=== PATIENT | female | born 1940 | race Caucasian/White ===

== ENCOUNTER → 2020-10-21 08:39 | Outpatient (CLI) | payer MEDICARE, OTHER, SELFPAY ==
[2020-10-21] MEDS: COVID-19 VACC #1, MRNA(MOD) 100 MCG/0.5 ML VIAL IM (08:47)
== END ==
PROVIDERS: Visit Provider Internal Medicine
DX: Z23 Encounter for immunization (principal)
CPT/HCPCS: 0011A; 91301

== ENCOUNTER → 2020-11-18 08:37 | Outpatient (CLI) | payer MEDICARE, OTHER, SELFPAY ==
[2020-11-18] MEDS: COVID-19 VACC #2, MRNA(MOD) 100 MCG/0.5 ML VIAL IM (08:43)
== END ==
PROVIDERS: Visit Provider Internal Medicine
DX: Z23 Encounter for immunization (principal)
CPT/HCPCS: 0012A; 91301

== ENCOUNTER 2021-08-12 10:45 | Emergency (ER) | payer MEDICARE, OTHER, SELFPAY ==
[2021-08-12 10:53] VITALS: BP 200/88; PULSE 80; RESP 22; TEMP 36.7; O2SAT 97; BMI 30.9
--- NOTE | 2021-08-12 12:26 | ED.EXTPRO ---
HPI - Extremity Problem General Chief complaint: Extremity Problem,Nontraumatic Stated complaint: Lump/pain on lt leg, worried about blood clot Time Seen by Provider: 08/12/21 11:39 Source: patient Mode of arrival: Ambulatory Limitations: no limitations History of Present Illness HPI Narrative: The patient noticed swelling in her anterior left lower leg this morning when showering. The swelling has since then decreased. There is no erythema or drainage from the site. She denies recent injury. She has left knee osteoarthritis. She is concerned about some relationship to her knee. Her friends convinced her to be seen for concern of DVT. She has no calf pain, or lower extremity edema. She has no right leg swelling. She has no history of DVT or PE. She denies chest pain, dyspnea, or hemoptysis. The site of swelling has never been nose before. She has no rash or obvious lesion at the site. Related Data Allergies Allergy/AdvReac Type Severity Reaction Status Date / Time No Known Drug Allergies Allergy Verified 08/12/21 10:53 Review of Systems Review of Systems ROS Unobtainable: All systems reviewed & are unremarkable except as noted in HPI and below Patient History Social History Smoking Status: Never smoker Smoking Status: Never smoker Substance Use Type: does not use Exam Initial Vital Signs Initial Vital Signs: Vital Signs Temperature 98.0 F 08/12/21 10:53 Pulse Rate 80 08/12/21 10:53 Respiratory Rate 22 08/12/21 10:53 Blood Pressure 200/88 H 08/12/21 10:53 Pulse Oximetry 97 08/12/21 10:53 Const General: cooperative, healthy appearing and comfortable Skin Other: There is a slightly raised area in the left distal anterior medial tibia area. There is no erythema or warmth. The area appears to be thickened 4 x 3 cm area. In the center of this area there appears to be a small duct. There is no calf tenderness, Homans sign is negative. There is no asymmetry edema to the left lower extremity. Left dorsalis pedis pulses normal. Superficial varicose veins are noted. The varicose vein it is do not seem to be an issue. Neuro General: patient alert, patient awake, patient oriented x3 and no focal motor deficits Course Orders Ordered: ED Orders 08/12/21 10:58 US periph venous low extrem lt Stat Vital Signs Vital signs: Vital Signs - 8 hr 08/12/21 10:53 Temperature 98.0 F Pulse Rate 80 Respiratory Rate 22 Blood Pressure 200/88 H Pulse Oximetry 97 Discharge Plan Departure Patient Disposition: Home Clinical Impression: Sebaceous cyst Instructions: Epidermal Cyst Activity Restrictions/Additional Instructions: The structure on your left leg is likely a sebaceous cyst. The finding is in the anterior leg. DVTs create posterior leg pain pain and swelling. The source of swelling seems to be obvious. Your concern for DVT is anatomically inaccurate. Consider talking your doctor about a dermatology consult. If you develop persistent pain swelling or redness and tenderness to the site return here.
--- NOTE | 2021-08-12 12:47 | PC.NURSE ---
Pt appears anxious, states she has a machine and takes her blood pressure at home and they are not elevated, she speaks to her doctor about blood pressures and was instructed to follow up in-person in 6 months concerning them. Agrees to call her doctor again to follow up about ER readings, denies any dizziness or headaches.
[2021-08-12 12:50] VITALS: BP 200/93; PULSE 86; RESP 15; O2SAT 99
== END 2021-08-12 12:50 | disposition home or self-care (01) ==
PROVIDERS: Emergency Provider Emergency Medicine
DX: L72.3 Sebaceous cyst (principal)
CPT/HCPCS: 99281

== ENCOUNTER → 2022-11-07 14:54 | Outpatient (CLI) | payer MEDICARE, OTHER, SELFPAY ==
--- NOTE | 2022-11-07 14:57 | DI.RAD.S_ITS ---
PROCEDURE: XR HAND RT MIN 3V INDICATIONS: Bilateral hand pain and swelling TECHNIQUE: 3 views of the hand acquired. COMPARISON: None. FINDINGS: Bones: No acute fractures or dislocations. Carpal bones are normally aligned. No suspicious bony lesions. Ycrj-hq-[id number] degenerative changes are seen at the 1st carpometacarpal joint as well as the 1st metacarpophalangeal joint and throughout the interphalangeal joints of the fingers and thumb at pattern most compatible with osteoarthrosis. No focal osseous erosion is seen. There is mild generalized osteopenia. Soft tissues: No suspicious soft tissue calcifications. IMPRESSION: Qpuy-cl-vggkvzzj osteoarthrosis. Approved by: Joss Perez M.D. on 11/07/2022 at 16:56
--- NOTE | 2022-11-07 14:57 | DI.RAD.S_ITS ---
PROCEDURE: XR HAND LT MIN 3V INDICATIONS: Bilateral hand pain and swelling TECHNIQUE: Three views of the hand acquired. COMPARISON: None. FINDINGS: Bones: No acute fractures or dislocations. Carpal bones are normally aligned. No suspicious bony lesions. Mild generalized osteopenia. Moderate to severe degenerative changes are seen at the 1st carpometacarpal joint with subchondral sclerosis and marginal osteophyte formation. Mild to moderate scattered degenerative changes are seen at the 1st metacarpophalangeal joint and throughout the interphalangeal joints of the fingers. No definite osseous erosion is seen. Soft tissues: No suspicious soft tissue calcifications. Mild nonspecific soft tissue edema surrounding the wrist. IMPRESSION: Moderate to severe 1st carpometacarpal joint osteoarthrosis. Additional mild scattered degenerative changes throughout the hand. Approved by: Joss Perez M.D. on 11/07/2022 at 16:57
== END ==
PROVIDERS: Referring Provider Nurse Practitioner Family; Visit Provider Nurse Practitioner Family
DX: M18.12 Unilateral primary osteoarthritis of first carpometacarpal joint, left hand (principal); M19.041 Primary osteoarthritis, right hand; M25.441 Effusion, right hand; M25.442 Effusion, left hand
CPT/HCPCS: 73130

== ENCOUNTER → 2023-07-01 10:40 | Outpatient (CLI) | payer MEDICARE, OTHER, SELFPAY ==
[2023-07-01 11:09] LABS: Add Manual Diff / Slide Review NO; Basophils Absolute Auto 100 /uL (0-100); Basophils Percent Auto 1.2 % (0-2); Eosinophils Absolute Auto 600 /uL (0-450); Eosinophils Percent Auto 8.9 % (2-4); Hematocrit 35.4 % (36-46); Lymphocytes Absolute Auto 1400 /uL (1100-4500); Lymphocytes Percent Auto 21.7 % (25-40); Mean Corpuscular HGB Conc 33.9 % (30-36); Mean Corpuscular Hemoglobin 29.3 PG (26-34); Mean Corpuscular Volume 86.2 fL (80-100); Monocytes Absolute Auto 700 /uL (0-900); Monocytes Percent Auto 11.2 % (3-14); Neutrophils Absolute Auto 3700 /uL (1500-7000); Platelet Count 214 X10^3/uL (150-400); Red Blood Cell Count 4.11 X10^6/uL (4.0-5.2); Red Cell Distribution Width 13.5 % (11.6-14.8); White Blood Cell Count 6.4 X10^3/uL (4.5-11.0)
[2023-07-01 11:32] LABS: Alanine Aminotransferase 25 IU/L (<35); Albumin 3.9 g/dL (3.5-5.0); Albumin Globulin Ratio 1.7 (1.0-2.8); Alkaline Phosphatase 73 U/L (38-126); Aspartate Aminotransferase 26 IU/L (14-36); Bilirubin Total 0.5 mg/dL (0.2-1.3); Blood Urea Nitrogen 17 mg/dL (7-17); C-Reactive Protein Quant 0.8 mg/dL (<1.0); Calcium 9.7 mg/dL (8.4-10.2); Carbon Dioxide 26 mmol/L (22-32); Chloride 104 mmol/L (98-107); Estimated Glomerular Filt Rate 52 mL/min (>60); Globulin 2.3 g/dL (1.7-4.1); Glucose 105 mg/dL (80-110); HEMOLYSIS < 15 (0-50); Potassium 4.1 mmol/L (3.4-5.1); Sodium 137 mmol/L (137-145); Total Protein 6.2 g/dL (6.3-8.2)
[2023-07-01 12:10] LABS: Erythrocyte Sedimentation Rate 28 MM/HR (0-20)
== END ==
PROVIDERS: Referring Provider Physician Assistant Medical; Visit Provider Physician Assistant Medical
DX: M06.9 Rheumatoid arthritis, unspecified (principal)
CPT/HCPCS: 36415; 80053; 85025; 85651; 86140

== ENCOUNTER → 2023-08-08 15:22 | Outpatient (CLI) | payer MEDICARE, OTHER, SELFPAY ==
--- NOTE | 2023-08-08 15:24 | DI.RAD.S_ITS ---
PROCEDURE: XR LUMBAR SPINE 2-3V INDICATIONS: Lumbar pain TECHNIQUE: 3 views of the lumbar spine were acquired. COMPARISON: None. FINDINGS: Bones: 5 dvy-vow-wyayshd vertebrae are present. There is normal bony alignment. No vertebral body compression fractures. No suspicious bony lesions. Moderate degenerative disc changes throughout the lumbar spine. Moderate L3-L4, L4-L5 and L5-S1 facet arthropathy. Mild L2-L3 facet arthropathy. Soft tissues: Overlying bowel gas pattern is normal. No suspicious soft tissue calcifications. IMPRESSION: Multilevel degenerative disc disease. Multilevel facet arthropathy. No fracture. No acute osseous lesion. If symptoms and/or clinical suspicion for pathology persists, evaluation with MRI should be considered for further assessment. Dictated by: Miryam Roy MD, PhD on 08/08/2023 at 15:54 Approved by: Miryam Roy MD, PhD on 08/08/2023 at 15:54
== END ==
PROVIDERS: Referring Provider Nurse Practitioner Family; Visit Provider Nurse Practitioner Family
DX: M47.816 Spondylosis without myelopathy or radiculopathy, lumbar region (principal); M47.817 Spondylosis without myelopathy or radiculopathy, lumbosacral region; M51.36 Other intervertebral disc degeneration, lumbar region; M54.50 Low back pain, unspecified
CPT/HCPCS: 72100

== ENCOUNTER → 2023-10-08 12:38 | Outpatient (CLI) | payer MEDICARE, OTHER, SELFPAY ==
[2023-10-08 15:28] LABS: Add Manual Diff / Slide Review NO; Basophils Absolute Auto 100 /uL (0-100); Basophils Percent Auto 1.2 % (0-2); Eosinophils Absolute Auto 400 /uL (0-450); Eosinophils Percent Auto 6.2 % (2-4); Hemoglobin 12.5 g/dL (12.0-16.0); Lymphocytes Absolute Auto 1600 /uL (1100-4500); Lymphocytes Percent Auto 25.1 % (25-40); Mean Corpuscular HGB Conc 33.7 % (30-36); Mean Corpuscular Hemoglobin 29.1 PG (26-34); Mean Corpuscular Volume 86.4 fL (80-100); Monocytes Absolute Auto 800 /uL (0-900); Monocytes Percent Auto 11.9 % (3-14); Neutrophils Absolute Auto 3600 /uL (1500-7000); Neutrophils Percent Auto 55.6 % (50-75); Platelet Count 253 X10^3/uL (150-400); Red Blood Cell Count 4.29 X10^6/uL (4.0-5.2); Red Cell Distribution Width 13.6 % (11.6-14.8); White Blood Cell Count 6.6 X10^3/uL (4.5-11.0)
[2023-10-08 16:09] LABS: Erythrocyte Sedimentation Rate 21 MM/HR (0-20)
[2023-10-08 16:39] LABS: Alanine Aminotransferase 37 IU/L (<35); Albumin 4.3 g/dL (3.5-5.0); Albumin Globulin Ratio 1.7 (1.0-2.8); Alkaline Phosphatase 69 U/L (38-126); Aspartate Aminotransferase 34 IU/L (14-36); BUN Creatinine Ratio 14.4 (6-22); Bilirubin Total 0.6 mg/dL (0.2-1.3); Blood Urea Nitrogen 16 mg/dL (7-17); C-Reactive Protein Quant < 0.5 mg/dL (<1.0); Calcium 10.2 mg/dL (8.4-10.2); Carbon Dioxide 28 mmol/L (22-32); Chloride 100 mmol/L (98-107); Estimated Glomerular Filt Rate 49 mL/min (>60); Globulin 2.5 g/dL (1.7-4.1); Glucose 100 mg/dL (80-110); HEMOLYSIS < 15 (0-50); Sodium 135 mmol/L (137-145); Total Protein 6.8 g/dL (6.3-8.2)
== END ==
LOC: LAB 12:40
PROVIDERS: Referring Provider Physician Assistant Medical; Visit Provider Physician Assistant Medical
DX: M06.09 Rheumatoid arthritis without rheumatoid factor, multiple sites (principal)
CPT/HCPCS: 36415; 80053; 85025; 85651; 86140

== ENCOUNTER → 2023-11-12 09:43 | Outpatient (CLI) | payer MEDICARE, OTHER, SELFPAY ==
[2023-11-12 10:57] LABS: Hemoglobin A1C% w Est Avg Glu 5.3 % (4.0-6.0)
[2023-11-12 11:05] LABS: Alanine Aminotransferase 31 IU/L (<35); Albumin 4.1 g/dL (3.5-5.0); Albumin Globulin Ratio 1.7 (1.0-2.8); Alkaline Phosphatase 67 U/L (38-126); Aspartate Aminotransferase 29 IU/L (14-36); BUN Creatinine Ratio 16.5 (6-22); Bilirubin Total 0.6 mg/dL (0.2-1.3); Blood Urea Nitrogen 18 mg/dL (7-17); Calcium 9.7 mg/dL (8.4-10.2); Carbon Dioxide 27 mmol/L (22-32); Chloride 104 mmol/L (98-107); Estimated Glomerular Filt Rate 50 mL/min (>60); Globulin 2.4 g/dL (1.7-4.1); Glucose 111 mg/dL (80-110); HEMOLYSIS < 15 (0-50); Potassium 4.1 mmol/L (3.4-5.1); Sodium 139 mmol/L (137-145); Total Protein 6.5 g/dL (6.3-8.2)
[2023-11-12 11:15] LABS: Vitamin D 25 Hydroxy (D3) 81.9 ng/mL (30.0-100.0)
[2023-11-12 11:31] LABS: Thyroid Stimulating Hormone 1.16 uIU/mL (0.47-4.68)
[2023-11-12 12:09] LABS: Folate > 20.0 ng/mL (2.76-20.0); Vitamin B12 Reflex MMA if <400 682 pg/mL (239-931)
== END ==
PROVIDERS: PCP Family Medicine; Referring Provider Family Medicine; Visit Provider Family Medicine
DX: E66.9 Obesity, unspecified (principal); R94.4 Abnormal results of kidney function studies; R20.0 Anesthesia of skin; Z78.0 Asymptomatic menopausal state; R20.2 Paresthesia of skin
CPT/HCPCS: 36415; 80053; 82306; 82607; 82746; 83036; 83735; 84443

== ENCOUNTER 2023-11-13 08:15 | Outpatient (RCR) | payer MEDICARE, OTHER, SELFPAY ==
--- NOTE | 2023-09-18 15:57 | PT.OIE ---
Current Diagnoses Low back pain, unspecified (09/18/23) Weakness (09/18/23) Visit Care Team Role Provider Type BLADE Peterson Attending Provider Advanced Product Marketing Executive Primary Care Provider Referring Provider Specialty: Family Practice Address: [facility] [place], [address] Phone: Fax: Email: [email or web address] [facility] Initial Evaluation PT-OP-A Visit Information Start: 09/18/23 10:31 Freq: Status: Active Protocol: Document 09/18/23 10:32 NM (Rec: 09/18/23 11:33 NM [id number]) Out-Patient Physical Therapy Visit Information Visit Information Visit Type Initial Evaluation Visit Note KX modifier after 19th visit/ yr Visit Start Time 10:30 Visit Stop Time 11:15 Total Visit Minutes 45 Visit Number 1 Evaluation Information Evaluation Date 09/18/23 PT-OP-B Current Condition Start: 09/18/23 10:31 Freq: Status: Active Protocol: Document 09/18/23 10:32 NM (Rec: 09/18/23 11:33 NM [id number]) Current Condition History of Current Condition Onset Date Fall 2022 Current Complaints low back pain, R leg pain History of Current Condition Pt presents with low back pain that radiates into her RLE. The pain is along the right- center of her spine and radiates along her posterior and lateral RLE. Pt also reports numbness in her R foot , but no tingling. She reports that the low back pain began during the fall 2022 (unable to report exact month); there is no known mechanism of injury. When she went to the walk-in clinic in July, she was dx with sciatica. Pt has a PMH of OA, RA, polymyalgia rheumatica beginning 1.5 years ago. She also has had several rounds of prednisone injections. She has no previous back injuries. Her last fall was >1 yr ago when she slipped on her outdoor mat. Her primary complaints are limitated ability to perform ADLs, lifting, stooping, standing or sitting for extended periods, and difficulty sleeping due to pain. Prior Treatments and Tests Radiographs: 08/15- multilevel degenerative disc disease and facet arthopathy Treatment Goals Patient/Caregiver Goals To decrease her low back pain Prior Functional Status Baseline Function- ADL's Independent Baseline Function- Mobility Independent Current Functional Impairments (Reported) Functional Limitations- ADL's Difficulty with ADLs, lifting, picking up objects from floor , standing > 10 min, sitting > 30 min Functional Limitations- Mobility/Gait Limited to 1/2 mi ambulation when ambulating with her dog Functional Limitations- Other Unable to sleep > 2 hr PT-OP-C Subjective Start: 09/18/23 10:31 Freq: Status: Active Protocol: Document 09/18/23 10:32 NM (Rec: 09/18/23 11:33 NM [id number]) OP-PT Subjective Patient Comments Patient Comments See hx above for pt report Patient Questionnaires Oswestry Low Back Index Oswestry Score 28/50 OP-PT Pain Assessment Pain Assessment Grid Paper Pain Assessment Grid Completed Yes Location R leg Pain Location Details posterior leg to foot, lateral femur near greater trochanter , lateral glute Intensity 5 Scale Used Numeric (0 - 10) Description Burning Frequency Daily Pain Duration constant Pain Aggravating Factors ADL's,Activity,Exercise, Standing,Sitting,Walking, Lifting Pain Alleviating Factors Cold,Heat,Rest Other Pain Alleviating Factors CBD cream at night before bed Lumbar Spine Pain Location Details Midline in band pattern, R SI joint Intensity 7 Scale Used Numeric (0 - 10) Description Aching,Dull Frequency Constant Radiating Location RLE posteriorly and laterally Pain Aggravating Factors ADL's,Activity,Exercise, Standing,Sitting,Walking, Bending,Lifting Pain Alleviating Factors Cold,Heat,Rest Other Pain Alleviating Factors CBD cream at night before bed Home Pain Medication Use Pain Medications Used Yes: arthritis medication (pt does not know name), CBD cream Home Pain Medication Frequency Daily Pain Behaviors Pain Behaviors Facial Grimacing,Guarding, Holding Area,Wincing PT-OP-D Balance Start: 09/18/23 10:31 Freq: Status: Active Protocol: Document 09/18/23 10:32 NM (Rec: 09/18/23 11:33 NM [id number]) OP-PT Balance Assessment Sitting Balance Static Sitting Balance Ability Normal Dynamic Sitting Balance Ability Normal Tinetti Balance Assessment Sitting Balance Sitting Balance Steady, safe Arising from Chair Ability to Arise Able, w/o using arms Attempts to Arise Arises on 1st attempt Standing Balance Immediate Standing Balance Steady w/o support Standing Balance Narrow stance w/o support Nudged Response Staggers, catches self Standing with Eyes Closed Unsteady Turning Step Pattern Turning 360 Degrees Continuous steps Stability Turning 360 Degrees Steady Sitting Down Sitting Down Uses arms or unsteady Gait and Step Initiation of Gait No hesitancy Right Foot Step Length Does pass stance foot Right Foot Step Height Completely clears floor Left Foot Step Length Does pass stance foot Left Foot Step Height Completely clears floor Step Description Step Symmetry Step length not equal Step Continuity Stopping or discontinuity Gait Description Path Description Straight Trunk Description Marked sway or uses aide Walking Stance Heels apart Scoring and Interpretation Tinetti Composite Score (points) 20 Interpretation of Scores At risk for falls (19-24) Colon Fall Scale Copyright Permission PT-OP-E Functional Tests Start: 09/18/23 10:31 Freq: Status: Active Protocol: Document 09/18/23 10:32 NM (Rec: 09/18/23 11:33 NM [id number]) Functional Tests Five Times Sit to Stand Test Score 9.42 sec Comments reports pain with eccentric lowering Other Standing Trunk Flexion to Floor Name of Test standing with legs ext, reach twd floor, measure from floor to fingers Score 10 from floor Comment reproduces low back pain with trunk flexion PT-OP-F Manual Assessment Start: 09/18/23 10:31 Freq: Status: Active Protocol: Document 09/18/23 10:32 NM (Rec: 09/18/23 11:33 NM [id number]) Manual Assessments Soft Tissue Assessment Soft Tissue Mobility Assessment Minimal soft tissue restriction along lumbar spine paraspinals especially along quadratus lumborum, erector spinae. Tenderness along R piriformis, gluteals and at greater trochanter. No palpable bursa at greater trochanter. Joint Mobility Assessment Joint Mobility Assessment Decreased hip flex, abd ROM with slight observable limitations in IR/ER ROM. Hip flex, ext, abd reproduces pain in lumbar spine and R lateral hip. P/A mobilizations are painful at L5-S2, along R sacral border. PT-OP-G Mobility & Gait Start: 09/18/23 10:31 Freq: Status: Active Protocol: Document 09/18/23 10:32 NM (Rec: 09/18/23 11:33 NM [id number]) OP Gait Assessment Gait Gait Assistance Required: Independent Distance (Feet) 100 Gait Deviations General Gait Pattern Antalgic,Decreased Stride Length,Lateral Trunk Lean Factors Limiting Gait Function Factors Limiting Gait Function Decreased Sensation,Decreased Strength,Limited Range of Motion,Pain,Poor Balance Comments Gait Comments Decreased weight acceptance RLE PT-OP-H Neuro Start: 12/27/23 10:31 Freq: Status: Active Protocol: Document 09/18/23 10:32 NM (Rec: 09/18/23 11:33 NM [id number]) Sensation Evaluation Gross Sensation Gross Sensation Right LE Impaired Comments Summary Comments Pt reports that R foot decreased feeling of light touch sensation along dorsal surface of foot compared to L foot. Deep Tendon Reflex & Clonus Assessment Deep Tendon Reflex Left Patellar Deep Tendon Reflex 2+ Normal Right Patellar Deep Tendon Reflex 2+ Normal PT-OP-J Posture/Palpation/Skin Start: 09/18/23 10:31 Freq: Status: Active Protocol: Document 09/18/23 10:32 NM (Rec: 09/18/23 11:33 NM [id number]) Posture Evaluation Position Standing Evaluation View Lateral Head/C-Spine Posture Forward Head T-Spine Posture Increased Kyphosis L-Spine Posture Increased Lordosis,Shifted Left Pelvis Posture Anteriorly Tilted Weight Distribution Weight Shifted Left,Decreased Wt.Bear on (R) Hip Posture (L) Externally Rotated,(R) Externally Rotated Palpation Assessment Location R hip Palpation Location greater trochanter Palpation Findings Muscle Guarding,Tenderness Palpation Details Tenderness to palpation along greater trochanter and along posterior thigh near proximal hamstring. No palpable bursa, only tenderness Lumbar Spine Palpation Location T12-L5, S1-S2, Sacral borders, gluteals, erector spinae Palpation Findings Soft Tissue Tightness,Muscle Guarding,Tenderness Palpation Details Min soft tissue tightness but demos muscle guarding and reports tenderness at R gluteal muscles (fabby piriformis). R mid-sacral border is most tender of all palpated areas (no increase in pain at sacral bases or ILAs) PT-OP-K Range of Motion Start: 09/18/23 10:31 Freq: Status: Active Protocol: Document 09/18/23 10:32 NM (Rec: 09/18/23 11:33 NM [id number]) Lumbar Spine Range of Motion Lumbar Spine Active Degrees Testing Position Standing Flexion 20 Extension 10 Lateral Flexion Left 25 Lateral Flexion Right 10 Comments Pain reported with flexion ( mod pain). Pain reported in R lumbar spine with B lateral flexion Will formally assess rotation in next session (limited due to time) Hip Goniometric Range of Motion Hip Left Flexion w/Knee Flexed 105 Abduction 20 Comments Will formally assess hip ER/IR , hamstring length in next session (due to time) Right Testing Position Supine Flexion w/Knee Flexed 90 Abduction 20 Comments Will formally assess hip ER/IR , hamstring length in next session (due to time) Hip ROM Limitations Hip ROM Limitations Soft Tissue Tightness,Muscle Weakness,Pain Comments Pain reported with hip flexion at 90 deg PT-OP-L Special Tests Start: 09/18/23 10:31 Freq: Status: Active Protocol: Document 09/18/23 10:32 NM (Rec: 09/18/23 11:33 NM [id number]) Special Tests Lumbar Spine Special Tests SIJ Posterior Distraction Test Results negative (R) Comments does not reproduce lumbar spine, SIJ, or hip pain SIJ Anterior Gapping Test Results negative (B) Comments does not reproduce lumbar spine, SIJ, or hip pain Emerson/compression Test Results positive (R) Comments local pain reported R lumbar spine Straight Leg Raise Test Results positive (R) Comments reproduces low back pain, symptoms posterior RLE Distraction Test Results negative Comments does not report symptom relief Slump Test Results positive (B) Comments reports worse symptoms RLE with cervical ext PT-OP-M Strength Start: 09/18/23 10:31 Freq: Status: Active Protocol: Document 09/18/23 10:32 NM (Rec: 09/18/23 11:33 NM [id number]) Trunk Strength Trunk Manual Muscle Testing Testing Position supine, sitting Flexion 3 Fair Extension 3 Fair Rotation Left 4+ Good+ Rotation Right 4- Good- Lateral Flexion Left 4- Good- Lateral Flexion Right 4- Good- Comments Resisted R rotation, B lateral flexion reproduces pain in R lumbar spine and hip Hip Strength Hip Manual Muscle Testing Left Flexion (L2) 4 Good Extension (S1) 4 Good Abduction 4 Good External Rotation 4 Good Internal Rotation 4 Good Comments Resisted motions do not reproduce pain Right Flexion (L2) 4- Good- Extension (S1) 3+ Fair+ Abduction 3+ Fair+ External Rotation 4- Good- Internal Rotation 4- Good- Comments Reports low back pain and hip pain with flex, ext, abd Knee Strength Knee Manual Muscle Testing Left Flexion (S2) 4+ Good+ Extension (L3) 4+ Good+ Comments does not reproduced pain with resisted motions Right Flexion (S2) 4- Good- Comments Reproduces low back and hip pain PT-OP-T Assessment and Plan Start: 09/18/23 10:31 Freq: Status: Active Protocol: Document 09/18/23 10:32 NM (Rec: 09/18/23 11:33 NM [id number]) Physical Therapy Assessment Rehab Potential Rehabilitation Potential Good Evaluation Complexity Number of Personal Factors/Comorbidities 3 or More Number of Body Systems Impaired 3 Clinical Presentation at Evaluation Stable Impairments Impairments Activity Tolerance,Balance, Edema,Functional Activities, Functional Mobility,Gait, Integument,Pain,Posture,ROM, Sensation,Soft Tissue Mobility ,Strength,Transfers Goals Seven Impairment strength Impairment Trunk strength flex/ext 3/5, B lateral flex strength 4-/5 Short Term Goal (STG) Pt will increase global trunk strength by at least 1 MMT grade ea in order to demonstrate improved trunk strength and core stabilization needed for ADLs. STG Duration 4 weeks Flight Crew Scheduler Goal (LTG) Pt will increase global trunk strength by at least 2 MMT grades ea in order to demonstrate improved trunk strength and core stabilization needed for ADLs. LTG Duration 8 weeks Six Impairment balance, function Impairment Tinetti score: Short Term Goal (STG) Pt will improve Tinetti score by at least 2 points to demonstrate improved balance during ambulation and ADLs. STG Duration 4 weeks Flight Crew Scheduler Goal (LTG) Pt will improve Tinetti score by at least 4 points (low fall risk category) to demonstrate improved balance during ambulation and ADLs. LTG Duration 8 weeks Five Impairment 5x STS 9.42 sec with pain on eccentric lowering Flight Crew Scheduler Goal (LTG) Pt will perform 5x STS <10 seconds with reported pain of 5/10 or less with eccentric lowering into chair to demonstrate improved tolerance for spinal flexion. LTG Duration 8 weeks Four Impairment Strength Impairment R hip ext and abd strength 3+/ 5 MMT Short Term Goal (STG) Pt will increase R hip ext/abd to at least 4/5 in order to demonstrate improved strength needed for ambulation and ADLs . STG Duration 4 weeks Intermediate Goal (LTG) Pt will increase R hip ext/abd to at least 4+/5 in order to demonstrate improved strength needed for ambulation and ADLs . LTG Duration 8 weeks Three Impairment Strength Impairment R hip strength flex/IR/ER 4-/5 MMT Short Term Goal (STG) Pt will increase R hip flex/ER /IR strength to at least 4/5 in order to demonstrate improved strength needed for ambulation and ADLs. STG Duration 4 weeks Flight Crew Scheduler Goal (LTG) Pt will increase R hip flex/IR /ER strength to at least 4+/5 in order to demonstrate improved strength needed for ambulation and ADLs. LTG Duration 8 weeks Two Impairment ROM Impairment Trunk flexion AROM 20 deg (10 fwd reach test) Short Term Goal (STG) Pt will increase trunk flexion AROM by at least 10 deg in order to demonstrate improved ability to bulk picker objects from floor for better ADL tolerance. STG Duration 4 weeks Intermediate Goal (LTG) Pt will increase trunk flexion AROM by at least 20 deg in order to demonstrate improved ability to bulk picker objects from floor for better ADL tolerance. LTG Duration 8 weeks One Impairment function Impairment Oswestry: Short Term Goal (STG) Pt will decrease Oswestry score by at least 6 points in order to demonstrate improved ADL tolerance and QOL. STG Duration 4 weeks Intermediate Goal (LTG) Pt will decrease Oswestry score by at least 13 points (1 MCID) in order to demonstrate improved ADL tolerance and QOL. LTG Duration 8 weeks Assessment Summary Assessment Pt is an 83 y.o. female presenting with low back pain with a burning radiation into RLE (hip) and R foot numbness beginning several months ago. She demos decreased trunk ROM, especially into flexion which reproduces her pain, R>L. Pt also has decreased R hip flex/ abd ROM with weakness in flexion/ext/abduction. Pain is reproducible with resisted trunk/R hip motion and upon palpation of the gluteal muscles, lower lumbar spine, R SI joint border, and R greater trochanter. Pt has positive R sciatic neural tension tests and negative SIJ tests. Due to limitations in time, PT will continue assessing R hip in next session to rule out further involvement. Symptoms are likely related to lumbar spine . Pt reports limited ADL performance and significant PMH. Pt would benefit from skilled PT to address limitations in trunk strength and mobility, B hip strength and mobility, soft tissue restrictions, gait, and balance in order to decrease symptoms, improve quality of life, and return to PLOF. Physical Therapy Plan Frequency and Duration Frequency of Treatment 2x/Week Duration of treatment (weeks) 8 Plan of Care Start Date 09/18/23 Plan of Care End Date 11/13/23 Therapeutic Interventions Therapeutic Interventions Balance Training,Gait Training ,Home Exercise Program,Joint Mobilizations,Lymphedema Management,Manual Therapy, Neuromuscular Re-education, Orthotic/Prosthetic Management ,Patient/Caregiver Education, Self-Care/Home Management, Sensory Integration,Soft Tissue Mobilization,Taping, Therapeutic Activities, Therapeutic Exercises Modalities Biofeedback,Cold Pack/Ice Massage,Electric Stimulation, Hot Packs,Infrared Therapy, Iontophoresis,Ultrasound, Vasopneumatic Devices Next Visit Focus/Plan Next Note Type Treatment Note Next Visit Plan Traction, LTR, stretch, gentle ER stretch, nerve glide Trial extension exercises in prone(maybe modify with pillow ) Take hip and trunk rotation ROM Soft tissue mobilization
--- NOTE | 2023-09-20 14:25 | PT.OTN ---
Current Diagnoses Low back pain, unspecified (09/20/23) Weakness (09/20/23) Physical Therapy Treatment Note PT-OP-A Visit Information Start: 09/18/23 10:31 Freq: Status: Active Protocol: Document 09/20/23 13:06 NM (Rec: 09/20/23 14:12 NM [id number]) Out-Patient Physical Therapy Visit Information Visit Information Visit Type Treatment Note Visit Note KX modifier after 19th visit/ yr Visit Start Time 13:00 Visit Stop Time 13:45 Total Visit Minutes 45 Visit Number 2 Evaluation Information Evaluation Date 09/18/23 PT-OP-B Current Condition Start: 09/18/23 10:31 Freq: Status: Active Protocol: Document 09/18/23 10:32 NM (Rec: 09/18/23 11:33 NM [id number]) Current Condition History of Current Condition Onset Date Fall 2022 Current Complaints low back pain, R leg pain History of Current Condition Pt presents with low back pain that radiates into her RLE. The pain is along the right- center of her spine and radiates along her posterior and lateral RLE. Pt also reports numbness in her R foot , but no tingling. She reports that the low back pain began during the fall 2022 (unable to report exact month); there is no known mechanism of injury. When she went to the walk-in clinic in July, she was dx with sciatica. Pt has a PMH of OA, RA, polymyalgia rheumatica beginning 1.5 years ago. She also has had several rounds of prednisone injections. She has no previous back injuries. Her last fall was >1 yr ago when she slipped on her outdoor mat. Her primary complaints are limitated ability to perform ADLs, lifting, stooping, standing or sitting for extended periods, and difficulty sleeping due to pain. Prior Treatments and Tests Radiographs: 08/15- multilevel degenerative disc disease and facet arthopathy Treatment Goals Patient/Caregiver Goals To decrease her low back pain Prior Functional Status Baseline Function- ADL's Independent Baseline Function- Mobility Independent Current Functional Impairments (Reported) Functional Limitations- ADL's Difficulty with ADLs, lifting, picking up objects from floor , standing > 10 min, sitting > 30 min Functional Limitations- Mobility/Gait Limited to 1/2 mi ambulation when ambulating with her dog Functional Limitations- Other Unable to sleep > 2 hr PT-OP-C Subjective Start: 09/18/23 10:31 Freq: Status: Active Protocol: Document 09/20/23 13:06 NM (Rec: 09/20/23 14:12 NM [id number]) OP-PT Subjective Patient Comments Patient Comments Pt reports no low back pain, but her RLE posterior and lateral hip pain 6/10. She reports that her R foot was burning while driving to session today. She mixed up the time, so arrive early. She also reports soreness after IE. PT-OP-D Balance Start: 09/18/23 10:31 Freq: Status: Active Protocol: Document 09/18/23 10:32 NM (Rec: 09/18/23 11:33 NM [id number]) OP-PT Balance Assessment Sitting Balance Static Sitting Balance Ability Normal Dynamic Sitting Balance Ability Normal Tinetti Balance Assessment Sitting Balance Sitting Balance Steady, safe Arising from Chair Ability to Arise Able, w/o using arms Attempts to Arise Arises on 1st attempt Standing Balance Immediate Standing Balance Steady w/o support Standing Balance Narrow stance w/o support Nudged Response Staggers, catches self Standing with Eyes Closed Unsteady Turning Step Pattern Turning 360 Degrees Continuous steps Stability Turning 360 Degrees Steady Sitting Down Sitting Down Uses arms or unsteady Gait and Step Initiation of Gait No hesitancy Right Foot Step Length Does pass stance foot Right Foot Step Height Completely clears floor Left Foot Step Length Does pass stance foot Left Foot Step Height Completely clears floor Step Description Step Symmetry Step length not equal Step Continuity Stopping or discontinuity Gait Description Path Description Straight Trunk Description Marked sway or uses aide Walking Stance Heels apart Scoring and Interpretation Tinetti Composite Score (points) 20 Interpretation of Scores At risk for falls (19-24) Colon Fall Scale Copyright Permission PT-OP-E Functional Tests Start: 09/18/23 10:31 Freq: Status: Active Protocol: Document 09/18/23 10:32 NM (Rec: 09/18/23 11:33 NM [id number]) Functional Tests Five Times Sit to Stand Test Score 9.42 sec Comments reports pain with eccentric lowering Other Standing Trunk Flexion to Floor Name of Test standing with legs ext, reach twd floor, measure from floor to fingers Score 10 from floor Comment reproduces low back pain with trunk flexion PT-OP-F Manual Assessment Start: 09/18/23 10:31 Freq: Status: Active Protocol: Document 09/18/23 10:32 NM (Rec: 09/18/23 11:33 NM [id number]) Manual Assessments Soft Tissue Assessment Soft Tissue Mobility Assessment Minimal soft tissue restriction along lumbar spine paraspinals especially along quadratus lumborum, erector spinae. Tenderness along R piriformis, gluteals and at greater trochanter. No palpable bursa at greater trochanter. Joint Mobility Assessment Joint Mobility Assessment Decreased hip flex, abd ROM with slight observable limitations in IR/ER ROM. Hip flex, ext, abd reproduces pain in lumbar spine and R lateral hip. P/A mobilizations are painful at L5-S2, along R sacral border. PT-OP-G Mobility & Gait Start: 09/18/23 10:31 Freq: Status: Active Protocol: Document 09/18/23 10:32 NM (Rec: 09/18/23 11:33 NM [id number]) OP Gait Assessment Gait Gait Assistance Required: Independent Distance (Feet) 100 Gait Deviations General Gait Pattern Antalgic,Decreased Stride Length,Lateral Trunk Lean Factors Limiting Gait Function Factors Limiting Gait Function Decreased Sensation,Decreased Strength,Limited Range of Motion,Pain,Poor Balance Comments Gait Comments Decreased weight acceptance RLE PT-OP-H Neuro Start: 09/18/23 10:31 Freq: Status: Active Protocol: Document 09/18/23 10:32 NM (Rec: 09/18/23 11:33 NM [id number]) Sensation Evaluation Gross Sensation Gross Sensation Right LE Impaired Comments Summary Comments Pt reports that R foot decreased feeling of light touch sensation along dorsal surface of foot compared to L foot. Deep Tendon Reflex & Clonus Assessment Deep Tendon Reflex Left Patellar Deep Tendon Reflex 2+ Normal Right Patellar Deep Tendon Reflex 2+ Normal PT-OP-J Posture/Palpation/Skin Start: 09/18/23 10:31 Freq: Status: Active Protocol: Document 09/18/23 10:32 NM (Rec: 09/18/23 11:33 NM [id number]) Posture Evaluation Position Standing Evaluation View Lateral Head/C-Spine Posture Forward Head T-Spine Posture Increased Kyphosis L-Spine Posture Increased Lordosis,Shifted Left Pelvis Posture Anteriorly Tilted Weight Distribution Weight Shifted Left,Decreased Wt.Bear on (R) Hip Posture (L) Externally Rotated,(R) Externally Rotated Palpation Assessment Location R hip Palpation Location greater trochanter Palpation Findings Muscle Guarding,Tenderness Palpation Details Tenderness to palpation along greater trochanter and along posterior thigh near proximal hamstring. No palpable bursa, only tenderness Lumbar Spine Palpation Location T12-L5, S1-S2, Sacral borders, gluteals, erector spinae Palpation Findings Soft Tissue Tightness,Muscle Guarding,Tenderness Palpation Details Min soft tissue tightness but demos muscle guarding and reports tenderness at R gluteal muscles (fabby piriformis). R mid-sacral border is most tender of all palpated areas (no increase in pain at sacral bases or ILAs) PT-OP-K Range of Motion Start: 09/18/23 10:31 Freq: Status: Active Protocol: Document 09/20/23 13:06 NM (Rec: 09/20/23 14:12 NM [id number]) Lumbar Spine Range of Motion Lumbar Spine Active Degrees Testing Position Standing Flexion 20 Extension 10 Rotation Left 10 Rotation Right 8 Lateral Flexion Left 25 Lateral Flexion Right 10 Comments Pain reported with flexion ( mod pain). Pain reported in R lumbar spine with B lateral flexion Rotation measured in cm. R hip pain with R rotation Hip Goniometric Range of Motion Hip Left Flexion w/Knee Flexed 105 Straight Leg Raise 142 Abduction 20 Internal Rotation 40 External Rotation 25 Right Testing Position Supine Flexion w/Knee Flexed 90 Straight Leg Raise 140 Abduction 20 Internal Rotation 28 External Rotation 25 PT-OP-L Special Tests Start: 09/18/23 10:31 Freq: Status: Active Protocol: Document 09/18/23 10:32 NM (Rec: 09/18/23 11:33 NM [id number]) Special Tests Lumbar Spine Special Tests SIJ Posterior Distraction Test Results negative (R) Comments does not reproduce lumbar spine, SIJ, or hip pain SIJ Anterior Gapping Test Results negative (B) Comments does not reproduce lumbar spine, SIJ, or hip pain Emerson/compression Test Results positive (R) Comments local pain reported R lumbar spine Straight Leg Raise Test Results positive (R) Comments reproduces low back pain, symptoms posterior RLE Distraction Test Results negative Comments does not report symptom relief Slump Test Results positive (B) Comments reports worse symptoms RLE with cervical ext PT-OP-M Strength Start: 09/18/23 10:31 Freq: Status: Active Protocol: Document 09/18/23 10:32 NM (Rec: 09/18/23 11:33 NM [id number]) Trunk Strength Trunk Manual Muscle Testing Testing Position supine, sitting Flexion 3 Fair Extension 3 Fair Rotation Left 4+ Good+ Rotation Right 4- Good- Lateral Flexion Left 4- Good- Lateral Flexion Right 4- Good- Comments Resisted R rotation, B lateral flexion reproduces pain in R lumbar spine and hip Hip Strength Hip Manual Muscle Testing Left Flexion (L2) 4 Good Extension (S1) 4 Good Abduction 4 Good External Rotation 4 Good Internal Rotation 4 Good Comments Resisted motions do not reproduce pain Right Flexion (L2) 4- Good- Extension (S1) 3+ Fair+ Abduction 3+ Fair+ External Rotation 4- Good- Internal Rotation 4- Good- Comments Reports low back pain and hip pain with flex, ext, abd Knee Strength Knee Manual Muscle Testing Left Flexion (S2) 4+ Good+ Extension (L3) 4+ Good+ Comments does not reproduced pain with resisted motions Right Flexion (S2) 4- Good- Comments Reproduces low back and hip pain PT-OP-Q Treatments Start: 09/18/23 10:31 Freq: Status: Active Protocol: Document 09/20/23 13:06 NM (Rec: 09/20/23 14:12 NM [id number]) Therapeutic Exercises Supine Exercises LTR Supine Exercise Name for gentle LS mobilization Side bilateral Reps/Minutes 2x30 Comments limited range with R rot due to hip pain; cues to keep hips on mat Core isometrics Supine Exercise Name 1. TA activation, 2. SB flex Side bilateral Equipment Used small blue iranian ball Reps/Minutes 1. 1x10x2; 2. 1x10 with 5 sec hold Comments poor isolation of TA, but improved with iranian ball flex; LS pain after x10 Bridge Supine Exercise Name segmental bridging Reps/Minutes 1x10, 1x10 with hip add (ball btwn knees) Comments cues for post pelvic tilt, weight through heels Prone Exercises Prone on elbows Prone Exercise Name prone on mat, elbows at 90 deg Side bilateral Reps/Minutes 2x1 min Comments reports low back pain after 2nd min prone lying Prone Exercise Name prone on mat, no pillows under hips Side bilateral Reps/Minutes 2 min Comments reports feels good with no pain or hip pain Manual Therapy Treatment Soft Tissue Mobilization R hip Body Location greater trochanter, proximal ITB Mobilization Type Rolling,Sustained Pressure Intensity/Depth Superficial Body Position prone, L sidelying Comments Pt most tender to palpation along R greater trochanter, proximal IT band. Superficial mobilization with rolling, min sustained pressure along ITB. Palpable knot (likely bursa ) today at greater trochanter. Lumbar spine Body Location R QL, gluteals, piriformis Mobilization Type Rolling,Strumming,Sustained Pressure Intensity/Depth Moderate Body Position Prone Comments Pt with mild spasms in R glutes and piriformis with palpation, decreased with sustained pressure. Tenderness in muscles above R SI Joint. Pt reports min symptom improvement with soft tissue mobilization. Performed mob with movement into R hip IR/ER with soft tissue of piriformis, 1x5 reps; aggravating to R lateral hip. Joint Mobilizations Lumbar spine Joint L1-L5, R SIJ border Direction P-A Grade I Body Position Prone Reps/Duration 1x10 ea Comments Grade I mobilization for pain reduction. Reports no symptoms along lumbar spine with mobilization. Min pain and tenderness along R SIJ, not increased with gentle grade I mobilization. PT-OP-T Assessment and Plan Start: 09/18/23 10:31 Freq: Status: Active Protocol: Document 09/20/23 13:06 NM (Rec: 09/20/23 14:12 NM [id number]) Physical Therapy Assessment Goals Seven Impairment strength Impairment Trunk strength flex/ext 3/5, B lateral flex strength 4-/5 Short Term Goal (STG) Pt will increase global trunk strength by at least 1 MMT grade ea in order to demonstrate improved trunk strength and core stabilization needed for ADLs. STG Duration 4 weeks Snf Goal (LTG) Pt will increase global trunk strength by at least 2 MMT grades ea in order to demonstrate improved trunk strength and core stabilization needed for ADLs. LTG Duration 8 weeks Six Impairment balance, function Impairment Tinetti score: 20/28 Short Term Goal (STG) Pt will improve Tinetti score by at least 2 points to demonstrate improved balance during ambulation and ADLs. STG Duration 4 weeks Snf Goal (LTG) Pt will improve Tinetti score by at least 4 points (low fall risk category) to demonstrate improved balance during ambulation and ADLs. LTG Duration 8 weeks Five Impairment 5x STS 9.42 sec with pain on eccentric lowering Chemical Preparer Goal (LTG) Pt will perform 5x STS <10 seconds with reported pain of 5/10 or less with eccentric lowering into chair to demonstrate improved tolerance for spinal flexion. LTG Duration 8 weeks Four Impairment Strength Impairment R hip ext and abd strength 3+/ 5 MMT Short Term Goal (STG) Pt will increase R hip ext/abd to at least 4/5 in order to demonstrate improved strength needed for ambulation and ADLs . STG Duration 4 weeks Chemical Preparer Goal (LTG) Pt will increase R hip ext/abd to at least 4+/5 in order to demonstrate improved strength needed for ambulation and ADLs . LTG Duration 8 weeks Three Impairment Strength Impairment R hip strength flex/IR/ER 4-/5 MMT Short Term Goal (STG) Pt will increase R hip flex/ER /IR strength to at least 4/5 in order to demonstrate improved strength needed for ambulation and ADLs. STG Duration 4 weeks Chemical Preparer Goal (LTG) Pt will increase R hip flex/IR /ER strength to at least 4+/5 in order to demonstrate improved strength needed for ambulation and ADLs. LTG Duration 8 weeks Two Impairment ROM Impairment Trunk flexion AROM 20 deg (10 fwd reach test) Short Term Goal (STG) Pt will increase trunk flexion AROM by at least 10 deg in order to demonstrate improved ability to cotton picker objects from floor for better ADL tolerance. STG Duration 4 weeks Snf Goal (LTG) Pt will increase trunk flexion AROM by at least 20 deg in order to demonstrate improved ability to cotton picker objects from floor for better ADL tolerance. LTG Duration 8 weeks One Impairment function Impairment Oswestry: 28/50 Short Term Goal (STG) Pt will decrease Oswestry score by at least 6 points in order to demonstrate improved ADL tolerance and QOL. STG Duration 4 weeks Snf Goal (LTG) Pt will decrease Oswestry score by at least 13 points (1 MCID) in order to demonstrate improved ADL tolerance and QOL. LTG Duration 8 weeks Assessment Summary Assessment Pt with fair tolerance to prone lumbar spine extension exercises: prone lying and prone on elbows. Pt does not report increase in symptoms during prone except after being in prone on elbows for extended period. Initiated segmental bridge with posterior pelvic tilt and hip add this session, which pt tolerated well with no reports of increased pain. Requires cues for posterior pelvic tilt and TA activation. Pt demos difficulty with understanding transverse abdominis activation and maintaining contraction for stabilization. Will continue to address in future sessions. Manual tmt consisted of soft tissue mobilization and grade I posterior-anterior mobilizations of lumbar spine and SIJ to decrease pain. Pt continues to complain of R lateral hip pain, worse with hip ER/IR. At IE, pt only reported tenderness to palpation but no palpable finding at R greater trochanter other than tenderness; however, able to actually palpate tender point (likely bursa) today (not present at IE). Pt has hx of proximal IT band pain. Reached out to referring provider about finding and to discuss possible hip MRI depending on symptom management. HEP: bridge, LTR, prone lying and prone on elbows (no pressup). Pt would benefit from skilled PT to address impairments in trunk ROM and strength, hip ROM and strength to decrease pain symptoms, improve activity tolerance, and to improve QOL. Physical Therapy Plan Frequency and Duration Frequency of Treatment 2x/Week Duration of treatment (weeks) 8 Plan of Care Start Date 09/18/23 Plan of Care End Date 11/13/23 Therapeutic Interventions Therapeutic Interventions Balance Training,Gait Training ,Home Exercise Program,Joint Mobilizations,Lymphedema Management,Manual Therapy, Neuromuscular Re-education, Orthotic/Prosthetic Management ,Patient/Caregiver Education, Self-Care/Home Management, Sensory Integration,Soft Tissue Mobilization,Taping, Therapeutic Activities, Therapeutic Exercises Modalities Biofeedback,Cold Pack/Ice Massage,Electric Stimulation, Hot Packs,Infrared Therapy, Iontophoresis,Ultrasound, Vasopneumatic Devices Next Visit Focus/Plan Next Note Type Treatment Note Next Visit Plan Address R hip pain: strengthen and stretch IR/ER (gentle). Trial: Traction, LTR, stretch, gentle ER stretch, nerve glide. Trial hip abd, ext, IR/ ER isometric Cont extension exercises in prone as tolerated (maybe modify with pillow)- maybe add press up if tolerated Soft tissue mobilization
--- NOTE | 2023-09-24 13:45 | PT.OTN ---
Current Diagnoses Low back pain, unspecified (09/24/23) Weakness (09/24/23) Physical Therapy Treatment Note PT-OP-A Visit Information Start: 09/18/23 10:31 Freq: Status: Active Protocol: Document 09/24/23 13:01 SP (Rec: 09/24/23 13:59 SP [id number]) Out-Patient Physical Therapy Visit Information Visit Information Visit Type Treatment Note Visit Note KX modifier after 19th visit/ yr Visit Start Time 13:01 Visit Stop Time 13:45 Total Visit Minutes 44 Visit Number 3 Number of LOGISTICS PROGRAM MANAGER Visits 1 Evaluation Information Evaluation Date 09/18/23 PT-OP-B Current Condition Start: 09/18/23 10:31 Freq: Status: Active Protocol: Document 09/18/23 10:32 NM (Rec: 09/18/23 11:33 NM [id number]) Current Condition History of Current Condition Onset Date Fall 2022 Current Complaints low back pain, R leg pain History of Current Condition Pt presents with low back pain that radiates into her RLE. The pain is along the right- center of her spine and radiates along her posterior and lateral RLE. Pt also reports numbness in her R foot , but no tingling. She reports that the low back pain began during the fall 2022 (unable to report exact month); there is no known mechanism of injury. When she went to the walk-in clinic in July, she was dx with sciatica. Pt has a PMH of OA, RA, polymyalgia rheumatica beginning 1.5 years ago. She also has had several rounds of prednisone injections. She has no previous back injuries. Her last fall was >1 yr ago when she slipped on her outdoor mat. Her primary complaints are limitated ability to perform ADLs, lifting, stooping, standing or sitting for extended periods, and difficulty sleeping due to pain. Prior Treatments and Tests Radiographs: 08/15- multilevel degenerative disc disease and facet arthopathy Treatment Goals Patient/Caregiver Goals To decrease her low back pain Prior Functional Status Baseline Function- ADL's Independent Baseline Function- Mobility Independent Current Functional Impairments (Reported) Functional Limitations- ADL's Difficulty with ADLs, lifting, picking up objects from floor , standing > 10 min, sitting > 30 min Functional Limitations- Mobility/Gait Limited to 1/2 mi ambulation when ambulating with her dog Functional Limitations- Other Unable to sleep > 2 hr PT-OP-C Subjective Start: 09/18/23 10:31 Freq: Status: Active Protocol: Document 09/24/23 13:01 SP (Rec: 09/24/23 13:59 SP [id number]) OP-PT Subjective Patient Comments Patient Comments Pt reports got 4 hrs asleep last night but back still hurting. Trying to be compliant with HEP and does feeling tired. PT-OP-D Balance Start: 09/18/23 10:31 Freq: Status: Active Protocol: Document 09/18/23 10:32 NM (Rec: 09/18/23 11:33 NM [id number]) OP-PT Balance Assessment Sitting Balance Static Sitting Balance Ability Normal Dynamic Sitting Balance Ability Normal Tinetti Balance Assessment Sitting Balance Sitting Balance Steady, safe Arising from Chair Ability to Arise Able, w/o using arms Attempts to Arise Arises on 1st attempt Standing Balance Immediate Standing Balance Steady w/o support Standing Balance Narrow stance w/o support Nudged Response Staggers, catches self Standing with Eyes Closed Unsteady Turning Step Pattern Turning 360 Degrees Continuous steps Stability Turning 360 Degrees Steady Sitting Down Sitting Down Uses arms or unsteady Gait and Step Initiation of Gait No hesitancy Right Foot Step Length Does pass stance foot Right Foot Step Height Completely clears floor Left Foot Step Length Does pass stance foot Left Foot Step Height Completely clears floor Step Description Step Symmetry Step length not equal Step Continuity Stopping or discontinuity Gait Description Path Description Straight Trunk Description Marked sway or uses aide Walking Stance Heels apart Scoring and Interpretation Tinetti Composite Score (points) 20 Interpretation of Scores At risk for falls (19-24) Colon Fall Scale Copyright Permission PT-OP-E Functional Tests Start: 09/18/23 10:31 Freq: Status: Active Protocol: Document 09/18/23 10:32 NM (Rec: 09/18/23 11:33 NM [id number]) Functional Tests Five Times Sit to Stand Test Score 9.42 sec Comments reports pain with eccentric lowering Other Standing Trunk Flexion to Floor Name of Test standing with legs ext, reach twd floor, measure from floor to fingers Score 10 from floor Comment reproduces low back pain with trunk flexion PT-OP-F Manual Assessment Start: 09/18/23 10:31 Freq: Status: Active Protocol: Document 09/18/23 10:32 NM (Rec: 09/18/23 11:33 NM [id number]) Manual Assessments Soft Tissue Assessment Soft Tissue Mobility Assessment Minimal soft tissue restriction along lumbar spine paraspinals especially along quadratus lumborum, erector spinae. Tenderness along R piriformis, gluteals and at greater trochanter. No palpable bursa at greater trochanter. Joint Mobility Assessment Joint Mobility Assessment Decreased hip flex, abd ROM with slight observable limitations in IR/ER ROM. Hip flex, ext, abd reproduces pain in lumbar spine and R lateral hip. P/A mobilizations are painful at L5-S2, along R sacral border. PT-OP-G Mobility & Gait Start: 09/18/23 10:31 Freq: Status: Active Protocol: Document 09/18/23 10:32 NM (Rec: 09/18/23 11:33 NM [id number]) OP Gait Assessment Gait Gait Assistance Required: Independent Distance (Feet) 100 Gait Deviations General Gait Pattern Antalgic,Decreased Stride Length,Lateral Trunk Lean Factors Limiting Gait Function Factors Limiting Gait Function Decreased Sensation,Decreased Strength,Limited Range of Motion,Pain,Poor Balance Comments Gait Comments Decreased weight acceptance RLE PT-OP-H Neuro Start: 09/18/23 10:31 Freq: Status: Active Protocol: Document 09/18/23 10:32 NM (Rec: 09/18/23 11:33 NM [id number]) Sensation Evaluation Gross Sensation Gross Sensation Right LE Impaired Comments Summary Comments Pt reports that R foot decreased feeling of light touch sensation along dorsal surface of foot compared to L foot. Deep Tendon Reflex & Clonus Assessment Deep Tendon Reflex Left Patellar Deep Tendon Reflex 2+ Normal Right Patellar Deep Tendon Reflex 2+ Normal PT-OP-J Posture/Palpation/Skin Start: 09/18/23 10:31 Freq: Status: Active Protocol: Document 09/18/23 10:32 NM (Rec: 09/18/23 11:33 NM [id number]) Posture Evaluation Position Standing Evaluation View Lateral Head/C-Spine Posture Forward Head T-Spine Posture Increased Kyphosis L-Spine Posture Increased Lordosis,Shifted Left Pelvis Posture Anteriorly Tilted Weight Distribution Weight Shifted Left,Decreased Wt.Bear on (R) Hip Posture (L) Externally Rotated,(R) Externally Rotated Palpation Assessment Location R hip Palpation Location greater trochanter Palpation Findings Muscle Guarding,Tenderness Palpation Details Tenderness to palpation along greater trochanter and along posterior thigh near proximal hamstring. No palpable bursa, only tenderness Lumbar Spine Palpation Location T12-L5, S1-S2, Sacral borders, gluteals, erector spinae Palpation Findings Soft Tissue Tightness,Muscle Guarding,Tenderness Palpation Details Min soft tissue tightness but demos muscle guarding and reports tenderness at R gluteal muscles (fabby piriformis). R mid-sacral border is most tender of all palpated areas (no increase in pain at sacral bases or ILAs) PT-OP-K Range of Motion Start: 09/18/23 10:31 Freq: Status: Active Protocol: Document 09/20/23 13:06 NM (Rec: 09/20/23 14:12 NM [id number]) Lumbar Spine Range of Motion Lumbar Spine Active Degrees Testing Position Standing Flexion 20 Extension 10 Rotation Left 10 Rotation Right 8 Lateral Flexion Left 25 Lateral Flexion Right 10 Comments Pain reported with flexion ( mod pain). Pain reported in R lumbar spine with B lateral flexion Rotation measured in cm. R hip pain with R rotation Hip Goniometric Range of Motion Hip Left Flexion w/Knee Flexed 105 Straight Leg Raise 142 Abduction 20 Internal Rotation 40 External Rotation 25 Right Testing Position Supine Flexion w/Knee Flexed 90 Straight Leg Raise 140 Abduction 20 Internal Rotation 28 External Rotation 25 PT-OP-L Special Tests Start: 09/18/23 10:31 Freq: Status: Active Protocol: Document 09/18/23 10:32 NM (Rec: 09/18/23 11:33 NM [id number]) Special Tests Lumbar Spine Special Tests SIJ Posterior Distraction Test Results negative (R) Comments does not reproduce lumbar spine, SIJ, or hip pain SIJ Anterior Gapping Test Results negative (B) Comments does not reproduce lumbar spine, SIJ, or hip pain Emerson/compression Test Results positive (R) Comments local pain reported R lumbar spine Straight Leg Raise Test Results positive (R) Comments reproduces low back pain, symptoms posterior RLE Distraction Test Results negative Comments does not report symptom relief Slump Test Results positive (B) Comments reports worse symptoms RLE with cervical ext PT-OP-M Strength Start: 09/18/23 10:31 Freq: Status: Active Protocol: Document 09/18/23 10:32 NM (Rec: 09/18/23 11:33 NM [id number]) Trunk Strength Trunk Manual Muscle Testing Testing Position supine, sitting Flexion 3 Fair Extension 3 Fair Rotation Left 4+ Good+ Rotation Right 4- Good- Lateral Flexion Left 4- Good- Lateral Flexion Right 4- Good- Comments Resisted R rotation, B lateral flexion reproduces pain in R lumbar spine and hip Hip Strength Hip Manual Muscle Testing Left Flexion (L2) 4 Good Extension (S1) 4 Good Abduction 4 Good External Rotation 4 Good Internal Rotation 4 Good Comments Resisted motions do not reproduce pain Right Flexion (L2) 4- Good- Extension (S1) 3+ Fair+ Abduction 3+ Fair+ External Rotation 4- Good- Internal Rotation 4- Good- Comments Reports low back pain and hip pain with flex, ext, abd Knee Strength Knee Manual Muscle Testing Left Flexion (S2) 4+ Good+ Extension (L3) 4+ Good+ Comments does not reproduced pain with resisted motions Right Flexion (S2) 4- Good- Comments Reproduces low back and hip pain PT-OP-Q Treatments Start: 09/18/23 10:31 Freq: Status: Active Protocol: Document 09/24/23 13:01 SP (Rec: 09/24/23 13:59 SP [id number]) Therapeutic Exercises Supine Exercises LE neural glide Supine Exercise Name added toHEP Side right Reps/Minutes x10 ankle pumps core march Supine Exercise Name sequencial each LE DL lift/ lower Side bilateral LTR Supine Exercise Name for gentle LS mobilization Side bilateral Reps/Minutes 2x30, x10 slow ROM /c TA fac Comments limited range with R rot due to hip pain; cues to keep hips on elevated tab Core isometrics Supine Exercise Name 1. TA activation, 2. SB flex Side bilateral Equipment Used small blue guinean ball Reps/Minutes 1. 1x10x2; 2. 1x10 with 5 sec hold Comments poor isolation of TA, but improved with guinean ball flex; LS pain after x10 Bridge Supine Exercise Name segmental bridging Reps/Minutes 1x10, 1x10 with hip add (ball btwn knees) Comments cues for post pelvic tilt, weight through heels Prone Exercises Prone on elbows Prone Exercise Name prone on mat, elbows at 90 deg Side bilateral Reps/Minutes 2x1 min Comments decrease LBP PROM R hip Therapeutic Activity Therapeutic Activity TA, log rolling Comments ed for proper form and allow decrease LB recruitment. Manual Therapy Treatment Soft Tissue Mobilization R hip Body Location greater trochanter, proximal ITB Mobilization Type Rolling,Sustained Pressure Intensity/Depth Superficial Body Position prone, L sidelying Comments Pt most tender to palpation along R greater trochanter, proximal IT band. Superficial mobilization with rolling, min sustained pressure along ITB. Palpable knot (likely bursa ) today at greater trochanter. Lumbar spine Body Location R QL, gluteals, piriformis Mobilization Type Rolling,Strumming,Sustained Pressure Intensity/Depth Moderate Body Position Prone Comments Pt with mild spasms in R glutes and piriformis with palpation, decreased with sustained pressure. Tenderness in muscles above R SI Joint. Pt reports min symptom improvement with soft tissue mobilization. Performed mob with movement into R hip IR/ER with soft tissue of piriformis, 1x5 reps; aggravating to R lateral hip. Joint Mobilizations Lumbar spine Joint L1-L5, R SIJ border Direction P-A Grade I Body Position Prone Reps/Duration 1x10 ea Comments Grade I mobilization for pain reduction. Reports no symptoms along lumbar spine with mobilization. Min pain and tenderness along R SIJ, not increased with gentle grade I mobilization. PT-OP-T Assessment and Plan Start: 09/18/23 10:31 Freq: Status: Active Protocol: Document 09/24/23 13:01 SP (Rec: 09/24/23 13:59 SP [id number]) Physical Therapy Assessment Goals Seven Impairment strength Impairment Trunk strength flex/ext 3/5, B lateral flex strength 4-/5 Short Term Goal (STG) Pt will increase global trunk strength by at least 1 MMT grade ea in order to demonstrate improved trunk strength and core stabilization needed for ADLs. STG Duration 4 weeks [facility]iary Goal (LTG) Pt will increase global trunk strength by at least 2 MMT grades ea in order to demonstrate improved trunk strength and core stabilization needed for ADLs. LTG Duration 8 weeks Six Impairment balance, function Impairment Tinetti score: 20/28 Short Term Goal (STG) Pt will improve Tinetti score by at least 2 points to demonstrate improved balance during ambulation and ADLs. STG Duration 4 weeks Penit[facility]iary Goal (LTG) Pt will improve Tinetti score by at least 4 points (low fall risk category) to demonstrate improved balance during ambulation and ADLs. LTG Duration 8 weeks Five Impairment 5x STS 9.42 sec with pain on eccentric lowering [employer] Goal (LTG) Pt will perform 5x STS <10 seconds with reported pain of 5/10 or less with eccentric lowering into chair to demonstrate improved tolerance for spinal flexion. LTG Duration 8 weeks Four Impairment Strength Impairment R hip ext and abd strength 3+/ 5 MMT Short Term Goal (STG) Pt will increase R hip ext/abd to at least 4/5 in order to demonstrate improved strength needed for ambulation and ADLs . STG Duration 4 weeks [facility]iary Goal (LTG) Pt will increase R hip ext/abd to at least 4+/5 in order to demonstrate improved strength needed for ambulation and ADLs . LTG Duration 8 weeks Three Impairment Strength Impairment R hip strength flex/IR/ER 4-/5 MMT Short Term Goal (STG) Pt will increase R hip flex/ER /IR strength to at least 4/5 in order to demonstrate improved strength needed for ambulation and ADLs. STG Duration 4 weeks [facility]iary Goal (LTG) Pt will increase R hip flex/IR /ER strength to at least 4+/5 in order to demonstrate improved strength needed for ambulation and ADLs. LTG Duration 8 weeks Two Impairment ROM Impairment Trunk flexion AROM 20 deg (10 fwd reach test) Short Term Goal (STG) Pt will increase trunk flexion AROM by at least 10 deg in order to demonstrate improved ability to pick pack worker objects from floor for better ADL tolerance. STG Duration 4 weeks [employer] Goal (LTG) Pt will increase trunk flexion AROM by at least 20 deg in order to demonstrate improved ability to pick pack worker objects from floor for better ADL tolerance. LTG Duration 8 weeks One Impairment function Impairment Oswestry: 28/50 Short Term Goal (STG) Pt will decrease Oswestry score by at least 6 points in order to demonstrate improved ADL tolerance and QOL. STG Duration 4 weeks [facility]iary Goal (LTG) Pt will decrease Oswestry score by at least 13 points (1 MCID) in order to demonstrate improved ADL tolerance and QOL. LTG Duration 8 weeks Assessment Summary Assessment Pt sensitive to pressure STMs anterior/posterior greater trochanter proximal R piriformis this tx, improves with adjustment with feedback. Tolerated prone on elbows and doesn't increase symptoms. She responded well to added sequencial marching and LE neural glide with lessening symptoms into glut/ RLE. Cues for slow segmental bridge form decreased LB recruitment. CUes for TA engagement and log rolling to allow abdominal bracing support. Physical Therapy Plan Frequency and Duration Frequency of Treatment 2x/Week Duration of treatment (weeks) 8 Plan of Care Start Date 09/18/23 Plan of Care End Date 11/13/23 Therapeutic Interventions Therapeutic Interventions Balance Training,Gait Training ,Home Exercise Program,Joint Mobilizations,Lymphedema Management,Manual Therapy, Neuromuscular Re-education, Orthotic/Prosthetic Management ,Patient/Caregiver Education, Self-Care/Home Management, Sensory Integration,Soft Tissue Mobilization,Taping, Therapeutic Activities, Therapeutic Exercises Modalities Biofeedback,Cold Pack/Ice Massage,Electric Stimulation, Hot Packs,Infrared Therapy, Iontophoresis,Ultrasound, Vasopneumatic Devices Next Visit Focus/Plan Next Note Type Treatment Note Next Visit Plan Address R hip pain: strengthen and stretch IR/ER (gentle). Trial: Traction, LTR, stretch, gentle ER stretch, nerve glide. Trial hip abd, ext, IR/ ER isometric Cont extension exercises in prone as tolerated (maybe modify with pillow)- maybe add press up if tolerated Soft tissue mobilization
--- NOTE | 2023-09-26 13:03 | PT.OTN ---
Current Diagnoses Low back pain, unspecified (09/26/23) Weakness (09/26/23) Physical Therapy Treatment Note PT-OP-A Visit Information Start: 09/18/23 10:31 Freq: Status: Active Protocol: Document 09/26/23 12:16 SP (Rec: 09/26/23 13:40 SP [id number]) Out-Patient Physical Therapy Visit Information Visit Information Visit Type Treatment Note Visit Note KX modifier after 20th visit/ yr Visit Start Time 12:16 Visit Stop Time 13:03 Total Visit Minutes 47 Visit Number 4 Number of LENS EDGER Visits 2 Evaluation Information Evaluation Date 09/18/23 PT-OP-B Current Condition Start: 09/18/23 10:31 Freq: Status: Active Protocol: Document 09/18/23 10:32 NM (Rec: 09/18/23 11:33 NM [id number]) Current Condition History of Current Condition Onset Date Fall 2022 Current Complaints low back pain, R leg pain History of Current Condition Pt presents with low back pain that radiates into her RLE. The pain is along the right- center of her spine and radiates along her posterior and lateral RLE. Pt also reports numbness in her R foot , but no tingling. She reports that the low back pain began during the fall 2022 (unable to report exact month); there is no known mechanism of injury. When she went to the walk-in clinic in July, she was dx with sciatica. Pt has a PMH of OA, RA, polymyalgia rheumatica beginning 1.5 years ago. She also has had several rounds of prednisone injections. She has no previous back injuries. Her last fall was >1 yr ago when she slipped on her outdoor mat. Her primary complaints are limitated ability to perform ADLs, lifting, stooping, standing or sitting for extended periods, and difficulty sleeping due to pain. Prior Treatments and Tests Radiographs: 08/15- multilevel degenerative disc disease and facet arthopathy Treatment Goals Patient/Caregiver Goals To decrease her low back pain Prior Functional Status Baseline Function- ADL's Independent Baseline Function- Mobility Independent Current Functional Impairments (Reported) Functional Limitations- ADL's Difficulty with ADLs, lifting, picking up objects from floor , standing > 10 min, sitting > 30 min Functional Limitations- Mobility/Gait Limited to 1/2 mi ambulation when ambulating with her dog Functional Limitations- Other Unable to sleep > 2 hr PT-OP-C Subjective Start: 09/18/23 10:31 Freq: Status: Active Protocol: Document 09/26/23 12:16 SP (Rec: 09/26/23 13:40 SP [id number]) OP-PT Subjective Patient Comments Patient Comments Pt reports compliant with HEP 1x/day, mostly ok after last tx and doing HEP. Still pretty sore in LB arrival. She demonstrates an antalgic gait lateral wt shift walking. PT-OP-D Balance Start: 09/18/23 10:31 Freq: Status: Active Protocol: Document 09/18/23 10:32 NM (Rec: 09/18/23 11:33 NM [id number]) OP-PT Balance Assessment Sitting Balance Static Sitting Balance Ability Normal Dynamic Sitting Balance Ability Normal Tinetti Balance Assessment Sitting Balance Sitting Balance Steady, safe Arising from Chair Ability to Arise Able, w/o using arms Attempts to Arise Arises on 1st attempt Standing Balance Immediate Standing Balance Steady w/o support Standing Balance Narrow stance w/o support Nudged Response Staggers, catches self Standing with Eyes Closed Unsteady Turning Step Pattern Turning 360 Degrees Continuous steps Stability Turning 360 Degrees Steady Sitting Down Sitting Down Uses arms or unsteady Gait and Step Initiation of Gait No hesitancy Right Foot Step Length Does pass stance foot Right Foot Step Height Completely clears floor Left Foot Step Length Does pass stance foot Left Foot Step Height Completely clears floor Step Description Step Symmetry Step length not equal Step Continuity Stopping or discontinuity Gait Description Path Description Straight Trunk Description Marked sway or uses aide Walking Stance Heels apart Scoring and Interpretation Tinetti Composite Score (points) 20 Interpretation of Scores At risk for falls (19-24) Colon Fall Scale Copyright Permission PT-OP-E Functional Tests Start: 09/18/23 10:31 Freq: Status: Active Protocol: Document 09/18/23 10:32 NM (Rec: 09/18/23 11:33 NM [id number]) Functional Tests Five Times Sit to Stand Test Score 9.42 sec Comments reports pain with eccentric lowering Other Standing Trunk Flexion to Floor Name of Test standing with legs ext, reach twd floor, measure from floor to fingers Score 10 from floor Comment reproduces low back pain with trunk flexion PT-OP-F Manual Assessment Start: 09/18/23 10:31 Freq: Status: Active Protocol: Document 09/18/23 10:32 NM (Rec: 09/18/23 11:33 NM [id number]) Manual Assessments Soft Tissue Assessment Soft Tissue Mobility Assessment Minimal soft tissue restriction along lumbar spine paraspinals especially along quadratus lumborum, erector spinae. Tenderness along R piriformis, gluteals and at greater trochanter. No palpable bursa at greater trochanter. Joint Mobility Assessment Joint Mobility Assessment Decreased hip flex, abd ROM with slight observable limitations in IR/ER ROM. Hip flex, ext, abd reproduces pain in lumbar spine and R lateral hip. P/A mobilizations are painful at L5-S2, along R sacral border. PT-OP-G Mobility & Gait Start: 09/18/23 10:31 Freq: Status: Active Protocol: Document 09/18/23 10:32 NM (Rec: 09/18/23 11:33 NM [id number]) OP Gait Assessment Gait Gait Assistance Required: Independent Distance (Feet) 100 Gait Deviations General Gait Pattern Antalgic,Decreased Stride Length,Lateral Trunk Lean Factors Limiting Gait Function Factors Limiting Gait Function Decreased Sensation,Decreased Strength,Limited Range of Motion,Pain,Poor Balance Comments Gait Comments Decreased weight acceptance RLE PT-OP-H Neuro Start: 09/18/23 10:31 Freq: Status: Active Protocol: Document 09/18/23 10:32 NM (Rec: 09/18/23 11:33 NM [id number]) Sensation Evaluation Gross Sensation Gross Sensation Right LE Impaired Comments Summary Comments Pt reports that R foot decreased feeling of light touch sensation along dorsal surface of foot compared to L foot. Deep Tendon Reflex & Clonus Assessment Deep Tendon Reflex Left Patellar Deep Tendon Reflex 2+ Normal Right Patellar Deep Tendon Reflex 2+ Normal PT-OP-J Posture/Palpation/Skin Start: 09/18/23 10:31 Freq: Status: Active Protocol: Document 09/18/23 10:32 NM (Rec: 09/18/23 11:33 NM [id number]) Posture Evaluation Position Standing Evaluation View Lateral Head/C-Spine Posture Forward Head T-Spine Posture Increased Kyphosis L-Spine Posture Increased Lordosis,Shifted Left Pelvis Posture Anteriorly Tilted Weight Distribution Weight Shifted Left,Decreased Wt.Bear on (R) Hip Posture (L) Externally Rotated,(R) Externally Rotated Palpation Assessment Location R hip Palpation Location greater trochanter Palpation Findings Muscle Guarding,Tenderness Palpation Details Tenderness to palpation along greater trochanter and along posterior thigh near proximal hamstring. No palpable bursa, only tenderness Lumbar Spine Palpation Location T12-L5, S1-S2, Sacral borders, gluteals, erector spinae Palpation Findings Soft Tissue Tightness,Muscle Guarding,Tenderness Palpation Details Min soft tissue tightness but demos muscle guarding and reports tenderness at R gluteal muscles (fabby piriformis). R mid-sacral border is most tender of all palpated areas (no increase in pain at sacral bases or ILAs) PT-OP-K Range of Motion Start: 09/18/23 10:31 Freq: Status: Active Protocol: Document 09/20/23 13:06 NM (Rec: 09/20/23 14:12 NM [id number]) Lumbar Spine Range of Motion Lumbar Spine Active Degrees Testing Position Standing Flexion 20 Extension 10 Rotation Left 10 Rotation Right 8 Lateral Flexion Left 25 Lateral Flexion Right 10 Comments Pain reported with flexion ( mod pain). Pain reported in R lumbar spine with B lateral flexion Rotation measured in cm. R hip pain with R rotation Hip Goniometric Range of Motion Hip Left Flexion w/Knee Flexed 105 Straight Leg Raise 142 Abduction 20 Internal Rotation 40 External Rotation 25 Right Testing Position Supine Flexion w/Knee Flexed 90 Straight Leg Raise 140 Abduction 20 Internal Rotation 28 External Rotation 25 PT-OP-L Special Tests Start: 09/18/23 10:31 Freq: Status: Active Protocol: Document 09/18/23 10:32 NM (Rec: 09/18/23 11:33 NM [id number]) Special Tests Lumbar Spine Special Tests SIJ Posterior Distraction Test Results negative (R) Comments does not reproduce lumbar spine, SIJ, or hip pain SIJ Anterior Gapping Test Results negative (B) Comments does not reproduce lumbar spine, SIJ, or hip pain Emerson/compression Test Results positive (R) Comments local pain reported R lumbar spine Straight Leg Raise Test Results positive (R) Comments reproduces low back pain, symptoms posterior RLE Distraction Test Results negative Comments does not report symptom relief Slump Test Results positive (B) Comments reports worse symptoms RLE with cervical ext PT-OP-M Strength Start: 09/18/23 10:31 Freq: Status: Active Protocol: Document 09/18/23 10:32 NM (Rec: 09/18/23 11:33 NM [id number]) Trunk Strength Trunk Manual Muscle Testing Testing Position supine, sitting Flexion 3 Fair Extension 3 Fair Rotation Left 4+ Good+ Rotation Right 4- Good- Lateral Flexion Left 4- Good- Lateral Flexion Right 4- Good- Comments Resisted R rotation, B lateral flexion reproduces pain in R lumbar spine and hip Hip Strength Hip Manual Muscle Testing Left Flexion (L2) 4 Good Extension (S1) 4 Good Abduction 4 Good External Rotation 4 Good Internal Rotation 4 Good Comments Resisted motions do not reproduce pain Right Flexion (L2) 4- Good- Extension (S1) 3+ Fair+ Abduction 3+ Fair+ External Rotation 4- Good- Internal Rotation 4- Good- Comments Reports low back pain and hip pain with flex, ext, abd Knee Strength Knee Manual Muscle Testing Left Flexion (S2) 4+ Good+ Extension (L3) 4+ Good+ Comments does not reproduced pain with resisted motions Right Flexion (S2) 4- Good- Comments Reproduces low back and hip pain PT-OP-Q Treatments Start: 09/18/23 10:31 Freq: Status: Active Protocol: Document 09/26/23 12:16 SP (Rec: 09/26/23 13:40 SP [id number]) Gym Equipment Cable Column (Body Solid) Leg Curl Details add next tx leg ext Details add next tx Shuttle Recovery unilateral squat Details add next tx bilateral squat Details add next tx Therapeutic Exercises Supine Exercises core KTC Supine Exercise Name initiated in PT Side bilateral Resistance KTC /c resisted TB #2 aqua around ankles therapist anchor Reps/Minutes x10 Comments report good core effort, painfree core march Supine Exercise Name sequencial each LE DL lift/ lower Side bilateral Reps/Minutes 2x5 LTR Supine Exercise Name for gentle LS mobilization Side bilateral Equipment Used BLEs over 55cm Tball Reps/Minutes x10 R and L Comments reports R post SI lessening with reps Bridge Supine Exercise Name segmental bridging Resistance BLE over 55cm tball Reps/Minutes 2x10 Comments cued TA LS roll up/lower down, weight through heels Sitting Exercises LAQ Sitting Exercise Name added to HEP Side bilateral Resistance Tb #2 aqua at ankles Equipment Used 4# leg wt Reps/Minutes 10 reps each Comments cued fully sit back in chair, good mid quad tiring resisted side stepping Sitting Exercise Name added to HEP (able don/doff TB self around upper hess) Side bilateral Resistance Tb #2 aqua below knees/upper hess Equipment Used light contact pinth Reps/Minutes 10 ft x3 laps Comments reports painfree L knee and LB , pain when at ankles sit<>stand Sitting Exercise Name TA stand/controlled sit: added to HEP Side bilateral Equipment Used arms across chest Reps/Minutes 2x5 reps Comments cued scoot fwd in seat: hip hinge, slow descend fully to sit Standing Exercises step ups Standing Exercise Name trialed in PT- hold 09/25/23 Side bilateral Equipment Used 6 step, min BUE support on rails Reps/Minutes 5 reps each Comments causes pain in L>R knee asc & desc Other Exercises self STMs Other Exercise Name Discussed use ball on wall over piriformis/glut med Side right Comments review in person trial next tx - ran out time 09/25/23 Manual Therapy Treatment Soft Tissue Mobilization R hip Body Location R>L posterior greater trochanter/ piriformis Mobilization Type Rolling,Sustained Pressure, Other Intensity/Depth Moderate Body Position Prone over pillow Comments Pt with mild spasms in R glutes and piriformis with palpation, decreased with light/gentle strumming and sustained pressure and MWM hip IR/ ER. Lumbar spine Body Location R>L QL, ES T9-L3 Mobilization Type Rolling,Strumming,Sustained Pressure Intensity/Depth Moderate Body Position Prone over pillow Comments Reports decreased muscle tightness in R ES and QL post manual. I didn't realize how tight my middle back was getting. PT-OP-T Assessment and Plan Start: 09/18/23 10:31 Freq: Status: Active Protocol: Document 09/26/23 12:16 SP (Rec: 09/26/23 13:40 SP [id number]) Physical Therapy Assessment Goals Seven Impairment strength Impairment Trunk strength flex/ext 3/5, B lateral flex strength 4-/5 Short Term Goal (STG) Pt will increase global trunk strength by at least 1 MMT grade ea in order to demonstrate improved trunk strength and core stabilization needed for ADLs. STG Duration 4 weeks Intermediate Goal (LTG) Pt will increase global trunk strength by at least 2 MMT grades ea in order to demonstrate improved trunk strength and core stabilization needed for ADLs. LTG Duration 8 weeks Six Impairment balance, function Impairment Tinetti score: 20/28 Short Term Goal (STG) Pt will improve Tinetti score by at least 2 points to demonstrate improved balance during ambulation and ADLs. STG Duration 4 weeks Intermediate Goal (LTG) Pt will improve Tinetti score by at least 4 points (low fall risk category) to demonstrate improved balance during ambulation and ADLs. LTG Duration 8 weeks Five Impairment 5x STS 9.42 sec with pain on eccentric lowering Intermediate Goal (LTG) Pt will perform 5x STS <10 seconds with reported pain of 5/10 or less with eccentric lowering into chair to demonstrate improved tolerance for spinal flexion. LTG Duration 8 weeks Four Impairment Strength Impairment R hip ext and abd strength 3+/ 5 MMT Short Term Goal (STG) Pt will increase R hip ext/abd to at least 4/5 in order to demonstrate improved strength needed for ambulation and ADLs . STG Duration 4 weeks Manager Qa Goal (LTG) Pt will increase R hip ext/abd to at least 4+/5 in order to demonstrate improved strength needed for ambulation and ADLs . LTG Duration 8 weeks Three Impairment Strength Impairment R hip strength flex/IR/ER 4-/5 MMT Short Term Goal (STG) Pt will increase R hip flex/ER /IR strength to at least 4/5 in order to demonstrate improved strength needed for ambulation and ADLs. STG Duration 4 weeks Manager Qa Goal (LTG) Pt will increase R hip flex/IR /ER strength to at least 4+/5 in order to demonstrate improved strength needed for ambulation and ADLs. LTG Duration 8 weeks Two Impairment ROM Impairment Trunk flexion AROM 20 deg (10 fwd reach test) Short Term Goal (STG) Pt will increase trunk flexion AROM by at least 10 deg in order to demonstrate improved ability to pick pulling machine tender objects from floor for better ADL tolerance. STG Duration 4 weeks Manager Qa Goal (LTG) Pt will increase trunk flexion AROM by at least 20 deg in order to demonstrate improved ability to pick pulling machine tender objects from floor for better ADL tolerance. LTG Duration 8 weeks One Impairment function Impairment Oswestry: 28/50 Short Term Goal (STG) Pt will decrease Oswestry score by at least 6 points in order to demonstrate improved ADL tolerance and QOL. STG Duration 4 weeks Intermediate Goal (LTG) Pt will decrease Oswestry score by at least 13 points (1 MCID) in order to demonstrate improved ADL tolerance and QOL. LTG Duration 8 weeks Assessment Summary Assessment Pt reports decreased tightness post manual, discussed but didn't trial self STM ball wall. She had good response of muscle tiring quad & hip abd during added resisted LAQ and side stepping. Improved TA and LE muscular control added sit <>stand without UE support this tx and improved demonstration painfree. Trialed step ups for LE strenghening but causes knee pain so hold for now, next tx will trial shuttle recovery. Pt improved TA during supine ther ex this tx with reminder cues for slower pacing for spinal stabilization. Physical Therapy Plan Frequency and Duration Frequency of Treatment 2x/Week Duration of treatment (weeks) 8 Plan of Care Start Date 09/18/23 Plan of Care End Date 11/13/23 Therapeutic Interventions Therapeutic Interventions Balance Training,Gait Training ,Home Exercise Program,Joint Mobilizations,Lymphedema Management,Manual Therapy, Neuromuscular Re-education, Orthotic/Prosthetic Management ,Patient/Caregiver Education, Self-Care/Home Management, Sensory Integration,Soft Tissue Mobilization,Taping, Therapeutic Activities, Therapeutic Exercises Modalities Biofeedback,Cold Pack/Ice Massage,Electric Stimulation, Hot Packs,Infrared Therapy, Iontophoresis,Ultrasound, Vasopneumatic Devices Next Visit Focus/Plan Next Note Type Treatment Note Next Visit Plan Address R hip pain: strengthen and stretch IR/ER (gentle). Trial: Traction, LTR, stretch, gentle ER stretch, nerve glide. Trial hip abd, ext, IR/ ER isometric Cont extension exercises in prone as tolerated (maybe modify with pillow)- maybe add press up if tolerated Soft tissue mobilization
--- NOTE | 2023-10-01 15:49 | PT.OTN ---
Current Diagnoses Low back pain, unspecified (10/01/23) Weakness (10/01/23) Physical Therapy Treatment Note PT-OP-A Visit Information Start: 09/18/23 10:31 Freq: Status: Active Protocol: Document 10/01/23 12:16 NM (Rec: 10/01/23 13:00 NM [id number]) Out-Patient Physical Therapy Visit Information Visit Information Visit Type Treatment Note Visit Note KX modifier after 20th visit/ yr Visit Start Time 12:17 Visit Stop Time 13:00 Total Visit Minutes 43 Visit Number 5 Evaluation Information Evaluation Date 09/18/23 PT-OP-B Current Condition Start: 09/18/23 10:31 Freq: Status: Active Protocol: Document 09/18/23 10:32 NM (Rec: 09/18/23 11:33 NM [id number]) Current Condition History of Current Condition Onset Date Fall 2022 Current Complaints low back pain, R leg pain History of Current Condition Pt presents with low back pain that radiates into her RLE. The pain is along the right- center of her spine and radiates along her posterior and lateral RLE. Pt also reports numbness in her R foot , but no tingling. She reports that the low back pain began during the fall 2022 (unable to report exact month); there is no known mechanism of injury. When she went to the walk-in clinic in July, she was dx with sciatica. Pt has a PMH of OA, RA, polymyalgia rheumatica beginning 1.5 years ago. She also has had several rounds of prednisone injections. She has no previous back injuries. Her last fall was >1 yr ago when she slipped on her outdoor mat. Her primary complaints are limitated ability to perform ADLs, lifting, stooping, standing or sitting for extended periods, and difficulty sleeping due to pain. Prior Treatments and Tests Radiographs: 08/15- multilevel degenerative disc disease and facet arthopathy Treatment Goals Patient/Caregiver Goals To decrease her low back pain Prior Functional Status Baseline Function- ADL's Independent Baseline Function- Mobility Independent Current Functional Impairments (Reported) Functional Limitations- ADL's Difficulty with ADLs, lifting, picking up objects from floor , standing > 10 min, sitting > 30 min Functional Limitations- Mobility/Gait Limited to 1/2 mi ambulation when ambulating with her dog Functional Limitations- Other Unable to sleep > 2 hr PT-OP-C Subjective Start: 09/18/23 10:31 Freq: Status: Active Protocol: Document 10/01/23 12:16 NM (Rec: 10/01/23 13:00 NM [id number]) OP-PT Subjective Patient Comments Patient Comments Pt reports compliance with original HEP but not with the most recent one from last session as she just found it in her purse. She reports that she feels like the exercises are working. She reports 4/10 low back pain and minimal hip pain except during driving. She presents with decreased antalgic gait and lateral shift with ambulation. PT-OP-D Balance Start: 09/18/23 10:31 Freq: Status: Active Protocol: Document 09/18/23 10:32 NM (Rec: 09/18/23 11:33 NM [id number]) OP-PT Balance Assessment Sitting Balance Static Sitting Balance Ability Normal Dynamic Sitting Balance Ability Normal Tinetti Balance Assessment Sitting Balance Sitting Balance Steady, safe Arising from Chair Ability to Arise Able, w/o using arms Attempts to Arise Arises on 1st attempt Standing Balance Immediate Standing Balance Steady w/o support Standing Balance Narrow stance w/o support Nudged Response Staggers, catches self Standing with Eyes Closed Unsteady Turning Step Pattern Turning 360 Degrees Continuous steps Stability Turning 360 Degrees Steady Sitting Down Sitting Down Uses arms or unsteady Gait and Step Initiation of Gait No hesitancy Right Foot Step Length Does pass stance foot Right Foot Step Height Completely clears floor Left Foot Step Length Does pass stance foot Left Foot Step Height Completely clears floor Step Description Step Symmetry Step length not equal Step Continuity Stopping or discontinuity Gait Description Path Description Straight Trunk Description Marked sway or uses aide Walking Stance Heels apart Scoring and Interpretation Tinetti Composite Score (points) 20 Interpretation of Scores At risk for falls (19-24) Colon Fall Scale Copyright Permission PT-OP-E Functional Tests Start: 09/18/23 10:31 Freq: Status: Active Protocol: Document 09/18/23 10:32 NM (Rec: 09/18/23 11:33 NM [id number]) Functional Tests Five Times Sit to Stand Test Score 9.42 sec Comments reports pain with eccentric lowering Other Standing Trunk Flexion to Floor Name of Test standing with legs ext, reach twd floor, measure from floor to fingers Score 10 from floor Comment reproduces low back pain with trunk flexion PT-OP-F Manual Assessment Start: 09/18/23 10:31 Freq: Status: Active Protocol: Document 09/18/23 10:32 NM (Rec: 09/18/23 11:33 NM [id number]) Manual Assessments Soft Tissue Assessment Soft Tissue Mobility Assessment Minimal soft tissue restriction along lumbar spine paraspinals especially along quadratus lumborum, erector spinae. Tenderness along R piriformis, gluteals and at greater trochanter. No palpable bursa at greater trochanter. Joint Mobility Assessment Joint Mobility Assessment Decreased hip flex, abd ROM with slight observable limitations in IR/ER ROM. Hip flex, ext, abd reproduces pain in lumbar spine and R lateral hip. P/A mobilizations are painful at L5-S2, along R sacral border. PT-OP-G Mobility & Gait Start: 09/18/23 10:31 Freq: Status: Active Protocol: Document 09/18/23 10:32 NM (Rec: 09/18/23 11:33 NM [id number]) OP Gait Assessment Gait Gait Assistance Required: Independent Distance (Feet) 100 Gait Deviations General Gait Pattern Antalgic,Decreased Stride Length,Lateral Trunk Lean Factors Limiting Gait Function Factors Limiting Gait Function Decreased Sensation,Decreased Strength,Limited Range of Motion,Pain,Poor Balance Comments Gait Comments Decreased weight acceptance RLE PT-OP-H Neuro Start: 09/18/23 10:31 Freq: Status: Active Protocol: Document 09/18/23 10:32 NM (Rec: 09/18/23 11:33 NM [id number]) Sensation Evaluation Gross Sensation Gross Sensation Right LE Impaired Comments Summary Comments Pt reports that R foot decreased feeling of light touch sensation along dorsal surface of foot compared to L foot. Deep Tendon Reflex & Clonus Assessment Deep Tendon Reflex Left Patellar Deep Tendon Reflex 2+ Normal Right Patellar Deep Tendon Reflex 2+ Normal PT-OP-J Posture/Palpation/Skin Start: 09/18/23 10:31 Freq: Status: Active Protocol: Document 09/18/23 10:32 NM (Rec: 09/18/23 11:33 NM [id number]) Posture Evaluation Position Standing Evaluation View Lateral Head/C-Spine Posture Forward Head T-Spine Posture Increased Kyphosis L-Spine Posture Increased Lordosis,Shifted Left Pelvis Posture Anteriorly Tilted Weight Distribution Weight Shifted Left,Decreased Wt.Bear on (R) Hip Posture (L) Externally Rotated,(R) Externally Rotated Palpation Assessment Location R hip Palpation Location greater trochanter Palpation Findings Muscle Guarding,Tenderness Palpation Details Tenderness to palpation along greater trochanter and along posterior thigh near proximal hamstring. No palpable bursa, only tenderness Lumbar Spine Palpation Location T12-L5, S1-S2, Sacral borders, gluteals, erector spinae Palpation Findings Soft Tissue Tightness,Muscle Guarding,Tenderness Palpation Details Min soft tissue tightness but demos muscle guarding and reports tenderness at R gluteal muscles (fabby piriformis). R mid-sacral border is most tender of all palpated areas (no increase in pain at sacral bases or ILAs) PT-OP-K Range of Motion Start: 09/18/23 10:31 Freq: Status: Active Protocol: Document 09/20/23 13:06 NM (Rec: 09/20/23 14:12 NM [id number]) Lumbar Spine Range of Motion Lumbar Spine Active Degrees Testing Position Standing Flexion 20 Extension 10 Rotation Left 10 Rotation Right 8 Lateral Flexion Left 25 Lateral Flexion Right 10 Comments Pain reported with flexion ( mod pain). Pain reported in R lumbar spine with B lateral flexion Rotation measured in cm. R hip pain with R rotation Hip Goniometric Range of Motion Hip Left Flexion w/Knee Flexed 105 Straight Leg Raise 142 Abduction 20 Internal Rotation 40 External Rotation 25 Right Testing Position Supine Flexion w/Knee Flexed 90 Straight Leg Raise 140 Abduction 20 Internal Rotation 28 External Rotation 25 PT-OP-L Special Tests Start: 09/18/23 10:31 Freq: Status: Active Protocol: Document 09/18/23 10:32 NM (Rec: 09/18/23 11:33 NM [id number]) Special Tests Lumbar Spine Special Tests SIJ Posterior Distraction Test Results negative (R) Comments does not reproduce lumbar spine, SIJ, or hip pain SIJ Anterior Gapping Test Results negative (B) Comments does not reproduce lumbar spine, SIJ, or hip pain Emerson/compression Test Results positive (R) Comments local pain reported R lumbar spine Straight Leg Raise Test Results positive (R) Comments reproduces low back pain, symptoms posterior RLE Distraction Test Results negative Comments does not report symptom relief Slump Test Results positive (B) Comments reports worse symptoms RLE with cervical ext PT-OP-M Strength Start: 09/18/23 10:31 Freq: Status: Active Protocol: Document 09/18/23 10:32 NM (Rec: 09/18/23 11:33 NM [id number]) Trunk Strength Trunk Manual Muscle Testing Testing Position supine, sitting Flexion 3 Fair Extension 3 Fair Rotation Left 4+ Good+ Rotation Right 4- Good- Lateral Flexion Left 4- Good- Lateral Flexion Right 4- Good- Comments Resisted R rotation, B lateral flexion reproduces pain in R lumbar spine and hip Hip Strength Hip Manual Muscle Testing Left Flexion (L2) 4 Good Extension (S1) 4 Good Abduction 4 Good External Rotation 4 Good Internal Rotation 4 Good Comments Resisted motions do not reproduce pain Right Flexion (L2) 4- Good- Extension (S1) 3+ Fair+ Abduction 3+ Fair+ External Rotation 4- Good- Internal Rotation 4- Good- Comments Reports low back pain and hip pain with flex, ext, abd Knee Strength Knee Manual Muscle Testing Left Flexion (S2) 4+ Good+ Extension (L3) 4+ Good+ Comments does not reproduced pain with resisted motions Right Flexion (S2) 4- Good- Comments Reproduces low back and hip pain PT-OP-Q Treatments Start: 09/18/23 10:31 Freq: Status: Active Protocol: Document 10/01/23 12:16 NM (Rec: 10/01/23 13:00 NM [id number]) Gym Equipment Cable Column (Body Solid) Leg Curl Details add next tx leg ext Details add next tx Shuttle Recovery unilateral squat Details add next tx if tolerated bilateral squat Details Trialed today Resistance 50# (2 teal) Shuttle Recovery Platform Stable Reps/Time 2x5, reports soreness in R glute Therapeutic Exercises Supine Exercises BKFO Supine Exercise Name for core stab, gentle LS mobilization Side bilateral Reps/Minutes 1x10 ea leg Comments cues for core stab; no pain reported core KTC Side bilateral Resistance KTC /c resisted TB #2 aqua around ankles therapist anchor Reps/Minutes x10 Comments report good core effort, painfree core march Supine Exercise Name sequential each LE DL lift/ lower Side bilateral Reps/Minutes 2x8 Comments good feedback; no pain reported; cued for core stab, slow lowering Bridge Supine Exercise Name segmental bridging Resistance BLE over 55cm tball Reps/Minutes 2x10 Comments cued TA LS roll up/lower down, weight through heels; reports no pain Sitting Exercises LAQ Side bilateral Resistance Tb #2 aqua at ankles Equipment Used 4# leg wt Reps/Minutes 2x8 reps each Comments reports good fatigue; no pain resisted side stepping Sitting Exercise Name added to HEP (able don/doff TB self around upper hess) Side bilateral Resistance Tb #2 aqua below knees/upper hess Equipment Used light contact pinth Reps/Minutes 20 ft x2 laps Comments reports painfree L knee and LB , pain when at ankles sit<>stand Sitting Exercise Name TA stand/controlled sit; band around thighs Side bilateral Resistance reports minimal pain with eccentric lowering, cued to limit LS lordosis Equipment Used arms across chest Reps/Minutes 3x5 reps Comments cued scoot fwd in seat: hip hinge, slow descend fully to sit Manual Therapy Treatment Soft Tissue Mobilization R hip Body Location R>L posterior greater trochanter/ piriformis Mobilization Type Rolling,Sustained Pressure, Other Intensity/Depth Moderate Body Position Prone over pillow Comments Pt with very few spasms in R glutes and piriformis with palpation, decreased with light/gentle strumming and sustained pressure and MWM hip IR/ ER. Tolerates well and reports less pain/discomfort with repetition Lumbar spine Body Location R>L QL, ES L1-L5 Mobilization Type Rolling,Strumming,Sustained Pressure Intensity/Depth Moderate Body Position Prone over pillow Comments Reports decreased muscle tightness and tenderness in R ES and QL post manual. Joint Mobilizations Lumbar spine Joint L1-L5, R SIJ border Direction P-A Grade II Body Position Prone Reps/Duration 1x10 ea Comments Grade II mobilization for pain reduction. Reports no symptoms along lumbar spine with mobilization. Min pain and tenderness along R SIJ, not increased with gentle grade II mobilization. Reports overall pain reduction after manual tmt PT-OP-T Assessment and Plan Start: 09/18/23 10:31 Freq: Status: Active Protocol: Document 10/01/23 12:16 NM (Rec: 10/01/23 13:00 NM [id number]) Physical Therapy Assessment Goals Seven Impairment strength Impairment Trunk strength flex/ext 3/5, B lateral flex strength 4-/5 Short Term Goal (STG) Pt will increase global trunk strength by at least 1 MMT grade ea in order to demonstrate improved trunk strength and core stabilization needed for ADLs. STG Duration 4 weeks Desk Lieutenant Goal (LTG) Pt will increase global trunk strength by at least 2 MMT grades ea in order to demonstrate improved trunk strength and core stabilization needed for ADLs. LTG Duration 8 weeks Six Impairment balance, function Impairment Tinetti score: Short Term Goal (STG) Pt will improve Tinetti score by at least 2 points to demonstrate improved balance during ambulation and ADLs. STG Duration 4 weeks Nursing Home Goal (LTG) Pt will improve Tinetti score by at least 4 points (low fall risk category) to demonstrate improved balance during ambulation and ADLs. LTG Duration 8 weeks Five Impairment 5x STS 9.42 sec with pain on eccentric lowering Desk Lieutenant Goal (LTG) Pt will perform 5x STS <10 seconds with reported pain of 5/10 or less with eccentric lowering into chair to demonstrate improved tolerance for spinal flexion. LTG Duration 8 weeks Four Impairment Strength Impairment R hip ext and abd strength 3+/ 5 MMT Short Term Goal (STG) Pt will increase R hip ext/abd to at least 4/5 in order to demonstrate improved strength needed for ambulation and ADLs . STG Duration 4 weeks Desk Lieutenant Goal (LTG) Pt will increase R hip ext/abd to at least 4+/5 in order to demonstrate improved strength needed for ambulation and ADLs . LTG Duration 8 weeks Three Impairment Strength Impairment R hip strength flex/IR/ER 4-/5 MMT Short Term Goal (STG) Pt will increase R hip flex/ER /IR strength to at least 4/5 in order to demonstrate improved strength needed for ambulation and ADLs. STG Duration 4 weeks Desk Lieutenant Goal (LTG) Pt will increase R hip flex/IR /ER strength to at least 4+/5 in order to demonstrate improved strength needed for ambulation and ADLs. LTG Duration 8 weeks Two Impairment ROM Impairment Trunk flexion AROM 20 deg (10 fwd reach test) Short Term Goal (STG) Pt will increase trunk flexion AROM by at least 10 deg in order to demonstrate improved ability to last picker objects from floor for better ADL tolerance. STG Duration 4 weeks Desk Lieutenant Goal (LTG) Pt will increase trunk flexion AROM by at least 20 deg in order to demonstrate improved ability to last picker objects from floor for better ADL tolerance. LTG Duration 8 weeks One Impairment function Impairment Oswestry: Short Term Goal (STG) Pt will decrease Oswestry score by at least 6 points in order to demonstrate improved ADL tolerance and QOL. STG Duration 4 weeks Desk Lieutenant Goal (LTG) Pt will decrease Oswestry score by at least 13 points (1 MCID) in order to demonstrate improved ADL tolerance and QOL. LTG Duration 8 weeks Assessment Summary Assessment Pt tolerated tmt well and reports decreased low back pain (2/10) after session completion. Pt presents with less lateral translation during gait, although still antalgic. She demos improved tolerance for core and glute/ quad strengthening exercises. Initiated B squat on leg press at 50# to determine pt tolerance. Pt reports feeling it in glutes, but no pain in hips or low back. PT educated pt on soreness vs pain vs muscle activation as pt demos BLE weakness; pt verbalizes understanding. Continued with side steps and sit to stand training for hip abduction/ glute strengthening; added teal band to prevent knee valgus with sit to stand. Pt reports minimal pain with eccentric lowering, which improves with tactile and verbal cues to limit lumbar extension (excess lordosis) while moving to sitting position. Pt still has lumbar flexion-preference; tolerates core stabilization exercises well but would benefit from further repetition as she progresses from supine to sitting/standing with activity . Manual tmt to reduce pt lumbar paraspinal pain and grade II mobilization along L1 -L5 and B SIJs for further pain reduction and to begin improving spine mobility. HEP: seated LAQ with band, STS, lateral monster walk. Pt would benefit from skilled PT to improve BLE and trunk strength , to retrain balance and gait along with endurance in order to improve activity tolerance, improve QOL, and improve pain management. Physical Therapy Plan Frequency and Duration Frequency of Treatment 2x/Week Duration of treatment (weeks) 8 Plan of Care Start Date 09/18/23 Plan of Care End Date 11/13/23 Therapeutic Interventions Therapeutic Interventions Balance Training,Gait Training ,Home Exercise Program,Joint Mobilizations,Lymphedema Management,Manual Therapy, Neuromuscular Re-education, Orthotic/Prosthetic Management ,Patient/Caregiver Education, Self-Care/Home Management, Sensory Integration,Soft Tissue Mobilization,Taping, Therapeutic Activities, Therapeutic Exercises Modalities Biofeedback,Cold Pack/Ice Massage,Electric Stimulation, Hot Packs,Infrared Therapy, Iontophoresis,Ultrasound, Vasopneumatic Devices Next Visit Focus/Plan Next Note Type Treatment Note Next Visit Plan Address R hip pain if present: strengthen and stretch IR/ER (gentle). Continue with BLE strengthening: U squat, LAQ/ HSC with machines, cont flexion-based LS strengthening Trial: Traction, LTR, stretch, gentle ER stretch, nerve glide. Trial hip abd, ext, IR/ ER isometric Cont extension exercises in prone as tolerated (maybe modify with pillow)- maybe add press up if tolerated Soft tissue mobilization
--- NOTE | 2023-10-03 16:51 | PT.OTN ---
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 The pain is along the right- center of her spine and radiates along her posterior and lateral RLE. Pt also reports numbness in her R foot , but no tingling. She reports that the low back pain began during the fall 2022 (unable to report exact month); there is no known mechanism of injury. When she went to the walk-in clinic in July, she was dx with sciatica. Pt has a PMH of OA, RA, polymyalgia rheumatica beginning 1.5 years ago. She also has had several rounds of prednisone injections. She has no previous back injuries. Her last fall was >1 yr ago when she slipped on her outdoor mat. Her primary complaints are limitated ability to perform ADLs, lifting, stooping, standing or sitting for extended periods, and difficulty sleeping due to pain. Prior Treatments and Tests Radiographs: 08/15- multilevel degenerative disc disease and facet arthopathy Treatment Goals Patient/Caregiver Goals To decrease her low back pain Prior Functional Status Baseline Function- ADL's Independent Baseline Function- Mobility Independent Current Functional Impairments (Reported) Functional Limitations- ADL's Difficulty with ADLs, lifting, picking up objects from floor , standing > 10 min, sitting > 30 min Functional Limitations- Mobility/Gait Limited to 1/2 mi ambulation when ambulating with her dog Functional Limitations- Other Unable to sleep > 2 hr PT-OP-C Subjective Start: 09/18/23 10:31 Freq: Status: Active Protocol: Document 10/03/23 13:04 SW (Rec: 10/03/23 13:48 SW [id number]) OP-PT Subjective Patient Comments Patient Comments Pt reports pain in R glute , forgot to put towel under while driving. Pt reports gets burning pain in distal LLE into foot at times. PT-OP-D Balance Start: 09/18/23 10:31 Freq: Status: Active Protocol: Document 09/18/23 10:32 NM (Rec: 09/18/23 11:33 NM [id number]) OP-PT Balance Assessment Sitting Balance Static Sitting Balance Ability Normal Dynamic Sitting Balance Ability Normal Tinetti Balance Assessment Sitting Balance Sitting Balance Steady, safe Arising from Chair Ability to Arise Able, w/o using arms Attempts to Arise Arises on 1st attempt Standing Balance Immediate Standing Balance Steady w/o support Standing Balance Narrow stance w/o support Nudged Response Staggers, catches self Standing with Eyes Closed Unsteady Turning Step Pattern Turning 360 Degrees Continuous steps Stability Turning 360 Degrees Steady Sitting Down Sitting Down Uses arms or unsteady Gait and Step Initiation of Gait No hesitancy Right Foot Step Length Does pass stance foot Right Foot Step Height Completely clears floor Left Foot Step Length Does pass stance foot Left Foot Step Height Completely clears floor Step Description Step Symmetry Step length not equal Step Continuity Stopping or discontinuity Gait Description Path Description Straight Trunk Description Marked sway or uses aide Walking Stance Heels apart Scoring and Interpretation Tinetti Composite Score (points) 20 Interpretation of Scores At risk for falls (19-24) Colon Fall Scale Copyright Permission PT-OP-E Functional Tests Start: 09/18/23 10:31 Freq: Status: Active Protocol: Document 09/18/23 10:32 NM (Rec: 09/18/23 11:33 NM [id number]) Functional Tests Five Times Sit to Stand Test Score 9.42 sec Comments reports pain with eccentric lowering Other Standing Trunk Flexion to Floor Name of Test standing with legs ext, reach twd floor, measure from floor to fingers Score 10 from floor Comment reproduces low back pain with trunk flexion PT-OP-F Manual Assessment Start: 09/18/23 10:31 Freq: Status: Active Protocol: Document 09/18/23 10:32 NM (Rec: 09/18/23 11:33 NM [id number]) Manual Assessments Soft Tissue Assessment Soft Tissue Mobility Assessment Minimal soft tissue restriction along lumbar spine paraspinals especially along quadratus lumborum, erector spinae. Tenderness along R piriformis, gluteals and at greater trochanter. No palpable bursa at greater trochanter. Joint Mobility Assessment Joint Mobility Assessment Decreased hip flex, abd ROM with slight observable limitations in IR/ER ROM. Hip flex, ext, abd reproduces pain in lumbar spine and R lateral hip. P/A mobilizations are painful at L5-S2, along R sacral border. PT-OP-G Mobility & Gait Start: 09/18/23 10:31 Freq: Status: Active Protocol: Document 09/18/23 10:32 NM (Rec: 09/18/23 11:33 NM [id number]) OP Gait Assessment Gait Gait Assistance Required: Independent Distance (Feet) 100 Gait Deviations General Gait Pattern Antalgic,Decreased Stride Length,Lateral Trunk Lean Factors Limiting Gait Function Factors Limiting Gait Function Decreased Sensation,Decreased Strength,Limited Range of Motion,Pain,Poor Balance Comments Gait Comments Decreased weight acceptance RLE PT-OP-H Neuro Start: 09/18/23 10:31 Freq: Status: Active Protocol: Document 09/18/23 10:32 NM (Rec: 09/18/23 11:33 NM [id number]) Sensation Evaluation Gross Sensation Gross Sensation Right LE Impaired Comments Summary Comments Pt reports that R foot decreased feeling of light touch sensation along dorsal surface of foot compared to L foot. Deep Tendon Reflex & Clonus Assessment Deep Tendon Reflex Left Patellar Deep Tendon Reflex 2+ Normal Right Patellar Deep Tendon Reflex 2+ Normal PT-OP-J Posture/Palpation/Skin Start: 09/18/23 10:31 Freq: Status: Active Protocol: Document 09/18/23 10:32 NM (Rec: 09/18/23 11:33 NM [id number]) Posture Evaluation Position Standing Evaluation View Lateral Head/C-Spine Posture Forward Head T-Spine Posture Increased Kyphosis L-Spine Posture Increased Lordosis,Shifted Left Pelvis Posture Anteriorly Tilted Weight Distribution Weight Shifted Left,Decreased Wt.Bear on (R) Hip Posture (L) Externally Rotated,(R) Externally Rotated Palpation Assessment Location R hip Palpation Location greater trochanter Palpation Findings Muscle Guarding,Tenderness Palpation Details Tenderness to palpation along greater trochanter and along posterior thigh near proximal hamstring. No palpable bursa, only tenderness Lumbar Spine Palpation Location T12-L5, S1-S2, Sacral borders, gluteals, erector spinae Palpation Findings Soft Tissue Tightness,Muscle Guarding,Tenderness Palpation Details Min soft tissue tightness but demos muscle guarding and reports tenderness at R gluteal muscles (fabby piriformis). R mid-sacral border is most tender of all palpated areas (no increase in pain at sacral bases or ILAs) PT-OP-K Range of Motion Start: 09/18/23 10:31 Freq: Status: Active Protocol: Document 09/20/23 13:06 NM (Rec: 09/20/23 14:12 NM [id number]) Lumbar Spine Range of Motion Lumbar Spine Active Degrees Testing Position Standing Flexion 20 Extension 10 Rotation Left 10 Rotation Right 8 Lateral Flexion Left 25 Lateral Flexion Right 10 Comments Pain reported with flexion ( mod pain). Pain reported in R lumbar spine with B lateral flexion Rotation measured in cm. R hip pain with R rotation Hip Goniometric Range of Motion Hip Left Flexion w/Knee Flexed 105 Straight Leg Raise 142 Abduction 20 Internal Rotation 40 External Rotation 25 Right Testing Position Supine Flexion w/Knee Flexed 90 Straight Leg Raise 140 Abduction 20 Internal Rotation 28 External Rotation 25 PT-OP-L Special Tests Start: 09/18/23 10:31 Freq: Status: Active Protocol: Document 09/18/23 10:32 NM (Rec: 09/18/23 11:33 NM [id number]) Special Tests Lumbar Spine Special Tests SIJ Posterior Distraction Test Results negative (R) Comments does not reproduce lumbar spine, SIJ, or hip pain SIJ Anterior Gapping Test Results negative (B) Comments does not reproduce lumbar spine, SIJ, or hip pain Emerson/compression Test Results positive (R) Comments local pain reported R lumbar spine Straight Leg Raise Test Results positive (R) Comments reproduces low back pain, symptoms posterior RLE Distraction Test Results negative Comments does not report symptom relief Slump Test Results positive (B) Comments reports worse symptoms RLE with cervical ext PT-OP-M Strength Start: 09/18/23 10:31 Freq: Status: Active Protocol: Document 09/18/23 10:32 NM (Rec: 09/18/23 11:33 NM [id number]) Trunk Strength Trunk Manual Muscle Testing Testing Position supine, sitting Flexion 3 Fair Extension 3 Fair Rotation Left 4+ Good+ Rotation Right 4- Good- Lateral Flexion Left 4- Good- Lateral Flexion Right 4- Good- Comments Resisted R rotation, B lateral flexion reproduces pain in R lumbar spine and hip Hip Strength Hip Manual Muscle Testing Left Flexion (L2) 4 Good Extension (S1) 4 Good Abduction 4 Good External Rotation 4 Good Internal Rotation 4 Good Comments Resisted motions do not reproduce pain Right Flexion (L2) 4- Good- Extension (S1) 3+ Fair+ Abduction 3+ Fair+ External Rotation 4- Good- Internal Rotation 4- Good- Comments Reports low back pain and hip pain with flex, ext, abd Knee Strength Knee Manual Muscle Testing Left Flexion (S2) 4+ Good+ Extension (L3) 4+ Good+ Comments does not reproduced pain with resisted motions Right Flexion (S2) 4- Good- Comments Reproduces low back and hip pain PT-OP-Q Treatments Start: 09/18/23 10:31 Freq: Status: Active Protocol: Document 10/03/23 13:04 (Rec: 10/03/23 13:48 [id number]) Gym Equipment Cable Column (Body Solid) Leg Curl Resistance 20# Reps/Time x10 leg ext Resistance 10# Reps/Time x10 Shuttle Recovery unilateral squat Resistance 25 Shuttle Recovery Platform Stable Reps/Time 2x5 bilateral squat Resistance 50# (2 teal) Shuttle Recovery Platform Stable Reps/Time 2x5, reports soreness in R glute Therapeutic Exercises Supine Exercises BKFO Supine Exercise Name for core stab, gentle LS mobilization Side bilateral Reps/Minutes 1x10 ea leg Comments cues for core stab; no pain reported core KTC Side bilateral Resistance KTC /c resisted TB #2 aqua around ankles therapist anchor Reps/Minutes x10 Comments report good core effort, painfree core march Supine Exercise Name sequential each LE DL lift/ lower Side bilateral Reps/Minutes 2x8 Comments good feedback; no pain reported; cued for core stab, slow lowering LTR Supine Exercise Name for gentle LS mobilization Side bilateral Equipment Used BLEs over 55cm Tball Reps/Minutes x10 R and L Comments reports R post SI lessening with reps Bridge Supine Exercise Name segmental bridging Resistance BLE over 55cm tball Reps/Minutes 2x10 Comments cued TA LS roll up/lower down, weight through heels; reports no pain Sitting Exercises LAQ Side bilateral Resistance Tb #2 aqua at ankles Equipment Used 4# leg wt Reps/Minutes 2x8 reps each Comments reports good fatigue; no pain PT-OP-T Assessment and Plan Start: 09/18/23 10:31 Freq: Status: Active Protocol: Document 10/03/23 13:04 (Rec: 10/03/23 13:48 [id number]) Physical Therapy Assessment Goals Seven Impairment strength Impairment Trunk strength flex/ext 3/5, B lateral flex strength 4-/5 Short Term Goal (STG) Pt will increase global trunk strength by at least 1 MMT grade ea in order to demonstrate improved trunk strength and core stabilization needed for ADLs. STG Duration 4 weeks Care Home Goal (LTG) Pt will increase global trunk strength by at least 2 MMT grades ea in order to demonstrate improved trunk strength and core stabilization needed for ADLs. LTG Duration 8 weeks Six Impairment balance, function Impairment Tinetti score: Short Term Goal (STG) Pt will improve Tinetti score by at least 2 points to demonstrate improved balance during ambulation and ADLs. STG Duration 4 weeks Sales Service Assistant Goal (LTG) Pt will improve Tinetti score by at least 4 points (low fall risk category) to demonstrate improved balance during ambulation and ADLs. LTG Duration 8 weeks Five Impairment 5x STS 9.42 sec with pain on eccentric lowering Care Home Goal (LTG) Pt will perform 5x STS <10 seconds with reported pain of 5/10 or less with eccentric lowering into chair to demonstrate improved tolerance for spinal flexion. LTG Duration 8 weeks Four Impairment Strength Impairment R hip ext and abd strength 3+/ 5 MMT Short Term Goal (STG) Pt will increase R hip ext/abd to at least 4/5 in order to demonstrate improved strength needed for ambulation and ADLs . STG Duration 4 weeks Care Home Goal (LTG) Pt will increase R hip ext/abd to at least 4+/5 in order to demonstrate improved strength needed for ambulation and ADLs . LTG Duration 8 weeks Three Impairment Strength Impairment R hip strength flex/IR/ER 4-/5 MMT Short Term Goal (STG) Pt will increase R hip flex/ER /IR strength to at least 4/5 in order to demonstrate improved strength needed for ambulation and ADLs. STG Duration 4 weeks Sales Service Assistant Goal (LTG) Pt will increase R hip flex/IR /ER strength to at least 4+/5 in order to demonstrate improved strength needed for ambulation and ADLs. 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 STG Duration 4 weeks Care Home Goal (LTG) Pt will increase trunk flexion AROM by at least 20 deg in order to demonstrate improved ability to fruit picker machine operator objects from floor for better ADL tolerance. LTG Duration 8 weeks One Impairment function Impairment Oswestry: 28/50 Short Term Goal (STG) Pt will decrease Oswestry score by at least 6 points in order to demonstrate improved ADL tolerance and QOL. STG Duration 4 weeks Care Home Goal (LTG) Pt will decrease Oswestry score by at least 13 points (1 MCID) in order to demonstrate improved ADL tolerance and QOL. LTG Duration 8 weeks Assessment Summary Assessment Initiated LE strengthening with machines, pt able to tolerated more load with knee flex vs knee ext, good feedback no increase in symptoms. Progressed pt with unilateral squat on leg press for strengthening, good tolerance, no increase in symptoms. Plan to assess pt tolerance to addition of new exercises next session and progress as able. Physical Therapy Plan Frequency and Duration Frequency of Treatment 2x/Week Duration of treatment (weeks) 8 Plan of Care Start Date 09/18/23 Plan of Care End Date 11/13/23 Therapeutic Interventions Therapeutic Interventions Balance Training,Gait Training ,Home Exercise Program,Joint Mobilizations,Lymphedema Management,Manual Therapy, Neuromuscular Re-education, Orthotic/Prosthetic Management ,Patient/Caregiver Education, Self-Care/Home Management, Sensory Integration,Soft Tissue Mobilization,Taping, Therapeutic Activities, Therapeutic Exercises Modalities Biofeedback,Cold Pack/Ice Massage,Electric Stimulation, Hot Packs,Infrared Therapy, Iontophoresis,Ultrasound, Vasopneumatic Devices Next Visit Focus/Plan Next Note Type Treatment Note Next Visit Plan Address R hip pain if present: strengthen and stretch IR/ER (gentle). Continue with BLE strengthening: U squat, LAQ/ HSC with machines, cont flexion-based LS strengthening Trial: Traction, LTR, stretch, gentle ER stretch, nerve glide. Trial hip abd, ext, IR/ ER isometric Cont extension exercises in prone as tolerated (maybe modify with pillow)- maybe add press up if tolerated Soft tissue mobilization
--- NOTE | 2023-10-08 13:45 | PT.OTN ---
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 The pain is along the right- center of her spine and radiates along her posterior and lateral RLE. Pt also reports numbness in her R foot , but no tingling. She reports that the low back pain began during the fall 2022 (unable to report exact month); there is no known mechanism of injury. When she went to the walk-in clinic in July, she was dx with sciatica. Pt has a PMH of OA, RA, polymyalgia rheumatica beginning 1.5 years ago. She also has had several rounds of prednisone injections. She has no previous back injuries. Her last fall was >1 yr ago when she slipped on her outdoor mat. Her primary complaints are limitated ability to perform ADLs, lifting, stooping, standing or sitting for extended periods, and difficulty sleeping due to pain. Prior Treatments and Tests Radiographs: 08/15- multilevel degenerative disc disease and facet arthopathy Treatment Goals Patient/Caregiver Goals To decrease her low back pain Prior Functional Status Baseline Function- ADL's Independent Baseline Function- Mobility Independent Current Functional Impairments (Reported) Functional Limitations- ADL's Difficulty with ADLs, lifting, picking up objects from floor , standing > 10 min, sitting > 30 min Functional Limitations- Mobility/Gait Limited to 1/2 mi ambulation when ambulating with her dog Functional Limitations- Other Unable to sleep > 2 hr PT-OP-C Subjective Start: 09/18/23 10:31 Freq: Status: Active Protocol: Document 10/08/23 13:05 SP (Rec: 10/08/23 13:51 SP [id number]) OP-PT Subjective Patient Comments Patient Comments Pt reports burning into R lateral lower leg, has had prior to PT. Has been nervous walking on salt outside, like uneven ground. She stated compliant with HEP and finds helping. PT-OP-D Balance Start: 09/18/23 10:31 Freq: Status: Active Protocol: Document 09/18/23 10:32 NM (Rec: 09/18/23 11:33 NM [id number]) OP-PT Balance Assessment Sitting Balance Static Sitting Balance Ability Normal Dynamic Sitting Balance Ability Normal Tinetti Balance Assessment Sitting Balance Sitting Balance Steady, safe Arising from Chair Ability to Arise Able, w/o using arms Attempts to Arise Arises on 1st attempt Standing Balance Immediate Standing Balance Steady w/o support Standing Balance Narrow stance w/o support Nudged Response Staggers, catches self Standing with Eyes Closed Unsteady Turning Step Pattern Turning 360 Degrees Continuous steps Stability Turning 360 Degrees Steady Sitting Down Sitting Down Uses arms or unsteady Gait and Step Initiation of Gait No hesitancy Right Foot Step Length Does pass stance foot Right Foot Step Height Completely clears floor Left Foot Step Length Does pass stance foot Left Foot Step Height Completely clears floor Step Description Step Symmetry Step length not equal Step Continuity Stopping or discontinuity Gait Description Path Description Straight Trunk Description Marked sway or uses aide Walking Stance Heels apart Scoring and Interpretation Tinetti Composite Score (points) 20 Interpretation of Scores At risk for falls (19-24) Colon Fall Scale Copyright Permission PT-OP-E Functional Tests Start: 09/18/23 10:31 Freq: Status: Active Protocol: Document 09/18/23 10:32 NM (Rec: 09/18/23 11:33 NM [id number]) Functional Tests Five Times Sit to Stand Test Score 9.42 sec Comments reports pain with eccentric lowering Other Standing Trunk Flexion to Floor Name of Test standing with legs ext, reach twd floor, measure from floor to fingers Score 10 from floor Comment reproduces low back pain with trunk flexion PT-OP-F Manual Assessment Start: 09/18/23 10:31 Freq: Status: Active Protocol: Document 09/18/23 10:32 NM (Rec: 09/18/23 11:33 NM [id number]) Manual Assessments Soft Tissue Assessment Soft Tissue Mobility Assessment Minimal soft tissue restriction along lumbar spine paraspinals especially along quadratus lumborum, erector spinae. Tenderness along R piriformis, gluteals and at greater trochanter. No palpable bursa at greater trochanter. Joint Mobility Assessment Joint Mobility Assessment Decreased hip flex, abd ROM with slight observable limitations in IR/ER ROM. Hip flex, ext, abd reproduces pain in lumbar spine and R lateral hip. P/A mobilizations are painful at L5-S2, along R sacral border. PT-OP-G Mobility & Gait Start: 09/18/23 10:31 Freq: Status: Active Protocol: Document 09/18/23 10:32 NM (Rec: 09/18/23 11:33 NM [id number]) OP Gait Assessment Gait Gait Assistance Required: Independent Distance (Feet) 100 Gait Deviations General Gait Pattern Antalgic,Decreased Stride Length,Lateral Trunk Lean Factors Limiting Gait Function Factors Limiting Gait Function Decreased Sensation,Decreased Strength,Limited Range of Motion,Pain,Poor Balance Comments Gait Comments Decreased weight acceptance RLE PT-OP-H Neuro Start: 09/18/23 10:31 Freq: Status: Active Protocol: Document 09/18/23 10:32 NM (Rec: 09/18/23 11:33 NM [id number]) Sensation Evaluation Gross Sensation Gross Sensation Right LE Impaired Comments Summary Comments Pt reports that R foot decreased feeling of light touch sensation along dorsal surface of foot compared to L foot. Deep Tendon Reflex & Clonus Assessment Deep Tendon Reflex Left Patellar Deep Tendon Reflex 2+ Normal Right Patellar Deep Tendon Reflex 2+ Normal PT-OP-J Posture/Palpation/Skin Start: 09/18/23 10:31 Freq: Status: Active Protocol: Document 09/18/23 10:32 NM (Rec: 09/18/23 11:33 NM [id number]) Posture Evaluation Position Standing Evaluation View Lateral Head/C-Spine Posture Forward Head T-Spine Posture Increased Kyphosis L-Spine Posture Increased Lordosis,Shifted Left Pelvis Posture Anteriorly Tilted Weight Distribution Weight Shifted Left,Decreased Wt.Bear on (R) Hip Posture (L) Externally Rotated,(R) Externally Rotated Palpation Assessment Location R hip Palpation Location greater trochanter Palpation Findings Muscle Guarding,Tenderness Palpation Details Tenderness to palpation along greater trochanter and along posterior thigh near proximal hamstring. No palpable bursa, only tenderness Lumbar Spine Palpation Location T12-L5, S1-S2, Sacral borders, gluteals, erector spinae Palpation Findings Soft Tissue Tightness,Muscle Guarding,Tenderness Palpation Details Min soft tissue tightness but demos muscle guarding and reports tenderness at R gluteal muscles (fabby piriformis). R mid-sacral border is most tender of all palpated areas (no increase in pain at sacral bases or ILAs) PT-OP-K Range of Motion Start: 09/18/23 10:31 Freq: Status: Active Protocol: Document 09/20/23 13:06 NM (Rec: 09/20/23 14:12 NM [id number]) Lumbar Spine Range of Motion Lumbar Spine Active Degrees Testing Position Standing Flexion 20 Extension 10 Rotation Left 10 Rotation Right 8 Lateral Flexion Left 25 Lateral Flexion Right 10 Comments Pain reported with flexion ( mod pain). Pain reported in R lumbar spine with B lateral flexion Rotation measured in cm. R hip pain with R rotation Hip Goniometric Range of Motion Hip Left Flexion w/Knee Flexed 105 Straight Leg Raise 142 Abduction 20 Internal Rotation 40 External Rotation 25 Right Testing Position Supine Flexion w/Knee Flexed 90 Straight Leg Raise 140 Abduction 20 Internal Rotation 28 External Rotation 25 PT-OP-L Special Tests Start: 09/18/23 10:31 Freq: Status: Active Protocol: Document 09/18/23 10:32 NM (Rec: 09/18/23 11:33 NM [id number]) Special Tests Lumbar Spine Special Tests SIJ Posterior Distraction Test Results negative (R) Comments does not reproduce lumbar spine, SIJ, or hip pain SIJ Anterior Gapping Test Results negative (B) Comments does not reproduce lumbar spine, SIJ, or hip pain Emerson/compression Test Results positive (R) Comments local pain reported R lumbar spine Straight Leg Raise Test Results positive (R) Comments reproduces low back pain, symptoms posterior RLE Distraction Test Results negative Comments does not report symptom relief Slump Test Results positive (B) Comments reports worse symptoms RLE with cervical ext PT-OP-M Strength Start: 09/18/23 10:31 Freq: Status: Active Protocol: Document 09/18/23 10:32 NM (Rec: 09/18/23 11:33 NM [id number]) Trunk Strength Trunk Manual Muscle Testing Testing Position supine, sitting Flexion 3 Fair Extension 3 Fair Rotation Left 4+ Good+ Rotation Right 4- Good- Lateral Flexion Left 4- Good- Lateral Flexion Right 4- Good- Comments Resisted R rotation, B lateral flexion reproduces pain in R lumbar spine and hip Hip Strength Hip Manual Muscle Testing Left Flexion (L2) 4 Good Extension (S1) 4 Good Abduction 4 Good External Rotation 4 Good Internal Rotation 4 Good Comments Resisted motions do not reproduce pain Right Flexion (L2) 4- Good- Extension (S1) 3+ Fair+ Abduction 3+ Fair+ External Rotation 4- Good- Internal Rotation 4- Good- Comments Reports low back pain and hip pain with flex, ext, abd Knee Strength Knee Manual Muscle Testing Left Flexion (S2) 4+ Good+ Extension (L3) 4+ Good+ Comments does not reproduced pain with resisted motions Right Flexion (S2) 4- Good- Comments Reproduces low back and hip pain PT-OP-Q Treatments Start: 09/18/23 10:31 Freq: Status: Active Protocol: Document 10/08/23 13:05 SP (Rec: 10/08/23 13:51 SP [id number]) Gym Equipment Cable Column (Body Solid) Leg Curl Resistance 20# Reps/Time x10 leg ext Details see 4 holes at back Resistance 10# Reps/Time x10 Shuttle Recovery unilateral squat Details cued knee alignment Resistance 25# Dark navy Shuttle Recovery Platform Stable Reps/Time x10 bilateral squat Details cued knee alignment more lateral Resistance 50# (2 teal> 2 dark navy blue) Shuttle Recovery Platform Stable Reps/Time x10, reports soreness in R glute Therapeutic Exercises Supine Exercises LE neural glide Supine Exercise Name reviewed Side right Reps/Minutes x10 ankle pumps Comments improved no burning Sitting Exercises LAQ Side bilateral Resistance Tb #2 aqua at ankles Equipment Used 4# leg wt Reps/Minutes 5 reps, 10 reps each Comments reports good fatigue; no pain Other Exercises self STMs Other Exercise Name ball wall R glut med/max/PF Side right Comments good feedback massage Manual Therapy Treatment Soft Tissue Mobilization R hip Body Location R posterior greater trochanter / piriformis Mobilization Type Rolling,Sustained Pressure, Other Intensity/Depth Moderate Body Position Prone over pillow Comments Pt with very few spasms in R glutes and piriformis with palpation, decreased with light/gentle strumming and sustained pressure and MWM hip IR/ ER. Tolerates well and reports less pain/discomfort with repetitions PT-OP-T Assessment and Plan Start: 09/18/23 10:31 Freq: Status: Active Protocol: Document 10/08/23 13:05 SP (Rec: 10/08/23 13:51 SP [id number]) Physical Therapy Assessment Goals Seven Impairment strength Impairment Trunk strength flex/ext 3/5, B lateral flex strength 4-/5 Short Term Goal (STG) Pt will increase global trunk strength by at least 1 MMT grade ea in order to demonstrate improved trunk strength and core stabilization needed for ADLs. STG Duration 4 weeks Residential Goal (LTG) Pt will increase global trunk strength by at least 2 MMT grades ea in order to demonstrate improved trunk strength and core stabilization needed for ADLs. LTG Duration 8 weeks Six Impairment balance, function Impairment Tinetti score: Short Term Goal (STG) Pt will improve Tinetti score by at least 2 points to demonstrate improved balance during ambulation and ADLs. STG Duration 4 weeks [employer] Account Assistant Goal (LTG) Pt will improve Tinetti score by at least 4 points (low fall risk category) to demonstrate improved balance during ambulation and ADLs. LTG Duration 8 weeks Five Impairment 5x STS 9.42 sec with pain on eccentric lowering [employer] Account Assistant Goal (LTG) Pt will perform 5x STS <10 seconds with reported pain of 5/10 or less with eccentric lowering into chair to demonstrate improved tolerance for spinal flexion. LTG Duration 8 weeks Four Impairment Strength Impairment R hip ext and abd strength 3+/ 5 MMT Short Term Goal (STG) Pt will increase R hip ext/abd to at least 4/5 in order to demonstrate improved strength needed for ambulation and ADLs . STG Duration 4 weeks [employer] Account Assistant Goal (LTG) Pt will increase R hip ext/abd to at least 4+/5 in order to demonstrate improved strength needed for ambulation and ADLs . LTG Duration 8 weeks Three Impairment Strength Impairment R hip strength flex/IR/ER 4-/5 MMT Short Term Goal (STG) Pt will increase R hip flex/ER /IR strength to at least 4/5 in order to demonstrate improved strength needed for ambulation and ADLs. STG Duration 4 weeks [employer] Account Assistant Goal (LTG) Pt will increase R hip flex/IR /ER strength to at least 4+/5 in order to demonstrate improved strength needed for ambulation and ADLs. LTG Duration 8 weeks Two Impairment ROM Impairment Trunk flexion AROM 20 deg (10 fwd reach test) Short Term Goal (STG) Pt will increase trunk flexion AROM by at least 10 deg in order to demonstrate improved ability to picking machine operator objects from floor for better ADL tolerance. STG Duration 4 weeks [employer] Account Assistant Goal (LTG) Pt will increase trunk flexion AROM by at least 20 deg in order to demonstrate improved ability to picking machine operator objects from floor for better ADL tolerance. LTG Duration 8 weeks One Impairment function Impairment Oswestry: 28/50 Short Term Goal (STG) Pt will decrease Oswestry score by at least 6 points in order to demonstrate improved ADL tolerance and QOL. STG Duration 4 weeks Residential Goal (LTG) Pt will decrease Oswestry score by at least 13 points (1 MCID) in order to demonstrate improved ADL tolerance and QOL. LTG Duration 8 weeks Assessment Summary Assessment Pt reports good effort muscle tiring with machine ther ex and allowance to increase load on shuttle recovery and carryover review resisted LAQ for home performing. Initiated supine LE neural glide to assist and deminished reports of lateral lower leg burning has been feeling lately. Reviewed self application of manual to R posterolateral hip wtih good feedback response might acquire racquetball for home when needed. Assess if hip IR/ER strengthening needed if continue R hip pain next tx. Physical Therapy Plan Frequency and Duration Frequency of Treatment 2x/Week Duration of treatment (weeks) 8 Plan of Care Start Date 09/18/23 Plan of Care End Date 11/13/23 Therapeutic Interventions Therapeutic Interventions Balance Training,Gait Training ,Home Exercise Program,Joint Mobilizations,Lymphedema Management,Manual Therapy, Neuromuscular Re-education, Orthotic/Prosthetic Management ,Patient/Caregiver Education, Self-Care/Home Management, Sensory Integration,Soft Tissue Mobilization,Taping, Therapeutic Activities, Therapeutic Exercises Modalities Biofeedback,Cold Pack/Ice Massage,Electric Stimulation, Hot Packs,Infrared Therapy, Iontophoresis,Ultrasound, Vasopneumatic Devices Next Visit Focus/Plan Next Note Type Treatment Note Next Visit Plan Address R hip pain if present: strengthen and stretch IR/ER (gentle). Continue with BLE strengthening: U squat, LAQ/ HSC with machines, cont flexion-based LS strengthening Trial: Traction, LTR, stretch, gentle ER stretch, nerve glide. Trial hip abd, ext, IR/ ER isometric Cont extension exercises in prone as tolerated (maybe modify with pillow)- maybe add press up if tolerated Soft tissue mobilization
--- NOTE | 2023-10-17 09:40 | PT.OTN ---
Current Diagnoses Low back pain, unspecified (10/16/23) Weakness (10/16/23) Physical Therapy Treatment Note PT-OP-A Visit Information Start: 09/18/23 10:31 Freq: Status: Active Protocol: Document 10/16/23 13:55 SW (Rec: 10/16/23 14:32 SW [id number]) Out-Patient Physical Therapy Visit Information Visit Information Visit Type Treatment Note Visit Note KX modifier after 20th visit/ yr Visit Start Time 13:46 Visit Stop Time 14:30 Visit Number 8 Number of FOOT ROENTGENOLOGIST Visits 3 PT-OP-B Current Condition Start: 09/18/23 10:31 Freq: Status: Active Protocol: Document 09/18/23 10:32 NM (Rec: 09/18/23 11:33 NM [id number]) Current Condition History of Current Condition Onset Date Fall 2022 Current Complaints low back pain, R leg pain History of Current Condition Pt presents with low back pain that radiates into her RLE. The pain is along the right- center of her spine and radiates along her posterior and lateral RLE. Pt also reports numbness in her R foot , but no tingling. She reports that the low back pain began during the fall 2022 (unable to report exact month); there is no known mechanism of injury. When she went to the walk-in clinic in July, she was dx with sciatica. Pt has a PMH of OA, RA, polymyalgia rheumatica beginning 1.5 years ago. She also has had several rounds of prednisone injections. She has no previous back injuries. Her last fall was >1 yr ago when she slipped on her outdoor mat. Her primary complaints are limitated ability to perform ADLs, lifting, stooping, standing or sitting for extended periods, and difficulty sleeping due to pain. Prior Treatments and Tests Radiographs: 08/15- multilevel degenerative disc disease and facet arthopathy Treatment Goals Patient/Caregiver Goals To decrease her low back pain Prior Functional Status Baseline Function- ADL's Independent Baseline Function- Mobility Independent Current Functional Impairments (Reported) Functional Limitations- ADL's Difficulty with ADLs, lifting, picking up objects from floor , standing > 10 min, sitting > 30 min Functional Limitations- Mobility/Gait Limited to 1/2 mi ambulation when ambulating with her dog Functional Limitations- Other Unable to sleep > 2 hr PT-OP-C Subjective Start: 09/18/23 10:31 Freq: Status: Active Protocol: Document 10/16/23 13:55 SW (Rec: 10/16/23 14:32 SW [id number]) OP-PT Subjective Patient Comments Patient Comments Pt reports burning in knees and in low legs. In more pain today, took dog out on a walk earlier. PT-OP-D Balance Start: 09/18/23 10:31 Freq: Status: Active Protocol: Document 09/18/23 10:32 NM (Rec: 09/18/23 11:33 NM [id number]) OP-PT Balance Assessment Sitting Balance Static Sitting Balance Ability Normal Dynamic Sitting Balance Ability Normal Tinetti Balance Assessment Sitting Balance Sitting Balance Steady, safe Arising from Chair Ability to Arise Able, w/o using arms Attempts to Arise Arises on 1st attempt Standing Balance Immediate Standing Balance Steady w/o support Standing Balance Narrow stance w/o support Nudged Response Staggers, catches self Standing with Eyes Closed Unsteady Turning Step Pattern Turning 360 Degrees Continuous steps Stability Turning 360 Degrees Steady Sitting Down Sitting Down Uses arms or unsteady Gait and Step Initiation of Gait No hesitancy Right Foot Step Length Does pass stance foot Right Foot Step Height Completely clears floor Left Foot Step Length Does pass stance foot Left Foot Step Height Completely clears floor Step Description Step Symmetry Step length not equal Step Continuity Stopping or discontinuity Gait Description Path Description Straight Trunk Description Marked sway or uses aide Walking Stance Heels apart Scoring and Interpretation Tinetti Composite Score (points) 20 Interpretation of Scores At risk for falls (19-24) Colon Fall Scale Copyright Permission PT-OP-E Functional Tests Start: 09/18/23 10:31 Freq: Status: Active Protocol: Document 09/18/23 10:32 NM (Rec: 09/18/23 11:33 NM [id number]) Functional Tests Five Times Sit to Stand Test Score 9.42 sec Comments reports pain with eccentric lowering Other Standing Trunk Flexion to Floor Name of Test standing with legs ext, reach twd floor, measure from floor to fingers Score 10 from floor Comment reproduces low back pain with trunk flexion PT-OP-F Manual Assessment Start: 09/18/23 10:31 Freq: Status: Active Protocol: Document 09/18/23 10:32 NM (Rec: 09/18/23 11:33 NM [id number]) Manual Assessments Soft Tissue Assessment Soft Tissue Mobility Assessment Minimal soft tissue restriction along lumbar spine paraspinals especially along quadratus lumborum, erector spinae. Tenderness along R piriformis, gluteals and at greater trochanter. No palpable bursa at greater trochanter. Joint Mobility Assessment Joint Mobility Assessment Decreased hip flex, abd ROM with slight observable limitations in IR/ER ROM. Hip flex, ext, abd reproduces pain in lumbar spine and R lateral hip. P/A mobilizations are painful at L5-S2, along R sacral border. PT-OP-G Mobility & Gait Start: 09/18/23 10:31 Freq: Status: Active Protocol: Document 09/18/23 10:32 NM (Rec: 09/18/23 11:33 NM [id number]) OP Gait Assessment Gait Gait Assistance Required: Independent Distance (Feet) 100 Gait Deviations General Gait Pattern Antalgic,Decreased Stride Length,Lateral Trunk Lean Factors Limiting Gait Function Factors Limiting Gait Function Decreased Sensation,Decreased Strength,Limited Range of Motion,Pain,Poor Balance Comments Gait Comments Decreased weight acceptance RLE PT-OP-H Neuro Start: 09/18/23 10:31 Freq: Status: Active Protocol: Document 09/18/23 10:32 NM (Rec: 09/18/23 11:33 NM [id number]) Sensation Evaluation Gross Sensation Gross Sensation Right LE Impaired Comments Summary Comments Pt reports that R foot decreased feeling of light touch sensation along dorsal surface of foot compared to L foot. Deep Tendon Reflex & Clonus Assessment Deep Tendon Reflex Left Patellar Deep Tendon Reflex 2+ Normal Right Patellar Deep Tendon Reflex 2+ Normal PT-OP-J Posture/Palpation/Skin Start: 09/18/23 10:31 Freq: Status: Active Protocol: Document 09/18/23 10:32 NM (Rec: 09/18/23 11:33 NM [id number]) Posture Evaluation Position Standing Evaluation View Lateral Head/C-Spine Posture Forward Head T-Spine Posture Increased Kyphosis L-Spine Posture Increased Lordosis,Shifted Left Pelvis Posture Anteriorly Tilted Weight Distribution Weight Shifted Left,Decreased Wt.Bear on (R) Hip Posture (L) Externally Rotated,(R) Externally Rotated Palpation Assessment Location R hip Palpation Location greater trochanter Palpation Findings Muscle Guarding,Tenderness Palpation Details Tenderness to palpation along greater trochanter and along posterior thigh near proximal hamstring. No palpable bursa, only tenderness Lumbar Spine Palpation Location T12-L5, S1-S2, Sacral borders, gluteals, erector spinae Palpation Findings Soft Tissue Tightness,Muscle Guarding,Tenderness Palpation Details Min soft tissue tightness but demos muscle guarding and reports tenderness at R gluteal muscles (fabby piriformis). R mid-sacral border is most tender of all palpated areas (no increase in pain at sacral bases or ILAs) PT-OP-K Range of Motion Start: 09/18/23 10:31 Freq: Status: Active Protocol: Document 09/20/23 13:06 NM (Rec: 09/20/23 14:12 NM [id number]) Lumbar Spine Range of Motion Lumbar Spine Active Degrees Testing Position Standing Flexion 20 Extension 10 Rotation Left 10 Rotation Right 8 Lateral Flexion Left 25 Lateral Flexion Right 10 Comments Pain reported with flexion ( mod pain). Pain reported in R lumbar spine with B lateral flexion Rotation measured in cm. R hip pain with R rotation Hip Goniometric Range of Motion Hip Left Flexion w/Knee Flexed 105 Straight Leg Raise 142 Abduction 20 Internal Rotation 40 External Rotation 25 Right Testing Position Supine Flexion w/Knee Flexed 90 Straight Leg Raise 140 Abduction 20 Internal Rotation 28 External Rotation 25 PT-OP-L Special Tests Start: 09/18/23 10:31 Freq: Status: Active Protocol: Document 09/18/23 10:32 NM (Rec: 09/18/23 11:33 NM [id number]) Special Tests Lumbar Spine Special Tests SIJ Posterior Distraction Test Results negative (R) Comments does not reproduce lumbar spine, SIJ, or hip pain SIJ Anterior Gapping Test Results negative (B) Comments does not reproduce lumbar spine, SIJ, or hip pain Emerson/compression Test Results positive (R) Comments local pain reported R lumbar spine Straight Leg Raise Test Results positive (R) Comments reproduces low back pain, symptoms posterior RLE Distraction Test Results negative Comments does not report symptom relief Slump Test Results positive (B) Comments reports worse symptoms RLE with cervical ext PT-OP-M Strength Start: 09/18/23 10:31 Freq: Status: Active Protocol: Document 09/18/23 10:32 NM (Rec: 09/18/23 11:33 NM [id number]) Trunk Strength Trunk Manual Muscle Testing Testing Position supine, sitting Flexion 3 Fair Extension 3 Fair Rotation Left 4+ Good+ Rotation Right 4- Good- Lateral Flexion Left 4- Good- Lateral Flexion Right 4- Good- Comments Resisted R rotation, B lateral flexion reproduces pain in R lumbar spine and hip Hip Strength Hip Manual Muscle Testing Left Flexion (L2) 4 Good Extension (S1) 4 Good Abduction 4 Good External Rotation 4 Good Internal Rotation 4 Good Comments Resisted motions do not reproduce pain Right Flexion (L2) 4- Good- Extension (S1) 3+ Fair+ Abduction 3+ Fair+ External Rotation 4- Good- Internal Rotation 4- Good- Comments Reports low back pain and hip pain with flex, ext, abd Knee Strength Knee Manual Muscle Testing Left Flexion (S2) 4+ Good+ Extension (L3) 4+ Good+ Comments does not reproduced pain with resisted motions Right Flexion (S2) 4- Good- Comments Reproduces low back and hip pain PT-OP-Q Treatments Start: 09/18/23 10:31 Freq: Status: Active Protocol: Document 10/16/23 13:55 (Rec: 10/16/23 14:32 [id number]) Gym Equipment Cable Column (Body Solid) Leg Curl Resistance 20# Reps/Time x10 leg ext Details see 4 holes at back Resistance 20# Reps/Time x10 Shuttle Recovery unilateral squat Details cued knee alignment Resistance 37# Dark blue Shuttle Recovery Platform Stable Reps/Time x10 bilateral squat Details cued knee alignment more lateral Resistance 50# (2 teal> 2 dark navy blue) Shuttle Recovery Platform Stable Reps/Time x10, reports soreness in R glute Therapeutic Exercises Sitting Exercises Hip IR/ER Sitting Exercise Name Hip IR/ER Side bilateral Resistance Isometric Equipment Used Therapist Assist Reps/Minutes 10 x 3 Comments heavy cues/pt education for compensations with hip hike and knee Standing Exercises Hip ER/IR Standing Exercise Name Isometric Side bilateral Manual Therapy Treatment Soft Tissue Mobilization R hip Body Location R posterior greater trochanter / piriformis Mobilization Type Rolling,Sustained Pressure, Other Intensity/Depth Moderate Body Position Prone over pillow Comments Pt with very few spasms in R glutes and piriformis with palpation, decreased with light/gentle strumming and sustained pressure and MWM hip IR/ ER. Tolerates well and reports less pain/discomfort with repetitions Manual Techniques Long axis distraction Type Long axis distraction Body Location RLE Body Position Supine PT-OP-R Modalities Start: 10/16/23 17:23 Freq: Status: Active Protocol: Document 10/16/23 13:55 SW (Rec: 10/16/23 17:25 [id number]) Hot Pack/Cold Pack Treatment Hot Pack Location Lumbar/hip Patient Position Supine Patient Tolerance Good Comments elizabeth within reach, pt reported good response PT-OP-T Assessment and Plan Start: 09/18/23 10:31 Freq: Status: Active Protocol: Document 10/16/23 13:55 (Rec: 10/16/23 14:32 [id number]) Physical Therapy Assessment Goals Seven Impairment strength Impairment Trunk strength flex/ext 3/5, B lateral flex strength 4-/5 Short Term Goal (STG) Pt will increase global trunk strength by at least 1 MMT grade ea in order to demonstrate improved trunk strength and core stabilization needed for ADLs. STG Duration 4 weeks Insole Doubler Goal (LTG) Pt will increase global trunk strength by at least 2 MMT grades ea in order to demonstrate improved trunk strength and core stabilization needed for ADLs. LTG Duration 8 weeks Six Impairment balance, function Impairment Tinetti score: Short Term Goal (STG) Pt will improve Tinetti score by at least 2 points to demonstrate improved balance during ambulation and ADLs. STG Duration 4 weeks Correction Goal (LTG) Pt will improve Tinetti score by at least 4 points (low fall risk category) to demonstrate improved balance during ambulation and ADLs. LTG Duration 8 weeks Five Impairment 5x STS 9.42 sec with pain on eccentric lowering Correction Goal (LTG) Pt will perform 5x STS <10 seconds with reported pain of 5/10 or less with eccentric lowering into chair to demonstrate improved tolerance for spinal flexion. LTG Duration 8 weeks Four Impairment Strength Impairment R hip ext and abd strength 3+/ 5 MMT Short Term Goal (STG) Pt will increase R hip ext/abd to at least 4/5 in order to demonstrate improved strength needed for ambulation and ADLs . STG Duration 4 weeks Insole Doubler Goal (LTG) Pt will increase R hip ext/abd to at least 4+/5 in order to demonstrate improved strength needed for ambulation and ADLs . LTG Duration 8 weeks Three Impairment Strength Impairment R hip strength flex/IR/ER 4-/5 MMT Short Term Goal (STG) Pt will increase R hip flex/ER /IR strength to at least 4/5 in order to demonstrate improved strength needed for ambulation and ADLs. STG Duration 4 weeks Insole Doubler Goal (LTG) Pt will increase R hip flex/IR /ER strength to at least 4+/5 in order to demonstrate improved strength needed for ambulation and ADLs. LTG Duration 8 weeks Two Impairment ROM Impairment Trunk flexion AROM 20 deg (10 fwd reach test) Short Term Goal (STG) Pt will increase trunk flexion AROM by at least 10 deg in order to demonstrate improved ability to mixing picker tender objects from floor for better ADL tolerance. STG Duration 4 weeks Correction Goal (LTG) Pt will increase trunk flexion AROM by at least 20 deg in order to demonstrate improved ability to mixing picker tender objects from floor for better ADL tolerance. LTG Duration 8 weeks One Impairment function Impairment Oswestry: 28/50 Short Term Goal (STG) Pt will decrease Oswestry score by at least 6 points in order to demonstrate improved ADL tolerance and QOL. STG Duration 4 weeks Correction Goal (LTG) Pt will decrease Oswestry score by at least 13 points (1 MCID) in order to demonstrate improved ADL tolerance and QOL. LTG Duration 8 weeks Assessment Summary Assessment Started session with manual therapy d/t pt reported discomfort after walking dog prior to session, good tolerance and feedback post. Initiated hip IR/ER isometric strengthening this session, pt tolerated well, heavy compensations requiring verbal /tactile/visual cues, improved with pt education/cueing. Physical Therapy Plan Frequency and Duration Frequency of Treatment 2x/Week Duration of treatment (weeks) 8 Plan of Care Start Date 09/18/23 Plan of Care End Date 11/13/23 Therapeutic Interventions Therapeutic Interventions Balance Training,Gait Training ,Home Exercise Program,Joint Mobilizations,Lymphedema Management,Manual Therapy, Neuromuscular Re-education, Orthotic/Prosthetic Management ,Patient/Caregiver Education, Self-Care/Home Management, Sensory Integration,Soft Tissue Mobilization,Taping, Therapeutic Activities, Therapeutic Exercises Modalities Biofeedback,Cold Pack/Ice Massage,Electric Stimulation, Hot Packs,Infrared Therapy, Iontophoresis,Ultrasound, Vasopneumatic Devices Next Visit Focus/Plan Next Note Type Treatment Note Next Visit Plan Address R hip pain if present: strengthen and stretch IR/ER (gentle). Continue with BLE strengthening: U squat, LAQ/ HSC with machines, cont flexion-based LS strengthening Trial: Traction, LTR, stretch, gentle ER stretch, nerve glide. Trial hip abd, ext, IR/ ER isometric Cont extension exercises in prone as tolerated (maybe modify with pillow)- maybe add press up if tolerated Soft tissue mobilization
--- NOTE | 2023-10-22 16:34 | PT.OTN ---
Current Diagnoses Low back pain, unspecified (10/22/23) Weakness (10/22/23) Physical Therapy Treatment Note PT-OP-A Visit Information Start: 09/18/23 10:31 Freq: Status: Active Protocol: Document 10/22/23 12:15 NM (Rec: 10/22/23 13:00 NM [id number]) Out-Patient Physical Therapy Visit Information Visit Information Visit Type Progress Note Visit Note KX modifier after 20th visit/ yr Visit Start Time 12:15 Visit Stop Time 13:00 Visit Number 9 Evaluation Information Evaluation Date 09/18/23 PT-OP-B Current Condition Start: 09/18/23 10:31 Freq: Status: Active Protocol: Document 09/18/23 10:32 NM (Rec: 09/18/23 11:33 NM [id number]) Current Condition History of Current Condition Onset Date Fall 2022 Current Complaints low back pain, R leg pain History of Current Condition Pt presents with low back pain that radiates into her RLE. The pain is along the right- center of her spine and radiates along her posterior and lateral RLE. Pt also reports numbness in her R foot , but no tingling. She reports that the low back pain began during the fall 2022 (unable to report exact month); there is no known mechanism of injury. When she went to the walk-in clinic in July, she was dx with sciatica. Pt has a PMH of OA, RA, polymyalgia rheumatica beginning 1.5 years ago. She also has had several rounds of prednisone injections. She has no previous back injuries. Her last fall was >1 yr ago when she slipped on her outdoor mat. Her primary complaints are limitated ability to perform ADLs, lifting, stooping, standing or sitting for extended periods, and difficulty sleeping due to pain. Prior Treatments and Tests Radiographs: 08/15- multilevel degenerative disc disease and facet arthopathy Treatment Goals Patient/Caregiver Goals To decrease her low back pain Prior Functional Status Baseline Function- ADL's Independent Baseline Function- Mobility Independent Current Functional Impairments (Reported) Functional Limitations- ADL's Difficulty with ADLs, lifting, picking up objects from floor , standing > 10 min, sitting > 30 min Functional Limitations- Mobility/Gait Limited to 1/2 mi ambulation when ambulating with her dog Functional Limitations- Other Unable to sleep > 2 hr PT-OP-C Subjective Start: 09/18/23 10:31 Freq: Status: Active Protocol: Document 10/22/23 12:15 NM (Rec: 10/22/23 13:00 NM [id number]) OP-PT Subjective Patient Comments Patient Comments Pt reports 4/10 pain in her low back, 2/10 R hip near glutes. She continues to have burning on the top of her dorsal R foot, which she is most concerned about. She reports that she has improved in pain management since beginning PT and feels like she is walking better. She is concerned about her balance and her foot. PT-OP-D Balance Start: 09/18/23 10:31 Freq: Status: Active Protocol: Document 09/18/23 10:32 NM (Rec: 09/18/23 11:33 NM [id number]) OP-PT Balance Assessment Sitting Balance Static Sitting Balance Ability Normal Dynamic Sitting Balance Ability Normal Tinetti Balance Assessment Sitting Balance Sitting Balance Steady, safe Arising from Chair Ability to Arise Able, w/o using arms Attempts to Arise Arises on 1st attempt Standing Balance Immediate Standing Balance Steady w/o support Standing Balance Narrow stance w/o support Nudged Response Staggers, catches self Standing with Eyes Closed Unsteady Turning Step Pattern Turning 360 Degrees Continuous steps Stability Turning 360 Degrees Steady Sitting Down Sitting Down Uses arms or unsteady Gait and Step Initiation of Gait No hesitancy Right Foot Step Length Does pass stance foot Right Foot Step Height Completely clears floor Left Foot Step Length Does pass stance foot Left Foot Step Height Completely clears floor Step Description Step Symmetry Step length not equal Step Continuity Stopping or discontinuity Gait Description Path Description Straight Trunk Description Marked sway or uses aide Walking Stance Heels apart Scoring and Interpretation Tinetti Composite Score (points) 20 Interpretation of Scores At risk for falls (19-24) Colon Fall Scale Copyright Permission PT-OP-E Functional Tests Start: 09/18/23 10:31 Freq: Status: Active Protocol: Document 09/18/23 10:32 NM (Rec: 09/18/23 11:33 NM [id number]) Functional Tests Five Times Sit to Stand Test Score 9.42 sec Comments reports pain with eccentric lowering Other Standing Trunk Flexion to Floor Name of Test standing with legs ext, reach twd floor, measure from floor to fingers Score 10 from floor Comment reproduces low back pain with trunk flexion PT-OP-F Manual Assessment Start: 09/18/23 10:31 Freq: Status: Active Protocol: Document 09/18/23 10:32 NM (Rec: 09/18/23 11:33 NM [id number]) Manual Assessments Soft Tissue Assessment Soft Tissue Mobility Assessment Minimal soft tissue restriction along lumbar spine paraspinals especially along quadratus lumborum, erector spinae. Tenderness along R piriformis, gluteals and at greater trochanter. No palpable bursa at greater trochanter. Joint Mobility Assessment Joint Mobility Assessment Decreased hip flex, abd ROM with slight observable limitations in IR/ER ROM. Hip flex, ext, abd reproduces pain in lumbar spine and R lateral hip. P/A mobilizations are painful at L5-S2, along R sacral border. PT-OP-G Mobility & Gait Start: 09/18/23 10:31 Freq: Status: Active Protocol: Document 09/18/23 10:32 NM (Rec: 09/18/23 11:33 NM [id number]) OP Gait Assessment Gait Gait Assistance Required: Independent Distance (Feet) 100 Gait Deviations General Gait Pattern Antalgic,Decreased Stride Length,Lateral Trunk Lean Factors Limiting Gait Function Factors Limiting Gait Function Decreased Sensation,Decreased Strength,Limited Range of Motion,Pain,Poor Balance Comments Gait Comments Decreased weight acceptance RLE PT-OP-H Neuro Start: 09/18/23 10:31 Freq: Status: Active Protocol: Document 09/18/23 10:32 NM (Rec: 09/18/23 11:33 NM [id number]) Sensation Evaluation Gross Sensation Gross Sensation Right LE Impaired Comments Summary Comments Pt reports that R foot decreased feeling of light touch sensation along dorsal surface of foot compared to L foot. Deep Tendon Reflex & Clonus Assessment Deep Tendon Reflex Left Patellar Deep Tendon Reflex 2+ Normal Right Patellar Deep Tendon Reflex 2+ Normal PT-OP-J Posture/Palpation/Skin Start: 09/18/23 10:31 Freq: Status: Active Protocol: Document 09/18/23 10:32 NM (Rec: 09/18/23 11:33 NM [id number]) Posture Evaluation Position Standing Evaluation View Lateral Head/C-Spine Posture Forward Head T-Spine Posture Increased Kyphosis L-Spine Posture Increased Lordosis,Shifted Left Pelvis Posture Anteriorly Tilted Weight Distribution Weight Shifted Left,Decreased Wt.Bear on (R) Hip Posture (L) Externally Rotated,(R) Externally Rotated Palpation Assessment Location R hip Palpation Location greater trochanter Palpation Findings Muscle Guarding,Tenderness Palpation Details Tenderness to palpation along greater trochanter and along posterior thigh near proximal hamstring. No palpable bursa, only tenderness Lumbar Spine Palpation Location T12-L5, S1-S2, Sacral borders, gluteals, erector spinae Palpation Findings Soft Tissue Tightness,Muscle Guarding,Tenderness Palpation Details Min soft tissue tightness but demos muscle guarding and reports tenderness at R gluteal muscles (fabby piriformis). R mid-sacral border is most tender of all palpated areas (no increase in pain at sacral bases or ILAs) PT-OP-K Range of Motion Start: 09/18/23 10:31 Freq: Status: Active Protocol: Document 10/22/23 12:15 NM (Rec: 10/22/23 13:00 NM [id number]) Lumbar Spine Range of Motion Lumbar Spine Active Degrees Testing Position Standing Flexion 20 Extension 10 Rotation Left 10 Rotation Right 8 Lateral Flexion Left 25 Lateral Flexion Right 10 Comments IE: Pain reported with flexion (mod pain). Pain reported in R lumbar spine with B lateral flexion; Rotation measured in cm. R hip pain with R rotation 10/22/23: 3 fwd trunk flex test from floor; 40 deg flexion, not painful PT-OP-L Special Tests Start: 09/18/23 10:31 Freq: Status: Active Protocol: Document 09/18/23 10:32 NM (Rec: 09/18/23 11:33 NM [id number]) Special Tests Lumbar Spine Special Tests SIJ Posterior Distraction Test Results negative (R) Comments does not reproduce lumbar spine, SIJ, or hip pain SIJ Anterior Gapping Test Results negative (B) Comments does not reproduce lumbar spine, SIJ, or hip pain Emerson/compression Test Results positive (R) Comments local pain reported R lumbar spine Straight Leg Raise Test Results positive (R) Comments reproduces low back pain, symptoms posterior RLE Distraction Test Results negative Comments does not report symptom relief Slump Test Results positive (B) Comments reports worse symptoms RLE with cervical ext PT-OP-M Strength Start: 09/18/23 10:31 Freq: Status: Active Protocol: Document 10/22/23 12:15 NM (Rec: 10/22/23 15:50 NM [id number]) Hip Strength Hip Manual Muscle Testing Left Flexion (L2) 4 Good Extension (S1) 4 Good Abduction 4 Good External Rotation 4 Good Internal Rotation 4 Good Comments Resisted motions do not reproduce pain Right Flexion (L2) 4- Good- Extension (S1) 3+ Fair+ Abduction 3+ Fair+ External Rotation 4- Good- Internal Rotation 4- Good- Comments Reports low back pain and hip pain with flex, ext, abd 10/22/23: flex 4+/5, 4/5 IR/ER/ ext, 4-/5 hip abd (still painful abd) Knee Strength Knee Manual Muscle Testing Left Flexion (S2) 4+ Good+ Extension (L3) 4+ Good+ Comments does not reproduced pain with resisted motions Right Flexion (S2) 4- Good- Comments Reproduces low back and hip pain 10/22/23:4+/5 for knee ext and flex, does not reproduce any pain PT-OP-Q Treatments Start: 09/18/23 10:31 Freq: Status: Active Protocol: Document 10/22/23 12:15 NM (Rec: 10/22/23 13:00 NM [id number]) Therapeutic Exercises Sitting Exercises Hip IR/ER Sitting Exercise Name Trialed resisted: Hip IR/ER Side bilateral Resistance light blue lvl 1 band around ankles Equipment Used light tactile cue to hip to prevent hike Reps/Minutes 2x10x3 Comments decreased hip hike comp, cued for full IR ROM; weak LAQ Sitting Exercise Name cont cables next session Side bilateral Resistance Tb #2 aqua at ankles Equipment Used 4# leg wt Reps/Minutes 2x10 with 3 hold Comments reports good fatigue; no pain sit<>stand Sitting Exercise Name 5x STS test, performed 2x Side bilateral Reps/Minutes 2x5 Comments no pain reported with eccentric lowering today; good control Manual Therapy Treatment Soft Tissue Mobilization R hip Body Location R posterior greater trochanter /piriformis, HS, ITB Mobilization Type Rolling,Sustained Pressure, Other Intensity/Depth Moderate Body Position Prone over pillow Comments Pt with fewer spasms in R glutes and piriformis with palpation, decreased with light/gentle strumming and sustained pressure and MWM hip IR/ ER. Tolerates well and reports less pain/discomfort with repetitions, MWM. Pt with tenderness along ITB as well, STM to muscle insertions and light rolling along lateral ITB for pain reduction; reports decrease with sustained pressure Self-Care/Home Management Treatment Education Patient Education Fall Risk,Home Exercise Program,Joint Protection,Pain Management Other Education 12 minutes: PT educated pt on exam findings, modalities for pain education (e.g. heat, soft tissue mobilization, gentle stretching, gentle ambulation, elevation). Also educated on sensory re- education to decrease hyperalgesia using various textures. PT further educated pt on importance of finding PCP in area or making appt with previous PCP about her concerns with her foot, medications, other medical issues PT-OP-R Modalities Start: 10/16/23 17:23 Freq: Status: Active Protocol: Document 10/16/23 13:55 SW (Rec: 10/16/23 17:25 SW [id number]) Hot Pack/Cold Pack Treatment Hot Pack Location Lumbar/hip Patient Position Supine Patient Tolerance Good Comments elizabeth within reach, pt reported good response PT-OP-T Assessment and Plan Start: 09/18/23 10:31 Freq: Status: Active Protocol: Document 10/22/23 12:15 NM (Rec: 10/22/23 13:00 NM [id number]) Physical Therapy Assessment Goals Seven Impairment strength Impairment Trunk strength flex/ext 3/5, B lateral flex strength 4-/5 Short Term Goal (STG) Pt will increase global trunk strength by at least 1 MMT grade ea in order to demonstrate improved trunk strength and core stabilization needed for ADLs. 10/22/23: PARTIALLY MET, flex 4 /5 (able to hold 5 sec) and not painful; lateral flex 4+/5 , not painful STG Duration 4 weeks PARTIALLY MET Ferris Wheel Attendant Goal (LTG) Pt will increase global trunk strength by at least 2 MMT grades ea in order to demonstrate improved trunk strength and core stabilization needed for ADLs. 10/22/23: lateral flex MMT 4+/5 , not painful LTG Duration 8 weeks Six Impairment balance, function Impairment Tinetti score: Short Term Goal (STG) Pt will improve Tinetti score by at least 2 points to demonstrate improved balance during ambulation and ADLs. 10/22/23: (gait 6, balance 12) STG Duration 4 weeks MET Ferris Wheel Attendant Goal (LTG) Pt will improve Tinetti score by at least 4 points (low fall risk category) to demonstrate improved balance during ambulation and ADLs. LTG Duration 8 weeks Five Impairment 5x STS 9.42 sec with pain on eccentric lowering Mcfp Goal (LTG) Pt will perform 5x STS <10 seconds with reported pain of 5/10 or less with eccentric lowering into chair to demonstrate improved tolerance for spinal flexion. 10/22/23: 9.30 sec; no pain with eccentric lowering or rising LTG Duration 8 weeks MET Four Impairment Strength Impairment R hip ext and abd strength 3+/ 5 MMT Short Term Goal (STG) Pt will increase R hip ext/abd to at least 4/5 in order to demonstrate improved strength needed for ambulation and ADLs . 10/22/23: B hip ext 4/5 (not painful); B hip abd 4-/5 and painful with resistance at thigh STG Duration 4 weeks PROGRESSING, PARTIALLY MET Ferris Wheel Attendant Goal (LTG) Pt will increase R hip ext/abd to at least 4+/5 in order to demonstrate improved strength needed for ambulation and ADLs . LTG Duration 8 weeks Three Impairment Strength Impairment R hip strength flex/IR/ER 4-/5 MMT Short Term Goal (STG) Pt will increase R hip flex/ER /IR strength to at least 4/5 in order to demonstrate improved strength needed for ambulation and ADLs. 10/22/23: 4+/5 MMT for B hip flex; 4/5 for IR/ER STG Duration 4 weeks PARTIALLY MET Mcfp Goal (LTG) Pt will increase R hip flex/IR /ER strength to at least 4+/5 in order to demonstrate improved strength needed for ambulation and ADLs. LTG Duration 8 weeks Two Impairment ROM Impairment Trunk flexion AROM 20 deg (10 fwd reach test) Short Term Goal (STG) Pt will increase trunk flexion AROM by at least 10 deg in order to demonstrate improved ability to picking machine operator objects from floor for better ADL tolerance. 10/22/23: 3 fwd reach, 40 deg; reports not painful STG Duration 4 weeks Ferris Wheel Attendant Goal (LTG) Pt will increase trunk flexion AROM by at least 20 deg in order to demonstrate improved ability to picking machine operator objects from floor for better ADL tolerance. 10/22/23: 3 fwd reach, 40 deg; reports not painful LTG Duration 8 weeks MET One Impairment function Impairment Oswestry: 2850 Short Term Goal (STG) Pt will decrease Oswestry score by at least 6 points in order to demonstrate improved ADL tolerance and QOL. 10/22/23: 22/50 STG Duration 4 weeks MET Mcfp Goal (LTG) Pt will decrease Oswestry score by at least 13 points (1 MCID) in order to demonstrate improved ADL tolerance and QOL. LTG Duration 8 weeks Assessment Summary Assessment Pt tolerated session well. She demonstrates improved eccentric control during eccentric lowering with sit to stands, and reports that the motion is pain free. Progressed seated hip IR/ER from isometric to resisted exercise; pt demos minimal hip hike compensation during hip IR, but is decreased with light tactile cue to R hip. She still has antalgic gait pattern with lateral lean during R stance with wide JOIE, possibly due to decreased sensation in L foot. Pt continues to respond well to soft tissue mobilization and mobilization with movement of glutes and IT band; she has fewer soft tissue restrictions , spasms, and decreased tenderness to palpation. Pt is progressing toward goals and demonstrates improvement in BLE and trunk strength. She has met several STGs and a few LTGs. Pt reports that she has improved since beginning; she has minimal low back and hip pain. However, she continues to be most limited by her R foot pain/burning sensation along the dorsal surface of her foot. Pt's foot is hypersensitive to touch. PT educated pt on finding local PCP to address pt's concerns about medications, managing her lymphedema, and the burning sensation in her foot. PT had reached out to referring provider on 09/20/23 about possibility of further imaging for her hip; however, pt has not followed up with finding PCP or imaging. Pt would benefit from skilled PT for progressive BLE and trunk strengthening, gait training, symptom management, and activity tolerance in order to improve QOL. Physical Therapy Plan Frequency and Duration Frequency of Treatment 2x/Week Duration of treatment (weeks) 8 Plan of Care Start Date 09/18/23 Plan of Care End Date 11/13/23 Therapeutic Interventions Therapeutic Interventions Balance Training,Gait Training ,Home Exercise Program,Joint Mobilizations,Lymphedema Management,Manual Therapy, Neuromuscular Re-education, Orthotic/Prosthetic Management ,Patient/Caregiver Education, Self-Care/Home Management, Sensory Integration,Soft Tissue Mobilization,Taping, Therapeutic Activities, Therapeutic Exercises Modalities Biofeedback,Cold Pack/Ice Massage,Electric Stimulation, Hot Packs,Infrared Therapy, Iontophoresis,Ultrasound, Vasopneumatic Devices Next Visit Focus/Plan Next Note Type Treatment Note Next Visit Plan Continue BLE strengthening, fabby hip/lumbar spine Next session: nerve glide for burning, cont B/U squat leg press, side steps vs standing hip abd, standing hip ext, rial 4 step up. Manual to glutes, piriformis, hip abd. Gait training to decrease compensation
--- NOTE | 2023-10-24 16:22 | PT.OTN ---
Current Diagnoses Low back pain, unspecified (10/24/23) Weakness (10/24/23) Physical Therapy Treatment Note PT-OP-A Visit Information Start: 09/18/23 10:31 Freq: Status: Active Protocol: Document 10/24/23 13:04 SW (Rec: 10/24/23 13:52 SW [id number]) Out-Patient Physical Therapy Visit Information Visit Information Visit Type Treatment Note Visit Note KX modifier after 20th visit/ yr Visit Start Time 13:00 Visit Stop Time 13:40 Visit Number 10 Number of EVENTS AND PROMOTIONS ASSISTANT Visits 1 PT-OP-B Current Condition Start: 09/18/23 10:31 Freq: Status: Active Protocol: Document 09/18/23 10:32 NM (Rec: 09/18/23 11:33 NM [id number]) Current Condition History of Current Condition Onset Date Fall 2022 Current Complaints low back pain, R leg pain History of Current Condition Pt presents with low back pain that radiates into her RLE. The pain is along the right- center of her spine and radiates along her posterior and lateral RLE. Pt also reports numbness in her R foot , but no tingling. She reports that the low back pain began during the fall 2022 (unable to report exact month); there is no known mechanism of injury. When she went to the walk-in clinic in July, she was dx with sciatica. Pt has a PMH of OA, RA, polymyalgia rheumatica beginning 1.5 years ago. She also has had several rounds of prednisone injections. She has no previous back injuries. Her last fall was >1 yr ago when she slipped on her outdoor mat. Her primary complaints are limitated ability to perform ADLs, lifting, stooping, standing or sitting for extended periods, and difficulty sleeping due to pain. Prior Treatments and Tests Radiographs: 08/15- multilevel degenerative disc disease and facet arthopathy Treatment Goals Patient/Caregiver Goals To decrease her low back pain Prior Functional Status Baseline Function- ADL's Independent Baseline Function- Mobility Independent Current Functional Impairments (Reported) Functional Limitations- ADL's Difficulty with ADLs, lifting, picking up objects from floor , standing > 10 min, sitting > 30 min Functional Limitations- Mobility/Gait Limited to 1/2 mi ambulation when ambulating with her dog Functional Limitations- Other Unable to sleep > 2 hr PT-OP-C Subjective Start: 09/18/23 10:31 Freq: Status: Active Protocol: Document 10/24/23 13:04 SW (Rec: 10/24/23 13:46 SW [id number]) OP-PT Subjective Patient Comments Patient Comments pt reports finding a PCP. Pt went into PCP today for R foot , and they told her it was sciatica. PT-OP-D Balance Start: 09/18/23 10:31 Freq: Status: Active Protocol: Document 09/18/23 10:32 NM (Rec: 09/18/23 11:33 NM [id number]) OP-PT Balance Assessment Sitting Balance Static Sitting Balance Ability Normal Dynamic Sitting Balance Ability Normal Tinetti Balance Assessment Sitting Balance Sitting Balance Steady, safe Arising from Chair Ability to Arise Able, w/o using arms Attempts to Arise Arises on 1st attempt Standing Balance Immediate Standing Balance Steady w/o support Standing Balance Narrow stance w/o support Nudged Response Staggers, catches self Standing with Eyes Closed Unsteady Turning Step Pattern Turning 360 Degrees Continuous steps Stability Turning 360 Degrees Steady Sitting Down Sitting Down Uses arms or unsteady Gait and Step Initiation of Gait No hesitancy Right Foot Step Length Does pass stance foot Right Foot Step Height Completely clears floor Left Foot Step Length Does pass stance foot Left Foot Step Height Completely clears floor Step Description Step Symmetry Step length not equal Step Continuity Stopping or discontinuity Gait Description Path Description Straight Trunk Description Marked sway or uses aide Walking Stance Heels apart Scoring and Interpretation Tinetti Composite Score (points) 20 Interpretation of Scores At risk for falls (19-24) Colon Fall Scale Copyright Permission PT-OP-E Functional Tests Start: 09/18/23 10:31 Freq: Status: Active Protocol: Document 09/18/23 10:32 NM (Rec: 09/18/23 11:33 NM [id number]) Functional Tests Five Times Sit to Stand Test Score 9.42 sec Comments reports pain with eccentric lowering Other Standing Trunk Flexion to Floor Name of Test standing with legs ext, reach twd floor, measure from floor to fingers Score 10 from floor Comment reproduces low back pain with trunk flexion PT-OP-F Manual Assessment Start: 09/18/23 10:31 Freq: Status: Active Protocol: Document 09/18/23 10:32 NM (Rec: 09/18/23 11:33 NM [id number]) Manual Assessments Soft Tissue Assessment Soft Tissue Mobility Assessment Minimal soft tissue restriction along lumbar spine paraspinals especially along quadratus lumborum, erector spinae. Tenderness along R piriformis, gluteals and at greater trochanter. No palpable bursa at greater trochanter. Joint Mobility Assessment Joint Mobility Assessment Decreased hip flex, abd ROM with slight observable limitations in IR/ER ROM. Hip flex, ext, abd reproduces pain in lumbar spine and R lateral hip. P/A mobilizations are painful at L5-S2, along R sacral border. PT-OP-G Mobility & Gait Start: 09/18/23 10:31 Freq: Status: Active Protocol: Document 09/18/23 10:32 NM (Rec: 09/18/23 11:33 NM [id number]) OP Gait Assessment Gait Gait Assistance Required: Independent Distance (Feet) 100 Gait Deviations General Gait Pattern Antalgic,Decreased Stride Length,Lateral Trunk Lean Factors Limiting Gait Function Factors Limiting Gait Function Decreased Sensation,Decreased Strength,Limited Range of Motion,Pain,Poor Balance Comments Gait Comments Decreased weight acceptance RLE PT-OP-H Neuro Start: 09/18/23 10:31 Freq: Status: Active Protocol: Document 09/18/23 10:32 NM (Rec: 09/18/23 11:33 NM [id number]) Sensation Evaluation Gross Sensation Gross Sensation Right LE Impaired Comments Summary Comments Pt reports that R foot decreased feeling of light touch sensation along dorsal surface of foot compared to L foot. Deep Tendon Reflex & Clonus Assessment Deep Tendon Reflex Left Patellar Deep Tendon Reflex 2+ Normal Right Patellar Deep Tendon Reflex 2+ Normal PT-OP-J Posture/Palpation/Skin Start: 09/18/23 10:31 Freq: Status: Active Protocol: Document 09/18/23 10:32 NM (Rec: 09/18/23 11:33 NM [id number]) Posture Evaluation Position Standing Evaluation View Lateral Head/C-Spine Posture Forward Head T-Spine Posture Increased Kyphosis L-Spine Posture Increased Lordosis,Shifted Left Pelvis Posture Anteriorly Tilted Weight Distribution Weight Shifted Left,Decreased Wt.Bear on (R) Hip Posture (L) Externally Rotated,(R) Externally Rotated Palpation Assessment Location R hip Palpation Location greater trochanter Palpation Findings Muscle Guarding,Tenderness Palpation Details Tenderness to palpation along greater trochanter and along posterior thigh near proximal hamstring. No palpable bursa, only tenderness Lumbar Spine Palpation Location T12-L5, S1-S2, Sacral borders, gluteals, erector spinae Palpation Findings Soft Tissue Tightness,Muscle Guarding,Tenderness Palpation Details Min soft tissue tightness but demos muscle guarding and reports tenderness at R gluteal muscles (fabby piriformis). R mid-sacral border is most tender of all palpated areas (no increase in pain at sacral bases or ILAs) PT-OP-K Range of Motion Start: 09/18/23 10:31 Freq: Status: Active Protocol: Document 10/22/23 12:15 NM (Rec: 10/22/23 13:00 NM [id number]) Lumbar Spine Range of Motion Lumbar Spine Active Degrees Testing Position Standing Flexion 20 Extension 10 Rotation Left 10 Rotation Right 8 Lateral Flexion Left 25 Lateral Flexion Right 10 Comments IE: Pain reported with flexion (mod pain). Pain reported in R lumbar spine with B lateral flexion; Rotation measured in cm. R hip pain with R rotation 10/22/23: 3 fwd trunk flex test from floor; 40 deg flexion, not painful PT-OP-L Special Tests Start: 09/18/23 10:31 Freq: Status: Active Protocol: Document 09/18/23 10:32 NM (Rec: 09/18/23 11:33 NM [id number]) Special Tests Lumbar Spine Special Tests SIJ Posterior Distraction Test Results negative (R) Comments does not reproduce lumbar spine, SIJ, or hip pain SIJ Anterior Gapping Test Results negative (B) Comments does not reproduce lumbar spine, SIJ, or hip pain Emerson/compression Test Results positive (R) Comments local pain reported R lumbar spine Straight Leg Raise Test Results positive (R) Comments reproduces low back pain, symptoms posterior RLE Distraction Test Results negative Comments does not report symptom relief Slump Test Results positive (B) Comments reports worse symptoms RLE with cervical ext PT-OP-M Strength Start: 09/18/23 10:31 Freq: Status: Active Protocol: Document 10/22/23 12:15 NM (Rec: 10/22/23 15:50 NM [id number]) Hip Strength Hip Manual Muscle Testing Left Flexion (L2) 4 Good Extension (S1) 4 Good Abduction 4 Good External Rotation 4 Good Internal Rotation 4 Good Comments Resisted motions do not reproduce pain Right Flexion (L2) 4- Good- Extension (S1) 3+ Fair+ Abduction 3+ Fair+ External Rotation 4- Good- Internal Rotation 4- Good- Comments Reports low back pain and hip pain with flex, ext, abd 10/22/23: flex 4+/5, 4/5 IR/ER/ ext, 4-/5 hip abd (still painful abd) Knee Strength Knee Manual Muscle Testing Left Flexion (S2) 4+ Good+ Extension (L3) 4+ Good+ Comments does not reproduced pain with resisted motions Right Flexion (S2) 4- Good- Comments Reproduces low back and hip pain 10/22/23:4+/5 for knee ext and flex, does not reproduce any pain PT-OP-Q Treatments Start: 09/18/23 10:31 Freq: Status: Active Protocol: Document 10/24/23 13:04 SW (Rec: 10/24/23 13:46 [id number]) Gym Equipment Cable Column (Body Solid) Leg Curl Resistance 20# Reps/Time x10 leg ext Details see 4 holes at back Resistance 20# Reps/Time x10 Therapeutic Exercises Prone Exercises Prone press up Prone Exercise Name Prone press up Resistance AROM Reps/Minutes x10 Sitting Exercises Hip IR/ER Sitting Exercise Name Hip IR/ER Side bilateral Resistance light blue lvl 1 band around ankles Equipment Used light tactile cue to hip to prevent hike Reps/Minutes 2x10x3 Comments decreased hip hike comp, cued for full IR ROM; weak resisted side stepping Sitting Exercise Name added to HEP (able don/doff TB self around upper hess) Side bilateral Resistance Tb # 1 light blue above knee d /t knee pn Equipment Used light contact ballet bar Reps/Minutes 20 ft x1 lap Comments reports painfree L knee and LB , pain when at ankles Standing Exercises Hip Ext Standing Exercise Name Hip Ext Side bilateral Resistance TB#1 light blue Manual Therapy Treatment Soft Tissue Mobilization R hip Body Location R posterior greater trochanter /piriformis, HS, ITB Mobilization Type Rolling,Sustained Pressure, Other Intensity/Depth Moderate Body Position Prone over pillow Comments Pt with fewer spasms in R glutes and piriformis with palpation, decreased with light/gentle strumming and sustained pressure and MWM hip IR/ ER. Tolerates well and reports less pain/discomfort with repetitions, MWM. Pt with tenderness along ITB as well, STM to muscle insertions and light rolling along lateral ITB for pain reduction; reports decrease with sustained pressure PT-OP-R Modalities Start: 10/16/23 17:23 Freq: Status: Active Protocol: Document 10/16/23 13:55 SW (Rec: 10/16/23 17:25 SW [id number]) Hot Pack/Cold Pack Treatment Hot Pack Location Lumbar/hip Patient Position Supine Patient Tolerance Good Comments elizabeth within reach, pt reported good response PT-OP-T Assessment and Plan Start: 09/18/23 10:31 Freq: Status: Active Protocol: Document 10/24/23 13:04 SW (Rec: 10/24/23 13:46 [id number]) Physical Therapy Assessment Goals Seven Impairment strength Impairment Trunk strength flex/ext 3/5, B lateral flex strength 4-/5 Short Term Goal (STG) Pt will increase global trunk strength by at least 1 MMT grade ea in order to demonstrate improved trunk strength and core stabilization needed for ADLs. 10/22/23: PARTIALLY MET, flex 4 /5 (able to hold 5 sec) and not painful; lateral flex 4+/5 , not painful STG Duration 4 weeks PARTIALLY MET Shelter Goal (LTG) Pt will increase global trunk strength by at least 2 MMT grades ea in order to demonstrate improved trunk strength and core stabilization needed for ADLs. 10/22/23: lateral flex MMT 4+/5 , not painful LTG Duration 8 weeks Six Impairment balance, function Impairment Tinetti score: Short Term Goal (STG) Pt will improve Tinetti score by at least 2 points to demonstrate improved balance during ambulation and ADLs. 10/22/23: (gait 6, balance 12) STG Duration 4 weeks MET Physics Tutor Goal (LTG) Pt will improve Tinetti score by at least 4 points (low fall risk category) to demonstrate improved balance during ambulation and ADLs. LTG Duration 8 weeks Five Impairment 5x STS 9.42 sec with pain on eccentric lowering Shelter Goal (LTG) Pt will perform 5x STS <10 seconds with reported pain of 5/10 or less with eccentric lowering into chair to demonstrate improved tolerance for spinal flexion. 10/22/23: 9.30 sec; no pain with eccentric lowering or rising LTG Duration 8 weeks MET Four Impairment Strength Impairment R hip ext and abd strength 3+/ 5 MMT Short Term Goal (STG) Pt will increase R hip ext/abd to at least 4/5 in order to demonstrate improved strength needed for ambulation and ADLs . 10/22/23: B hip ext 4/5 (not painful); B hip abd 4-/5 and painful with resistance at thigh STG Duration 4 weeks PROGRESSING, PARTIALLY MET Shelter Goal (LTG) Pt will increase R hip ext/abd to at least 4+/5 in order to demonstrate improved strength needed for ambulation and ADLs . LTG Duration 8 weeks Three Impairment Strength Impairment R hip strength flex/IR/ER 4-/5 MMT Short Term Goal (STG) Pt will increase R hip flex/ER /IR strength to at least 4/5 in order to demonstrate improved strength needed for ambulation and ADLs. 10/22/23: 4+/5 MMT for B hip flex; 4/5 for IR/ER STG Duration 4 weeks PARTIALLY MET Shelter Goal (LTG) Pt will increase R hip flex/IR /ER strength to at least 4+/5 in order to demonstrate improved strength needed for ambulation and ADLs. LTG Duration 8 weeks Two Impairment ROM Impairment Trunk flexion AROM 20 deg (10 fwd reach test) Short Term Goal (STG) Pt will increase trunk flexion AROM by at least 10 deg in order to demonstrate improved ability to picker and packer objects from floor for better ADL tolerance. 10/22/23: 3 fwd reach, 40 deg; reports not painful STG Duration 4 weeks Physics Tutor Goal (LTG) Pt will increase trunk flexion AROM by at least 20 deg in order to demonstrate improved ability to picker and packer objects from floor for better ADL tolerance. 10/22/23: 3 fwd reach, 40 deg; reports not painful LTG Duration 8 weeks MET One Impairment function Impairment Oswestry: 28/50 Short Term Goal (STG) Pt will decrease Oswestry score by at least 6 points in order to demonstrate improved ADL tolerance and QOL. 10/22/23: 22/50 STG Duration 4 weeks MET Shelter Goal (LTG) Pt will decrease Oswestry score by at least 13 points (1 MCID) in order to demonstrate improved ADL tolerance and QOL. LTG Duration 8 weeks Assessment Summary Assessment Pt reported pn in knee when side stepping, trialed with TB above knee joint on distal femur, plan to follow up next session on pt tolerance and adjust ex prn. Trialed prone press up for trunk ROM/ strengthening, pt tolerated well with no increased symptoms. Physical Therapy Plan Frequency and Duration Frequency of Treatment 2x/Week Duration of treatment (weeks) 8 Plan of Care Start Date 09/18/23 Plan of Care End Date 11/13/23 Therapeutic Interventions Therapeutic Interventions Balance Training,Gait Training ,Home Exercise Program,Joint Mobilizations,Lymphedema Management,Manual Therapy, Neuromuscular Re-education, Orthotic/Prosthetic Management ,Patient/Caregiver Education, Self-Care/Home Management, Sensory Integration,Soft Tissue Mobilization,Taping, Therapeutic Activities, Therapeutic Exercises Modalities Biofeedback,Cold Pack/Ice Massage,Electric Stimulation, Hot Packs,Infrared Therapy, Iontophoresis,Ultrasound, Vasopneumatic Devices Next Visit Focus/Plan Next Note Type Treatment Note Next Visit Plan Continue BLE strengthening, fabby hip/lumbar spine Next session: nerve glide for burning, cont B/U squat leg press, side steps vs standing hip abd, standing hip ext, rial 4 step up. Manual to glutes, piriformis, hip abd. Gait training to decrease compensation
--- NOTE | 2023-10-29 16:44 | PT.OTN ---
Current Diagnoses Low back pain, unspecified (10/29/23) Weakness (10/29/23) Physical Therapy Treatment Note PT-OP-A Visit Information Start: 09/18/23 10:31 Freq: Status: Active Protocol: Document 10/29/23 13:01 NM (Rec: 10/29/23 13:49 NM [id number]) Out-Patient Physical Therapy Visit Information Visit Information Visit Type Treatment Note Visit Note KX modifier after 20th visit/ yr Visit Start Time 13:02 Visit Stop Time 13:45 Visit Number 11 Evaluation Information Evaluation Date 09/18/23 PT-OP-B Current Condition Start: 09/18/23 10:31 Freq: Status: Active Protocol: Document 09/18/23 10:32 NM (Rec: 09/18/23 11:33 NM [id number]) Current Condition History of Current Condition Onset Date Fall 2022 Current Complaints low back pain, R leg pain History of Current Condition Pt presents with low back pain that radiates into her RLE. The pain is along the right- center of her spine and radiates along her posterior and lateral RLE. Pt also reports numbness in her R foot , but no tingling. She reports that the low back pain began during the fall 2022 (unable to report exact month); there is no known mechanism of injury. When she went to the walk-in clinic in July, she was dx with sciatica. Pt has a PMH of OA, RA, polymyalgia rheumatica beginning 1.5 years ago. She also has had several rounds of prednisone injections. She has no previous back injuries. Her last fall was >1 yr ago when she slipped on her outdoor mat. Her primary complaints are limitated ability to perform ADLs, lifting, stooping, standing or sitting for extended periods, and difficulty sleeping due to pain. Prior Treatments and Tests Radiographs: 08/15- multilevel degenerative disc disease and facet arthopathy Treatment Goals Patient/Caregiver Goals To decrease her low back pain Prior Functional Status Baseline Function- ADL's Independent Baseline Function- Mobility Independent Current Functional Impairments (Reported) Functional Limitations- ADL's Difficulty with ADLs, lifting, picking up objects from floor , standing > 10 min, sitting > 30 min Functional Limitations- Mobility/Gait Limited to 1/2 mi ambulation when ambulating with her dog Functional Limitations- Other Unable to sleep > 2 hr PT-OP-C Subjective Start: 09/18/23 10:31 Freq: Status: Active Protocol: Document 10/29/23 13:01 NM (Rec: 10/29/23 13:49 NM [id number]) OP-PT Subjective Patient Comments Patient Comments Pt reports 2/10 low back pain, stating that this is a significant improvement since beginning PT. She continues to have burning in that R dorsal foot and behind her leg, reporting 5/10 for both of those. She will be going on a trip to [place] in November; she is concerned about her balance and using trek poles Patient Reported Progress Improving PT-OP-D Balance Start: 09/18/23 10:31 Freq: Status: Active Protocol: Document 09/18/23 10:32 NM (Rec: 09/18/23 11:33 NM [id number]) OP-PT Balance Assessment Sitting Balance Static Sitting Balance Ability Normal Dynamic Sitting Balance Ability Normal Tinetti Balance Assessment Sitting Balance Sitting Balance Steady, safe Arising from Chair Ability to Arise Able, w/o using arms Attempts to Arise Arises on 1st attempt Standing Balance Immediate Standing Balance Steady w/o support Standing Balance Narrow stance w/o support Nudged Response Staggers, catches self Standing with Eyes Closed Unsteady Turning Step Pattern Turning 360 Degrees Continuous steps Stability Turning 360 Degrees Steady Sitting Down Sitting Down Uses arms or unsteady Gait and Step Initiation of Gait No hesitancy Right Foot Step Length Does pass stance foot Right Foot Step Height Completely clears floor Left Foot Step Length Does pass stance foot Left Foot Step Height Completely clears floor Step Description Step Symmetry Step length not equal Step Continuity Stopping or discontinuity Gait Description Path Description Straight Trunk Description Marked sway or uses aide Walking Stance Heels apart Scoring and Interpretation Tinetti Composite Score (points) 20 Interpretation of Scores At risk for falls (19-24) Colon Fall Scale Copyright Permission PT-OP-E Functional Tests Start: 09/18/23 10:31 Freq: Status: Active Protocol: Document 09/18/23 10:32 NM (Rec: 09/18/23 11:33 NM [id number]) Functional Tests Five Times Sit to Stand Test Score 9.42 sec Comments reports pain with eccentric lowering Other Standing Trunk Flexion to Floor Name of Test standing with legs ext, reach twd floor, measure from floor to fingers Score 10 from floor Comment reproduces low back pain with trunk flexion PT-OP-F Manual Assessment Start: 09/18/23 10:31 Freq: Status: Active Protocol: Document 09/18/23 10:32 NM (Rec: 09/18/23 11:33 NM [id number]) Manual Assessments Soft Tissue Assessment Soft Tissue Mobility Assessment Minimal soft tissue restriction along lumbar spine paraspinals especially along quadratus lumborum, erector spinae. Tenderness along R piriformis, gluteals and at greater trochanter. No palpable bursa at greater trochanter. Joint Mobility Assessment Joint Mobility Assessment Decreased hip flex, abd ROM with slight observable limitations in IR/ER ROM. Hip flex, ext, abd reproduces pain in lumbar spine and R lateral hip. P/A mobilizations are painful at L5-S2, along R sacral border. PT-OP-G Mobility & Gait Start: 09/18/23 10:31 Freq: Status: Active Protocol: Document 09/18/23 10:32 NM (Rec: 09/18/23 11:33 NM [id number]) OP Gait Assessment Gait Gait Assistance Required: Independent Distance (Feet) 100 Gait Deviations General Gait Pattern Antalgic,Decreased Stride Length,Lateral Trunk Lean Factors Limiting Gait Function Factors Limiting Gait Function Decreased Sensation,Decreased Strength,Limited Range of Motion,Pain,Poor Balance Comments Gait Comments Decreased weight acceptance RLE PT-OP-H Neuro Start: 09/18/23 10:31 Freq: Status: Active Protocol: Document 09/18/23 10:32 NM (Rec: 09/18/23 11:33 NM [id number]) Sensation Evaluation Gross Sensation Gross Sensation Right LE Impaired Comments Summary Comments Pt reports that R foot decreased feeling of light touch sensation along dorsal surface of foot compared to L foot. Deep Tendon Reflex & Clonus Assessment Deep Tendon Reflex Left Patellar Deep Tendon Reflex 2+ Normal Right Patellar Deep Tendon Reflex 2+ Normal PT-OP-J Posture/Palpation/Skin Start: 09/18/23 10:31 Freq: Status: Active Protocol: Document 09/18/23 10:32 NM (Rec: 09/18/23 11:33 NM [id number]) Posture Evaluation Position Standing Evaluation View Lateral Head/C-Spine Posture Forward Head T-Spine Posture Increased Kyphosis L-Spine Posture Increased Lordosis,Shifted Left Pelvis Posture Anteriorly Tilted Weight Distribution Weight Shifted Left,Decreased Wt.Bear on (R) Hip Posture (L) Externally Rotated,(R) Externally Rotated Palpation Assessment Location R hip Palpation Location greater trochanter Palpation Findings Muscle Guarding,Tenderness Palpation Details Tenderness to palpation along greater trochanter and along posterior thigh near proximal hamstring. No palpable bursa, only tenderness Lumbar Spine Palpation Location T12-L5, S1-S2, Sacral borders, gluteals, erector spinae Palpation Findings Soft Tissue Tightness,Muscle Guarding,Tenderness Palpation Details Min soft tissue tightness but demos muscle guarding and reports tenderness at R gluteal muscles (fabby piriformis). R mid-sacral border is most tender of all palpated areas (no increase in pain at sacral bases or ILAs) PT-OP-K Range of Motion Start: 09/18/23 10:31 Freq: Status: Active Protocol: Document 10/22/23 12:15 NM (Rec: 10/22/23 13:00 NM [id number]) Lumbar Spine Range of Motion Lumbar Spine Active Degrees Testing Position Standing Flexion 20 Extension 10 Rotation Left 10 Rotation Right 8 Lateral Flexion Left 25 Lateral Flexion Right 10 Comments IE: Pain reported with flexion (mod pain). Pain reported in R lumbar spine with B lateral flexion; Rotation measured in cm. R hip pain with R rotation 10/22/23: 3 fwd trunk flex test from floor; 40 deg flexion, not painful PT-OP-L Special Tests Start: 09/18/23 10:31 Freq: Status: Active Protocol: Document 09/18/23 10:32 NM (Rec: 09/18/23 11:33 NM [id number]) Special Tests Lumbar Spine Special Tests SIJ Posterior Distraction Test Results negative (R) Comments does not reproduce lumbar spine, SIJ, or hip pain SIJ Anterior Gapping Test Results negative (B) Comments does not reproduce lumbar spine, SIJ, or hip pain Emerson/compression Test Results positive (R) Comments local pain reported R lumbar spine Straight Leg Raise Test Results positive (R) Comments reproduces low back pain, symptoms posterior RLE Distraction Test Results negative Comments does not report symptom relief Slump Test Results positive (B) Comments reports worse symptoms RLE with cervical ext PT-OP-M Strength Start: 09/18/23 10:31 Freq: Status: Active Protocol: Document 10/22/23 12:15 NM (Rec: 10/22/23 15:50 NM [id number]) Hip Strength Hip Manual Muscle Testing Left Flexion (L2) 4 Good Extension (S1) 4 Good Abduction 4 Good External Rotation 4 Good Internal Rotation 4 Good Comments Resisted motions do not reproduce pain Right Flexion (L2) 4- Good- Extension (S1) 3+ Fair+ Abduction 3+ Fair+ External Rotation 4- Good- Internal Rotation 4- Good- Comments Reports low back pain and hip pain with flex, ext, abd 10/22/23: flex 4+/5, 4/5 IR/ER/ ext, 4-/5 hip abd (still painful abd) Knee Strength Knee Manual Muscle Testing Left Flexion (S2) 4+ Good+ Extension (L3) 4+ Good+ Comments does not reproduced pain with resisted motions Right Flexion (S2) 4- Good- Comments Reproduces low back and hip pain 10/22/23:4+/5 for knee ext and flex, does not reproduce any pain PT-OP-Q Treatments Start: 09/18/23 10:31 Freq: Status: Active Protocol: Document 10/29/23 13:01 NM (Rec: 10/29/23 13:49 NM [id number]) Therapeutic Exercises Sidelying Exercises hip IR Sidelying Exercise Name reverse clams Side bilateral Resistance AROM only Reps/Minutes 1x15 ea Comments cue to prevent hip roll bwd hip ER Sidelying Exercise Name clams Side bilateral Resistance lvl 2 teal tb around thighs Reps/Minutes 1x15 ea Comments cue to prevent hip roll bwd Sitting Exercises sciatic nerve glide Sitting Exercise Name 1. seated glided, 2. supine with ankle ev/inv for tibial n Side right Reps/Minutes 1x10 ea Comments difficulty with active ankle eversion RLE; reports minimal change sx Hip IR/ER Sitting Exercise Name d/c to sidelying for now to prevent compensation resisted side stepping Side bilateral Resistance lvl 2 teal tb around ankles Equipment Used light/flat hand contact with ballet bar Reps/Minutes 2x10 ea Comments cued to apple picker feet to Standing Exercises step ups Standing Exercise Name 4 step up, 6 step up (stairs )- reports min knee pain after reps Side bilateral Equipment Used using 1 trek pole in R hand for balance, no hand rail assist Reps/Minutes 1. 1x10 ea, 2. 1 set x 4 stairs (CGA to steady) Comments cued for coord with trek pole, no hip rot with descent Other Exercises self STMs Other Exercise Name piriformis, external rotators, glutes; added to HEP Reps/Minutes 2 min Comments MWM: hip ER/IR, hip flex/ER Self-Care/Home Management Treatment Education Patient Education Home Exercise Program,Safety Other Education HEP: clams, reverse clams (add band as able). Instructed to bring trek poles to next session PT-OP-R Modalities Start: 10/16/23 17:23 Freq: Status: Active Protocol: Document 10/16/23 13:55 SW (Rec: 10/16/23 17:25 SW [id number]) Hot Pack/Cold Pack Treatment Hot Pack Location Lumbar/hip Patient Position Supine Patient Tolerance Good Comments elizabeth within reach, pt reported good response PT-OP-T Assessment and Plan Start: 09/18/23 10:31 Freq: Status: Active Protocol: Document 10/29/23 13:01 NM (Rec: 10/29/23 13:49 NM [id number]) Physical Therapy Assessment Goals Seven Impairment strength Impairment Trunk strength flex/ext 3/5, B lateral flex strength 4-/5 Short Term Goal (STG) Pt will increase global trunk strength by at least 1 MMT grade ea in order to demonstrate improved trunk strength and core stabilization needed for ADLs. 10/22/23: PARTIALLY MET, flex 4 /5 (able to hold 5 sec) and not painful; lateral flex 4+/5 , not painful STG Duration 4 weeks PARTIALLY MET [facility] Goal (LTG) Pt will increase global trunk strength by at least 2 MMT grades ea in order to demonstrate improved trunk strength and core stabilization needed for ADLs. 10/22/23: lateral flex MMT 4+/5 , not painful LTG Duration 8 weeks Six Impairment balance, function Impairment Tinetti score: Short Term Goal (STG) Pt will improve Tinetti score by at least 2 points to demonstrate improved balance during ambulation and ADLs. 10/22/23: (gait 6, balance 12) STG Duration 4 weeks MET Byproducts Supervisor Goal (LTG) Pt will improve Tinetti score by at least 4 points (low fall risk category) to demonstrate improved balance during ambulation and ADLs. LTG Duration 8 weeks Five Impairment 5x STS 9.42 sec with pain on eccentric lowering Byproducts Supervisor Goal (LTG) Pt will perform 5x STS <10 seconds with reported pain of 5/10 or less with eccentric lowering into chair to demonstrate improved tolerance for spinal flexion. 10/22/23: 9.30 sec; no pain with eccentric lowering or rising LTG Duration 8 weeks MET Four Impairment Strength Impairment R hip ext and abd strength 3+/ 5 MMT Short Term Goal (STG) Pt will increase R hip ext/abd to at least 4/5 in order to demonstrate improved strength needed for ambulation and ADLs . 10/22/23: B hip ext 4/5 (not painful); B hip abd 4-/5 and painful with resistance at thigh STG Duration 4 weeks PROGRESSING, PARTIALLY MET [facility] Goal (LTG) Pt will increase R hip ext/abd to at least 4+/5 in order to demonstrate improved strength needed for ambulation and ADLs . LTG Duration 8 weeks Three Impairment Strength Impairment R hip strength flex/IR/ER 4-/5 MMT Short Term Goal (STG) Pt will increase R hip flex/ER /IR strength to at least 4/5 in order to demonstrate improved strength needed for ambulation and ADLs. 10/22/23: 4+/5 MMT for B hip flex; 4/5 for IR/ER STG Duration 4 weeks PARTIALLY MET [employer] Supervisor Goal (LTG) Pt will increase R hip flex/IR /ER strength to at least 4+/5 in order to demonstrate improved strength needed for ambulation and ADLs. LTG Duration 8 weeks Two Impairment ROM Impairment Trunk flexion AROM 20 deg (10 fwd reach test) Short Term Goal (STG) Pt will increase trunk flexion AROM by at least 10 deg in order to demonstrate improved ability to apple picker objects from floor for better ADL tolerance. 10/22/23: 3 fwd reach, 40 deg; reports not painful STG Duration 4 weeks [employer]products Supervisor Goal (LTG) Pt will increase trunk flexion AROM by at least 20 deg in order to demonstrate improved ability to apple picker objects from floor for better ADL tolerance. 10/22/23: 3 fwd reach, 40 deg; reports not painful LTG Duration 8 weeks MET One Impairment function Impairment Oswestry: Short Term Goal (STG) Pt will decrease Oswestry score by at least 6 points in order to demonstrate improved ADL tolerance and QOL. 10/22/23: STG Duration 4 weeks MET [facility] Goal (LTG) Pt will decrease Oswestry score by at least 13 points (1 MCID) in order to demonstrate improved ADL tolerance and QOL. LTG Duration 8 weeks Assessment Summary Assessment Pt continues to report improved low back symptoms with little resolution as yet to burning sensation in R foot . Continued with glute and hip strengthening, focusing on creating stability at pelvis. Initiated sidelying clams/ reverse clams over seated hip IR/ER strengthening to limit compensations; pt unable to perform banded hip IR on R side due to weakness. Trialed mobilization with movement in sitting to address restrictions of R piriformis and glutes; pt cued for correct execution, instructed to add to HEP prior to performing clams/reverse clams . Initiated step up on 4 and 6 steps for glute strengthening using 1 trek pole for balance. Pt able to perform with improved balance using trek pole; however, demos significant weakness of hip abductors and glutes to advance onto step. PT and pt discussed POC as pt is requesting to discharge at end of month due to travel plans. PT also discussed pt seeking referral for her lymphedema as it is limiting her activity. Pt would benefit from skilled PT for progressive BLE strengthening, balance and gait training to decrease fall risk, in order to improve activity tolerance and pain management symptoms. Physical Therapy Plan Frequency and Duration Frequency of Treatment 2x/Week Duration of treatment (weeks) 8 Plan of Care Start Date 09/18/23 Plan of Care End Date 11/13/23 Therapeutic Interventions Therapeutic Interventions Balance Training,Gait Training ,Home Exercise Program,Joint Mobilizations,Lymphedema Management,Manual Therapy, Neuromuscular Re-education, Orthotic/Prosthetic Management ,Patient/Caregiver Education, Self-Care/Home Management, Sensory Integration,Soft Tissue Mobilization,Taping, Therapeutic Activities, Therapeutic Exercises Modalities Biofeedback,Cold Pack/Ice Massage,Electric Stimulation, Hot Packs,Infrared Therapy, Iontophoresis,Ultrasound, Vasopneumatic Devices Next Visit Focus/Plan Next Note Type Treatment Note Next Visit Plan Continue BLE strengthening, fabby hip/lumbar spine; gait training and 4-6step ups ( low reps) with 1 trek pole for strengthening Next session: nerve glide for burning, cont B/U squat leg press, side steps vs standing hip abd, standing hip ext, trial 4 step up. Manual to glutes, piriformis, hip abd. Gait training to decrease compensation
--- NOTE | 2023-10-31 16:42 | PT.OTN ---
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 The pain is along the right- center of her spine and radiates along her posterior and lateral RLE. Pt also reports numbness in her R foot , but no tingling. She reports that the low back pain began during the fall 2022 (unable to report exact month); there is no known mechanism of injury. When she went to the walk-in clinic in July, she was dx with sciatica. Pt has a PMH of OA, RA, polymyalgia rheumatica beginning 1.5 years ago. She also has had several rounds of prednisone injections. She has no previous back injuries. Her last fall was >1 yr ago when she slipped on her outdoor mat. Her primary complaints are limitated ability to perform ADLs, lifting, stooping, standing or sitting for extended periods, and difficulty sleeping due to pain. Prior Treatments and Tests Radiographs: 08/15- multilevel degenerative disc disease and facet arthopathy Treatment Goals Patient/Caregiver Goals To decrease her low back pain Prior Functional Status Baseline Function- ADL's Independent Baseline Function- Mobility Independent Current Functional Impairments (Reported) Functional Limitations- ADL's Difficulty with ADLs, lifting, picking up objects from floor , standing > 10 min, sitting > 30 min Functional Limitations- Mobility/Gait Limited to 1/2 mi ambulation when ambulating with her dog Functional Limitations- Other Unable to sleep > 2 hr PT-OP-C Subjective Start: 09/18/23 10:31 Freq: Status: Active Protocol: Document 10/31/23 13:48 SW (Rec: 10/31/23 14:34 SW [id number]) OP-PT Subjective Patient Comments Patient Comments Pt reports pn in foot and leg today. PT-OP-D Balance Start: 09/18/23 10:31 Freq: Status: Active Protocol: Document 09/18/23 10:32 NM (Rec: 09/18/23 11:33 NM [id number]) OP-PT Balance Assessment Sitting Balance Static Sitting Balance Ability Normal Dynamic Sitting Balance Ability Normal Tinetti Balance Assessment Sitting Balance Sitting Balance Steady, safe Arising from Chair Ability to Arise Able, w/o using arms Attempts to Arise Arises on 1st attempt Standing Balance Immediate Standing Balance Steady w/o support Standing Balance Narrow stance w/o support Nudged Response Staggers, catches self Standing with Eyes Closed Unsteady Turning Step Pattern Turning 360 Degrees Continuous steps Stability Turning 360 Degrees Steady Sitting Down Sitting Down Uses arms or unsteady Gait and Step Initiation of Gait No hesitancy Right Foot Step Length Does pass stance foot Right Foot Step Height Completely clears floor Left Foot Step Length Does pass stance foot Left Foot Step Height Completely clears floor Step Description Step Symmetry Step length not equal Step Continuity Stopping or discontinuity Gait Description Path Description Straight Trunk Description Marked sway or uses aide Walking Stance Heels apart Scoring and Interpretation Tinetti Composite Score (points) 20 Interpretation of Scores At risk for falls (19-24) Colon Fall Scale Copyright Permission PT-OP-E Functional Tests Start: 09/18/23 10:31 Freq: Status: Active Protocol: Document 09/18/23 10:32 NM (Rec: 09/18/23 11:33 NM [id number]) Functional Tests Five Times Sit to Stand Test Score 9.42 sec Comments reports pain with eccentric lowering Other Standing Trunk Flexion to Floor Name of Test standing with legs ext, reach twd floor, measure from floor to fingers Score 10 from floor Comment reproduces low back pain with trunk flexion PT-OP-F Manual Assessment Start: 09/18/23 10:31 Freq: Status: Active Protocol: Document 09/18/23 10:32 NM (Rec: 09/18/23 11:33 NM [id number]) Manual Assessments Soft Tissue Assessment Soft Tissue Mobility Assessment Minimal soft tissue restriction along lumbar spine paraspinals especially along quadratus lumborum, erector spinae. Tenderness along R piriformis, gluteals and at greater trochanter. No palpable bursa at greater trochanter. Joint Mobility Assessment Joint Mobility Assessment Decreased hip flex, abd ROM with slight observable limitations in IR/ER ROM. Hip flex, ext, abd reproduces pain in lumbar spine and R lateral hip. P/A mobilizations are painful at L5-S2, along R sacral border. PT-OP-G Mobility & Gait Start: 09/18/23 10:31 Freq: Status: Active Protocol: Document 09/18/23 10:32 NM (Rec: 09/18/23 11:33 NM [id number]) OP Gait Assessment Gait Gait Assistance Required: Independent Distance (Feet) 100 Gait Deviations General Gait Pattern Antalgic,Decreased Stride Length,Lateral Trunk Lean Factors Limiting Gait Function Factors Limiting Gait Function Decreased Sensation,Decreased Strength,Limited Range of Motion,Pain,Poor Balance Comments Gait Comments Decreased weight acceptance RLE PT-OP-H Neuro Start: 09/18/23 10:31 Freq: Status: Active Protocol: Document 09/18/23 10:32 NM (Rec: 09/18/23 11:33 NM [id number]) Sensation Evaluation Gross Sensation Gross Sensation Right LE Impaired Comments Summary Comments Pt reports that R foot decreased feeling of light touch sensation along dorsal surface of foot compared to L foot. Deep Tendon Reflex & Clonus Assessment Deep Tendon Reflex Left Patellar Deep Tendon Reflex 2+ Normal Right Patellar Deep Tendon Reflex 2+ Normal PT-OP-J Posture/Palpation/Skin Start: 09/18/23 10:31 Freq: Status: Active Protocol: Document 09/18/23 10:32 NM (Rec: 09/18/23 11:33 NM [id number]) Posture Evaluation Position Standing Evaluation View Lateral Head/C-Spine Posture Forward Head T-Spine Posture Increased Kyphosis L-Spine Posture Increased Lordosis,Shifted Left Pelvis Posture Anteriorly Tilted Weight Distribution Weight Shifted Left,Decreased Wt.Bear on (R) Hip Posture (L) Externally Rotated,(R) Externally Rotated Palpation Assessment Location R hip Palpation Location greater trochanter Palpation Findings Muscle Guarding,Tenderness Palpation Details Tenderness to palpation along greater trochanter and along posterior thigh near proximal hamstring. No palpable bursa, only tenderness Lumbar Spine Palpation Location T12-L5, S1-S2, Sacral borders, gluteals, erector spinae Palpation Findings Soft Tissue Tightness,Muscle Guarding,Tenderness Palpation Details Min soft tissue tightness but demos muscle guarding and reports tenderness at R gluteal muscles (fabby piriformis). R mid-sacral border is most tender of all palpated areas (no increase in pain at sacral bases or ILAs) PT-OP-K Range of Motion Start: 09/18/23 10:31 Freq: Status: Active Protocol: Document 10/22/23 12:15 NM (Rec: 10/22/23 13:00 NM [id number]) Lumbar Spine Range of Motion Lumbar Spine Active Degrees Testing Position Standing Flexion 20 Extension 10 Rotation Left 10 Rotation Right 8 Lateral Flexion Left 25 Lateral Flexion Right 10 Comments IE: Pain reported with flexion (mod pain). Pain reported in R lumbar spine with B lateral flexion; Rotation measured in cm. R hip pain with R rotation 10/22/23: 3 fwd trunk flex test from floor; 40 deg flexion, not painful PT-OP-L Special Tests Start: 09/18/23 10:31 Freq: Status: Active Protocol: Document 09/18/23 10:32 NM (Rec: 09/18/23 11:33 NM [id number]) Special Tests Lumbar Spine Special Tests SIJ Posterior Distraction Test Results negative (R) Comments does not reproduce lumbar spine, SIJ, or hip pain SIJ Anterior Gapping Test Results negative (B) Comments does not reproduce lumbar spine, SIJ, or hip pain Emerson/compression Test Results positive (R) Comments local pain reported R lumbar spine Straight Leg Raise Test Results positive (R) Comments reproduces low back pain, symptoms posterior RLE Distraction Test Results negative Comments does not report symptom relief Slump Test Results positive (B) Comments reports worse symptoms RLE with cervical ext PT-OP-M Strength Start: 09/18/23 10:31 Freq: Status: Active Protocol: Document 10/22/23 12:15 NM (Rec: 10/22/23 15:50 NM [id number]) Hip Strength Hip Manual Muscle Testing Left Flexion (L2) 4 Good Extension (S1) 4 Good Abduction 4 Good External Rotation 4 Good Internal Rotation 4 Good Comments Resisted motions do not reproduce pain Right Flexion (L2) 4- Good- Extension (S1) 3+ Fair+ Abduction 3+ Fair+ External Rotation 4- Good- Internal Rotation 4- Good- Comments Reports low back pain and hip pain with flex, ext, abd 10/22/23: flex 4+/5, 4/5 IR/ER/ ext, 4-/5 hip abd (still painful abd) Knee Strength Knee Manual Muscle Testing Left Flexion (S2) 4+ Good+ Extension (L3) 4+ Good+ Comments does not reproduced pain with resisted motions Right Flexion (S2) 4- Good- Comments Reproduces low back and hip pain 10/22/23:4+/5 for knee ext and flex, does not reproduce any pain PT-OP-Q Treatments Start: 09/18/23 10:31 Freq: Status: Active Protocol: Document 10/31/23 13:48 SW (Rec: 10/31/23 14:34 SW [id number]) Therapeutic Exercises Sidelying Exercises hip IR Sidelying Exercise Name reverse clams Side bilateral Resistance AROM only Reps/Minutes 1x15 ea Comments cue to prevent hip roll bwd hip ER Sidelying Exercise Name clams Side bilateral Resistance lvl 2 teal tb around thighs Reps/Minutes 1x15 ea Comments cue to prevent hip roll bwd Sitting Exercises sciatic nerve glide Sitting Exercise Name 1. seated glided, 2. supine with ankle ev/inv for tibial n Side right Reps/Minutes 1x10 ea Comments difficulty with active ankle eversion RLE; reports minimal change sx resisted side stepping Side bilateral Resistance lvl 2 teal tb around ankles Equipment Used light/flat hand contact with ballet bar Reps/Minutes 2x10 ea Comments cued to strip picker feet to Standing Exercises step ups Standing Exercise Name 4 step up, 6 step up (stairs )- reports min knee pain after reps Side bilateral Equipment Used using 1 trek pole in R hand for balance, no hand rail assist Reps/Minutes 1. 1x10 ea, 2. 1 set x 4 stairs (CGA to steady) Comments cued for coord with trek pole, no hip rot with descent Other Exercises self STMs Other Exercise Name piriformis, external rotators, glutes; added to HEP Equipment Used Therapist assist Reps/Minutes 2 min Comments MWM: hip ER/IR, hip flex/ER Manual Therapy Treatment Soft Tissue Mobilization R hip Body Location R posterior greater trochanter /piriformis, HS, ITB Mobilization Type Rolling,Sustained Pressure, Other Intensity/Depth Moderate Body Position Prone over pillow Comments Pt with fewer spasms in R glutes and piriformis with palpation, decreased with light/gentle strumming and sustained pressure and MWM hip IR/ ER. Tolerates well and reports less pain/discomfort with repetitions, MWM. Pt with tenderness along ITB as well, STM to muscle insertions and light rolling along lateral ITB for pain reduction; reports decrease with sustained pressure Neuro Re-Education Treatment Balance Activities Static Details NBOS, Foam, weight shifting Surface stable/unstable Equipment // bars PT-OP-R Modalities Start: 10/16/23 17:23 Freq: Status: Active Protocol: Document 10/16/23 13:55 SW (Rec: 10/16/23 17:25 SW [id number]) Hot Pack/Cold Pack Treatment Hot Pack Location Lumbar/hip Patient Position Supine Patient Tolerance Good Comments elizabeth within reach, pt reported good response PT-OP-T Assessment and Plan Start: 09/18/23 10:31 Freq: Status: Active Protocol: Document 10/31/23 13:48 SW (Rec: 10/31/23 14:34 SW [id number]) Physical Therapy Assessment Goals Seven Impairment strength Impairment Trunk strength flex/ext 3/5, B lateral flex strength 4-/5 Short Term Goal (STG) Pt will increase global trunk strength by at least 1 MMT grade ea in order to demonstrate improved trunk strength and core stabilization needed for ADLs. 10/22/23: PARTIALLY MET, flex 4 /5 (able to hold 5 sec) and not painful; lateral flex 4+/5 , not painful STG Duration 4 weeks PARTIALLY MET Longterm Goal (LTG) Pt will increase global trunk strength by at least 2 MMT grades ea in order to demonstrate improved trunk strength and core stabilization needed for ADLs. 10/22/23: lateral flex MMT 4+/5 , not painful LTG Duration 8 weeks Six Impairment balance, function Impairment Tinetti score: Short Term Goal (STG) Pt will improve Tinetti score by at least 2 points to demonstrate improved balance during ambulation and ADLs. 10/22/23: 22 (gait 6, balance 12) STG Duration 4 weeks MET Longterm Goal (LTG) Pt will improve Tinetti score by at least 4 points (low fall risk category) to demonstrate improved balance during ambulation and ADLs. LTG Duration 8 weeks Five Impairment 5x STS 9.42 sec with pain on eccentric lowering Urban Renewal Manager Goal (LTG) Pt will perform 5x STS <10 seconds with reported pain of 5/10 or less with eccentric lowering into chair to demonstrate improved tolerance for spinal flexion. 10/22/23: 9.30 sec; no pain with eccentric lowering or rising LTG Duration 8 weeks MET Four Impairment Strength Impairment R hip ext and abd strength 3+/ 5 MMT Short Term Goal (STG) Pt will increase R hip ext/abd to at least 4/5 in order to demonstrate improved strength needed for ambulation and ADLs . 10/22/23: B hip ext 4/5 (not painful); B hip abd 4-/5 and painful with resistance at thigh STG Duration 4 weeks PROGRESSING, PARTIALLY MET Longterm Goal (LTG) Pt will increase R hip ext/abd to at least 4+/5 in order to demonstrate improved strength needed for ambulation and ADLs . LTG Duration 8 weeks Three Impairment Strength Impairment R hip strength flex/IR/ER 4-/5 MMT Short Term Goal (STG) Pt will increase R hip flex/ER /IR strength to at least 4/5 in order to demonstrate improved strength needed for ambulation and ADLs. 10/22/23: 4+/5 MMT for B hip flex; 4/5 for IR/ER STG Duration 4 weeks PARTIALLY MET Longterm Goal (LTG) Pt will increase R hip flex/IR /ER strength to at least 4+/5 in order to demonstrate improved strength needed for ambulation and ADLs. LTG Duration 8 weeks Two Impairment ROM Impairment Trunk flexion AROM 20 deg (10 fwd reach test) Short Term Goal (STG) Pt will increase trunk flexion AROM by at least 10 deg in order to demonstrate improved ability to strip picker objects from floor for better ADL tolerance. 10/22/23: 3 fwd reach, 40 deg; reports not painful STG Duration 4 weeks Urban Renewal Manager Goal (LTG) Pt will increase trunk flexion AROM by at least 20 deg in order to demonstrate improved ability to strip picker objects from floor for better ADL tolerance. 10/22/23: 3 fwd reach, 40 deg; reports not painful LTG Duration 8 weeks MET One Impairment function Impairment Oswestry: 2850 Short Term Goal (STG) Pt will decrease Oswestry score by at least 6 points in order to demonstrate improved ADL tolerance and QOL. 10/22/23: 22/50 STG Duration 4 weeks MET Urban Renewal Manager Goal (LTG) Pt will decrease Oswestry score by at least 13 points (1 MCID) in order to demonstrate improved ADL tolerance and QOL. LTG Duration 8 weeks Assessment Summary Assessment Pt reports difficulty with balance, would like to use trekking poles on vacation, pt forgot trekking poles this session, plans to bring in next session. Continued strengthening this session, pain in foot continues to be a limiting factor. 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 Physical Therapy Plan Frequency and Duration Frequency of Treatment 2x/Week Duration of treatment (weeks) 8 Plan of Care Start Date 09/18/23 Plan of Care End Date 11/13/23 Therapeutic Interventions Therapeutic Interventions Balance Training,Gait Training ,Home Exercise Program,Joint Mobilizations,Lymphedema Management,Manual Therapy, Neuromuscular Re-education, Orthotic/Prosthetic Management ,Patient/Caregiver Education, Self-Care/Home Management, Sensory Integration,Soft Tissue Mobilization,Taping, Therapeutic Activities, Therapeutic Exercises Modalities Biofeedback,Cold Pack/Ice Massage,Electric Stimulation, Hot Packs,Infrared Therapy, Iontophoresis,Ultrasound, Vasopneumatic Devices Next Visit Focus/Plan Next Note Type Treatment Note Next Visit Plan Continue BLE strengthening, fabby hip/lumbar spine; gait training and 4-6step ups ( low reps) with 1 trek pole for strengthening Next session: nerve glide for burning, cont B/U squat leg press, side steps vs standing hip abd, standing hip ext, trial 4 step up. Manual to glutes, piriformis, hip abd. Gait training to decrease compensation
--- NOTE | 2023-11-04 15:54 | PT.OTN ---
Current Diagnoses Low back pain, unspecified (11/04/23) Weakness (11/04/23) Physical Therapy Treatment Note PT-OP-A Visit Information Start: 09/18/23 10:31 Freq: Status: Active Protocol: Document 11/04/23 14:40 NM (Rec: 11/04/23 15:54 NM [id number]) Out-Patient Physical Therapy Visit Information Visit Information Visit Type Treatment Note Visit Note Pt late x10 min Visit Start Time 14:40 Visit Stop Time 15:20 Visit Number 13 Evaluation Information Evaluation Date 09/18/23 PT-OP-B Current Condition Start: 09/18/23 10:31 Freq: Status: Active Protocol: Document 09/18/23 10:32 NM (Rec: 09/18/23 11:33 NM [id number]) Current Condition History of Current Condition Onset Date Fall 2022 Current Complaints low back pain, R leg pain History of Current Condition Pt presents with low back pain that radiates into her RLE. The pain is along the right- center of her spine and radiates along her posterior and lateral RLE. Pt also reports numbness in her R foot , but no tingling. She reports that the low back pain began during the fall 2022 (unable to report exact month); there is no known mechanism of injury. When she went to the walk-in clinic in July, she was dx with sciatica. Pt has a PMH of OA, RA, polymyalgia rheumatica beginning 1.5 years ago. She also has had several rounds of prednisone injections. She has no previous back injuries. Her last fall was >1 yr ago when she slipped on her outdoor mat. Her primary complaints are limitated ability to perform ADLs, lifting, stooping, standing or sitting for extended periods, and difficulty sleeping due to pain. Prior Treatments and Tests Radiographs: 08/15- multilevel degenerative disc disease and facet arthopathy Treatment Goals Patient/Caregiver Goals To decrease her low back pain Prior Functional Status Baseline Function- ADL's Independent Baseline Function- Mobility Independent Current Functional Impairments (Reported) Functional Limitations- ADL's Difficulty with ADLs, lifting, picking up objects from floor , standing > 10 min, sitting > 30 min Functional Limitations- Mobility/Gait Limited to 1/2 mi ambulation when ambulating with her dog Functional Limitations- Other Unable to sleep > 2 hr PT-OP-C Subjective Start: 09/18/23 10:31 Freq: Status: Active Protocol: Document 11/04/23 14:40 NM (Rec: 11/04/23 15:54 NM [id number]) OP-PT Subjective Patient Comments Patient Comments Pt reports leg soreness > 2/10 low back pain. Burning worse in feet than normal. She sees kier boiler tomorrow. Brought trek poles to trial for gait to help with balance. Reports PT is really helping PT-OP-D Balance Start: 09/18/23 10:31 Freq: Status: Active Protocol: Document 09/18/23 10:32 NM (Rec: 09/18/23 11:33 NM [id number]) OP-PT Balance Assessment Sitting Balance Static Sitting Balance Ability Normal Dynamic Sitting Balance Ability Normal Tinetti Balance Assessment Sitting Balance Sitting Balance Steady, safe Arising from Chair Ability to Arise Able, w/o using arms Attempts to Arise Arises on 1st attempt Standing Balance Immediate Standing Balance Steady w/o support Standing Balance Narrow stance w/o support Nudged Response Staggers, catches self Standing with Eyes Closed Unsteady Turning Step Pattern Turning 360 Degrees Continuous steps Stability Turning 360 Degrees Steady Sitting Down Sitting Down Uses arms or unsteady Gait and Step Initiation of Gait No hesitancy Right Foot Step Length Does pass stance foot Right Foot Step Height Completely clears floor Left Foot Step Length Does pass stance foot Left Foot Step Height Completely clears floor Step Description Step Symmetry Step length not equal Step Continuity Stopping or discontinuity Gait Description Path Description Straight Trunk Description Marked sway or uses aide Walking Stance Heels apart Scoring and Interpretation Tinetti Composite Score (points) 20 Interpretation of Scores At risk for falls (19-24) Colon Fall Scale Copyright Permission PT-OP-E Functional Tests Start: 09/18/23 10:31 Freq: Status: Active Protocol: Document 09/18/23 10:32 NM (Rec: 09/18/23 11:33 NM [id number]) Functional Tests Five Times Sit to Stand Test Score 9.42 sec Comments reports pain with eccentric lowering Other Standing Trunk Flexion to Floor Name of Test standing with legs ext, reach twd floor, measure from floor to fingers Score 10 from floor Comment reproduces low back pain with trunk flexion PT-OP-F Manual Assessment Start: 09/18/23 10:31 Freq: Status: Active Protocol: Document 09/18/23 10:32 NM (Rec: 09/18/23 11:33 NM [id number]) Manual Assessments Soft Tissue Assessment Soft Tissue Mobility Assessment Minimal soft tissue restriction along lumbar spine paraspinals especially along quadratus lumborum, erector spinae. Tenderness along R piriformis, gluteals and at greater trochanter. No palpable bursa at greater trochanter. Joint Mobility Assessment Joint Mobility Assessment Decreased hip flex, abd ROM with slight observable limitations in IR/ER ROM. Hip flex, ext, abd reproduces pain in lumbar spine and R lateral hip. P/A mobilizations are painful at L5-S2, along R sacral border. PT-OP-G Mobility & Gait Start: 09/18/23 10:31 Freq: Status: Active Protocol: Document 09/18/23 10:32 NM (Rec: 09/18/23 11:33 NM [id number]) OP Gait Assessment Gait Gait Assistance Required: Independent Distance (Feet) 100 Gait Deviations General Gait Pattern Antalgic,Decreased Stride Length,Lateral Trunk Lean Factors Limiting Gait Function Factors Limiting Gait Function Decreased Sensation,Decreased Strength,Limited Range of Motion,Pain,Poor Balance Comments Gait Comments Decreased weight acceptance RLE PT-OP-H Neuro Start: 09/18/23 10:31 Freq: Status: Active Protocol: Document 09/18/23 10:32 NM (Rec: 09/18/23 11:33 NM [id number]) Sensation Evaluation Gross Sensation Gross Sensation Right LE Impaired Comments Summary Comments Pt reports that R foot decreased feeling of light touch sensation along dorsal surface of foot compared to L foot. Deep Tendon Reflex & Clonus Assessment Deep Tendon Reflex Left Patellar Deep Tendon Reflex 2+ Normal Right Patellar Deep Tendon Reflex 2+ Normal PT-OP-J Posture/Palpation/Skin Start: 09/18/23 10:31 Freq: Status: Active Protocol: Document 09/18/23 10:32 NM (Rec: 09/18/23 11:33 NM [id number]) Posture Evaluation Position Standing Evaluation View Lateral Head/C-Spine Posture Forward Head T-Spine Posture Increased Kyphosis L-Spine Posture Increased Lordosis,Shifted Left Pelvis Posture Anteriorly Tilted Weight Distribution Weight Shifted Left,Decreased Wt.Bear on (R) Hip Posture (L) Externally Rotated,(R) Externally Rotated Palpation Assessment Location R hip Palpation Location greater trochanter Palpation Findings Muscle Guarding,Tenderness Palpation Details Tenderness to palpation along greater trochanter and along posterior thigh near proximal hamstring. No palpable bursa, only tenderness Lumbar Spine Palpation Location T12-L5, S1-S2, Sacral borders, gluteals, erector spinae Palpation Findings Soft Tissue Tightness,Muscle Guarding,Tenderness Palpation Details Min soft tissue tightness but demos muscle guarding and reports tenderness at R gluteal muscles (fabby piriformis). R mid-sacral border is most tender of all palpated areas (no increase in pain at sacral bases or ILAs) PT-OP-K Range of Motion Start: 09/18/23 10:31 Freq: Status: Active Protocol: Document 10/22/23 12:15 NM (Rec: 10/22/23 13:00 NM [id number]) Lumbar Spine Range of Motion Lumbar Spine Active Degrees Testing Position Standing Flexion 20 Extension 10 Rotation Left 10 Rotation Right 8 Lateral Flexion Left 25 Lateral Flexion Right 10 Comments IE: Pain reported with flexion (mod pain). Pain reported in R lumbar spine with B lateral flexion; Rotation measured in cm. R hip pain with R rotation 10/22/23: 3 fwd trunk flex test from floor; 40 deg flexion, not painful PT-OP-L Special Tests Start: 09/18/23 10:31 Freq: Status: Active Protocol: Document 09/18/23 10:32 NM (Rec: 09/18/23 11:33 NM [id number]) Special Tests Lumbar Spine Special Tests SIJ Posterior Distraction Test Results negative (R) Comments does not reproduce lumbar spine, SIJ, or hip pain SIJ Anterior Gapping Test Results negative (B) Comments does not reproduce lumbar spine, SIJ, or hip pain Emerson/compression Test Results positive (R) Comments local pain reported R lumbar spine Straight Leg Raise Test Results positive (R) Comments reproduces low back pain, symptoms posterior RLE Distraction Test Results negative Comments does not report symptom relief Slump Test Results positive (B) Comments reports worse symptoms RLE with cervical ext PT-OP-M Strength Start: 09/18/23 10:31 Freq: Status: Active Protocol: Document 10/22/23 12:15 NM (Rec: 10/22/23 15:50 NM [id number]) Hip Strength Hip Manual Muscle Testing Left Flexion (L2) 4 Good Extension (S1) 4 Good Abduction 4 Good External Rotation 4 Good Internal Rotation 4 Good Comments Resisted motions do not reproduce pain Right Flexion (L2) 4- Good- Extension (S1) 3+ Fair+ Abduction 3+ Fair+ External Rotation 4- Good- Internal Rotation 4- Good- Comments Reports low back pain and hip pain with flex, ext, abd 10/22/23: flex 4+/5, 4/5 IR/ER/ ext, 4-/5 hip abd (still painful abd) Knee Strength Knee Manual Muscle Testing Left Flexion (S2) 4+ Good+ Extension (L3) 4+ Good+ Comments does not reproduced pain with resisted motions Right Flexion (S2) 4- Good- Comments Reproduces low back and hip pain 10/22/23:4+/5 for knee ext and flex, does not reproduce any pain PT-OP-Q Treatments Start: 09/18/23 10:31 Freq: Status: Active Protocol: Document 11/04/23 14:40 NM (Rec: 11/04/23 15:54 NM [id number]) Therapeutic Exercises Sidelying Exercises hip IR Sidelying Exercise Name reverse clams Side bilateral Resistance light blue TB around ankles Reps/Minutes 2x10 ea Comments cue to prevent hip roll bwd, cued max avail ROM Sitting Exercises core stabilization Sitting Exercise Name seated marching with TA activation, neutral lumbar spine Side bilateral Resistance AROM Equipment Used large green [place] ball Reps/Minutes 2x10 ea Comments cued for core stab, no opp trunk lean; slower LLE, taylor on RLE pelvic tilts Sitting Exercise Name 1. ant/post, 2. sidebend Side bilateral Resistance AROM Equipment Used large green [place] ball Reps/Minutes 1x10 ea with brief pause prior to switch Comments reports pain free, cued core stabilization to prevent opp trunk lean Standing Exercises paloff press Standing Exercise Name for core stabilization Side bilateral Resistance orange tb lvl 2 Reps/Minutes 1x15 ea with 1 hold at end ea direction Comments cued for core stab, no hip rotation Lat pull down Standing Exercise Name 1. with hip flex (non-alt), 2. just lat pull down Side bilateral Resistance [place] green tb lvl 3 Comments cue for core stabilization step ups Standing Exercise Name 6 step up with 2 trk poles; reports no knee pain after Side bilateral Equipment Used using B trek poles Reps/Minutes 1 set x 4 steps Comments cued for coord, no hip rotation; improved control with reps, hesitant down Gait Training Gait Activity trek poles Description 2>3 pt gait pattern Device Used 1 trek pole in L hand Level of Assistance IND for gait, CGA for curbs for pt confort and safety Surface gait on carpet, sidewalk, curbs, outside inclines/ declines Distance/Duration 200 ft, various distances around clinic; 8 min total Treatment Focus nml gait, balance/stability, decreased lateral trunk sway, coordination Comments Pt demos improved gait speed, distance, and tolerance for ambulation with trek poles. She is going on a trip after she discharges and plans to use trek poles. Pt has less trunk lean, lateral trunk sway with trek pole use, reports improved ankle stability. Trialed curb, CGA with cues to coordinate and steady for safety Manual Therapy Treatment Soft Tissue Mobilization Lumbar spine Body Location L1-L5 paraspinals, R QL Mobilization Type Oscillations,Rolling,Strumming ,Sustained Pressure Intensity/Depth Moderate Body Position Sidelying Comments Pt in L sidelying with R side elevated on pillow to create sidebend. Performed rolling, oscillations for pain relief along R paraspinals. Pt has tender point on R QL, performed strumming/sustained pressure/rolling on R QL for pain reduction. Instructed pt to try soft tissue mobilization at home to further minimize pain symptoms Joint Mobilizations Lumbar spine Joint L3-4 SP rotation, sidelying gapping Direction inf rotation Grade II Body Position Sidelying Reps/Duration 1x10 ea Comments Pt in L sidelying for pain relief to open facets, R side bend created using pillow under trunk. 1. sidelying for facet gapping , adding slight sidebend at ribs and pelvis with lateral distraction 2. sidelying, with rotation inf at L3 SP (L4 blocked), then at L4 with L5 blocked, added with sidelying gapping to open facets PT-OP-R Modalities Start: 10/16/23 17:23 Freq: Status: Active Protocol: Document 10/16/23 13:55 SW (Rec: 10/16/23 17:25 SW [id number]) Hot Pack/Cold Pack Treatment Hot Pack Location Lumbar/hip Patient Position Supine Patient Tolerance Good Comments elizabeth within reach, pt reported good response PT-OP-T Assessment and Plan Start: 09/18/23 10:31 Freq: Status: Active Protocol: Document 11/04/23 14:40 NM (Rec: 11/04/23 15:54 NM [id number]) Physical Therapy Assessment Goals Seven Impairment strength Impairment Trunk strength flex/ext 3/5, B lateral flex strength 4-/5 Short Term Goal (STG) Pt will increase global trunk strength by at least 1 MMT grade ea in order to demonstrate improved trunk strength and core stabilization needed for ADLs. 10/22/23: PARTIALLY MET, flex 4 /5 (able to hold 5 sec) and not painful; lateral flex 4+/5 , not painful STG Duration 4 weeks PARTIALLY MET Mcc Goal (LTG) Pt will increase global trunk strength by at least 2 MMT grades ea in order to demonstrate improved trunk strength and core stabilization needed for ADLs. 10/22/23: lateral flex MMT 4+/5 , not painful LTG Duration 8 weeks Six Impairment balance, function Impairment Tinetti score: Short Term Goal (STG) Pt will improve Tinetti score by at least 2 points to demonstrate improved balance during ambulation and ADLs. 10/22/23: (gait 6, balance 12) STG Duration 4 weeks MET Mcc Goal (LTG) Pt will improve Tinetti score by at least 4 points (low fall risk category) to demonstrate improved balance during ambulation and ADLs. LTG Duration 8 weeks Five Impairment 5x STS 9.42 sec with pain on eccentric lowering Mcc Goal (LTG) Pt will perform 5x STS <10 seconds with reported pain of 5/10 or less with eccentric lowering into chair to demonstrate improved tolerance for spinal flexion. 10/22/23: 9.30 sec; no pain with eccentric lowering or rising LTG Duration 8 weeks MET Four Impairment Strength Impairment R hip ext and abd strength 3+/ 5 MMT Short Term Goal (STG) Pt will increase R hip ext/abd to at least 4/5 in order to demonstrate improved strength needed for ambulation and ADLs . 10/22/23: B hip ext 4/5 (not painful); B hip abd 4-/5 and painful with resistance at thigh STG Duration 4 weeks PROGRESSING, PARTIALLY MET [employer] Goal (LTG) Pt will increase R hip ext/abd to at least 4+/5 in order to demonstrate improved strength needed for ambulation and ADLs . LTG Duration 8 weeks Three Impairment Strength Impairment R hip strength flex/IR/ER 4-/5 MMT Short Term Goal (STG) Pt will increase R hip flex/ER /IR strength to at least 4/5 in order to demonstrate improved strength needed for ambulation and ADLs. 10/22/23: 4+/5 MMT for B hip flex; 4/5 for IR/ER STG Duration 4 weeks PARTIALLY MET [employer] Bar[employer] Re[employer]er Goal (LTG) Pt will increase R hip flex/IR /ER strength to at least 4+/5 in order to demonstrate improved strength needed for ambulation and ADLs. 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 10/22/23: 3 fwd reach, 40 deg; reports not painful STG Duration 4 weeks Mcc Goal (LTG) Pt will increase trunk flexion AROM by at least 20 deg in order to demonstrate improved ability to pickling tank operator objects from floor for better ADL tolerance. 10/22/23: 3 fwd reach, 40 deg; reports not painful LTG Duration 8 weeks MET One Impairment function Impairment Oswestry: 28/50 Short Term Goal (STG) Pt will decrease Oswestry score by at least 6 points in order to demonstrate improved ADL tolerance and QOL. 10/22/23: 22/50 STG Duration 4 weeks MET Mcc Goal (LTG) Pt will decrease Oswestry score by at least 13 points (1 MCID) in order to demonstrate improved ADL tolerance and QOL. LTG Duration 8 weeks Assessment Summary Assessment Pt late to session. However, brought trek poles she plans on using for upcoming trip to address balance. Gait training for coordination, improve balance during ambulation. Pt demos decreased trunk sway, increased gait speed, and improved tolerance for stairs/ curbs with trek pole. Difficulty with coordinating 2 point pattern, so used 3 pt. Initiated greater core stabilization exercises in both seated and standing. PT consistently cueing and facilitating increased stance in RLE, weight shift, and control when lifting LLE; demos decreased hip stability and increasd trunk sway without cueing. Improved LLE control with repetitions, but pt consistently attempts to not lift LLE off of ground for balance. Trialed R facet distraction in L sidelying, adding rotation at spinous processes to facilitate improved facet opening and pain relief. Soft tissue mobilization to address restriction at R QL in lumbar paraspinals. PT encouraged pt to try heat for pain relief and to promote muscle relaxation over ice. Pt would benefit from skilled PT for progressive BLE, lumbar extensor, and core strengthening in order to improve activity tolerance, decrease pain symptoms, and return to PLOF. Physical Therapy Plan Frequency and Duration Frequency of Treatment 2x/Week Duration of treatment (weeks) 8 Plan of Care Start Date 09/18/23 Plan of Care End Date 11/13/23 Therapeutic Interventions Therapeutic Interventions Balance Training,Gait Training ,Home Exercise Program,Joint Mobilizations,Lymphedema Management,Manual Therapy, Neuromuscular Re-education, Orthotic/Prosthetic Management ,Patient/Caregiver Education, Self-Care/Home Management, Sensory Integration,Soft Tissue Mobilization,Taping, Therapeutic Activities, Therapeutic Exercises Modalities Biofeedback,Cold Pack/Ice Massage,Electric Stimulation, Hot Packs,Infrared Therapy, Iontophoresis,Ultrasound, Vasopneumatic Devices Next Visit Focus/Plan Next Note Type Treatment Note Next Visit Plan Continue BLE strengthening, fabby hip/lumbar spine; gait training and 4-6step ups ( low reps) with 1 trek pole for strengthening Next session: nerve glide for burning, cont B/U squat leg press, side steps vs standing hip abd, standing hip ext, trial 4 step up. Manual to glutes, piriformis, hip abd. Gait training to decrease compensation
--- NOTE | 2023-11-07 12:33 | PT.OTN ---
Current Diagnoses Low back pain, unspecified (11/07/23) Weakness (11/07/23) Physical Therapy Treatment Note PT-OP-A Visit Information Start: 09/18/23 10:31 Freq: Status: Active Protocol: Document 11/07/23 11:29 SW (Rec: 11/07/23 12:31 SW [id number]) Out-Patient Physical Therapy Visit Information Visit Information Visit Type Treatment Note Visit Start Time 11:20 Visit Stop Time 12:00 Visit Number 14 Number of BOOKBINDER CHIEF Visits 1 PT-OP-B Current Condition Start: 09/18/23 10:31 Freq: Status: Active Protocol: Document 09/18/23 10:32 NM (Rec: 09/18/23 11:33 NM [id number]) Current Condition History of Current Condition Onset Date Fall 2022 Current Complaints low back pain, R leg pain History of Current Condition Pt presents with low back pain that radiates into her RLE. The pain is along the right- center of her spine and radiates along her posterior and lateral RLE. Pt also reports numbness in her R foot , but no tingling. She reports that the low back pain began during the fall 2022 (unable to report exact month); there is no known mechanism of injury. When she went to the walk-in clinic in July, she was dx with sciatica. Pt has a PMH of OA, RA, polymyalgia rheumatica beginning 1.5 years ago. She also has had several rounds of prednisone injections. She has no previous back injuries. Her last fall was >1 yr ago when she slipped on her outdoor mat. Her primary complaints are limitated ability to perform ADLs, lifting, stooping, standing or sitting for extended periods, and difficulty sleeping due to pain. Prior Treatments and Tests Radiographs: 08/15- multilevel degenerative disc disease and facet arthopathy Treatment Goals Patient/Caregiver Goals To decrease her low back pain Prior Functional Status Baseline Function- ADL's Independent Baseline Function- Mobility Independent Current Functional Impairments (Reported) Functional Limitations- ADL's Difficulty with ADLs, lifting, picking up objects from floor , standing > 10 min, sitting > 30 min Functional Limitations- Mobility/Gait Limited to 1/2 mi ambulation when ambulating with her dog Functional Limitations- Other Unable to sleep > 2 hr PT-OP-C Subjective Start: 09/18/23 10:31 Freq: Status: Active Protocol: Document 11/07/23 11:29 SW (Rec: 11/07/23 12:31 SW [id number]) OP-PT Subjective Patient Comments Patient Comments Pt reports increased overall pain today. Came with trekking poles. Pt reports overall LLE pain is the same, but does notice improvement in strength. PT-OP-D Balance Start: 09/18/23 10:31 Freq: Status: Active Protocol: Document 09/18/23 10:32 NM (Rec: 09/18/23 11:33 NM [id number]) OP-PT Balance Assessment Sitting Balance Static Sitting Balance Ability Normal Dynamic Sitting Balance Ability Normal Tinetti Balance Assessment Sitting Balance Sitting Balance Steady, safe Arising from Chair Ability to Arise Able, w/o using arms Attempts to Arise Arises on 1st attempt Standing Balance Immediate Standing Balance Steady w/o support Standing Balance Narrow stance w/o support Nudged Response Staggers, catches self Standing with Eyes Closed Unsteady Turning Step Pattern Turning 360 Degrees Continuous steps Stability Turning 360 Degrees Steady Sitting Down Sitting Down Uses arms or unsteady Gait and Step Initiation of Gait No hesitancy Right Foot Step Length Does pass stance foot Right Foot Step Height Completely clears floor Left Foot Step Length Does pass stance foot Left Foot Step Height Completely clears floor Step Description Step Symmetry Step length not equal Step Continuity Stopping or discontinuity Gait Description Path Description Straight Trunk Description Marked sway or uses aide Walking Stance Heels apart Scoring and Interpretation Tinetti Composite Score (points) 20 Interpretation of Scores At risk for falls (19-24) Colon Fall Scale Copyright Permission PT-OP-E Functional Tests Start: 09/18/23 10:31 Freq: Status: Active Protocol: Document 09/18/23 10:32 NM (Rec: 09/18/23 11:33 NM [id number]) Functional Tests Five Times Sit to Stand Test Score 9.42 sec Comments reports pain with eccentric lowering Other Standing Trunk Flexion to Floor Name of Test standing with legs ext, reach twd floor, measure from floor to fingers Score 10 from floor Comment reproduces low back pain with trunk flexion PT-OP-F Manual Assessment Start: 09/18/23 10:31 Freq: Status: Active Protocol: Document 09/18/23 10:32 NM (Rec: 09/18/23 11:33 NM [id number]) Manual Assessments Soft Tissue Assessment Soft Tissue Mobility Assessment Minimal soft tissue restriction along lumbar spine paraspinals especially along quadratus lumborum, erector spinae. Tenderness along R piriformis, gluteals and at greater trochanter. No palpable bursa at greater trochanter. Joint Mobility Assessment Joint Mobility Assessment Decreased hip flex, abd ROM with slight observable limitations in IR/ER ROM. Hip flex, ext, abd reproduces pain in lumbar spine and R lateral hip. P/A mobilizations are painful at L5-S2, along R sacral border. PT-OP-G Mobility & Gait Start: 09/18/23 10:31 Freq: Status: Active Protocol: Document 09/18/23 10:32 NM (Rec: 09/18/23 11:33 NM [id number]) OP Gait Assessment Gait Gait Assistance Required: Independent Distance (Feet) 100 Gait Deviations General Gait Pattern Antalgic,Decreased Stride Length,Lateral Trunk Lean Factors Limiting Gait Function Factors Limiting Gait Function Decreased Sensation,Decreased Strength,Limited Range of Motion,Pain,Poor Balance Comments Gait Comments Decreased weight acceptance RLE PT-OP-H Neuro Start: 09/18/23 10:31 Freq: Status: Active Protocol: Document 09/18/23 10:32 NM (Rec: 09/18/23 11:33 NM [id number]) Sensation Evaluation Gross Sensation Gross Sensation Right LE Impaired Comments Summary Comments Pt reports that R foot decreased feeling of light touch sensation along dorsal surface of foot compared to L foot. Deep Tendon Reflex & Clonus Assessment Deep Tendon Reflex Left Patellar Deep Tendon Reflex 2+ Normal Right Patellar Deep Tendon Reflex 2+ Normal PT-OP-J Posture/Palpation/Skin Start: 09/18/23 10:31 Freq: Status: Active Protocol: Document 09/18/23 10:32 NM (Rec: 09/18/23 11:33 NM [id number]) Posture Evaluation Position Standing Evaluation View Lateral Head/C-Spine Posture Forward Head T-Spine Posture Increased Kyphosis L-Spine Posture Increased Lordosis,Shifted Left Pelvis Posture Anteriorly Tilted Weight Distribution Weight Shifted Left,Decreased Wt.Bear on (R) Hip Posture (L) Externally Rotated,(R) Externally Rotated Palpation Assessment Location R hip Palpation Location greater trochanter Palpation Findings Muscle Guarding,Tenderness Palpation Details Tenderness to palpation along greater trochanter and along posterior thigh near proximal hamstring. No palpable bursa, only tenderness Lumbar Spine Palpation Location T12-L5, S1-S2, Sacral borders, gluteals, erector spinae Palpation Findings Soft Tissue Tightness,Muscle Guarding,Tenderness Palpation Details Min soft tissue tightness but demos muscle guarding and reports tenderness at R gluteal muscles (fabby piriformis). R mid-sacral border is most tender of all palpated areas (no increase in pain at sacral bases or ILAs) PT-OP-K Range of Motion Start: 09/18/23 10:31 Freq: Status: Active Protocol: Document 10/22/23 12:15 NM (Rec: 10/22/23 13:00 NM [id number]) Lumbar Spine Range of Motion Lumbar Spine Active Degrees Testing Position Standing Flexion 20 Extension 10 Rotation Left 10 Rotation Right 8 Lateral Flexion Left 25 Lateral Flexion Right 10 Comments IE: Pain reported with flexion (mod pain). Pain reported in R lumbar spine with B lateral flexion; Rotation measured in cm. R hip pain with R rotation 10/22/23: 3 fwd trunk flex test from floor; 40 deg flexion, not painful PT-OP-L Special Tests Start: 09/18/23 10:31 Freq: Status: Active Protocol: Document 09/18/23 10:32 NM (Rec: 09/18/23 11:33 NM [id number]) Special Tests Lumbar Spine Special Tests SIJ Posterior Distraction Test Results negative (R) Comments does not reproduce lumbar spine, SIJ, or hip pain SIJ Anterior Gapping Test Results negative (B) Comments does not reproduce lumbar spine, SIJ, or hip pain Emerson/compression Test Results positive (R) Comments local pain reported R lumbar spine Straight Leg Raise Test Results positive (R) Comments reproduces low back pain, symptoms posterior RLE Distraction Test Results negative Comments does not report symptom relief Slump Test Results positive (B) Comments reports worse symptoms RLE with cervical ext PT-OP-M Strength Start: 09/18/23 10:31 Freq: Status: Active Protocol: Document 10/22/23 12:15 NM (Rec: 10/22/23 15:50 NM [id number]) Hip Strength Hip Manual Muscle Testing Left Flexion (L2) 4 Good Extension (S1) 4 Good Abduction 4 Good External Rotation 4 Good Internal Rotation 4 Good Comments Resisted motions do not reproduce pain Right Flexion (L2) 4- Good- Extension (S1) 3+ Fair+ Abduction 3+ Fair+ External Rotation 4- Good- Internal Rotation 4- Good- Comments Reports low back pain and hip pain with flex, ext, abd 10/22/23: flex 4+/5, 4/5 IR/ER/ ext, 4-/5 hip abd (still painful abd) Knee Strength Knee Manual Muscle Testing Left Flexion (S2) 4+ Good+ Extension (L3) 4+ Good+ Comments does not reproduced pain with resisted motions Right Flexion (S2) 4- Good- Comments Reproduces low back and hip pain 10/22/23:4+/5 for knee ext and flex, does not reproduce any pain PT-OP-Q Treatments Start: 09/18/23 10:31 Freq: Status: Active Protocol: Document 11/07/23 11:29 SW (Rec: 11/07/23 12:31 SW [id number]) Therapeutic Exercises Sidelying Exercises hip IR Sidelying Exercise Name reverse clams Side bilateral Resistance light blue TB around ankles Reps/Minutes 2x10 ea Comments cue to prevent hip roll bwd, cued max avail ROM Sitting Exercises core stabilization Sitting Exercise Name seated marching with TA activation, neutral lumbar spine Side bilateral Resistance AROM Equipment Used large green [place] ball Reps/Minutes 2x10 ea Comments cued for core stab, no opp trunk lean; slower LLE, taylor on RLE pelvic tilts Sitting Exercise Name 1. ant/post, 2. sidebend Side bilateral Resistance AROM Equipment Used large green [place] ball Reps/Minutes 1x10 ea with brief pause prior to switch Comments reports pain free, cued core stabilization to prevent opp trunk lean Standing Exercises paloff press Standing Exercise Name for core stabilization Side bilateral Resistance orange tb lvl 2 Reps/Minutes 1x15 ea with 1 hold at end ea direction Comments cued for core stab, no hip rotation Lat pull down Standing Exercise Name 1. with hip flex (non-alt), 2. just lat pull down Side bilateral Resistance [place] green tb lvl 3 Comments cue for core stabilization step ups Standing Exercise Name 6 step up with 1 trek>2 trk poles Side bilateral Gait Training Gait Activity trek poles Description 2>3 pt gait pattern Device Used 1 trek pole in L hand Level of Assistance IND for gait, CGA for curbs for stairs and safety Surface gait on carpet, sidewalk, curbs, outside inclines/ declines Distance/Duration 200 ft, various distances around clinic Treatment Focus nml gait, balance/stability, decreased lateral trunk sway, coordination Comments Pt demos improved gait speed, distance, and tolerance for ambulation with trek poles. She is going on a trip after she discharges and plans to use trek poles. Pt has less trunk lean, lateral trunk sway with trek pole use, reports improved ankle stability. Trialed 4# stair, CGA with cues to coordinate and steady for safety Manual Therapy Treatment Soft Tissue Mobilization R hip Body Location R posterior greater trochanter /piriformis, HS, ITB Mobilization Type Rolling,Sustained Pressure, Other Intensity/Depth Moderate Body Position Prone over pillow Comments Pt with fewer spasms in R glutes and piriformis with palpation, decreased with light/gentle strumming and sustained pressure and MWM hip IR/ ER. Tolerates well and reports less pain/discomfort with repetitions, MWM. Pt with tenderness along ITB as well, STM to muscle insertions and light rolling along lateral ITB for pain reduction; reports decrease with sustained pressure Lumbar spine Body Location L1-L5 paraspinals, R QL Mobilization Type Oscillations,Rolling,Strumming ,Sustained Pressure Intensity/Depth Moderate Body Position Sidelying Comments Pt in L sidelying with R side elevated on pillow to create sidebend. Performed rolling, oscillations for pain relief along R paraspinals. Pt has tender point on R QL, performed strumming/sustained pressure/rolling on R QL for pain reduction. Instructed pt to try soft tissue mobilization at home to further minimize pain symptoms PT-OP-R Modalities Start: 10/16/23 17:23 Freq: Status: Active Protocol: Document 11/07/23 11:29 SW (Rec: 11/07/23 12:33 [id number]) Hot Pack/Cold Pack Treatment Hot Pack Location Lumbar/hip Patient Position Supine Patient Tolerance Good Comments x10 min, elizabeth within reach, pt reported good response PT-OP-T Assessment and Plan Start: 09/18/23 10:31 Freq: Status: Active Protocol: Document 11/07/23 11:29 SW (Rec: 11/07/23 12:31 [id number]) Physical Therapy Assessment Goals Seven Impairment strength Impairment Trunk strength flex/ext 3/5, B lateral flex strength 4-/5 Short Term Goal (STG) Pt will increase global trunk strength by at least 1 MMT grade ea in order to demonstrate improved trunk strength and core stabilization needed for ADLs. 10/22/23: PARTIALLY MET, flex 4 /5 (able to hold 5 sec) and not painful; lateral flex 4+/5 , not painful STG Duration 4 weeks PARTIALLY MET Fdc Goal (LTG) Pt will increase global trunk strength by at least 2 MMT grades ea in order to demonstrate improved trunk strength and core stabilization needed for ADLs. 10/22/23: lateral flex MMT 4+/5 , not painful LTG Duration 8 weeks Six Impairment balance, function Impairment Tinetti score: Short Term Goal (STG) Pt will improve Tinetti score by at least 2 points to demonstrate improved balance during ambulation and ADLs. 10/22/23: (gait 6, balance 12) STG Duration 4 weeks MET Fdc Goal (LTG) Pt will improve Tinetti score by at least 4 points (low fall risk category) to demonstrate improved balance during ambulation and ADLs. LTG Duration 8 weeks Five Impairment 5x STS 9.42 sec with pain on eccentric lowering Fdc Goal (LTG) Pt will perform 5x STS <10 seconds with reported pain of 5/10 or less with eccentric lowering into chair to demonstrate improved tolerance for spinal flexion. 10/22/23: 9.30 sec; no pain with eccentric lowering or rising LTG Duration 8 weeks MET Four Impairment Strength Impairment R hip ext and abd strength 3+/ 5 MMT Short Term Goal (STG) Pt will increase R hip ext/abd to at least 4/5 in order to demonstrate improved strength needed for ambulation and ADLs . 10/22/23: B hip ext 4/5 (not painful); B hip abd 4-/5 and painful with resistance at thigh STG Duration 4 weeks PROGRESSING, PARTIALLY MET Fdc Goal (LTG) Pt will increase R hip ext/abd to at least 4+/5 in order to demonstrate improved strength needed for ambulation and ADLs . LTG Duration 8 weeks Three Impairment Strength Impairment R hip strength flex/IR/ER 4-/5 MMT Short Term Goal (STG) Pt will increase R hip flex/ER /IR strength to at least 4/5 in order to demonstrate improved strength needed for ambulation and ADLs. 10/22/23: 4+/5 MMT for B hip flex; 4/5 for IR/ER STG Duration 4 weeks PARTIALLY MET Cath Lab Radiology Technician Goal (LTG) Pt will increase R hip flex/IR /ER strength to at least 4+/5 in order to demonstrate improved strength needed for ambulation and ADLs. LTG Duration 8 weeks Two Impairment ROM Impairment Trunk flexion AROM 20 deg (10 fwd reach test) Short Term Goal (STG) Pt will increase trunk flexion AROM by at least 10 deg in order to demonstrate improved ability to forklift picker objects from floor for better ADL tolerance. 10/22/23: 3 fwd reach, 40 deg; reports not painful STG Duration 4 weeks Fdc Goal (LTG) Pt will increase trunk flexion AROM by at least 20 deg in order to demonstrate improved ability to forklift picker objects from floor for better ADL tolerance. 10/22/23: 3 fwd reach, 40 deg; reports not painful LTG Duration 8 weeks MET One Impairment function Impairment Oswestry: Short Term Goal (STG) Pt will decrease Oswestry score by at least 6 points in order to demonstrate improved ADL tolerance and QOL. 10/22/23: STG Duration 4 weeks MET Cath Lab Radiology Technician Goal (LTG) Pt will decrease Oswestry score by at least 13 points (1 MCID) in order to demonstrate improved ADL tolerance and QOL. LTG Duration 8 weeks Assessment Summary Assessment Continued new core exercises from last session, cues for TA engagement. Trialed stair ambulation with x1 trekking pole, pt required x 2 trekking poles d/t a chronic pain in Left knee, to decrease lateral trunk lean with ambulation. verbal cues for bilateral foot clearance, step length, and weight shifting stance during gait w/ support of bilateral trekking poles. Physical Therapy Plan Frequency and Duration Frequency of Treatment 2x/Week Duration of treatment (weeks) 8 Plan of Care Start Date 09/18/23 Plan of Care End Date 11/13/23 Therapeutic Interventions Therapeutic Interventions Balance Training,Gait Training ,Home Exercise Program,Joint Mobilizations,Lymphedema Management,Manual Therapy, Neuromuscular Re-education, Orthotic/Prosthetic Management ,Patient/Caregiver Education, Self-Care/Home Management, Sensory Integration,Soft Tissue Mobilization,Taping, Therapeutic Activities, Therapeutic Exercises Modalities Biofeedback,Cold Pack/Ice Massage,Electric Stimulation, Hot Packs,Infrared Therapy, Iontophoresis,Ultrasound, Vasopneumatic Devices Next Visit Focus/Plan Next Note Type Treatment Note Next Visit Plan Continue BLE strengthening, fabby hip/lumbar spine; gait training and 4-6step ups ( low reps) with 1 trek pole for strengthening Next session: nerve glide for burning, cont B/U squat leg press, side steps vs standing hip abd, standing hip ext, trial 4 step up. Manual to glutes, piriformis, hip abd. Gait training to decrease compensation
--- NOTE | 2023-11-12 14:20 | PT.OTN ---
Current Diagnoses Low back pain, unspecified (11/12/23) Weakness (11/12/23) Physical Therapy Treatment Note PT-OP-A Visit Information Start: 09/18/23 10:31 Freq: Status: Active Protocol: Document 11/12/23 13:45 SP (Rec: 11/12/23 14:32 SP [id number]) Out-Patient Physical Therapy Visit Information Visit Information Visit Type Treatment Note Visit Start Time 13:45 Visit Stop Time 14:20 Visit Number 15 Number of HOSPICE LIAISON Visits 2 Evaluation Information Evaluation Date 09/18/23 PT-OP-B Current Condition Start: 09/18/23 10:31 Freq: Status: Active Protocol: Document 09/18/23 10:32 NM (Rec: 09/18/23 11:33 NM [id number]) Current Condition History of Current Condition Onset Date Fall 2022 Current Complaints low back pain, R leg pain History of Current Condition Pt presents with low back pain that radiates into her RLE. The pain is along the right- center of her spine and radiates along her posterior and lateral RLE. Pt also reports numbness in her R foot , but no tingling. She reports that the low back pain began during the fall 2022 (unable to report exact month); there is no known mechanism of injury. When she went to the walk-in clinic in July, she was dx with sciatica. Pt has a PMH of OA, RA, polymyalgia rheumatica beginning 1.5 years ago. She also has had several rounds of prednisone injections. She has no previous back injuries. Her last fall was >1 yr ago when she slipped on her outdoor mat. Her primary complaints are limitated ability to perform ADLs, lifting, stooping, standing or sitting for extended periods, and difficulty sleeping due to pain. Prior Treatments and Tests Radiographs: 08/15- multilevel degenerative disc disease and facet arthopathy Treatment Goals Patient/Caregiver Goals To decrease her low back pain Prior Functional Status Baseline Function- ADL's Independent Baseline Function- Mobility Independent Current Functional Impairments (Reported) Functional Limitations- ADL's Difficulty with ADLs, lifting, picking up objects from floor , standing > 10 min, sitting > 30 min Functional Limitations- Mobility/Gait Limited to 1/2 mi ambulation when ambulating with her dog Functional Limitations- Other Unable to sleep > 2 hr PT-OP-C Subjective Start: 09/18/23 10:31 Freq: Status: Active Protocol: Document 11/12/23 13:45 SP (Rec: 11/12/23 14:32 SP [id number]) OP-PT Subjective Patient Comments Patient Comments Pt reports saw Dr Escalera, DO and told get off Statin for 1 week then see how goes but is leaving out town for 1 month and nervous what that will do with her mobility and Cholesterol. Pt stated her Director Process Engineering gave her a prescription for Prednizone to take with her in case needed for pain support. She said on FRi doing ex before went to sleep, and woke up Sat pain across back on R down leg and couldn't walk. Not sure why, usually does fine. Arrival decreased stance time on RLE no AD support. PT-OP-D Balance Start: 09/18/23 10:31 Freq: Status: Active Protocol: Document 09/18/23 10:32 NM (Rec: 09/18/23 11:33 NM [id number]) OP-PT Balance Assessment Sitting Balance Static Sitting Balance Ability Normal Dynamic Sitting Balance Ability Normal Tinetti Balance Assessment Sitting Balance Sitting Balance Steady, safe Arising from Chair Ability to Arise Able, w/o using arms Attempts to Arise Arises on 1st attempt Standing Balance Immediate Standing Balance Steady w/o support Standing Balance Narrow stance w/o support Nudged Response Staggers, catches self Standing with Eyes Closed Unsteady Turning Step Pattern Turning 360 Degrees Continuous steps Stability Turning 360 Degrees Steady Sitting Down Sitting Down Uses arms or unsteady Gait and Step Initiation of Gait No hesitancy Right Foot Step Length Does pass stance foot Right Foot Step Height Completely clears floor Left Foot Step Length Does pass stance foot Left Foot Step Height Completely clears floor Step Description Step Symmetry Step length not equal Step Continuity Stopping or discontinuity Gait Description Path Description Straight Trunk Description Marked sway or uses aide Walking Stance Heels apart Scoring and Interpretation Tinetti Composite Score (points) 20 Interpretation of Scores At risk for falls (19-24) Colon Fall Scale Copyright Permission PT-OP-E Functional Tests Start: 09/18/23 10:31 Freq: Status: Active Protocol: Document 09/18/23 10:32 NM (Rec: 09/18/23 11:33 NM [id number]) Functional Tests Five Times Sit to Stand Test Score 9.42 sec Comments reports pain with eccentric lowering Other Standing Trunk Flexion to Floor Name of Test standing with legs ext, reach twd floor, measure from floor to fingers Score 10 from floor Comment reproduces low back pain with trunk flexion PT-OP-F Manual Assessment Start: 09/18/23 10:31 Freq: Status: Active Protocol: Document 09/18/23 10:32 NM (Rec: 09/18/23 11:33 NM [id number]) Manual Assessments Soft Tissue Assessment Soft Tissue Mobility Assessment Minimal soft tissue restriction along lumbar spine paraspinals especially along quadratus lumborum, erector spinae. Tenderness along R piriformis, gluteals and at greater trochanter. No palpable bursa at greater trochanter. Joint Mobility Assessment Joint Mobility Assessment Decreased hip flex, abd ROM with slight observable limitations in IR/ER ROM. Hip flex, ext, abd reproduces pain in lumbar spine and R lateral hip. P/A mobilizations are painful at L5-S2, along R sacral border. PT-OP-G Mobility & Gait Start: 09/18/23 10:31 Freq: Status: Active Protocol: Document 09/18/23 10:32 NM (Rec: 09/18/23 11:33 NM [id number]) OP Gait Assessment Gait Gait Assistance Required: Independent Distance (Feet) 100 Gait Deviations General Gait Pattern Antalgic,Decreased Stride Length,Lateral Trunk Lean Factors Limiting Gait Function Factors Limiting Gait Function Decreased Sensation,Decreased Strength,Limited Range of Motion,Pain,Poor Balance Comments Gait Comments Decreased weight acceptance RLE PT-OP-H Neuro Start: 09/18/23 10:31 Freq: Status: Active Protocol: Document 09/18/23 10:32 NM (Rec: 09/18/23 11:33 NM [id number]) Sensation Evaluation Gross Sensation Gross Sensation Right LE Impaired Comments Summary Comments Pt reports that R foot decreased feeling of light touch sensation along dorsal surface of foot compared to L foot. Deep Tendon Reflex & Clonus Assessment Deep Tendon Reflex Left Patellar Deep Tendon Reflex 2+ Normal Right Patellar Deep Tendon Reflex 2+ Normal PT-OP-J Posture/Palpation/Skin Start: 09/18/23 10:31 Freq: Status: Active Protocol: Document 09/18/23 10:32 NM (Rec: 09/18/23 11:33 NM [id number]) Posture Evaluation Position Standing Evaluation View Lateral Head/C-Spine Posture Forward Head T-Spine Posture Increased Kyphosis L-Spine Posture Increased Lordosis,Shifted Left Pelvis Posture Anteriorly Tilted Weight Distribution Weight Shifted Left,Decreased Wt.Bear on (R) Hip Posture (L) Externally Rotated,(R) Externally Rotated Palpation Assessment Location R hip Palpation Location greater trochanter Palpation Findings Muscle Guarding,Tenderness Palpation Details Tenderness to palpation along greater trochanter and along posterior thigh near proximal hamstring. No palpable bursa, only tenderness Lumbar Spine Palpation Location T12-L5, S1-S2, Sacral borders, gluteals, erector spinae Palpation Findings Soft Tissue Tightness,Muscle Guarding,Tenderness Palpation Details Min soft tissue tightness but demos muscle guarding and reports tenderness at R gluteal muscles (fabby piriformis). R mid-sacral border is most tender of all palpated areas (no increase in pain at sacral bases or ILAs) PT-OP-K Range of Motion Start: 09/18/23 10:31 Freq: Status: Active Protocol: Document 10/22/23 12:15 NM (Rec: 10/22/23 13:00 NM [id number]) Lumbar Spine Range of Motion Lumbar Spine Active Degrees Testing Position Standing Flexion 20 Extension 10 Rotation Left 10 Rotation Right 8 Lateral Flexion Left 25 Lateral Flexion Right 10 Comments IE: Pain reported with flexion (mod pain). Pain reported in R lumbar spine with B lateral flexion; Rotation measured in cm. R hip pain with R rotation 10/22/23: 3 fwd trunk flex test from floor; 40 deg flexion, not painful PT-OP-L Special Tests Start: 09/18/23 10:31 Freq: Status: Active Protocol: Document 09/18/23 10:32 NM (Rec: 09/18/23 11:33 NM [id number]) Special Tests Lumbar Spine Special Tests SIJ Posterior Distraction Test Results negative (R) Comments does not reproduce lumbar spine, SIJ, or hip pain SIJ Anterior Gapping Test Results negative (B) Comments does not reproduce lumbar spine, SIJ, or hip pain Emerson/compression Test Results positive (R) Comments local pain reported R lumbar spine Straight Leg Raise Test Results positive (R) Comments reproduces low back pain, symptoms posterior RLE Distraction Test Results negative Comments does not report symptom relief Slump Test Results positive (B) Comments reports worse symptoms RLE with cervical ext PT-OP-M Strength Start: 09/18/23 10:31 Freq: Status: Active Protocol: Document 10/22/23 12:15 NM (Rec: 10/22/23 15:50 NM [id number]) Hip Strength Hip Manual Muscle Testing Left Flexion (L2) 4 Good Extension (S1) 4 Good Abduction 4 Good External Rotation 4 Good Internal Rotation 4 Good Comments Resisted motions do not reproduce pain Right Flexion (L2) 4- Good- Extension (S1) 3+ Fair+ Abduction 3+ Fair+ External Rotation 4- Good- Internal Rotation 4- Good- Comments Reports low back pain and hip pain with flex, ext, abd 10/22/23: flex 4+/5, 4/5 IR/ER/ ext, 4-/5 hip abd (still painful abd) Knee Strength Knee Manual Muscle Testing Left Flexion (S2) 4+ Good+ Extension (L3) 4+ Good+ Comments does not reproduced pain with resisted motions Right Flexion (S2) 4- Good- Comments Reproduces low back and hip pain 10/22/23:4+/5 for knee ext and flex, does not reproduce any pain PT-OP-Q Treatments Start: 09/18/23 10:31 Freq: Status: Active Protocol: Document 11/12/23 13:45 SP (Rec: 11/12/23 14:32 SP [id number]) Therapeutic Exercises Sidelying Exercises hip IR Sidelying Exercise Name reverse clams Side bilateral Resistance TB #1> AROM Reps/Minutes 2x10 ea Comments cued for TA draw in and reduction to AROM improved no LB discomfort hip ER Sidelying Exercise Name clams Side bilateral Resistance lvl 2 teal tb around thighs Reps/Minutes 1x15 ea Comments cued no higher than hip height Sitting Exercises core stabilization Sitting Exercise Name seated marching with TA activation, neutral lumbar spine Side bilateral Resistance AROM Equipment Used large green afghan ball Reps/Minutes 2x10 ea Comments cued for core stab, no opp trunk lean; slower LLE, taylor on RLE resisted side stepping Side bilateral Resistance lvl 2 teal tb around ankles Equipment Used light/flat hand contact with ballet bar Reps/Minutes 2x10 ea Comments 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 with hip flex (non-alt), 2. just lat pull down Side bilateral Resistance [place] green tb lvl 3 Reps/Minutes x20 Comments cue for core stabilization step ups Standing Exercise Name 6 Map Bldg stairs>2 trk poles Side bilateral Reps/Minutes 28 Stairs Gait Training Gait Activity stairs Device Used B trek poles Distance/Duration 14 MAP bldg stairs Treatment Focus receiprocal stepping, patterning trek poles Comments performs slowly for focus on proper patterning with cues as needed. trek poles Description 2-4 pt gait pattern Device Used B trek poles Level of Assistance IND for gait, CGA for curbs for stairs and safety Surface gait on carpet/ tile Distance/Duration 200 ft, various distances around clinic Treatment Focus nml gait, balance/stability, decreased lateral trunk sway, coordination Comments Pt demos improved gait speed, distance, and tolerance for ambulation with trek poles. She is going on a trip after she discharges and plans to use trek poles. Pt has less trunk lean, lateral trunk sway with trek pole use, reports improved ankle and trunk stability. PT-OP-R Modalities Start: 10/16/23 17:23 Freq: Status: Active Protocol: Document 11/07/23 11:29 SW (Rec: 11/07/23 12:33 SW [id number]) Hot Pack/Cold Pack Treatment Hot Pack Location Lumbar/hip Patient Position Supine Patient Tolerance Good Comments x10 min, elizabeth within reach, pt reported good response PT-OP-T Assessment and Plan Start: 09/18/23 10:31 Freq: Status: Active Protocol: Document 11/12/23 13:45 SP (Rec: 11/12/23 14:32 SP [id number]) Physical Therapy Assessment Goals Seven Impairment strength Impairment Trunk strength flex/ext 3/5, B lateral flex strength 4-/5 Short Term Goal (STG) Pt will increase global trunk strength by at least 1 MMT grade ea in order to demonstrate improved trunk strength and core stabilization needed for ADLs. 10/22/23: PARTIALLY MET, flex 4 /5 (able to hold 5 sec) and not painful; lateral flex 4+/5 , not painful STG Duration 4 weeks PARTIALLY MET Client Support Manager Goal (LTG) Pt will increase global trunk strength by at least 2 MMT grades ea in order to demonstrate improved trunk strength and core stabilization needed for ADLs. 10/22/23: lateral flex MMT 4+/5 , not painful LTG Duration 8 weeks Six Impairment balance, function Impairment Tinetti score: Short Term Goal (STG) Pt will improve Tinetti score by at least 2 points to demonstrate improved balance during ambulation and ADLs. 10/22/23: (gait 6, balance 12) STG Duration 4 weeks MET Client Support Manager Goal (LTG) Pt will improve Tinetti score by at least 4 points (low fall risk category) to demonstrate improved balance during ambulation and ADLs. LTG Duration 8 weeks Five Impairment 5x STS 9.42 sec with pain on eccentric lowering Alf Goal (LTG) Pt will perform 5x STS <10 seconds with reported pain of 5/10 or less with eccentric lowering into chair to demonstrate improved tolerance for spinal flexion. 10/22/23: 9.30 sec; no pain with eccentric lowering or rising LTG Duration 8 weeks MET Four Impairment Strength Impairment R hip ext and abd strength 3+/ 5 MMT Short Term Goal (STG) Pt will increase R hip ext/abd to at least 4/5 in order to demonstrate improved strength needed for ambulation and ADLs . 10/22/23: B hip ext 4/5 (not painful); B hip abd 4-/5 and painful with resistance at thigh STG Duration 4 weeks PROGRESSING, PARTIALLY MET Client Support Manager Goal (LTG) Pt will increase R hip ext/abd to at least 4+/5 in order to demonstrate improved strength needed for ambulation and ADLs . LTG Duration 8 weeks Three Impairment Strength Impairment R hip strength flex/IR/ER 4-/5 MMT Short Term Goal (STG) Pt will increase R hip flex/ER /IR strength to at least 4/5 in order to demonstrate improved strength needed for ambulation and ADLs. 10/22/23: 4+/5 MMT for B hip flex; 4/5 for IR/ER STG Duration 4 weeks PARTIALLY MET Client Support Manager Goal (LTG) Pt will increase R hip flex/IR /ER strength to at least 4+/5 in order to demonstrate improved strength needed for ambulation and ADLs. 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 10/22/23: 3 fwd reach, 40 deg; reports not painful LTG Duration 8 weeks MET One Impairment function Impairment Oswestry: 2850 Short Term Goal (STG) Pt will decrease Oswestry score by at least 6 points in order to demonstrate improved ADL tolerance and QOL. 10/22/23: 22/50 STG Duration 4 weeks MET Alf Goal (LTG) Pt will decrease Oswestry score by at least 13 points (1 MCID) in order to demonstrate improved ADL tolerance and QOL. LTG Duration 8 weeks Assessment Summary Assessment Pt decreased LB recruitment with cuing for TA draw in during clamshell and reverse clamshell, was unable to tolerate added resistance as previous tx so instructed just perform AROM, improved stance time on RLE post ther ex without AD. Pt improved proper patterning with B trek poles 2-4 pt gait with increased stability and comfort while carrying a conversation for use while out on cruise in the next week with family. HOSPICE LIAISON discussed with pt calling or stopping by physician and inquire for more details regarding DC statin medication for proper understanding and reiterate leaving town for 1 month and further instructions on safety if need to retake. Physical Therapy Plan Frequency and Duration Frequency of Treatment 2x/Week Duration of treatment (weeks) 8 Plan of Care Start Date 09/18/23 Plan of Care End Date 11/13/23 Therapeutic Interventions Therapeutic Interventions Balance Training,Gait Training ,Home Exercise Program,Joint Mobilizations,Lymphedema Management,Manual Therapy, Neuromuscular Re-education, Orthotic/Prosthetic Management ,Patient/Caregiver Education, Self-Care/Home Management, Sensory Integration,Soft Tissue Mobilization,Taping, Therapeutic Activities, Therapeutic Exercises Modalities Biofeedback,Cold Pack/Ice Massage,Electric Stimulation, Hot Packs,Infrared Therapy, Iontophoresis,Ultrasound, Vasopneumatic Devices Next Visit Focus/Plan Next Note Type Discharge Summary Next Visit Plan Continue BLE strengthening, fabby hip/lumbar spine; gait training and 4-6step ups ( low reps) with 1 trek pole for strengthening Next session: nerve glide for burning, cont B/U squat leg press, side steps vs standing hip abd, standing hip ext, trial 4 step up. Manual to glutes, piriformis, hip abd. Gait training to decrease compensation
--- NOTE | 2023-11-13 17:24 | PT.OTN ---
Current Diagnoses Low back pain, unspecified (11/13/23) Weakness (11/13/23) Physical Therapy Treatment Note PT-OP-A Visit Information Start: 09/18/23 10:31 Freq: Status: Active Protocol: Document 11/13/23 08:16 NM (Rec: 11/13/23 09:01 NM [id number]) Out-Patient Physical Therapy Visit Information Visit Information Visit Type Discharge Summary Visit Start Time 08:16 Visit Stop Time 09:00 Visit Number 16 Evaluation Information Evaluation Date 09/18/23 PT-OP-B Current Condition Start: 09/18/23 10:31 Freq: Status: Active Protocol: Document 09/18/23 10:32 NM (Rec: 09/18/23 11:33 NM [id number]) Current Condition History of Current Condition Onset Date Fall 2022 Current Complaints low back pain, R leg pain History of Current Condition Pt presents with low back pain that radiates into her RLE. The pain is along the right- center of her spine and radiates along her posterior and lateral RLE. Pt also reports numbness in her R foot , but no tingling. She reports that the low back pain began during the fall 2022 (unable to report exact month); there is no known mechanism of injury. When she went to the walk-in clinic in July, she was dx with sciatica. Pt has a PMH of OA, RA, polymyalgia rheumatica beginning 1.5 years ago. She also has had several rounds of prednisone injections. She has no previous back injuries. Her last fall was >1 yr ago when she slipped on her outdoor mat. Her primary complaints are limitated ability to perform ADLs, lifting, stooping, standing or sitting for extended periods, and difficulty sleeping due to pain. Prior Treatments and Tests Radiographs: 08/15- multilevel degenerative disc disease and facet arthopathy Treatment Goals Patient/Caregiver Goals To decrease her low back pain Prior Functional Status Baseline Function- ADL's Independent Baseline Function- Mobility Independent Current Functional Impairments (Reported) Functional Limitations- ADL's Difficulty with ADLs, lifting, picking up objects from floor , standing > 10 min, sitting > 30 min Functional Limitations- Mobility/Gait Limited to 1/2 mi ambulation when ambulating with her dog Functional Limitations- Other Unable to sleep > 2 hr PT-OP-C Subjective Start: 09/18/23 10:31 Freq: Status: Active Protocol: Document 11/13/23 08:16 NM (Rec: 11/13/23 09:01 NM [id number]) OP-PT Subjective Patient Comments Patient Comments Pt reports 1/10 pain in low back, no change to foot, 2/10 in R leg. She followed up with Dr. Chavez's office about the statin yesterday; states she can stop whenever and get back on without issue. Pt planning to discharge today due to month long vacation coming up. PT-OP-D Balance Start: 09/18/23 10:31 Freq: Status: Active Protocol: Document 09/18/23 10:32 NM (Rec: 09/18/23 11:33 NM [id number]) OP-PT Balance Assessment Sitting Balance Static Sitting Balance Ability Normal Dynamic Sitting Balance Ability Normal Tinetti Balance Assessment Sitting Balance Sitting Balance Steady, safe Arising from Chair Ability to Arise Able, w/o using arms Attempts to Arise Arises on 1st attempt Standing Balance Immediate Standing Balance Steady w/o support Standing Balance Narrow stance w/o support Nudged Response Staggers, catches self Standing with Eyes Closed Unsteady Turning Step Pattern Turning 360 Degrees Continuous steps Stability Turning 360 Degrees Steady Sitting Down Sitting Down Uses arms or unsteady Gait and Step Initiation of Gait No hesitancy Right Foot Step Length Does pass stance foot Right Foot Step Height Completely clears floor Left Foot Step Length Does pass stance foot Left Foot Step Height Completely clears floor Step Description Step Symmetry Step length not equal Step Continuity Stopping or discontinuity Gait Description Path Description Straight Trunk Description Marked sway or uses aide Walking Stance Heels apart Scoring and Interpretation Tinetti Composite Score (points) 20 Interpretation of Scores At risk for falls (19-24) Colon Fall Scale Copyright Permission PT-OP-E Functional Tests Start: 09/18/23 10:31 Freq: Status: Active Protocol: Document 09/18/23 10:32 NM (Rec: 09/18/23 11:33 NM [id number]) Functional Tests Five Times Sit to Stand Test Score 9.42 sec Comments reports pain with eccentric lowering Other Standing Trunk Flexion to Floor Name of Test standing with legs ext, reach twd floor, measure from floor to fingers Score 10 from floor Comment reproduces low back pain with trunk flexion PT-OP-F Manual Assessment Start: 09/18/23 10:31 Freq: Status: Active Protocol: Document 09/18/23 10:32 NM (Rec: 09/18/23 11:33 NM [id number]) Manual Assessments Soft Tissue Assessment Soft Tissue Mobility Assessment Minimal soft tissue restriction along lumbar spine paraspinals especially along quadratus lumborum, erector spinae. Tenderness along R piriformis, gluteals and at greater trochanter. No palpable bursa at greater trochanter. Joint Mobility Assessment Joint Mobility Assessment Decreased hip flex, abd ROM with slight observable limitations in IR/ER ROM. Hip flex, ext, abd reproduces pain in lumbar spine and R lateral hip. P/A mobilizations are painful at L5-S2, along R sacral border. PT-OP-G Mobility & Gait Start: 09/18/23 10:31 Freq: Status: Active Protocol: Document 09/18/23 10:32 NM (Rec: 09/18/23 11:33 NM [id number]) OP Gait Assessment Gait Gait Assistance Required: Independent Distance (Feet) 100 Gait Deviations General Gait Pattern Antalgic,Decreased Stride Length,Lateral Trunk Lean Factors Limiting Gait Function Factors Limiting Gait Function Decreased Sensation,Decreased Strength,Limited Range of Motion,Pain,Poor Balance Comments Gait Comments Decreased weight acceptance RLE PT-OP-H Neuro Start: 09/18/23 10:31 Freq: Status: Active Protocol: Document 09/18/23 10:32 NM (Rec: 09/18/23 11:33 NM [id number]) Sensation Evaluation Gross Sensation Gross Sensation Right LE Impaired Comments Summary Comments Pt reports that R foot decreased feeling of light touch sensation along dorsal surface of foot compared to L foot. Deep Tendon Reflex & Clonus Assessment Deep Tendon Reflex Left Patellar Deep Tendon Reflex 2+ Normal Right Patellar Deep Tendon Reflex 2+ Normal PT-OP-J Posture/Palpation/Skin Start: 09/18/23 10:31 Freq: Status: Active Protocol: Document 09/18/23 10:32 NM (Rec: 09/18/23 11:33 NM [id number]) Posture Evaluation Position Standing Evaluation View Lateral Head/C-Spine Posture Forward Head T-Spine Posture Increased Kyphosis L-Spine Posture Increased Lordosis,Shifted Left Pelvis Posture Anteriorly Tilted Weight Distribution Weight Shifted Left,Decreased Wt.Bear on (R) Hip Posture (L) Externally Rotated,(R) Externally Rotated Palpation Assessment Location R hip Palpation Location greater trochanter Palpation Findings Muscle Guarding,Tenderness Palpation Details Tenderness to palpation along greater trochanter and along posterior thigh near proximal hamstring. No palpable bursa, only tenderness Lumbar Spine Palpation Location T12-L5, S1-S2, Sacral borders, gluteals, erector spinae Palpation Findings Soft Tissue Tightness,Muscle Guarding,Tenderness Palpation Details Min soft tissue tightness but demos muscle guarding and reports tenderness at R gluteal muscles (fabby piriformis). R mid-sacral border is most tender of all palpated areas (no increase in pain at sacral bases or ILAs) PT-OP-K Range of Motion Start: 09/18/23 10:31 Freq: Status: Active Protocol: Document 11/13/23 08:16 NM (Rec: 11/13/23 09:01 NM [id number]) Lumbar Spine Range of Motion Lumbar Spine Active Degrees Testing Position Standing Flexion 20 Extension 10 Rotation Left 10 Rotation Right 8 Lateral Flexion Left 25 Lateral Flexion Right 10 Comments IE: Pain reported with flexion (mod pain). Pain reported in R lumbar spine with B lateral flexion; Rotation measured in cm. R hip pain with R rotation 10/22/23: 3 fwd trunk flex test from floor; 40 deg flexion, not painful 11/13/23: 1.5 forward trunk flexion test from floor; 45 deg trunk flexion, not painful PT-OP-L Special Tests Start: 09/18/23 10:31 Freq: Status: Active Protocol: Document 09/18/23 10:32 NM (Rec: 09/18/23 11:33 NM [id number]) Special Tests Lumbar Spine Special Tests SIJ Posterior Distraction Test Results negative (R) Comments does not reproduce lumbar spine, SIJ, or hip pain SIJ Anterior Gapping Test Results negative (B) Comments does not reproduce lumbar spine, SIJ, or hip pain Emerson/compression Test Results positive (R) Comments local pain reported R lumbar spine Straight Leg Raise Test Results positive (R) Comments reproduces low back pain, symptoms posterior RLE Distraction Test Results negative Comments does not report symptom relief Slump Test Results positive (B) Comments reports worse symptoms RLE with cervical ext PT-OP-M Strength Start: 09/18/23 10:31 Freq: Status: Active Protocol: Document 11/13/23 08:16 NM (Rec: 11/13/23 09:01 NM [id number]) Trunk Strength Trunk Manual Muscle Testing Testing Position supine, sitting Flexion 3 Fair Extension 3 Fair Rotation Left 4+ Good+ Rotation Right 4- Good- Lateral Flexion Left 4- Good- Lateral Flexion Right 4- Good- Comments Resisted R rotation, B lateral flexion reproduces pain in R lumbar spine and hip 11/13/23: 4+/5 10 sec hold trunk flexion, arms across chest, not painful; 4+/5 lateral flexion MMT Hip Strength Hip Manual Muscle Testing Left Flexion (L2) 4 Good Extension (S1) 4 Good Abduction 4 Good External Rotation 4 Good Internal Rotation 4 Good Comments Resisted motions do not reproduce pain 11/13/23: 4+/5 for all motion, not painful Right Flexion (L2) 4- Good- Extension (S1) 3+ Fair+ Abduction 3+ Fair+ External Rotation 4- Good- Internal Rotation 4- Good- Comments Reports low back pain and hip pain with flex, ext, abd 11/13/23: 4+/5 for all motion, not painful 10/22/23: flex 4+/5, 4/5 IR/ER/ ext, 4-/5 hip abd (still painful abd) PT-OP-Q Treatments Start: 09/18/23 10:31 Freq: Status: Active Protocol: Document 11/13/23 08:16 NM (Rec: 11/13/23 09:01 NM [id number]) Therapeutic Exercises Supine Exercises sciatic nerve glide Supine Exercise Name DF/PF, knee flex/ext Side bilateral Equipment Used towel to assist with hip flexion Reps/Minutes 1x10 Comments cued for execution, stay on task figure 4 Side bilateral Equipment Used towel to assist with knee flexion Reps/Minutes 1x30 Comments reports no increase in symptoms, feels good stretch in hip Sidelying Exercises hip IR Sidelying Exercise Name reverse clams Side bilateral Resistance AROM with isometric hold Reps/Minutes 1x10 with 5 hold; d/c band due to discomfort Comments cued TA draw in, improved symptoms after stretching hip ER Sidelying Exercise Name clams Side bilateral Resistance lvl 2 teal tb around thighs Reps/Minutes 1x10 ea Comments cued no higher than hip height Sitting Exercises resisted side stepping Side bilateral Resistance lvl 2 teal tb around ankles Equipment Used light/flat hand contact with ballet bar Reps/Minutes 2x10 ea Comments improved foot clearance sit<>stand Sitting Exercise Name with hip hinge Side bilateral Resistance lvl 2 teal band around thighs Reps/Minutes 1x10 Comments no pain reported with eccentric lowering today; good control Other Exercises self STMs Other Exercise Name piriformis, external rotators, glutes; reviewed for HEP Equipment Used Therapist assist Reps/Minutes 2 min Comments MWM: hip ER/IR, hip flex/ER Therapeutic Activity Therapeutic Activity hip hinge Reps/Minutes 8 minutes total with education Comments 1. 1x10 seated hinge Self tactile cues for form, PT facilitating at hips and trunk for neutral spine. 2. 1x10 standing hinge to wall PT cueing verbally and with prn tactile cues at hips initially. Wall as target, progressed 3. 1x10 with cue to squeeze scap and hand on back PT cueing with hand placement on back for neutral spine posture. Reports no pain or discomfort with hip hinge 4. 1x10 standing hinge to supervisor opening and picking from floor Pt picking up various objects from ground using hip hinge, reports no pain or discomfort with hip hinge. Minimal verbal cues, no tactile cues Self-Care/Home Management Treatment Education Patient Education Body Mechanics Other Education 5 minutes: Educated on use of hip hinge for spinal mechanics for joint protection, pain management; modalities for pain relief. HEP for maintenance program to independent exercise. Reviewed past HEP and issued present HEP: sciatic nerve glide, figure 4 stretch, clam with band, reverse clam with isometric hold and no band, hip hinge, sit to stand, side steps. Educated to follow up with PCP if symptoms persist or change. PT-OP-R Modalities Start: 10/16/23 17:23 Freq: Status: Active Protocol: Document 11/07/23 11:29 SW (Rec: 11/07/23 12:33 SW [id number]) Hot Pack/Cold Pack Treatment Hot Pack Location Lumbar/hip Patient Position Supine Patient Tolerance Good Comments x10 min, elizabeth within reach, pt reported good response PT-OP-T Assessment and Plan Start: 09/18/23 10:31 Freq: Status: Active Protocol: Document 11/13/23 08:16 NM (Rec: 11/13/23 09:01 NM [id number]) Physical Therapy Assessment Goals Seven Impairment strength Impairment Trunk strength flex/ext 3/5, B lateral flex strength 4-/5 Short Term Goal (STG) Pt will increase global trunk strength by at least 1 MMT grade ea in order to demonstrate improved trunk strength and core stabilization needed for ADLs. 11/13/23: 10 sec, arms across chest 10/22/23: PARTIALLY MET, flex 4 /5 (able to hold 5 sec) and not painful; lateral flex 4+/5 , not painful STG Duration 4 weeks PARTIALLY MET [facility] Goal (LTG) Pt will increase global trunk strength by at least 2 MMT grades ea in order to demonstrate improved trunk strength and core stabilization needed for ADLs. 11/14/23: Supine trunk flexion MMT 10 sec, arms across chest 10/22/23: lateral flex MMT 4+/5 , not painful LTG Duration 8 weeks MET Six Impairment balance, function Impairment Tinetti score: Short Term Goal (STG) Pt will improve Tinetti score by at least 2 points to demonstrate improved balance during ambulation and ADLs. 10/22/23: (gait 6, balance 12) STG Duration 4 weeks MET [facility] Goal (LTG) Pt will improve Tinetti score by at least 4 points (low fall risk category) to demonstrate improved balance during ambulation and ADLs. 11/13/23: LTG Duration 8 weeks MET Four Impairment Strength Impairment R hip ext and abd strength 3+/ 5 MMT Short Term Goal (STG) Pt will increase R hip ext/abd to at least 4/5 in order to demonstrate improved strength needed for ambulation and ADLs . 10/22/23: B hip ext 4/5 (not painful); B hip abd 4-/5 and painful with resistance at thigh STG Duration 4 weeks PROGRESSING, PARTIALLY MET Engineering Programmer Goal (LTG) Pt will increase R hip ext/abd to at least 4+/5 in order to demonstrate improved strength needed for ambulation and ADLs . 11/13/23: 4+/5 for all, no pain LTG Duration 8 weeks MET Three Impairment Strength Impairment R hip strength flex/IR/ER 4-/5 MMT Short Term Goal (STG) Pt will increase R hip flex/ER /IR strength to at least 4/5 in order to demonstrate improved strength needed for ambulation and ADLs. 11/13/23: 4+ for all, no pain 10/22/23: 4+/5 MMT for B hip flex; 4/5 for IR/ER STG Duration 4 weeks MET Engineering Programmer Goal (LTG) Pt will increase R hip flex/IR /ER strength to at least 4+/5 in order to demonstrate improved strength needed for ambulation and ADLs. 11/13/23: 4+ for all, no pain LTG Duration 8 weeks MET Two Impairment ROM Impairment Trunk flexion AROM 20 deg (10 fwd reach test) Short Term Goal (STG) Pt will increase trunk flexion AROM by at least 10 deg in order to demonstrate improved ability to supervisor opening and picking objects from floor for better ADL tolerance. 11/13/23: 1.5 fwd reach 10/22/23: 3 fwd reach, 40 deg; reports not painful STG Duration 4 weeks Engineering Programmer Goal (LTG) Pt will increase trunk flexion AROM by at least 20 deg in order to demonstrate improved ability to supervisor opening and picking objects from floor for better ADL tolerance. 11/13/23: 1.5 fwd reach, 45 deg trunk flexion, no painful 10/22/23: 3 fwd reach, 40 deg; reports not painful LTG Duration 8 weeks MET One Impairment function Impairment Oswestry: 50 Short Term Goal (STG) Pt will decrease Oswestry score by at least 6 points in order to demonstrate improved ADL tolerance and QOL. 10/22/23: STG Duration 4 weeks MET Engineering Programmer Goal (LTG) Pt will decrease Oswestry score by at least 13 points (1 MCID) in order to demonstrate improved ADL tolerance and QOL. 11/13/23: 50 LTG Duration 8 weeks MET Progress Towards Goals Progress Towards Goals Goals Met Progress Comments All goals met Assessment Summary Assessment Pt tolerated session well. Session emphasis on creating maintenance HEP for pt as she is discharging to independent exercise. Initiated hip hinge for body mechanics training to assist pt in forward trunk flexion when transitioning from sit to stand and when picking objects up from lower surfaces. Pt required verbal and tactile cues for correct execution, use of external target (wall and hand); however, able to progress to independent performance without low back pain or discomfort. Pt able to supervisor opening and picking variety of objects from floor without difficulty. Progressed to add with sit to stand exercise for improved transfers, decrease excessive lordosis. Regressed from banded hip IR to isometric hold to decrease pt reports of discomfort with exercise. Continued with hip, glute and quad strengthening exercises to provide stability to lumbar spine. Pt continues to have relief with sciatic nerve glide, so added to HEP for symptom reduction. Pt has been seen since August 2023 for low back pain with referral down RLE. Pt has progressed well with PT and has met all goals related to strength, AROM, and activity. Pt reports signficant improvement in pain symptoms, although not completely gone in her foot. She is able to stabilize her core and perform functional standing exercises without increased pain or difficulty. She reports she is able to participate in ADLs/IADLs with minimal limitations due to pain, improving Oswestry from 28% impaired to 5% impairment. Pt continues to have burning in R foot, which affects her balance and sensation. Pt has only recently become established in area; recommend referral to spine physician to address symptoms. PT and pt agree with discharge today as pt POC is expiring, in addition to pt request as she will be going on vacation for a month. PT educated pt on following up with PCP if symptoms return or worsen; pt verbalizes agreement. Pt is safe to discharge to independent exercise. Physical Therapy Plan Frequency and Duration Frequency of Treatment 2x/Week Duration of treatment (weeks) 8 Plan of Care Start Date 09/18/23 Plan of Care End Date 11/13/23 Discharge Physical Therapy Discharge Reasons Patient Request Discharge Comments Pt going on long vacation, requesting discharge. Next Visit Focus/Plan Next Visit Plan Discharge from PT services
== END 2023-11-19 10:32 | disposition home or self-care (01) ==
LOC: PHYS 08:15
PROVIDERS: PCP Nurse Practitioner Family; Referring Provider Nurse Practitioner Family; Visit Provider Nurse Practitioner Family
DX: M54.50 Low back pain, unspecified (principal); R53.1 Weakness
CPT/HCPCS: 97010; 97110; 97112; 97116; 97140; 97162; 97530; 97535

== ENCOUNTER → 2024-01-12 10:26 | Outpatient (CLI) | payer MEDICARE, OTHER, SELFPAY ==
[2024-01-12 11:11] LABS: Influenza A - CEPHEID Flu A NEGATIVE (NEGATIVE); Influenza B - CEPHEID Flu B NEGATIVE (NEGATIVE); Respiratory Syncytial Virus Negative (Negative)
[2024-01-12 11:16] LABS: COVID-19 CEPHEID 4-PLEX PCR Negative (Negative)
== END ==
PROVIDERS: PCP Family Medicine; Visit Provider Nurse Practitioner Family
DX: Z20.828 Contact with and (suspected) exposure to other viral communicable diseases (principal); R05.3 Chronic cough
CPT/HCPCS: 0241U; 87070

== ENCOUNTER → 2024-02-19 10:01 | Outpatient (CLI) | payer MEDICARE, OTHER, SELFPAY ==
[2024-02-19 12:27] LABS: Add Manual Diff / Slide Review NO; Basophils Absolute Auto 100 /uL (0-100); Basophils Percent Auto 1.4 % (0-2); Eosinophils Absolute Auto 900 /uL (0-450); Eosinophils Percent Auto 14.5 % (2-4); Hematocrit 35.8 % (36-46); Lymphocytes Absolute Auto 1500 /uL (1100-4500); Lymphocytes Percent Auto 22.8 % (25-40); Mean Corpuscular HGB Conc 33.4 % (30-36); Mean Corpuscular Hemoglobin 29.3 PG (26-34); Mean Corpuscular Volume 87.9 fL (80-100); Monocytes Absolute Auto 700 /uL (0-900); Monocytes Percent Auto 10.9 % (3-14); Neutrophils Absolute Auto 3200 /uL (1500-7000); Neutrophils Percent Auto 50.4 % (50-75); Platelet Count 258 X10^3/uL (150-400); Red Blood Cell Count 4.08 X10^6/uL (4.0-5.2); Red Cell Distribution Width 14.5 % (11.6-14.8); White Blood Cell Count 6.4 X10^3/uL (4.5-11.0)
[2024-02-19 12:47] LABS: Erythrocyte Sedimentation Rate 31 MM/HR (0-20)
[2024-02-19 12:58] LABS: Alanine Aminotransferase 23 IU/L (<35); Albumin 4.1 g/dL (3.5-5.0); Albumin Globulin Ratio 1.8 (1.0-2.8); Alkaline Phosphatase 87 U/L (38-126); Aspartate Aminotransferase 26 IU/L (14-36); Bilirubin Total 0.5 mg/dL (0.2-1.3); Blood Urea Nitrogen 13 mg/dL (7-17); C-Reactive Protein Quant < 0.5 mg/dL (<1.0); Carbon Dioxide 30 mmol/L (22-32); Chloride 106 mmol/L (98-107); Estimated Glomerular Filt Rate 56 mL/min (>60); Globulin 2.3 g/dL (1.7-4.1); Glucose 119 mg/dL (80-110); HEMOLYSIS < 15 (0-50); Potassium 4.3 mmol/L (3.4-5.1); Sodium 141 mmol/L (137-145); Total Protein 6.4 g/dL (6.3-8.2)
== END ==
PROVIDERS: PCP Family Medicine; Referring Provider Physician Assistant Medical; Visit Provider Physician Assistant Medical
DX: M06.9 Rheumatoid arthritis, unspecified (principal)
CPT/HCPCS: 36415; 80053; 85025; 85651; 86140

== ENCOUNTER → 2024-05-19 11:04 | Outpatient (CLI) | payer MEDICARE, OTHER, SELFPAY ==
[2024-05-19 12:39] LABS: Add Manual Diff / Slide Review NO; Basophils Absolute Auto 100 /uL (0-100); Basophils Percent Auto 1.1 % (0-2); Eosinophils Absolute Auto 600 /uL (0-450); Eosinophils Percent Auto 9.9 % (2-4); Hematocrit 35.8 % (36-46); Hemoglobin 12.2 g/dL (12.0-16.0); Lymphocytes Absolute Auto 1300 /uL (1100-4500); Mean Corpuscular HGB Conc 34.2 % (30-36); Mean Corpuscular Hemoglobin 29.4 PG (26-34); Mean Corpuscular Volume 85.9 fL (80-100); Monocytes Absolute Auto 700 /uL (0-900); Monocytes Percent Auto 11.2 % (3-14); Neutrophils Absolute Auto 3300 /uL (1500-7000); Neutrophils Percent Auto 55.8 % (50-75); Platelet Count 199 X10^3/uL (150-400); Red Blood Cell Count 4.16 X10^6/uL (4.0-5.2); Red Cell Distribution Width 13.7 % (11.6-14.8)
[2024-05-19 13:04] LABS: Alanine Aminotransferase 29 IU/L (<35); Albumin 4.1 g/dL (3.5-5.0); Albumin Globulin Ratio 1.7 (1.0-2.8); Alkaline Phosphatase 90 U/L (38-126); Aspartate Aminotransferase 32 IU/L (14-36); BUN Creatinine Ratio 11.6 (6-22); Bilirubin Total 0.4 mg/dL (0.2-1.3); Blood Urea Nitrogen 13 mg/dL (7-17); C-Reactive Protein Quant < 0.5 mg/dL (<1.0); Calcium 9.1 mg/dL (8.4-10.2); Carbon Dioxide 27 mmol/L (22-32); Chloride 106 mmol/L (98-107); Estimated Glomerular Filt Rate 48 mL/min (>60); Globulin 2.4 g/dL (1.7-4.1); Glucose 108 mg/dL (80-110); HEMOLYSIS < 15 (0-50); Potassium 4.5 mmol/L (3.4-5.1); Sodium 139 mmol/L (137-145); Total Protein 6.5 g/dL (6.3-8.2)
[2024-05-19 13:25] LABS: Erythrocyte Sedimentation Rate 18 MM/HR (0-20)
== END ==
PROVIDERS: PCP Family Medicine; Referring Provider Physician Assistant Medical; Visit Provider Physician Assistant Medical
DX: M06.9 Rheumatoid arthritis, unspecified (principal)
CPT/HCPCS: 36415; 80053; 85025; 85651; 86140

== ENCOUNTER → 2024-08-25 10:09 | Outpatient (CLI) | payer MEDICARE, OTHER, SELFPAY ==
[2024-08-25 11:36] LABS: Add Manual Diff / Slide Review NO; Basophils Absolute Auto 100 /uL (0-100); Basophils Percent Auto 1.1 % (0-2); Eosinophils Absolute Auto 700 /uL (0-450); Hematocrit 34.4 % (36-46); Hemoglobin 11.8 g/dL (12.0-16.0); Lymphocytes Absolute Auto 1000 /uL (1100-4500); Lymphocytes Percent Auto 15.8 % (25-40); Mean Corpuscular HGB Conc 34.5 % (30-36); Mean Corpuscular Hemoglobin 29.9 PG (26-34); Mean Corpuscular Volume 86.6 fL (80-100); Monocytes Absolute Auto 800 /uL (0-900); Monocytes Percent Auto 11.6 % (3-14); Neutrophils Absolute Auto 4000 /uL (1500-7000); Neutrophils Percent Auto 61.5 % (50-75); Platelet Count 259 X10^3/uL (150-400); Red Blood Cell Count 3.97 X10^6/uL (4.0-5.2); Red Cell Distribution Width 13.2 % (11.6-14.8); White Blood Cell Count 6.6 X10^3/uL (4.5-11.0)
[2024-08-25 12:04] LABS: Alanine Aminotransferase 30 IU/L (<35); Albumin 4.2 g/dL (3.5-5.0); Albumin Globulin Ratio 2.1 (1.0-2.8); Alkaline Phosphatase 86 U/L (38-126); Aspartate Aminotransferase 35 IU/L (14-36); BUN Creatinine Ratio 16.3 (6-22); Bilirubin Total 0.6 mg/dL (0.2-1.3); Blood Urea Nitrogen 25 mg/dL (7-17); C-Reactive Protein Quant < 0.5 mg/dL (<1.0); Calcium 9.3 mg/dL (8.4-10.2); Carbon Dioxide 26 mmol/L (22-32); Chloride 99 mmol/L (98-107); Estimated Glomerular Filt Rate 33 mL/min (>60); Glucose 124 mg/dL (80-110); HEMOLYSIS < 15 (0-50); Potassium 4.3 mmol/L (3.4-5.1); Sodium 133 mmol/L (137-145); Total Protein 6.2 g/dL (6.3-8.2)
[2024-08-25 12:38] LABS: Erythrocyte Sedimentation Rate 19 MM/HR (0-20)
== END ==
PROVIDERS: PCP Family Medicine; Referring Provider Physician Assistant Medical; Visit Provider Physician Assistant Medical
DX: M06.9 Rheumatoid arthritis, unspecified (principal)
CPT/HCPCS: 36415; 80053; 85025; 85651; 86140

== ENCOUNTER → 2024-09-02 10:24 | Outpatient (CLI) | payer MEDICARE, OTHER, SELFPAY ==
[2024-09-02 18:15] LABS: Appearance Urine UA CLEAR; Bilirubin Urine UA NEGATIVE (NEGATIVE); Color Urine UA YELLOW; Glucose Urine UA NEGATIVE (Negative); Ketones Urine UA NEGATIVE (NEGATIVE); Leukocyte Esterase Urine UA 1+ (NEGATIVE); Nitrite Urine UA NEGATIVE (Negative); Occult Blood Urine UA NEGATIVE (Negative); Protein Urine UA NEGATIVE (Negative); Urobilinogen Urine UA 0.2 E.U./dL (0.2)
[2024-09-02 18:16] LABS: pH Urine UA 5.5 (4.5-8.0)
[2024-09-02 18:50] LABS: Bacteria Urine Few (2-10); Culture Indicated Urine Specimen Cultured; RBC Urine 0-1/HPF (0-5/HPF); Squamous Epithelial Cell Urine 0-1 /HPF (0-5/HPF); Urine Volume 10mL (spun); WBC Urine 1-5/HPF (0-5/HPF)
== END ==
PROVIDERS: PCP Family Medicine; Referring Provider Family Medicine; Visit Provider Family Medicine
DX: N18.31 Chronic kidney disease, stage 3a (principal)
CPT/HCPCS: 81001; 87086

== ENCOUNTER 2024-09-12 17:45 | Emergency (ER) | payer MEDICARE, OTHER, SELFPAY ==
[2024-09-12] VITALS (11 sets, daily range): BP systolic 105–152; BP diastolic 49–69; PULSE 92–104; RESP 16–18; TEMP 37.6; O2SAT 94–96; BMI 30.9
[2024-09-12 18:34] LABS: Bacteria Urine Many (>30); RBC Urine None Seen (0-5/HPF); Squamous Epithelial Cell Urine 5-10 /HPF (0-5/HPF); Urine Volume 10mL (spun); WBC Urine 1-5/HPF (0-5/HPF)
[2024-09-12 18:35] LABS: Culture Indicated Urine Specimen Cultured
[2024-09-12 18:57] LABS: Influenza A - CEPHEID Flu A NEGATIVE (NEGATIVE); Influenza B - CEPHEID Flu B NEGATIVE (NEGATIVE); Respiratory Syncytial Virus Negative (Negative)
[2024-09-12 19:02] LABS: COVID-19 CEPHEID 4-PLEX PCR Negative (Negative)
[2024-09-12 19:52] LABS: Hematocrit 35.2 % (36-46); Hemoglobin 11.9 g/dL (12.0-16.0); Mean Corpuscular HGB Conc 33.7 % (30-36); Mean Corpuscular Hemoglobin 29.2 PG (26-34); Mean Corpuscular Volume 86.6 fL (80-100); Platelet Count 244 X10^3/uL (150-400); Red Blood Cell Count 4.06 X10^6/uL (4.0-5.2); White Blood Cell Count 20.3 X10^3/uL (4.5-11.0)
[2024-09-12 19:58] LABS: Alanine Aminotransferase 36 IU/L (<35); Albumin 4.3 g/dL (3.5-5.0); Albumin Globulin Ratio 1.8 (1.0-2.8); Alkaline Phosphatase 98 U/L (38-126); Aspartate Aminotransferase 40 IU/L (14-36); BUN Creatinine Ratio 12.2 (6-22); Bilirubin Total 0.6 mg/dL (0.2-1.3); Blood Urea Nitrogen 18 mg/dL (7-17); Calcium 8.9 mg/dL (8.4-10.2); Carbon Dioxide 25 mmol/L (22-32); Chloride 90 mmol/L (98-107); Estimated Glomerular Filt Rate 34 mL/min (>60); Globulin 2.4 g/dL (1.7-4.1); Glucose 131 mg/dL (80-110); HEMOLYSIS < 15 (0-50); Lactate (Lactic Acid) 1.4 mmol/L (0.7-2.1); Potassium 3.7 mmol/L (3.4-5.1); Sodium 123 mmol/L (137-145); Total Protein 6.7 g/dL (6.3-8.2)
[2024-09-12 20:00] LABS: Add Manual Diff / Slide Review YES
[2024-09-12 20:14] LABS: Neutrophils Absolute Manual 19285 /uL (3000-5900); RBC Morphology Normal Morphology; Total Cells Counted 100
[2024-09-12 20:15] LABS: Smudge Cells 1+; Toxic Vacuolation Present
[2024-09-12] MEDS: cefTRIAXone 1,000 MG in SODIUM CHLORIDE 0.9% 100 ML 200 MG IV (20:29)
--- NOTE | 2024-09-12 21:32 | ED.NAVMDI ---
HPI - Nausea/Vomiting/Diarrhea General Chief complaint: Nausea/Vomiting/Diarrhea Stated complaint: Nausea, Chills Time Seen by Provider: 09/12/24 21:28 Source: patient Mode of arrival: Ambulatory History of Present Illness HPI Narrative: Patient is a 84-year-old female with history of chronic kidney disease ongoing rashes hypertension hyperlipidemia presenting today with sudden onset nausea. She is here with her son sounds as though she was suddenly nauseous did not quite feel well now complaining of a headache. Denies any neck pain. She had 1 episode of diarrhea which does happen. She does have a left leg redness which she says has been there. It looks like she went to walk-in clinic on September 01 and was prescribed some topical vacation these. She denies fever or chills. She does have mild cough. No significant shortness of breath. She reports that she does have a mucousy cough in the morning but now maybe has a little bit more cough. No new back pain. She is chronic spinal stenosis she is not having any surgery she has not had any injections. She does report some urinary incontinence which does happened to her at times. No painful frequent urination. No worsening leg weakness or pain. Related Data Home Medications Medication Instructions Recorded Confirmed hydroxychloroquine 200 mg tablet 200 mg PO BID 08/08/23 09/01/24 leflunomide 20 mg tablet mg PO 08/08/23 09/01/24 omeprazole 20 mg capsule,delayed 20 mg PO DAILY 10/24/23 09/01/24 release Previous Rx's Medication Instructions Recorded losartan 100 mg tablet 100 mg PO DAILY #90 tabs 04/16/24 metoprolol succinate 25 mg 25 mg PO DAILY #90 tabs 04/16/24 tablet,extended release 24 hr hydrochlorothiazide 25 mg tablet 25 mg PO DAILY #90 tabs 06/16/24 simvastatin 20 mg tablet 20 mg PO DAILY #90 tabs 08/12/24 cetirizine 10 mg tablet (Zyrtec) 10 mg PO DAILY PRN allergy 09/01/24 symptoms #30 tabs triamcinolone acetonide 0.1 % See Rx Instructions topical BID 09/01/24 topical cream #80 grams ciprofloxacin HCl 500 mg tablet 500 mg PO BID #20 tabs 09/12/24 (Cipro) metronidazole 500 mg tablet 500 mg PO Q8H 10 days #30 tabs 09/12/24 ondansetron 4 mg disintegrating 4 mg PO Q8H PRN nausea and 09/12/24 tablet vomiting #10 tabs Allergies Allergy/AdvReac Type Severity Reaction Status Date / Time amlodipine AdvReac Verified 09/01/24 10:50 Patient History Medical History Asymptomatic hypertensive urgency HTN (hypertension) Rheumatoid arthritis (~2022) Polymyalgia rheumatica (~2021) Osteoarthritis (~2017) Sleep apnea (~2013) Mumps Measles Chicken pox Cataracts, bilateral Fibroids Hemorrhoid Surgical History Anesthesia History of cholecystectomy (~2000) History of appendectomy (~1957) Social History Smoking Status: Never smoker Smoking Status: Never smoker Exam Initial Vital Signs Initial Vital Signs: Vital Signs Temperature 99.6 F 09/12/24 17:49 Pulse Rate 97 H 09/12/24 17:49 Respiratory Rate 18 09/12/24 17:49 Blood Pressure 152/65 H 09/12/24 17:49 Pulse Oximetry 94 09/12/24 17:49 Oxygen Delivery Method Room Air 09/12/24 17:49 GENERAL: Alert 84-year-old female appears to not feel well and in no acute distress. HEENT: Head atraumatic,EOMI, pupils reactive, face symmetric, moist mucous membranes NECK: Supple no vertebral tenderness no meningeal sign CARDIOVASCULAR: Regular rate and rhythm without murmurs, rubs or gallops. RESPIRATORY: Breath sounds equal bilaterally, no wheezes rales or rhonchi. ABDOMEN: Soft, nontender. Normoactive bowel sounds all 4 quadrants. No guarding or rebound. : No CVA tenderness EXTREMITIES: Normal range of motion, no clubbing or edema. Neurovascularly intact NEUROLOGICAL: Alert and oriented x4.Normal gait and speech. Cranial nerves II through XII grossly intact. SKIN: Left leg erythema, anterior hess between ankle and knee blanchable Course Orders Ordered: ED Orders 09/12/24 20:25 Blood Culture Stat 09/12/24 21:43 CT abdomen pelvis wo con Stat Chest [XR chest 1V] Stat Discontinued Medications Acetaminophen (Acetaminophen 325 Mg Tablet) 975 mg PO NOW ONE Stop: 09/12/24 21:44 Last Admin: 09/12/24 21:48 Dose: 975 mg Documented By: PARISA Ciprofloxacin (Ciprofloxacin 250 Mg Tablet) 500 mg PO NOW ONE Stop: 09/12/24 23:15 Last Admin: 09/12/24 23:18 Dose: 500 mg Documented By: PARISA Ceftriaxone Sodium 1,000 mg/ (Sodium Chloride) 100 mls @ 200 mls/hr IV NOW ONE Stop: 09/12/24 20:17 Last Infusion: 09/12/24 21:05 Dose: Infused Documented By: Admin: 09/12/24 20:29 Dose: 200 mls/hr Documented By: PARISA Metronidazole (Metronidazole 500 Mg Tablet) 500 mg PO NOW ONE Stop: 09/12/24 23:15 Last Admin: 09/12/24 23:19 Dose: 500 mg Documented By: PARISA Ondansetron HCl (Ondansetron 4 Mg/2 Ml Inj) 4 mg IV NOW PRN PRN Reason: Nausea And Vomiting Ondansetron HCl (Ondansetron 4 Mg Odt) 4 mg SL NOW PRN PRN Reason: Nausea And Vomiting Vital Signs Vital signs: Vital Signs - 8 hr 09/12/24 21:30 09/12/24 21:30 09/12/24 22:02 Pulse Rate 98 H 99 H Respiratory Rate Blood Pressure 115/52 L Pulse Oximetry 94 95 Oxygen Delivery Method 09/12/24 22:03 09/12/24 22:03 09/12/24 22:30 Pulse Rate 98 H 93 H Respiratory Rate 16 Blood Pressure 117/57 L Pulse Oximetry 94 94 Oxygen Delivery Method Room Air 09/12/24 22:30 09/12/24 23:00 09/12/24 23:00 Pulse Rate 92 H Respiratory Rate 16 Blood Pressure 108/50 L 105/49 L Pulse Oximetry 94 Oxygen Delivery Method Room Air MDM - Nausea/Vomiting/Diarrhea Lab Data 09/12/24 19:40 09/12/24 19:40 Labs: Lab Results 09/12/24 09/12/24 09/12/24 Range/Units 17:56 18:00 19:40 WBC 20.3 H (4.5-11.0) X10^3/uL RBC 4.06 (4.0-5.2) X10^6/uL Hgb 11.9 L (12.0-16.0) g/dL Hct 35.2 L (36-46) % MCV 86.6 (80-100) fL MCH 29.2 (26-34) PG MCHC 33.7 (30-36) % RDW 13.0 (11.6-14.8) % Plt Count 244 (150-400) X10^3/uL Neut % (Auto) Not Reportable Lymph % (Auto) Not Reportable Mckenzie % (Auto) Not Reportable Eos % (Auto) Not Reportable Baso % (Auto) Not Reportable Lymph # (Auto) Not Reportable Mckenzie # (Auto) Not Reportable Baso # (Auto) Not Reportable Total Counted 100 Seg Neutrophils % 67.0 (38-70) % Band Neutrophils % 28.0 H (3-7) % Lymphocytes % (Manual) 1.0 L (25-45) % Atypical Lymphs % 1.0 H ( - 0) % Monocytes % (Manual) 3.0 (2-11) % Neutrophils # (Manual) 84321 H (3573-6668) /uL Smudge Cells 1+ H Toxic Vacuolation Present H RBC Morphology Normal morphology Sodium 123 L (137-145) mmol/L Potassium 3.7 (3.4-5.1) mmol/L Chloride 90 L (98-107) mmol/L Carbon Dioxide 25 (22-32) mmol/L BUN 18 H (7-17) mg/dL Creatinine 1.48 H (0.52-1.04) mg/dL Estimated GFR 34 L (>60) mL/min BUN/Creatinine Ratio 12.2 (6-22) Glucose 131 H (80-110) mg/dL Lactate 1.4 (0.7-2.1) mmol/L Calcium 8.9 (8.4-10.2) mg/dL Total Bilirubin 0.6 (0.2-1.3) mg/dL AST 40 H (14-36) IU/L ALT 36 H (<35) IU/L Alkaline Phosphatase 98 (38-126) U/L Total Protein 6.7 (6.3-8.2) g/dL Albumin 4.3 (3.5-5.0) g/dL Globulin 2.4 (1.7-4.1) g/dL Albumin/Globulin Ratio 1.8 (1.0-2.8) Urine RBC None seen (0-5/HPF) Urine WBC 1-5/hpf (0-5/HPF) Ur Squamous Epith Cells 5-10 /hpf H (0-5/HPF) Urine Bacteria Many (>30) H (None) Ur Culture Indicated? Specimen cultured Vol Urine Centrifuged 10ml (spun) SARS-CoV-2 (PCR) Negative (Negative) Influenza A (RT-PCR) Flu a negative (NEGATIVE) Influenza B (RT-PCR) Flu b negative (NEGATIVE) RSV (PCR) Negative (Negative) Urine Dip Bedside Urine Glucose Negative Bedside Urine Bilirubin - Negative Bedside Urine Ketone - Negative Urine Specific [place] 1.030 Bedside Urine Occult Blood - Negative Bedside Urine pH 6 Bedside Urine Protein +/- 15 Bedside Urine Urobilinogen - Negative Bedside Urine Nitrite - Negative Bedside Urine Leukocytes +++ [address] scan - abdomen/pelvis: Radiologist's Impression: PROCEDURE: CT ABDOMEN PELVIS WO CON INDICATIONS: nausea, sepsis, judith TECHNIQUE: Axial sections were acquired from the lung bases to the pubic symphysis. Coronal and sagittal reformats were performed. For radiation dose reduction, the following was used: automated exposure control, adjustment of mA and/or kV according to patient size. COMPARISON: None. FINDINGS: Image quality: Diagnostic Lower chest: Basal atelectasis and scarring. Mild distal esophageal wall thickening, nonspecific and small hiatal hernia. Normal heart size. Liver: Solid organs are not well assessed without IV contrast. No solid contour deforming mass. Gallbladder and biliary system: Absent, nondilated Pancreas: Mild parenchymal atrophy without ductal dilation Spleen: Nonenlarged Adrenals: No discrete nodules Kidneys: No contour deforming solid renal mass or hydronephrosis. Possible cysts are present. There is nonspecific perinephric fat stranding. Vessels and lymph nodes: No abdominal aortic aneurysm. No pathologic lymphadenopathy by size criteria. There are borderline enlarged inguinal lymph nodes, however, measuring up to 1.4 cm in the left inguinal region. Bowel and peritoneum: No evidence of small bowel obstruction. Fluid filled prominent loops of small bowel present. Fluid-filled colon is present. No pathologic ascites Body wall: Small fat containing umbilical hernia Pelvis: Bladder is unremarkable. Reproductive organs are unremarkable on limited CT evaluation Bones: Degenerative changes. No acute or suspicious finding. IMPRESSION: Possible enterocolitis with fluid filled prominent loops of small and large bowel. No bowel obstruction. Possible additional esophagitis and small hiatal hernia. Endoscopy could further evaluate if clinically indicated. Nonspecific perinephric fat stranding, correlate urinalysis. No hydronephrosis. Indeterminate borderline enlarged inguinal lymph nodes, greater on the left. Ultrasound could further evaluate the morphologic characteristics if there are no clinical etiology/explanation for reactive lymph nodes. Dictated by: Richy Elder M.D. on 09/12/2024 at 22:25 Chest x-ray: Radiologist's Impression: PROCEDURE: XR CHEST 1V INDICATIONS: cough TECHNIQUE: One view of the chest was acquired. COMPARISON: None. FINDINGS: Surgical changes and devices: None. Lungs and pleura: No dense airspace disease or pleural effusions. Mediastinum: Normal heart size Bones and chest wall: Degenerative changes IMPRESSION: No acute radiographic abnormality on this single view study. Dictated by: Richy Elder M.D. on 09/12/2024 at 22:23 Approved by: Richy Elder M.D. on 09/12/2024 at 22:23 MDM Narrative Medical decision making narrative: MDM CC: Nausea Complicating co-morbidities: CKD , HTN Medical records reviewed: Previous PCP notes, and walk in clinic visit on September 01 or rash Differential considered: Abdominal pathology gastroenteritis nephrolithiasis diverticulitis UTI Exam documented above, pertinent findings include: Who fear of female abdomen is relatively soft minimally tender no flank pain breath sounds are clear no respiratory distress. She is some erythema of her leg but she says it is improving Lab Test results independently reviewed as above. Pertinent findings: WBC 20, lactate 1.4 Sodium 123 potassium 3.7 chloride 90 bicarb 25 BUN 18 creatinine 1.48 previously 1.53 Bilirubin 0.6 AST 40 ALT 36 Urinalysis positive for leukocytes and bacteria for nitrates Independently reviewed EKG as above Imaging studies independently reviewed: Chest x-ray negative CT shows enteric colitis Consultations: None Treatments: Tylenol Cipro Flagyl Re-evaluations: Feeling better after Tylenol Discussion: Patient 84-year-old female presenting today with nausea slight cough. She is found to have significant leukocytosis of 20 without elevated lactic acid or evidence of severe sepsis. She does have some mild cellulitis or dermatitis on her left leg but not clear that that is her source or her nausea. CT was done it does show entero colitis with fluid-filled loops of the small and large bowel. I think this would explain her nausea more. She has not actually vomiting abdomen remains relatively soft. Creatinine is stable and at baseline but due to CKD contrast was held. She was to be erythema of the left leg however not convinced that is the source for leukocytosis or cause of nausea. Her sodium is also found to be 123, previously it was 133 on August 25 however she is alert oriented appropriate. Discharge Plan Departure Patient Disposition: Home Clinical Impression: Colitis, Acute hyponatremia Instructions: DI for Colitis Activity Restrictions/Additional Instructions: *You have been diagnosed with colitis, low sodium *What to do: At this time increase diet as tolerated I do recommend that you drink electrolyte fluid coconut water Pedialyte Gatorade. You will also need her electrolytes and your sodium rechecked next week with your primary care DO NOT JUST DRINK PLAIN WATER *Continue to take medications as directed Cipro 500 mg twice a day Flagyl 500 mg 3 times a day Zofran 4 mg every 8 hours if needed for nausea or vomiting *Follow up with your primary care provider in 2-3 days or call [phone] *Return to ER if you should have increasing confusion abdominal pain persistent vomiting or any new, worsening or concerning symptoms Prescriptions: New metronidazole 500 mg tablet 500 mg PO Q8H 10 Days Qty: 30 0RF ciprofloxacin HCl [Cipro] 500 mg tablet 500 mg PO BID Qty: 20 0RF ondansetron 4 mg tablet,disintegrating 4 mg PO Q8H PRN (Reason: nausea and vomiting) Qty: 10 0RF No Action leflunomide 20 mg tablet PO hydroxychloroquine 200 mg tablet 200 mg PO BID triamcinolone acetonide 0.1 % cream See Rx Instructions topical BID Qty: 80 0RF Rx Instructions: 1 mg topically bid TOP BID cetirizine [Zyrtec] 10 mg tablet 10 mg PO DAILY PRN (Reason: allergy symptoms) Qty: 30 0RF omeprazole 20 mg capsule,delayed release(DR/EC) 20 mg PO DAILY losartan 100 mg tablet 100 mg PO DAILY Qty: 90 3RF metoprolol succinate 25 mg tablet extended release 24 hr 25 mg PO DAILY Qty: 90 3RF hydrochlorothiazide 25 mg tablet 25 mg PO DAILY Qty: 90 1RF simvastatin 20 mg tablet 20 mg PO DAILY Qty: 90 1RF Referrals: Jenae Chavez DO [Primary Care Provider] - Stand Alone Forms: Patient Portal/API/Survey
--- NOTE | 2024-09-12 21:34 | PC.NURSE ---
Dr. Mendez at bedside
--- NOTE | 2024-09-12 21:43 | DI.CT.S_ITS ---
PROCEDURE: CT ABDOMEN PELVIS WO CON INDICATIONS: nausea, sepsis, judith TECHNIQUE: Axial sections were acquired from the lung bases to the pubic symphysis. Coronal and sagittal reformats were performed. For radiation dose reduction, the following was used: automated exposure control, adjustment of mA and/or kV according to patient size. COMPARISON: None. FINDINGS: Image quality: Diagnostic Lower chest: Basal atelectasis and scarring. Mild distal esophageal wall thickening, nonspecific and small hiatal hernia. Normal heart size. Liver: Solid organs are not well assessed without IV contrast. No solid contour deforming mass. Gallbladder and biliary system: Absent, nondilated Pancreas: Mild parenchymal atrophy without ductal dilation Spleen: Nonenlarged Adrenals: No discrete nodules Kidneys: No contour deforming solid renal mass or hydronephrosis. Possible cysts are present. There is nonspecific perinephric fat stranding. Vessels and lymph nodes: No abdominal aortic aneurysm. No pathologic lymphadenopathy by size criteria. There are borderline enlarged inguinal lymph nodes, however, measuring up to 1.4 cm in the left inguinal region. Bowel and peritoneum: No evidence of small bowel obstruction. Fluid filled prominent loops of small bowel present. Fluid-filled colon is present. No pathologic ascites Body wall: Small fat containing umbilical hernia Pelvis: Bladder is unremarkable. Reproductive organs are unremarkable on limited CT evaluation Bones: Degenerative changes. No acute or suspicious finding. IMPRESSION: Possible enterocolitis with fluid filled prominent loops of small and large bowel. No bowel obstruction. Possible additional esophagitis and small hiatal hernia. Endoscopy could further evaluate if clinically indicated. Nonspecific perinephric fat stranding, correlate urinalysis. No hydronephrosis. Indeterminate borderline enlarged inguinal lymph nodes, greater on the left. Ultrasound could further evaluate the morphologic characteristics if there are no clinical etiology/explanation for reactive lymph nodes. Dictated by: Richy Elder M.D. on 09/12/2024 at 22:25 Approved by: Richy Elder M.D. on 09/12/2024 at 22:31
--- NOTE | 2024-09-12 21:43 | DI.RAD.S_ITS ---
PROCEDURE: XR CHEST 1V INDICATIONS: cough TECHNIQUE: One view of the chest was acquired. COMPARISON: None. FINDINGS: Surgical changes and devices: None. Lungs and pleura: No dense airspace disease or pleural effusions. Mediastinum: Normal heart size Bones and chest wall: Degenerative changes IMPRESSION: No acute radiographic abnormality on this single view study. Dictated by: Richy Elder M.D. on 09/12/2024 at 22:23 Approved by: Richy Elder M.D. on 09/12/2024 at 22:23
[2024-09-12] MEDS: ACETAMINOPHEN 325 MG TABLET 975 MG PO (21:48)
--- NOTE | 2024-09-12 21:49 | PC.NURSE ---
Pt to imaging via ED stretcher with tech
--- NOTE | 2024-09-12 23:09 | PC.NURSE ---
Dr. Mendez at bedside
[2024-09-12] MEDS: CIPROFLOXACIN 250 MG TABLET 500 MG PO (23:18)
[2024-09-12] MEDS: metroNIDAZOLE 500 MG TABLET PO (23:19)
== END 2024-09-12 23:31 | disposition home or self-care (01) ==
PROVIDERS: Emergency Provider Emergency Medicine; PCP Family Medicine
DX: K52.9 Noninfective gastroenteritis and colitis, unspecified (principal); E87.1 Hypo-osmolality and hyponatremia
CPT/HCPCS: 0241U; 36415; 71045; 74176; 80053; 81003; 81015; 83605; 85007; 85025; 87040; 87077; 87086; 87147; 87186; 99284; J0696

== ENCOUNTER 2024-09-14 11:47 | Inpatient (IN) | payer MEDICARE, OTHER, SELFPAY ==
[2024-09-14] VITALS (12 sets, daily range): BP systolic 158–185; BP diastolic 67–79; PULSE 72–92; RESP 16–21; TEMP 36.1–36.6; O2SAT 96–99; BMI 31.7
--- NOTE | 2024-09-14 12:07 | EKG_ITS ---
[address] [id number] [address] [place] [address] Test Date: 2024-09-14 Pat Name: Jesenia Armijo Department: [facility] Room: Gender: Female [employer] Installer: MACKENZIE : 1940 Requested By: Order Number: [id number] Reading MD: Giovanni Cantu Measurements Intervals [place] Rate: 77 P: [place]: QRS: 8 QRSD: 98 T: 32 QT: 418 QTc: 473 Interpretive Statements NSR Electronically Signed On 09-15-2024 7:54:31 PST by Giovanni Cantu
[2024-09-14 12:38] LABS: Add Manual Diff / Slide Review NO; Basophils Absolute Auto 0 /uL (0-100); Basophils Percent Auto 0.3 % (0-2); Eosinophils Absolute Auto 200 /uL (0-450); Eosinophils Percent Auto 1.9 % (2-4); Hematocrit 34.2 % (36-46); Hemoglobin 11.6 g/dL (12.0-16.0); Lymphocytes Absolute Auto 800 /uL (1100-4500); Mean Corpuscular HGB Conc 33.9 % (30-36); Mean Corpuscular Hemoglobin 29.4 PG (26-34); Mean Corpuscular Volume 86.7 fL (80-100); Monocytes Absolute Auto 800 /uL (0-900); Monocytes Percent Auto 6.6 % (3-14); Neutrophils Absolute Auto 9800 /uL (1500-7000); Neutrophils Percent Auto 84.2 % (50-75); Platelet Count 216 X10^3/uL (150-400); Red Blood Cell Count 3.95 X10^6/uL (4.0-5.2); Red Cell Distribution Width 13.6 % (11.6-14.8); White Blood Cell Count 11.6 X10^3/uL (4.5-11.0)
[2024-09-14 12:44] LABS: INR 1.1 (0.9-1.3)
[2024-09-14 12:52] LABS: Alanine Aminotransferase 44 IU/L (<35); Albumin 4.2 g/dL (3.5-5.0); Albumin Globulin Ratio 1.7 (1.0-2.8); Alkaline Phosphatase 88 U/L (38-126); Aspartate Aminotransferase 45 IU/L (14-36); BUN Creatinine Ratio 15.6 (6-22); Bilirubin Total 0.5 mg/dL (0.2-1.3); Blood Urea Nitrogen 28 mg/dL (7-17); Calcium 9.3 mg/dL (8.4-10.2); Carbon Dioxide 22 mmol/L (22-32); Chloride 96 mmol/L (98-107); Estimated Glomerular Filt Rate 27 mL/min (>60); Globulin 2.5 g/dL (1.7-4.1); Glucose 119 mg/dL (80-110); HEMOLYSIS < 15 (0-50); Lipase 88 U/L (23-300); Potassium 3.2 mmol/L (3.4-5.1); Sodium 127 mmol/L (137-145); Total Protein 6.7 g/dL (6.3-8.2)
--- NOTE | 2024-09-14 13:20 | ED.RECABL ---
HPI - Recheck/Abnormal Lab/Rx General Chief Complaint: Recheck/Abnormal Lab/Rx Stated Complaint: returning for addtl labs Time Seen by Provider: 09/14/24 12:45 History of Present Illness HPI narrative: 84-year-old female called for requested recheck with positive blood culture today. Seen here yesterday with gastrointestinal symptoms, sodium low, discharged home on ciprofloxacin and metronidazole, took dose of ciprofloxacin yesterday but was told by the pharmacist it might interact with 1 of her medications so she has not taking a subsequent dose. She does not feel feverish. She feels improved from her initial presentation. Related Data Home Medications Medication Instructions Recorded Confirmed hydroxychloroquine 200 mg tablet 200 mg PO BID 08/08/23 09/14/24 leflunomide 20 mg tablet 20 mg PO DAILY 08/08/23 09/14/24 omeprazole 20 mg capsule,delayed 20 mg PO DAILY 10/24/23 09/14/24 release aspirin 81 mg tablet 81 mg PO DAILY 09/14/24 09/14/24 cetirizine 10 mg tablet 10 mg PO DAILY PRN allergies 09/14/24 09/14/24 Previous Rx's Medication Instructions Recorded losartan 100 mg tablet 100 mg PO DAILY #90 tabs 04/16/24 metoprolol succinate 25 mg 25 mg PO DAILY #90 tabs 04/16/24 tablet,extended release 24 hr hydrochlorothiazide 25 mg tablet 25 mg PO DAILY #90 tabs 06/16/24 simvastatin 20 mg tablet 20 mg PO DAILY #90 tabs 08/12/24 Allergies Allergy/AdvReac Type Severity Reaction Status Date / Time amlodipine AdvReac Verified 09/01/24 10:50 Patient History Medical History Asymptomatic hypertensive urgency HTN (hypertension) Rheumatoid arthritis (~2022) Polymyalgia rheumatica (~2021) Osteoarthritis (~2017) Sleep apnea (~2013) Mumps Measles Chicken pox Cataracts, bilateral Fibroids Hemorrhoid Surgical History Anesthesia History of cholecystectomy (~2000) History of appendectomy (~1957) Social History household members: none Smoking Status: Never smoker alcohol intake: never Smoking Status: Never smoker Exam Narrative Exam Narrative: GENERAL: Well-developed patient, in mild distress. HEAD: Atraumatic. Normocephalic. EYES: Pupils equal round and reactive. Extraocular motions intact. No scleral icterus. No injection or drainage. ENT: Nose without bleeding, purulent drainage. Throat without erythema, tonsillar hypertrophy or exudate. Airway patent. NECK: Trachea midline. Non tender CARDIOVASCULAR: Regular rate and rhythm without murmurs, gallops, or rubs. RESPIRATORY: Clear to auscultation. Breath sounds equal bilaterally. No wheezes, rales, or rhonchi. GASTROINTESTINAL: Abdomen soft, non-tender, nondistended. EXTREMITIES: No edema or joint tenderness. BACK: Nontender without deformity or crepitance. No flank tenderness. NEURO: AOx3. Motor functions grossly nonfocal SKIN: No rash or erythema of visible areas Initial Vital Signs Initial Vital Signs: Vital Signs Temperature 97.0 F L 09/14/24 11:57 Pulse Rate 74 09/14/24 11:57 Respiratory Rate 16 09/14/24 11:57 Blood Pressure 161/72 H 09/14/24 11:57 Pulse Oximetry 99 09/14/24 11:57 Oxygen Delivery Method Room Air 09/14/24 11:57 Course Orders Ordered: ED Orders 09/14/24 12:07 EKG-12 Lead Stat 09/14/24 12:15 Complete Blood Count AUTO DIFF Stat Comprehensive Metabolic Panel Stat Lipase Stat Prothrombin Time INR Stat 09/14/24 12:47 Blood Culture Stat Acetaminophen (Acetaminophen 325 Mg Tablet) 650 mg PO Q6H PRN PRN Reason: Fever/Mild Pain (1-3) Aspirin (Aspirin Ec 81 Mg Tablet) 81 mg PO DAILY ISIDRO Atorvastatin Calcium (Atorvastatin 20 Mg Tablet) 10 mg PO DAILY ISIDRO Hydroxychloroquine Sulfate (Hydroxychloroquine 200 Mg Tablet) 200 mg PO BID ISIDRO Sodium Chloride (Normal Saline 0.9%) 1,000 mls @ 100 mls/hr IV CONT ISIDRO Last Admin: 09/14/24 15:42 Dose: 100 mls/hr Documented By: JOSÉ Ceftriaxone Sodium 2,000 mg/ (Sodium Chloride) 100 mls @ 200 mls/hr IV Q24H ISIDRO Loratadine (Loratadine 10 Mg Tablet) 10 mg PO DAILY PRN PRN Reason: allergies Magnesium Hydroxide (Magnesium Hydroxide 30 Ml Udc) 30 ml PO DAILY PRN PRN Reason: Constipation Metoprolol Succinate (Metoprolol Er 25 Mg Tablet) 25 mg PO DAILY [facility] Naloxone HCl (Naloxone 0.4 Mg/Ml Vial) 0.2 mg IV Q2MIN PRN PRN Reason: Opiate Reversal Leflunomide 20 Mg (Tablet) 20 mg PO DAILY [facility] Ondansetron HCl (Ondansetron 4 Mg/2 Ml Inj) 4 mg IV NOW PRN PRN Reason: Nausea And Vomiting Ondansetron HCl (Ondansetron 4 Mg Odt) 4 mg PO NOW PRN PRN Reason: Nausea And Vomiting Ondansetron HCl (Ondansetron 4 Mg/2 Ml Inj) 4 mg IV Q8HR PRN PRN Reason: Nausea And Vomiting Pantoprazole Sodium (Pantoprazole Dr 20 Mg Tablet) 20 mg PO 0600 [facility] Discontinued Medications Ceftriaxone Sodium 2,000 mg/ (Sodium Chloride) 100 mls @ 200 mls/hr IV NOW ONE Stop: 09/14/24 13:34 Last Infusion: 09/14/24 15:00 Dose: Infused Documented By: Infusion: 09/14/24 14:24 Dose: 200 mls/hr Documented By: SB(2) Admin: 09/14/24 14:16 Dose: 200 mls/hr Documented By: SB(2) Sodium Chloride (Normal Saline 0.9%) 1,000 mls @ 500 mls/hr IV BOLUS ONE Stop: 09/14/24 15:34 Last Infusion: 09/14/24 15:54 Dose: 0 mls/hr Documented By: Infusion: 09/14/24 14:24 Dose: 500 mls/hr Documented By: SB(2) Admin: 09/14/24 13:56 Dose: 500 mls/hr Documented By: SB(2) Potassium Chloride (Potassium Chloride 20 Meq/15 Ml Udc) 40 meq PO NOW ONE Stop: 09/14/24 13:36 Last Admin: 09/14/24 14:02 Dose: 40 meq Documented By: SB(2) Vital Signs Vital signs: Vital Signs - 8 hr 09/14/24 11:57 09/14/24 12:20 09/14/24 12:21 Temperature 97.0 F L Pulse Rate 74 75 72 Respiratory Rate 16 Blood Pressure 161/72 H Pulse Oximetry 99 99 99 Oxygen Delivery Method Room Air 09/14/24 12:21 09/14/24 12:30 09/14/24 12:30 Temperature Pulse Rate 75 Respiratory Rate Blood Pressure 184/75 H 173/76 H Pulse Oximetry 99 Oxygen Delivery Method 09/14/24 13:00 09/14/24 13:01 09/14/24 13:01 Temperature Pulse Rate 72 73 Respiratory Rate Blood Pressure 167/70 H Pulse Oximetry 98 96 Oxygen Delivery Method 09/14/24 13:30 09/14/24 13:30 Temperature Pulse Rate 77 Respiratory Rate Blood Pressure 177/73 H Pulse Oximetry 98 Oxygen Delivery Method MDM - Recheck/Abnormal Lab/Rx Lab Data Attestation: I reviewed the patient's lab results. Lab results narrative: White blood cell count 57286, hemoglobin 11.6, platelets [id number], BUN 28 with creatinine 1.79, increased from yesterday BUN creatinine values. Sodium 127 increased from yesterday 122. Potassium decreased normal yesterday now 3.2. Liver functions today showed mild transaminitis, otherwise unremarkable. 09/14/24 12:15 09/14/24 12:15 Labs: Lab Results 09/14/24 Range/Units 12:15 WBC 11.6 H (4.5-11.0) X10^3/uL RBC 3.95 L (4.0-5.2) X10^6/uL Hgb 11.6 L (12.0-16.0) g/dL Hct 34.2 L (36-46) % MCV 86.7 (80-100) fL MCH 29.4 (26-34) PG MCHC 33.9 (30-36) % RDW 13.6 (11.6-14.8) % Plt Count 216 (150-400) X10^3/uL Neut % (Auto) 84.2 H (50-75) % Lymph % (Auto) 7.0 L (25-40) % [place] % (Auto) 6.6 (3-14) % Eos % (Auto) 1.9 L (2-4) % Baso % (Auto) 0.3 (0-2) % Neut # (Auto) 9800 H (8795-3080) /uL Lymph # (Auto) 800 L (1498-1695) /uL [place] # (Auto) 800 (0-900) /uL Eos # (Auto) 200 (0-450) /uL Baso # (Auto) 0 (0-100) /uL PT 12.0 (9.4-12.5) SECONDS INR 1.1 (0.9-1.3) Sodium 127 L (137-145) mmol/L Potassium 3.2 L (3.4-5.1) mmol/L Chloride 96 L (98-107) mmol/L Carbon Dioxide 22 (22-32) mmol/L BUN 28 H (7-17) mg/dL Creatinine 1.79 H (0.52-1.04) mg/dL Estimated GFR 27 L (>60) mL/min BUN/Creatinine Ratio 15.6 (6-22) Glucose 119 H (80-110) mg/dL Calcium 9.3 (8.4-10.2) mg/dL Total Bilirubin 0.5 (0.2-1.3) mg/dL AST 45 H (14-36) IU/L ALT 44 H (<35) IU/L Alkaline Phosphatase 88 (38-126) U/L Total Protein 6.7 (6.3-8.2) g/dL Albumin 4.2 (3.5-5.0) g/dL Globulin 2.5 (1.7-4.1) g/dL Albumin/Globulin Ratio 1.7 (1.0-2.8) Lipase 88 (23-300) U/L ECG Data Attestation: I personally reviewed and interpreted this ECG as follows: Interpretation: Junctional rhythm suspected with ventricular rate 77, no definite P waves (versus very low amplitude). QRS 98. QTC 473. MDM Narrative Medical decision making narrative: 84-year-old female called for recheck regarding positive blood culture, Gram-positive cocci in 1 of 2 bottles, had been given prescription for ciprofloxacin/Flagyl prescription, took 1st dose Cipro yesterday. Feels generalized malaise, about similar to previous visit. Afebrile, sirs screen negative. Patient had 1 dose of ciprofloxacin then apparently stopped it because she was concerned about med interactions after discussion with pharmacy. Blood cultures requested at triage here. IV ceftriaxone dose. Microbiology review, 09/12/2024, grew mixed nancy. 09/12/2024 microbiology, blood cultures Gram-positive cocci 1 of 2 bottles noted. Sodium today improved from two days ago 127 now when it was 122. Potassium is now low at 3.2 when it was normal prior. BUN and creatinine are increase from previous visit. IV fluids. Oral potassium. ONUR noted, worse kidney function, generalized malaise, Gram-positive cocci 1 of 2 bottles might be contaminant, IV ceftriaxone given. We will discuss with hospitalist. Patient amenable to staying inpatient Case discussed with hospitalist Dr. Jordan, accepts patient for admission Discharge Plan Departure Patient Disposition: Admitted as Observation Clinical Impression: Bacteremia, Hypokalemia, Hyponatremia, Dehydration, ONUR (acute kidney injury) Admit Date/Time: 09/14/24 13:53 Admit Provider: Giovanni Cantu
--- NOTE | 2024-09-14 13:55 | P.HP_ITS ---
History of Present Illness History of Present Illness Date Patient Seen: 09/14/24 Chief complaint: returning for addtl labs Narrative: She presents after not feeling well for about 3-4 days. This is included rigors last weekend. She was seen in the ER 2 days ago and had 1 of 2 blood cultures positive for Gram-positive cocci with results pending. She would diarrhea 2 days ago. She was felt generally weak. She denies any nausea or vomiting. No hematuria. No urinary symptoms. She also has not had any abdominal pain. She does feel generally weak. She was contacted yesterday to come back for positive blood culture found to be hyponatremic and have ONUR. He was also noted that her left lower extremity was red and warm. She had not noticed this yesterday. She lives alone in [place], her son lives in [place]. She did not have a fever in the emergency department. Ceftriaxone was started after repeat blood cultures were drawn. REPLACED BY [facility] Medical History Asymptomatic hypertensive urgency HTN (hypertension) Rheumatoid arthritis (~2022) Polymyalgia rheumatica (~2021) Osteoarthritis (~2017) Sleep apnea (~2013) Mumps Measles Chicken pox Cataracts, bilateral Fibroids Hemorrhoid Surgical History Anesthesia History of cholecystectomy (~2000) History of appendectomy (~1957) Social History household members: none Smoking Status: Never smoker alcohol intake: never Meds Home Medications and Allergies Home Medications Medication Instructions Recorded Confirmed Type hydroxychloroquine 200 mg tablet 200 mg PO BID 08/08/23 09/01/24 History leflunomide 20 mg tablet mg PO 08/08/23 09/01/24 History omeprazole 20 mg capsule,delayed 20 mg PO DAILY 10/24/23 09/01/24 History release losartan 100 mg tablet 100 mg PO DAILY #90 tabs 04/16/24 09/01/24 Rx metoprolol succinate 25 mg 25 mg PO DAILY #90 tabs 04/16/24 09/01/24 Rx tablet,extended release 24 hr hydrochlorothiazide 25 mg tablet 25 mg PO DAILY #90 tabs 06/16/24 09/01/24 Rx simvastatin 20 mg tablet 20 mg PO DAILY #90 tabs 08/12/24 09/01/24 Rx cetirizine 10 mg tablet (Zyrtec) 10 mg PO DAILY PRN allergy 09/01/24 09/01/24 Rx symptoms #30 tabs triamcinolone acetonide 0.1 % See Rx Instructions topical BID 09/01/24 09/01/24 Rx topical cream #80 grams ciprofloxacin HCl 500 mg tablet 500 mg PO BID #20 tabs 09/12/24 Rx (Cipro) metronidazole 500 mg tablet 500 mg PO Q8H 10 days #30 tabs 09/12/24 Rx ondansetron 4 mg disintegrating 4 mg PO Q8H PRN nausea and 09/12/24 Rx tablet vomiting #10 tabs Allergies Allergy/AdvReac Type Severity Reaction Status Date / Time amlodipine AdvReac Verified 09/01/24 10:50 Review of Systems Review of Systems Narrative: All else reviewed and otherwise unremarkable except as noted in the history and physical. Exam Vital Signs (past 8 hours): - 09/14/24 11:57 09/14/24 12:20 09/14/24 12:21 Temperature 97.0 F L Pulse Rate 74 75 72 Respiratory Rate 16 Blood Pressure 161/72 H Pulse Oximetry 99 99 99 Oxygen Delivery Method Room Air 09/14/24 12:21 09/14/24 12:30 09/14/24 12:30 Temperature Pulse Rate 75 Respiratory Rate Blood Pressure 184/75 H 173/76 H Pulse Oximetry 99 Oxygen Delivery Method 09/14/24 13:00 09/14/24 13:01 09/14/24 13:01 Temperature Pulse Rate 72 73 Respiratory Rate Blood Pressure 167/70 H Pulse Oximetry 98 96 Oxygen Delivery Method Oxygen Delivery Method Room Air Narrative Exam Narrative: NAD, alert and oriented, fluent speech, calm. Normocephalic skull, EOMI, anicteric sclera, symmetric pupils. Oropharynx unremarkable, no droop. Neck supple, midline trachea, no adenopathy. Lungs clear, normal rate and effort. Heart regular, no murmur gallop or rub. Abdomen is soft, non distended And non tender. Extremities are free of edema. Skin is free of rash or lesions except the left lower extremity [id number] is red and warm from just [id number] to above the ankle. There is no fluctuance or induration. Joints are not swollen or deformed. Judgment appears to be normal. Objective ECG Impression: Accelerated Junctional rhythm Imaging Chest x-ray: Radiologist's impression: No acute radiographic abnormality on this single view study. CT scan - abdomen: Radiologist's impression: Possible enterocolitis with fluid filled prominent loops of small and large bowel. No bowel obstruction. Possible additional esophagitis and small hiatal hernia. Endoscopy could further evaluate if clinically indicated. Nonspecific perinephric fat stranding, correlate urinalysis. No hydronephrosis. Indeterminate borderline enlarged inguinal lymph nodes, greater on the left. Ultrasound could further evaluate the morphologic characteristics if there are no clinical etiology/explanation for reactive lymph nodes. Labs 09/14/24 12:15 09/14/24 12:15 Labs: Laboratory Results - last 24 hr 09/14/24 12:15 WBC 11.6 H RBC 3.95 L Hgb 11.6 L Hct 34.2 L MCV 86.7 MCH 29.4 MCHC 33.9 RDW 13.6 Plt Count 216 Neut % (Auto) 84.2 H Lymph % (Auto) 7.0 L [place] % (Auto) 6.6 Eos % (Auto) 1.9 L Baso % (Auto) 0.3 Neut # (Auto) 9800 H Lymph # (Auto) 800 L [place] # (Auto) 800 Eos # (Auto) 200 Baso # (Auto) 0 PT 12.0 INR 1.1 Sodium 127 L Potassium 3.2 L Chloride 96 L Carbon Dioxide 22 BUN 28 H Creatinine 1.79 H Estimated GFR 27 L BUN/Creatinine Ratio 15.6 Glucose 119 H Calcium 9.3 Total Bilirubin 0.5 AST 45 H ALT 44 H Alkaline Phosphatase 88 Total Protein 6.7 Albumin 4.2 Globulin 2.5 Albumin/Globulin Ratio 1.7 Lipase 88 Assessment & Plan Assessment & Plan narrative: 1. Acute kidney injury, present on admission and active. 2. Hypovolemic hyponatremia, present on admission and active. 3. One positive blood culture, present on admission and active. 4. Possible gastroenteritis, present on admission and active. 5. RA, stable. 6. PMR, stable. 7. HTN, stable. 8. KAVYA, stable. 9. Diarrhea, active. 10. Acute left lower extremity soft tissue infection, present on admission and active. PLAN: -IV fluids with saline at 100 mL/hour and monitor sodium. -monitor renal function. -repeat blood cultures drawn and pending. We will follow up. -monitor left leg Cellulitis and elevate leg.-stool PCR. Anticipate 1 night in the hospital, initially observation status. She is full resuscitation, this was discussed with her and confirmed at the time of her admission. Her son lives in [place], he was her power of merry go round attendant for healthcare. MARCELA is September 15 if cultures remained negative. This may be a contaminant. Time-Based Coding :: 35 min spent with patient and on the chart (including review of chart, obtaining history, exam, reviewing outside data, placing orders, documenting exam and treatment plan, and counseling patient) on 09/14. Quality MIPS - Admit I confirm the patient?s Advance Care Plan is present, Code status is documented, Surrogate decision maker is in patient?s record [If Yes, STOP here]: Yes MIPS - Meds 'Current medications' to include all prescriptions, [id number]-[id number] products, herbals, cannabis/cannabidiol products, and vitamin/mineral/dietary (nutritional) supplements. I have utilized all available resources to obtain, update, or review the patient?s current medications. [If Yes, STOP here]: Yes
[2024-09-14] MEDS: SODIUM CHLORIDE 0.9% 1,000 ML 500 ML IV (13:56)
[2024-09-14] MEDS: POTASSIUM CHLORIDE 20 MEQ/15 ML UDC 40 MEQ PO (14:02)
--- NOTE | 2024-09-14 14:08 | PC.NURSE ---
Spoke with pharmacist Garry and he is going to deliver ceftriaxone 2g. Medicine was only available in 1g concentration when this RN went to pull medication.
[2024-09-14] MEDS: cefTRIAXone 2,000 MG in SODIUM CHLORIDE 0.9% 100 ML 200 MG IV (14:16)
[2024-09-14 14:44] LABS: Urine Volume 10mL (spun)
[2024-09-14 14:45] LABS: Bacteria Urine Occasional (0-1); Culture Indicated Urine Specimen Cultured; RBC Urine None Seen (0-5/HPF); Squamous Epithelial Cell Urine 5-10 /HPF (0-5/HPF); WBC Urine 5-10/HPF (0-5/HPF)
[2024-09-14] MEDS: SODIUM CHLORIDE 0.9% 1,000 ML 100 ML IV (15:42)
[2024-09-14 19:11] LABS: Adenovirus F 40/41 Not Detected (Not Detect); Astrovirus Not Detected (Not Detect); Campylobacter Not Detected (Not Detect); Clostridium difficile toxin AB Not Detected (Not Detect); Cryptosporidium Not Detected (Not Detect); Cyclospora cayetanensis Not Detected (Not Detect); Entamoeba histolytica Not Detected (Not Detect); Enteroaggregative E.coli Not Detected (Not Detect); Enteropathogenic E.coli Not Detected (Not Detect); Enterotoxigenic E.coli It/st Not Detected (Not Detect); Giardia lamblia Not Detected (Not Detect); Norovirus GI/GII Not Detected (Not Detect); Plesiomonsa shigelloides Not Detected (Not Detect); Rotavirus A Not Detected (Not Detect); Salmonella Not Detected (Not Detect); Sapovirus Not Detected (Not Detect); Shiga-like toxin-prod E.coli Not Detected (Not Detect); Shigella/Enteroinvasive E.coli Not Detected (Not Detect); Vibrio Not Detected (Not Detect); Vibrio cholerae Not Detected (Not Detect); Yersinia enterocolitica Not Detected (Not Detect)
[2024-09-14] MEDS: HYDROXYCHLOROQUINE 200 MG TABLET PO (21:19)
[2024-09-15] MEDS: SODIUM CHLORIDE 0.9% 1,000 ML 100 ML IV (01:19)
[2024-09-15 06:46] LABS: BUN Creatinine Ratio 13.6 (6-22); Blood Urea Nitrogen 19 mg/dL (7-17); Calcium 8.9 mg/dL (8.4-10.2); Carbon Dioxide 22 mmol/L (22-32); Chloride 105 mmol/L (98-107); Estimated Glomerular Filt Rate 37 mL/min (>60); Glucose 93 mg/dL (80-110); HEMOLYSIS < 15 (0-50); Potassium 3.9 mmol/L (3.4-5.1); Sodium 133 mmol/L (137-145)
[2024-09-15 07:00] VITALS: BP 168/71; PULSE 77; RESP 17; TEMP 36.6; O2SAT 98
--- NOTE | 2024-09-15 07:27 | PM.PN.1 ---
Subjective Subjective Interval history: Summary: She presents after not feeling well for about 3-4 days. This is included rigors last weekend. She was seen in the ER 2 days ago and had 1 of 2 blood cultures positive for Gram-positive cocci with results pending. She would diarrhea 2 days ago. She was felt generally weak. She denies any nausea or vomiting. No hematuria. No urinary symptoms. She also has not had any abdominal pain. She does feel generally weak. She was contacted yesterday to come back for positive blood culture found to be hyponatremic and have ONUR. He was also noted that her left lower extremity was red and warm. She had not noticed this yesterday. She lives alone in [place], her son lives in [place]. She did not have a fever in the emergency department. Ceftriaxone was started after repeat blood cultures were drawn. S: She was doing about the same as yesterday. Her leg is still red and painful. No fevers, or rigors overnight. No nausea, or dyspnea. Exam Vital Signs (past 8 hours): Oxygen Delivery Method Room Air Oxygen Flow Rate 0 Narrative Exam Narrative: NAD, alert and oriented. Fluent speech. Lungs are clear, normal rate and effort. Heart is regular, no murmur gallop or rub. Abdomen is soft, non distended. Extremities: Left leg is still red and swollen. She has onychomycosis of all toes on both feet. The left foot has multiple skin cracks. Objective Imaging CT scan - abdomen: Radiologist's impression: Possible enterocolitis with fluid filled prominent loops of small and large bowel. No bowel obstruction. Possible additional esophagitis and small hiatal hernia. Endoscopy could further evaluate if clinically indicated. Nonspecific perinephric fat stranding, correlate urinalysis. No hydronephrosis. Indeterminate borderline enlarged inguinal lymph nodes, greater on the left. Ultrasound could further evaluate the morphologic characteristics if there are no clinical etiology/explanation for reactive lymph nodes. Labs 09/14/24 12:15 09/15/24 05:40 Labs: Laboratory Results - last 24 hr 09/14/24 09/14/24 09/14/24 12:15 14:00 17:30 WBC 11.6 H RBC 3.95 L Hgb 11.6 L Hct 34.2 L MCV 86.7 MCH 29.4 MCHC 33.9 RDW 13.6 Plt Count 216 Neut % (Auto) 84.2 H Lymph % (Auto) 7.0 L [place] % (Auto) 6.6 Eos % (Auto) 1.9 L Baso % (Auto) 0.3 Neut # (Auto) 9800 H Lymph # (Auto) 800 L [place] # (Auto) 800 Eos # (Auto) 200 Baso # (Auto) 0 PT 12.0 INR 1.1 Sodium 127 L Potassium 3.2 L Chloride 96 L Carbon Dioxide 22 BUN 28 H Creatinine 1.79 H Estimated GFR 27 L BUN/Creatinine Ratio 15.6 Glucose 119 H Calcium 9.3 Total Bilirubin 0.5 AST 45 H ALT 44 H Alkaline Phosphatase 88 Total Protein 6.7 Albumin 4.2 Globulin 2.5 Albumin/Globulin Ratio 1.7 Lipase 88 Urine RBC None seen Urine WBC 5-10/hpf H Ur Squamous Epith Cells 5-10 /hpf H Urine Bacteria Occasional (0-1) Ur Culture Indicated? Specimen cultured Vol Urine Centrifuged 10ml (spun) Stl C. cayetanensis PCR Not detected Stool Rotavirus (PCR) Not detected Stool Adenovirus (PCR) Not detected Stool Astrovirus (PCR) Not detected Stool Cryptosporidium PCR Not detected Stl E.coli Shiga Tox PCR Not detected St Sh/Enteroin Ecoli PCR Not detected Stl Enterotoxigenic E PCR Not detected Stool EPEC (PCR) Not detected Stl E. histolytica PCR Not detected Stool Giardia Lamblia PCR Not detected Stool Sapovirus (PCR) Not detected Stl P. shigelloides PCR Not detected St Y.enterocolitica PCR Not detected Stool Vibrio (PCR) Not detected Stl Vibrio cholerae PCR Not detected Stl Enteroaggr Ecoli PCR Not detected Stl Norovirus GI/GII PCR Not detected Campylobacter (PCR) Not detected C. difficile Tox (PCR) Not detected Salmonella (PCR) Not detected 09/15/24 05:40 WBC RBC Hgb Hct MCV MCH MCHC RDW Plt Count Neut % (Auto) Lymph % (Auto) [place] % (Auto) Eos % (Auto) Baso % (Auto) Neut # (Auto) Lymph # (Auto) [place] # (Auto) Eos # (Auto) Baso # (Auto) PT INR Sodium 133 L Potassium 3.9 Chloride 105 Carbon Dioxide 22 BUN 19 H Creatinine 1.40 H Estimated GFR 37 L BUN/Creatinine Ratio 13.6 Glucose 93 Calcium 8.9 Total Bilirubin AST ALT Alkaline Phosphatase Total Protein Albumin Globulin Albumin/Globulin Ratio Lipase Urine RBC Urine WBC Ur Squamous Epith Cells Urine Bacteria Ur Culture Indicated? Vol Urine Centrifuged Stl C. cayetanensis PCR Stool Rotavirus (PCR) Stool Adenovirus (PCR) Stool Astrovirus (PCR) Stool Cryptosporidium PCR Stl E.coli Shiga Tox PCR St Sh/Enteroin Ecoli PCR Stl Enterotoxigenic E PCR Stool EPEC (PCR) Stl E. histolytica PCR Stool Giardia Lamblia PCR Stool Sapovirus (PCR) Stl P. shigelloides PCR St Y.enterocolitica PCR Stool Vibrio (PCR) Stl Vibrio cholerae PCR Stl Enteroaggr Ecoli PCR Stl Norovirus GI/GII PCR Campylobacter (PCR) C. difficile Tox (PCR) Salmonella (PCR) [facility] Medical History Asymptomatic hypertensive urgency HTN (hypertension) Rheumatoid arthritis (~2022) Polymyalgia rheumatica (~2021) Osteoarthritis (~2017) Sleep apnea (~2013) Mumps Measles Chicken pox Cataracts, bilateral Fibroids Hemorrhoid Surgical History Anesthesia History of cholecystectomy (~2000) History of appendectomy (~1957) Social History household members: none Smoking Status: Never smoker alcohol intake: never Assessment & Plan Assessment & Plan narrative: 1. Acute kidney injury, present on admission and improving 2. Hypovolemic hyponatremia, present on admission and improving. 3. One positive blood culture, present on admission and active. 4. Possible gastroenteritis, present on admission and active. 5. RA, stable. 6. PMR, stable. 7. HTN, stable. 8. KAVYA, stable. 9. Diarrhea, active. Negative stool PCR. 10. Acute left lower extremity soft tissue infection, present on admission and active. 11. Bilateral feet onychomycosis. Present on admission and active. 12. Bilateral feet skin dryness and cracking, present on admission and active. PLAN: -continue IV fluids with saline at 100 mL/hour and monitor sodium. -monitor renal function. -repeat blood cultures pending. We will follow up. -monitor left leg -antibiotics for Cellulitis and elevate leg. -skin lotion to both lower extremities and feet. Anticipate a 2nd night in the hospital, supports inpatient status. She is full resuscitation, this was discussed with her and confirmed at the time of her admission. Her son lives in [place], he was her power of senior trial attorney for healthcare. Time-Based Coding :: [TOTAL MINUTES] spent with patient and on the chart (including review of chart, obtaining history, exam, reviewing outside data, placing orders, documenting exam and treatment plan, and counseling patient) on [DATE]. Quality VTE Deep Vein Thrombosis/Pulmonary Embolism Present on Admission: No
[2024-09-15] MEDS: METOPROLOL ER 25 MG TABLET PO (08:50)
[2024-09-15] MEDS: HYDROXYCHLOROQUINE 200 MG TABLET PO ×2 (08:50→20:34)
[2024-09-15] MEDS: PANTOPRAZOLE DR 20 MG TABLET PO (08:50)
[2024-09-15] MEDS: LOPERAMIDE 2 MG CAPSULE PO ×2 (14:09→17:55)
[2024-09-15] MEDS: ACETAMINOPHEN 325 MG TABLET 650 MG PO (14:09)
[2024-09-15] MEDS: cefTRIAXone 2,000 MG in SODIUM CHLORIDE 0.9% 100 ML 200 MG IV (14:09)
--- NOTE | 2024-09-15 15:38 | CM.DANOTE ---
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 Pt lives alone in [place]. Son Bg is POA and lives in [facility]. pt presented to the ED two days ago and returned after pos blood cultures found. 2nd blood culture pending. Per provider in morning rounds, anticipate dc tomorrow 09/16 no obvious CM needs. GAS PUMPING STATION OPERATOR unable to meet with pt today due to triaging needs. P: anticipate dc home Wed/when medically stable. anticipate family to transport and no identified barriers to safe dc home at this time. CM team will update TCM team at dc. ETELVINA Dailey Discharge Planning/Care Management Advanced directive, confirm from FAMILY Start: 09/14/24 15:40 Freq: Q24H Status: Active Protocol: Document 09/14/24 15:55 SB (Rec: 09/14/24 15:55 SB [id number]) Advance Directive, confirm on record Time 15:55 Person contacted patient Copy received No CM Discharge Assessment Start: 09/15/24 15:37 Freq: Status: Active Protocol: Document 09/15/24 15:38 SL (Rec: 09/15/24 15:38 SL [id number]) Discharge Planning Assessment Assigned Room Server ETELVINA Bro DPOA/Assigned Designee Name frances Pederson Contact Information [phone] Advance Directives? Yes Advance Directives on File No History Provided By Patient Prior Living Arrangements House Household Members none Independent with ADL's Yes Is patient alert and oriented? Yes Discharge Plan Home Referrals Initiated None needed Whiteboard Updated in Patient Room with No name and ext. # of Room Server Review Status In Process Please Provide Date Initial DC 09/15/24 Assessment Was Performed Next Review Type Continued Stay Review
[2024-09-15 20:00] VITALS: BP 129/53; PULSE 73; RESP 20; TEMP 36.3; O2SAT 96
[2024-09-15] MEDS: ASPIRIN EC 81 MG TABLET PO (20:34)
[2024-09-15] MEDS: ATORVASTATIN 20 MG TABLET 10 MG PO (20:35)
[2024-09-15] MEDS: HEPARIN 5,000 UNIT/ML VIAL 5000 UNIT SUBCUT (20:36)
[2024-09-15] MEDS: SODIUM CHLORIDE 0.9% FLUSH 10 ML IV (22:38)
[2024-09-16] MEDS: PANTOPRAZOLE DR 20 MG TABLET PO (06:04)
[2024-09-16 07:44] LABS: BUN Creatinine Ratio 12.2 (6-22); Blood Urea Nitrogen 16 mg/dL (7-17); Calcium 9.1 mg/dL (8.4-10.2); Carbon Dioxide 23 mmol/L (22-32); Chloride 106 mmol/L (98-107); Estimated Glomerular Filt Rate 40 mL/min (>60); Glucose 92 mg/dL (80-110); HEMOLYSIS < 15 (0-50); Potassium 4.2 mmol/L (3.4-5.1); Sodium 134 mmol/L (137-145)
[2024-09-16 08:00] VITALS: BP 188/84; PULSE 77; RESP 19; TEMP 36.2; O2SAT 97
[2024-09-16] MEDS: ACETAMINOPHEN 325 MG TABLET 650 MG PO (10:12)
[2024-09-16] MEDS: HYDROXYCHLOROQUINE 200 MG TABLET PO ×2 (10:12→20:40)
[2024-09-16] MEDS: LOPERAMIDE 2 MG CAPSULE PO (10:12)
[2024-09-16] MEDS: METOPROLOL ER 25 MG TABLET PO (10:13)
[2024-09-16] MEDS: HEPARIN 5,000 UNIT/ML VIAL 5000 UNIT SUBCUT ×2 (10:13→20:41)
[2024-09-16] MEDS: SODIUM CHLORIDE 0.9% FLUSH 10 ML IV ×2 (10:13→20:41)
[2024-09-16] MEDS: LEFLUNOMIDE 20 MG 20 EACH PO (10:18)
--- NOTE | 2024-09-16 11:49 | P.PN_ITS ---
Subjective Subjective Date Patient Seen: 09/16/24 Time Patient Seen: 09:25 Interval history: Summary: She presents after not feeling well for about 3-4 days. This is included rigors last weekend. She was seen in the ER 2 days ago and had 1 of 2 blood cultures positive for Gram-positive cocci with results pending. She would diarrhea 2 days ago. She was felt generally weak. She denies any nausea or vomiting. No hematuria. No urinary symptoms. She also has not had any abdominal pain. She does feel generally weak. She was contacted yesterday to come back for positive blood culture found to be hyponatremic and have ONUR. He was also noted that her left lower extremity was red and warm. She had not noticed this yesterday. She lives alone in [place], her son lives in [place]. She did not have a fever in the emergency department. Ceftriaxone was started after repeat blood cultures were drawn. S: Feels like her legs are improving in terms of redness and swelling, with persistent tenderness of the left hess. Exam Vital Signs (past 8 hours): - 09/16/24 08:00 Temperature 97.1 F L Pulse Rate 77 Respiratory Rate 19 Blood Pressure 188/84 H Pulse Oximetry 97 Oxygen Flow Rate 0 Oxygen Delivery Method Room Air Oxygen Flow Rate 0 Narrative Exam Narrative: NAD, alert and oriented. Fluent speech. Lungs are clear, normal rate and effort. Heart is regular, no murmur gallop or rub. Abdomen is soft, non distended. Extremities: Left leg is still red and swollen but improved. She has onychomycosis of all toes on both feet. The left foot has multiple skin cracks. Objective Labs 09/14/24 12:15 09/16/24 06:45 Labs: Laboratory Results - last 24 hr 09/16/24 06:45 Sodium 134 L Potassium 4.2 Chloride 106 Carbon Dioxide 23 BUN 16 Creatinine 1.31 H Estimated GFR 40 L BUN/Creatinine Ratio 12.2 Glucose 92 Calcium 9.1 [facility] Medical History Asymptomatic hypertensive urgency Cataracts, bilateral Chicken pox Fibroids Hemorrhoid HTN (hypertension) Measles Mumps Osteoarthritis (~2017) Polymyalgia rheumatica (~2021) Rheumatoid arthritis (~2022) Sleep apnea (~2013) Surgical History Anesthesia History of appendectomy (~8) History of cholecystectomy (~2000) Social History household members: none Smoking Status: Never smoker alcohol intake: never Assessment & Plan Assessment & Plan narrative: 1. Acute kidney injury, present on admission and improving nearing baseline with underlying CKD 3A. She had an outpatient renal ultrasound ordered but this is not necessary as her admission noncontrast CT scan was unremarkable. 2. Hypovolemic hyponatremia, present on admission and improving. 3. One positive blood culture for pansensitive Strep dysgalac (equism), present on admission and active. 4. Possible gastroenteritis, present on admission and resolving. 5. RA, stable. 6. PMR, stable. 7. HTN, stable. 8. KAVYA, stable. 9. Diarrhea, active. Negative stool PCR. 10. Acute left lower extremity soft tissue infection, present on admission and active. 11. Bilateral feet onychomycosis. Present on admission and active. 12. Bilateral feet skin dryness and cracking, present on admission and active. 13. Pruritis. Possible eczema. Add loratidine. PLAN: -stop IV fluids and monitor renal function and sodium -monitor left leg -continue IV ceftriaxone for Cellulitis and elevate leg, possible discharge home tomorrow if doing well. -skin lotion to both lower extremities and feet. -loratidine Anticipate a 2nd night in the hospital, supports inpatient status. She is full resuscitation, this was discussed with her and confirmed at the time of her admission. Her son lives in [place], he was her power of product support manager for healthcare. Quality VTE Deep Vein Thrombosis/Pulmonary Embolism Present on Admission: No IH PROFEE Charge codes Subsequent inpatient/observation care: 11321
[2024-09-16] MEDS: LORATADINE 10 MG TABLET PO (15:30)
[2024-09-16] MEDS: cefTRIAXone 2,000 MG in SODIUM CHLORIDE 0.9% 100 ML 200 MG IV (15:30)
--- NOTE | 2024-09-16 19:03 | PC.NURSE ---
Skin: Dr. Johnson notified of raised red rash which appears as hives. Seemed worse after antibiotic. Dr. Johnson came down to see pt. MD doesn't think its an allergic reaction.
[2024-09-16 19:34] VITALS: BP 146/63; PULSE 76; RESP 20; TEMP 36.4; O2SAT 97
[2024-09-16] MEDS: ATORVASTATIN 20 MG TABLET 10 MG PO (20:40)
[2024-09-16] MEDS: ASPIRIN EC 81 MG TABLET PO (20:41)
[2024-09-17] MEDS: PANTOPRAZOLE DR 20 MG TABLET PO (06:24)
[2024-09-17 06:36] LABS: Add Manual Diff / Slide Review NO; Basophils Absolute Auto 0 /uL (0-100); Basophils Percent Auto 0.5 % (0-2); Eosinophils Absolute Auto 800 /uL (0-450); Eosinophils Percent Auto 13.7 % (2-4); Hematocrit 29.7 % (36-46); Hemoglobin 10.4 g/dL (12.0-16.0); Lymphocytes Absolute Auto 1300 /uL (1100-4500); Lymphocytes Percent Auto 21.4 % (25-40); Mean Corpuscular HGB Conc 34.9 % (30-36); Mean Corpuscular Hemoglobin 30.2 PG (26-34); Mean Corpuscular Volume 86.4 fL (80-100); Monocytes Absolute Auto 800 /uL (0-900); Monocytes Percent Auto 12.7 % (3-14); Neutrophils Absolute Auto 3100 /uL (1500-7000); Neutrophils Percent Auto 51.7 % (50-75); Platelet Count 234 X10^3/uL (150-400); Red Blood Cell Count 3.43 X10^6/uL (4.0-5.2); Red Cell Distribution Width 13.5 % (11.6-14.8)
[2024-09-17 06:49] LABS: BUN Creatinine Ratio 12.3 (6-22); Blood Urea Nitrogen 17 mg/dL (7-17); Calcium 9.1 mg/dL (8.4-10.2); Carbon Dioxide 24 mmol/L (22-32); Chloride 105 mmol/L (98-107); Estimated Glomerular Filt Rate 38 mL/min (>60); Glucose 100 mg/dL (80-110); HEMOLYSIS < 15 (0-50); Potassium 3.9 mmol/L (3.4-5.1); Sodium 134 mmol/L (137-145)
[2024-09-17 07:00] VITALS: BP 163/83; PULSE 70; RESP 16; TEMP 36.3; O2SAT 97
[2024-09-17 08:00] VITALS: BP 171/86; PULSE 72; RESP 18; TEMP 36.4; O2SAT 95
[2024-09-17 08:12] VITALS: BP 175/89; PULSE 75
[2024-09-17] MEDS: METOPROLOL ER 25 MG TABLET PO (08:12)
[2024-09-17] MEDS: HEPARIN 5,000 UNIT/ML VIAL 5000 UNIT SUBCUT ×2 (08:12→21:43)
[2024-09-17] MEDS: LEFLUNOMIDE 20 MG 20 EACH PO (08:12)
[2024-09-17] MEDS: HYDROXYCHLOROQUINE 200 MG TABLET PO ×2 (08:12→21:44)
[2024-09-17] MEDS: SODIUM CHLORIDE 0.9% FLUSH 10 ML IV ×2 (08:13→21:44)
--- NOTE | 2024-09-17 10:43 | P.PN_ITS ---
Subjective Subjective Interval history: Summary: She presents after not feeling well for about 3-4 days. This is included rigors last weekend. She was seen in the ER 2 days ago and had 1 of 2 blood cultures positive for Gram-positive cocci with results pending. She would diarrhea 2 days ago. She was felt generally weak. She denies any nausea or vomiting. No hematuria. No urinary symptoms. She also has not had any abdominal pain. She does feel generally weak. She was contacted yesterday to come back for positive blood culture found to be hyponatremic and have ONUR. He was also noted that her left lower extremity was red and warm. She had not noticed this yesterday. She lives alone in [place], her son lives in [place]. She did not have a fever in the emergency department. Ceftriaxone was started after repeat blood cultures were drawn. S: Her leg is still significantly red, swollen, and tender. She when out of 4 cultures which was positive for strep. dysgal. We will discuss with Infectious Disease as this is consistent with a strep bacteremia associated with her cellulitis. Exam Vital Signs (past 8 hours): - 09/17/24 07:00 09/17/24 08:00 09/17/24 08:12 Temperature 97.4 F L 97.6 F Pulse Rate 70 72 75 Respiratory Rate 16 18 Blood Pressure 163/83 H 171/86 H 175/89 H Pulse Oximetry 97 95 Oxygen Flow Rate 0 Oxygen Delivery Method Room Air Oxygen Flow Rate 0 Narrative Exam Narrative: NAD, alert and oriented. Fluent speech. Lungs are clear, normal rate and effort. Heart is regular, no murmur gallop or rub. Abdomen is soft, non distended. Extremities: Right leg unremarkable, left leg is still swollen and very red, warm and tender from [id number] to above the ankle. She was a lot of dry skin over the foot and some skin cracking as well. Objective Labs 09/17/24 06:00 09/17/24 06:00 Labs: Laboratory Results - last 24 hr 09/17/24 06:00 WBC 6.0 RBC 3.43 L Hgb 10.4 L Hct 29.7 L MCV 86.4 MCH 30.2 MCHC 34.9 RDW 13.5 Plt Count 234 Neut % (Auto) 51.7 Lymph % (Auto) 21.4 L [place] % (Auto) 12.7 Eos % (Auto) 13.7 H Baso % (Auto) 0.5 Neut # (Auto) 3100 Lymph # (Auto) 1300 [place] # (Auto) 800 Eos # (Auto) 800 H Baso # (Auto) 0 Sodium 134 L Potassium 3.9 Chloride 105 Carbon Dioxide 24 BUN 17 Creatinine 1.38 H Estimated GFR 38 L BUN/Creatinine Ratio 12.3 Glucose 100 Calcium 9.1 [facility] Medical History Asymptomatic hypertensive urgency HTN (hypertension) Rheumatoid arthritis (~2022) Polymyalgia rheumatica (~2021) Osteoarthritis (~2017) Sleep apnea (~2013) Mumps Measles Chicken pox Cataracts, bilateral Fibroids Hemorrhoid Surgical History Anesthesia History of cholecystectomy (~2000) History of appendectomy (~1957) Social History household members: none Smoking Status: Never smoker alcohol intake: never Assessment & Plan Assessment & Plan narrative: 1. Acute kidney injury, present on admission and improving nearing baseline with underlying CKD 3A. She had an outpatient renal ultrasound ordered but this is not necessary as her admission noncontrast CT scan was unremarkable. 2. Hypovolemic hyponatremia, present on admission and improving. 3. Strep dysgalac (equism) bacteremia, present on admission and improved. Blood cx 09/14 neg after Abx. 4. Possible gastroenteritis, present on admission and resolving. 5. RA, stable. 6. PMR, stable. 7. HTN, stable. 8. KAVYA, stable. 9. Diarrhea, active. Negative stool PCR. 10. Acute left lower extremity soft tissue infection, present on admission and active. 11. Bilateral feet onychomycosis. Present on admission and active. 12. Bilateral feet skin dryness and cracking, present on admission and active. 13. Pruritis. Possible eczema. Add loratidine. PLAN: She was not stable enough to be discharged and requires ongoing IV antibiotics and leg elevation. We will discuss an appropriate course of IV and oral antibiotics with Infectious Disease today as well. She requires at least another midnight of hospital level care. MARCELA: 09/18-. Time-Based Coding :: [TOTAL MINUTES] spent with patient and on the chart (including review of chart, obtaining history, exam, reviewing outside data, placing orders, documenting exam and treatment plan, and counseling patient) on [DATE]. Quality VTE Deep Vein Thrombosis/Pulmonary Embolism Present on Admission: No
--- NOTE | 2024-09-17 14:42 | CM.DPNOTE ---
Addendum entered by ETELVINA Hernandez 09/17/24 16:19: ADD: Met w/patient to review discharge plan, explained it is likely that patient will need ongoing IV abx. Patient is hopeful she can return home although willing to consider SNF options. Patient in agreement to referral to [facility]. Referral discussed with [facility] who has accepted patient, requests PT eval. Patient further states she would like to discuss this with her son, who lives in [place], patient may decide a [place] facility will work better for she and her family. PASRR done in anticipation of SNF at [place]. PT eval would be helpful. Original Note: DCP Cont Reviewed chart. Patient discussed in multidisciplinary rounds. According to Dr Cantu, patient's leg is still significantly red and swollen, ID being consulted for potential need of ongoing IV abx. Plan remains discharge home w/family support. Patient is indp/SBA in room. Once abx treatment plan is known, discuss with patient and refer based on preference. CM team following clinical course closely. NIRMAL
[2024-09-17] MEDS: cefTRIAXone 2,000 MG in SODIUM CHLORIDE 0.9% 100 ML 200 MG IV (14:57)
[2024-09-17] MEDS: LORATADINE 10 MG TABLET PO (14:57)
[2024-09-17 15:37] VITALS: BP 154/73; PULSE 66
[2024-09-17] MEDS: LOSARTAN 50 MG TABLET 100 MG PO (15:37)
[2024-09-17 20:52] VITALS: BP 157/70; PULSE 77; RESP 18; TEMP 36.7; O2SAT 94
[2024-09-17] MEDS: ATORVASTATIN 20 MG TABLET 10 MG PO (21:43)
[2024-09-17] MEDS: ASPIRIN EC 81 MG TABLET PO (21:44)
--- NOTE | 2024-09-17 22:27 | PC.NURSE ---
Patient verbalized frustration that she may be discharging to a SNF.
[2024-09-18] MEDS: PANTOPRAZOLE DR 20 MG TABLET PO (06:28)
[2024-09-18 07:59] VITALS: BP 170/85; PULSE 77; RESP 14; TEMP 36.5; O2SAT 97
[2024-09-18 09:05] VITALS: BP 170/85; PULSE 77
[2024-09-18] MEDS: HYDROXYCHLOROQUINE 200 MG TABLET PO (09:05)
[2024-09-18] MEDS: METOPROLOL ER 25 MG TABLET PO (09:05)
[2024-09-18 09:06] VITALS: BP 170/85; PULSE 77
[2024-09-18] MEDS: LOSARTAN 50 MG TABLET 100 MG PO (09:06)
[2024-09-18] MEDS: HEPARIN 5,000 UNIT/ML VIAL 5000 UNIT SUBCUT ×2 (09:06→20:45)
[2024-09-18] MEDS: LEFLUNOMIDE 20 MG 20 EACH PO (09:06)
[2024-09-18] MEDS: SODIUM CHLORIDE 0.9% FLUSH 10 ML IV ×2 (09:07→20:45)
[2024-09-18] MEDS: levoFLOXacin 750 MG/150 ML PIGGYBACK 100 MG IV (11:16)
--- NOTE | 2024-09-18 11:26 | PM.PN.1 ---
Subjective Subjective Date Patient Seen: 09/18/24 Time Patient Seen: 10:20 Interval history: Summary: She presents after not feeling well for about 3-4 days. This is included rigors last weekend. She was seen in the ER 2 days ago and had 1 of 2 blood cultures positive for Gram-positive cocci with results pending. She would diarrhea 2 days ago. She was felt generally weak. She denies any nausea or vomiting. No hematuria. No urinary symptoms. She also has not had any abdominal pain. She does feel generally weak. She was contacted yesterday to come back for positive blood culture found to be hyponatremic and have ONUR. He was also noted that her left lower extremity was red and warm. She had not noticed this yesterday. She lives alone in [place], her son lives in [place]. She did not have a fever in the emergency department. Ceftriaxone was started after repeat blood cultures were drawn. S: Her leg is improved and feeling much better with minimal pain, 1 out of 4 cultures which was positive for strep. dysgal. Exam Vital Signs (past 8 hours): - 09/18/24 07:59 09/18/24 09:05 09/18/24 09:06 Temperature 97.7 F Pulse Rate 77 77 77 Respiratory Rate 14 Blood Pressure 170/85 H 170/85 H 170/85 H Pulse Oximetry 97 Oxygen Flow Rate 0 Oxygen Delivery Method Room Air Oxygen Flow Rate 0 Narrative Exam Narrative: NAD, alert and oriented. Fluent speech. Lungs are clear, normal rate and effort. Heart is regular, no murmur gallop or rub. Abdomen is soft, non distended. Extremities: Right leg unremarkable, left leg is still swollen with improved erythema [id number] to above the ankle. She was a lot of dry skin over the foot and some skin cracking as well. Objective Labs 09/17/24 06:00 09/17/24 06:00 [facility] Medical History Asymptomatic hypertensive urgency HTN (hypertension) Rheumatoid arthritis (~2022) Polymyalgia rheumatica (~2021) Osteoarthritis (~2017) Sleep apnea (~2013) Mumps Measles Chicken pox Cataracts, bilateral Fibroids Hemorrhoid Surgical History Anesthesia History of cholecystectomy (~2000) History of appendectomy (~1957) Social History household members: none Smoking Status: Never smoker alcohol intake: never Assessment & Plan Assessment & Plan narrative: 1. Acute kidney injury, present on admission and improving nearing baseline with underlying CKD 3A. She had an outpatient renal ultrasound ordered but this is not necessary as her admission noncontrast CT scan was unremarkable. 2. Hypovolemic hyponatremia, present on admission and improving. 3. Strep dysgalac (equism) bacteremia, present on admission and improved. Blood cx 09/14 neg after Abx. 4. Possible gastroenteritis, present on admission and resolving. 5. RA, stable. 6. PMR, stable. 7. HTN, stable. 8. KAVYA, stable. 9. Diarrhea, active. Negative stool PCR. 10. Acute left lower extremity soft tissue infection, present on admission and active. 11. Bilateral feet onychomycosis. Present on admission and active. 12. Bilateral feet skin dryness and cracking, present on admission and active. 13. Pruritis. Possible eczema. Add loratidine. PLAN: -PICC line -Stop ceftriaxone due to urticarial rash after dosing, list as allergy -Start levofloxacin IV 500mg daily through 09/28/2023 (14 days therapy) -Home IV antibiotics versus SNF pending insurance authorization -She requires at least another midnight of hospital level care. MARCELA: 09/19. Quality VTE Deep Vein Thrombosis/Pulmonary Embolism Present on Admission: No IH PROFEE Charge codes Subsequent inpatient/observation care: 20465
--- NOTE | 2024-09-18 16:36 | CM.DPC ---
DCP Continued: Reviewed EMR and team rounds for pt?s medical status. Per hospitalist, pt ordered for IV levofloxacin 500mg daily through 09/28/2024. DCP entered room, introduced self and role. Discussed the above with pt. Pt expressed strong preference to complete the course at home. Pt understands that if her insurance cannot support the home infusion, she will continue treatment at [facility] (confirmed SNF preference). DCP sent referral and signed order to [facility]. It was reported by Hospital Liaison, Venus, that pt has been accepted but will need to confirm copay of approximately $500/week. [facility] spoke with pt and pt agreeable to copay. [facility] to start services in pt home on 09/19 at 1400. DCP notified RN, Hospitalist, and pt. Pt awaiting PICC placement this afternoon. [facility] requesting PICC line measurements to be sent via fax (fax#[phone]) when available. DCP notified [facility] of change in discharge plans and cancelled referral. Plan: Anticipating discharge home on 09/19. [facility] to open services on Saturday, 09/19 at 1400. CM Team will continue to follow for coordination of discharge plans. JOSE LUIS Akbar
--- NOTE | 2024-09-18 17:03 | DI.RAD.S_ITS ---
PROCEDURE: XR CHEST FOR PICC 1V INDICATIONS: PICC line placement COMPARISON: [facility], CR, XR CHEST 1V, 09/12/2024, 21:43. FINDINGS: PICC was placed by the intravenous therapy team from the right side. Fluoroscopic spot film demonstrates the tip of PICC projecting to the area of superior vena cava. IMPRESSION: Tip of PICC projects to the area of the superior vena cava. Dictated by: Dank Merino M.D. on 09/18/2024 at 17:20 Approved by: Dank Merino M.D. on 09/18/2024 at 17:20
[2024-09-18 20:00] VITALS: BP 178/78; PULSE 83; RESP 19; TEMP 37; O2SAT 96
[2024-09-18] MEDS: ASPIRIN EC 81 MG TABLET PO (20:45)
[2024-09-18] MEDS: ATORVASTATIN 20 MG TABLET 10 MG PO (20:45)
[2024-09-19] MEDS: PANTOPRAZOLE DR 20 MG TABLET PO (06:11)
[2024-09-19 07:00] VITALS: BP 170/93; PULSE 85; RESP 15; TEMP 36.6; O2SAT 95
[2024-09-19 09:43] VITALS: BP 170/93; PULSE 85
[2024-09-19] MEDS: METOPROLOL ER 25 MG TABLET PO (09:43)
[2024-09-19 09:44] VITALS: BP 170/93; PULSE 85
[2024-09-19] MEDS: LOSARTAN 50 MG TABLET 100 MG PO (09:44)
[2024-09-19] MEDS: HEPARIN 5,000 UNIT/ML VIAL 5000 UNIT SUBCUT (09:44)
[2024-09-19] MEDS: LEFLUNOMIDE 20 MG 20 EACH PO (09:44)
--- NOTE | 2024-09-19 10:39 | P.DS_ITS ---
History of Present Illness History of Present Illness Date Patient Seen: 09/19/24 Time Patient Seen: 08:25 Date of Onset of Symptoms: 09/14/24 Chief complaint: returning for addtl labs Narrative: She presents after not feeling well for about 3-4 days. This is included rigors last weekend. She was seen in the ER 2 days ago and had 1 of 2 blood cultures positive for Gram-positive cocci with results pending. She would diarrhea 2 days ago. She was felt generally weak. She denies any nausea or vomiting. No hematuria. No urinary symptoms. She also has not had any abdominal pain. She does feel generally weak. She was contacted yesterday to come back for positive blood culture found to be hyponatremic and have ONUR. He was also noted that her left lower extremity was red and warm. She had not noticed this yesterday. She lives alone in [place], her son lives in [place]. She did not have a fever in the emergency department. Ceftriaxone was started after repeat blood cultures were drawn. Discharge Providers Provider Date of admission: 09/14/24 13:53 Discharge Date: 09/19/24 Primary care physician: Jenae Chavez DO Discharge provider: Kb Johnson MD Summary Hospital Course Discharge Diagnosis: 1. Acute left lower extremity cellulitis. 2. Strep dysgalac (equism) bacteremia due to 1. 3. Bilateral feet onychomycosis. Present on admission and active. 4. Bilateral feet skin dryness and cracking, present on admission and active. 5. Acute kidney injury, present on admission and resolved to baseline with underlying CKD 3A. 6. Hypovolemic hyponatremia, resolved. 7. Possible gastroenteritis, present on admission and resolving. 8. RA, stable. 9. PMR, stable. 10. HTN, stable. 11. KAVYA, stable. 12. Diarrhea, resolved. Negative stool PCR. 13. Allergy to ceftriaxone with urticaria. Hospital Course: The patient was admitted and treated with broad-spectrum IV antibiotics. Blood cultures grew Streptococcus dysgalac consistent with bacteremic source from her cellulitis. This was felt to likely have originated from bilateral foot onychomycosis with foot scaling and cracking. All conditions improved during hospitalization and follow-up blood cultures showed no persistent bacteremia. Two weeks of IV antibiotics were recommended. The patient experienced urticarial reaction following ceftriaxone. This was listed as an allergy and she was switched to IV levofloxacin, to which her Streptococcus species was sensitive on bacteriologic testing. A PICC line was placed and outpatient infusion services coordinated. She was feeling much better and interested in discharge home. No other issues arose. The patient acknowledged understanding, agreement and appreciation of this plan of care, and agreed to call back with any questions or concerns. Status at Discharge Cognitive/behavioral status at discharge: oriented Functional status at discharge: independent ambulation Overall status at discharge: patient is back to baseline Time Spent with Patient Time spent: Less than 30 minutes Exam Vital Signs (past 8 hours): - 09/19/24 07:00 09/19/24 09:43 09/19/24 09:44 Temperature 97.8 F Pulse Rate 85 85 85 Respiratory Rate 15 Blood Pressure 170/93 H 170/93 H 170/93 H Pulse Oximetry 95 Oxygen Flow Rate 0 Oxygen Delivery Method Room Air Oxygen Flow Rate 0 Narrative Exam Narrative: NAD, alert and oriented. Fluent speech. Lungs are clear, normal rate and effort. Heart is regular, no murmur gallop or rub. Abdomen is soft, non distended. Extremities: Right leg unremarkable, left leg with resolved swelling and erythema [id number] to above the ankle. Right upper arm PICC line in place, site appears clean. Objective Imaging Chest x-ray: Radiologist's impression: Tip of PICC projects to the area of the superior vena cava. Labs 09/17/24 06:00 09/17/24 06:00 [facility] Medical History Asymptomatic hypertensive urgency Cataracts, bilateral Chicken pox Fibroids Hemorrhoid HTN (hypertension) Measles Mumps Osteoarthritis (~2017) Polymyalgia rheumatica (~2021) Rheumatoid arthritis (~2022) Sleep apnea (~2013) Surgical History Anesthesia History of appendectomy (~1957) History of cholecystectomy (~2000) Social History household members: none Smoking Status: Never smoker alcohol intake: never Discharge Plan Discharge Plan Patient Disposition: Home Provider Discharge Comment: Followup with Dr. Chavez 1 week Nursing Discharge Comment: STOP hydroxychloroquine while taking levofloxacin Discharge orders & Medications Prescriptions: New levofloxacin in D5W 750 mg/150 mL Piggyback 750 mg IV Q48H 9 Days Qty: 9 0RF Continued leflunomide 20 mg tablet 20 mg PO DAILY hydroxychloroquine 200 mg tablet 200 mg PO BID omeprazole 20 mg capsule,delayed release(DR/EC) 20 mg PO DAILY losartan 100 mg tablet 100 mg PO DAILY Qty: 90 3RF metoprolol succinate 25 mg tablet extended release 24 hr 25 mg PO DAILY Qty: 90 3RF hydrochlorothiazide 25 mg tablet 25 mg PO DAILY Qty: 90 1RF simvastatin 20 mg tablet 20 mg PO DAILY Qty: 90 1RF cetirizine 10 mg tablet 10 mg PO DAILY PRN (Reason: allergies) aspirin 81 mg Tablet 81 mg PO DAILY Follow up/Referrals: Jenae Chavez DO [Primary Care Provider] - Visit Report/Discharge Packet Instructions: DI for Dehydration -- Adult, DI for Hypokalemia, DI for Hyponatremia, How to Prevent Falls, DI for Acute Kidney Injury Stand Alone Forms: Patient Portal/API, Stroke Signs & Symptoms Discharge Data Primary Care Provider: Jenae Chavez Quality VTE Deep Vein Thrombosis/Pulmonary Embolism Present on Admission: No MIPS - Admit I confirm the patient?s Advance Care Plan is present, Code status is documented, Surrogate decision maker is in patient?s record [If Yes, STOP here]: Yes MIPS - Meds 'Current medications' to include all prescriptions, [id number] products, herbals, cannabis/cannabidiol products, and vitamin/mineral/dietary (nutritional) supplements. I have utilized all available resources to obtain, update, or review the patient?s current medications. [If Yes, STOP here]: Yes MIPS - DC The patient has a history of heart transplant or Left Ventricular Assist Device (LVAD). If yes, STOP here.: No The patient has current or prior documentation of left ventricular ejection fraction (LVEF) less than or equal to 40%, or moderate or severely depressed left ventricular systolic function.: No A. The patient was prescribed or already taking an Angiotensin-Converting Enzyme (VELMA) Inhibitor, or Angiotensin Receptor Augustin (ARB).: Yes B. The patient was prescribed or already taking a beta-augustin. [If Yes to Both A & B, STOP here]: Yes Patient not prescribed/taking VELMA or ARB, no reason given.: No Patient not prescribed/taking beta-augustin, no reason given.: No PROFEE Charge Codes Discharge inpatient/observation: 18010
[2024-09-19 11:19] VITALS: BP 200/91; PULSE 77
[2024-09-19] MEDS: SODIUM CHLORIDE 0.9% FLUSH 10 ML IV (11:45)
--- NOTE | 2024-09-19 12:25 | CM.DPC ---
DCP Discharge Home with Infusion Per MD, pt medically stable to d/c home today with ongoing IV infusion and outpt f/u and no identified barriers to discharge. SW confirmed with [facility] that they have spoken to patient and have their RN start of care scheduled for today at 1400 in patient's home in [place]. SW faxed PICC insertion record and discharge summary to [facility] to review and they already have orders and clinicals. SW met bedside with pt and explained role and she confirms her preference is to d/c home today and has been mobilizing independently and pt states she just walks slowly as she knows she is not as steady anymore and typically likes to use walking sticks and prefers to avoid FWW. Pt states her son is currently at her house 10 min away in [place] by the [facility] and will provide transport home when d/c pwk completed. Pt aware of the SOC with [facility] at 1400 at home. Pt denies any further d/c needs at this time. SW updated RN and he will complete the d/c instructions after lunchtime and pt will call her son for transport. Jessica Ríos, LEARNING COACH
--- NOTE | 2024-09-19 13:00 | PC.NURSE ---
Pt alert and oriented, conversant. [employer] [place]. follows commands. Readying for D/C Picc in place. Pt to meet [facility] at Pt's house at 14:00. Pt escorted to car and care of son by [facility].
== END 2024-09-19 13:00 | disposition home or self-care (01) | DRG 683 ==
LOC: ED 13:51 → AC 14:07
PROVIDERS: Internal Medicine; Admitting Provider Hospitalist; Emergency Provider Emergency Medicine; PCP Family Medicine; Referring Provider Emergency Medicine; Visit Provider Hospitalist
DX: N17.9 Acute kidney failure, unspecified (principal); E87.1 Hypo-osmolality and hyponatremia; L03.116 Cellulitis of left lower limb; K52.9 Noninfective gastroenteritis and colitis, unspecified; E86.1 Hypovolemia; M06.9 Rheumatoid arthritis, unspecified; M35.3 Polymyalgia rheumatica; G47.33 Obstructive sleep apnea (adult) (pediatric); B35.1 Tinea unguium; I12.9 Hypertensive chronic kidney disease with stage 1 through stage 4 chronic kidney disease, or unspecified chronic kidney disease; N18.31 Chronic kidney disease, stage 3a; B95.4 Other streptococcus as the cause of diseases classified elsewhere; L50.9 Urticaria, unspecified; Z88.1 Allergy status to other antibiotic agents; Z79.69 Long term (current) use of other immunomodulators and immunosuppressants
CPT/HCPCS: 0241U; 36415; 36569; 71045; 74176; 80048; 80053; 81003; 81015; 83605; 83690; 85007; 85025; 85610; 87040; 87077; 87086; 87147; 87186; 87507; 93005; 96361; 96365; 99284; J0696; J1642; J1644; J1956

== ENCOUNTER → 2024-10-09 09:15 | Outpatient (CLI) | payer MEDICARE, OTHER, SELFPAY ==
[2024-09-14 15:27] VITALS: BMI 31.7
--- NOTE | 2024-10-09 10:20 | EKG_ITS ---
[id number] [address] Test Date: 2024-10-09 Pat Name: Jesenia Armijo Department: [facility] Room: Gender: Female Data Security Coordinator: JEN : 1940 Requested By: Order Number: [id number] Reading MD: Danielito Frost MD Measurements Intervals [place] Rate: 80 P: 55 NC: 174 QRS: 13 QRSD: 90 T: 32 QT: 384 QTc: 442 Interpretive Statements Sinus rhythm with premature atrial complexes Electronically Signed On 10-09-2024 12:04:07 PST by Danielito Frost MD
[2024-10-09 10:38] LABS: BUN Creatinine Ratio 13.1 (6-22); Blood Urea Nitrogen 18 mg/dL (7-17); Calcium 9.2 mg/dL (8.4-10.2); Carbon Dioxide 28 mmol/L (22-32); Chloride 93 mmol/L (98-107); Estimated Glomerular Filt Rate 38 mL/min (>60); Glucose 164 mg/dL (80-110); HEMOLYSIS < 15 (0-50); Potassium 3.7 mmol/L (3.4-5.1); Sodium 129 mmol/L (137-145)
== END ==
PROVIDERS: PCP Family Medicine; Referring Provider Physician Assistant Medical; Visit Provider Physician Assistant Medical
DX: E87.1 Hypo-osmolality and hyponatremia (principal); M06.9 Rheumatoid arthritis, unspecified; R78.81 Bacteremia
CPT/HCPCS: 36415; 80048; 87040; 93005; 93010

== ENCOUNTER → 2024-10-13 15:02 | Outpatient (CLI) | payer MEDICARE, OTHER, SELFPAY ==
[2024-09-14 15:27] VITALS: BMI 31.7
--- NOTE | 2024-10-13 15:03 | DI.US.S_ITS ---
PROCEDURE: US RENAL COMPLETE INDICATIONS: abnormal renal labs TECHNIQUE: Real-time scanning was performed of the kidneys and bladder, with image documentation. COMPARISON: [facility], CT, CT ABDOMEN PELVIS WO CON, 09/12/2024, 21:46. FINDINGS: Kidneys: Kidneys are normal in size. Right kidney measures 0.3 cm long; left kidney measures 9.0 cm long. Right renal cortical thickness is 1.8 cm; left renal cortical thickness is 2.0 cm. Renal cortical echotexture is normal. No hydronephrosis or nephrolithiasis. No suspicious solid mass lesions. 1.1 cm cortical cyst in kidney. Bladder: Pre-void bladder volume is 245 mL. Post-void residual is 12 mL. Pre-void images demonstrate no intraluminal masses or stones. On pre-void images, bilateral ureteral jets are noted with color Doppler interrogation. (Of note, ureteral jets may not be detectable in up to 25% of cases due to insufficient differences in specific gravity between ureteral and bladder urine). Miscellaneous: No free pelvic fluid. IMPRESSION: Renal morphology without evidence of obstruction. Small postvoid residual in the urinary bladder. Dictated by: Yuly Holcomb M.D. on 10/13/2024 at 18:44 Approved by: Yuly Holcomb M.D. on 10/13/2024 at 18:45
== END ==
PROVIDERS: PCP Family Medicine; Referring Provider Family Medicine; Visit Provider Family Medicine
DX: N18.31 Chronic kidney disease, stage 3a (principal); R33.9 Retention of urine, unspecified; N28.1 Cyst of kidney, acquired
CPT/HCPCS: 76770

== ENCOUNTER → 2024-11-10 11:53 | Outpatient (CLI) | payer MEDICARE, OTHER, SELFPAY ==
[2024-09-14 15:27] VITALS: BMI 31.7
[2024-11-10 13:29] LABS: Add Manual Diff / Slide Review NO; Basophils Absolute Auto 100 /uL (0-100); Basophils Percent Auto 1.5 % (0-2); Eosinophils Absolute Auto 500 /uL (0-450); Eosinophils Percent Auto 8.9 % (2-4); Hematocrit 33.2 % (36-46); Hemoglobin 11.6 g/dL (12.0-16.0); Lymphocytes Absolute Auto 1300 /uL (1100-4500); Lymphocytes Percent Auto 22.8 % (25-40); Mean Corpuscular HGB Conc 34.9 % (30-36); Mean Corpuscular Hemoglobin 29.7 PG (26-34); Monocytes Absolute Auto 800 /uL (0-900); Monocytes Percent Auto 13.6 % (3-14); Neutrophils Absolute Auto 3100 /uL (1500-7000); Neutrophils Percent Auto 53.2 % (50-75); Platelet Count 290 X10^3/uL (150-400); Red Blood Cell Count 3.91 X10^6/uL (4.0-5.2); Red Cell Distribution Width 13.3 % (11.6-14.8); White Blood Cell Count 5.8 X10^3/uL (4.5-11.0)
[2024-11-10 13:52] LABS: Erythrocyte Sedimentation Rate 32 MM/HR (0-20)
[2024-11-10 14:03] LABS: Alanine Aminotransferase 23 IU/L (<35); Albumin 4.2 g/dL (3.5-5.0); Albumin Globulin Ratio 1.9 (1.0-2.8); Alkaline Phosphatase 84 U/L (38-126); Aspartate Aminotransferase 31 IU/L (14-36); BUN Creatinine Ratio 13.3 (6-22); Bilirubin Total 0.4 mg/dL (0.2-1.3); Blood Urea Nitrogen 19 mg/dL (7-17); C-Reactive Protein Quant < 0.5 mg/dL (<1.0); Calcium 9.6 mg/dL (8.4-10.2); Carbon Dioxide 28 mmol/L (22-32); Chloride 94 mmol/L (98-107); Estimated Glomerular Filt Rate 36 mL/min (>60); Globulin 2.2 g/dL (1.7-4.1); Glucose 142 mg/dL (80-110); HEMOLYSIS < 15 (0-50); Potassium 4.4 mmol/L (3.4-5.1); Sodium 130 mmol/L (137-145); Total Protein 6.4 g/dL (6.3-8.2)
== END ==
LOC: LAB 11:55
PROVIDERS: PCP Family Medicine; Referring Provider Physician Assistant Medical; Visit Provider Physician Assistant Medical
DX: M06.9 Rheumatoid arthritis, unspecified (principal)
CPT/HCPCS: 36415; 80053; 85025; 85651; 86140

== ENCOUNTER → 2025-01-07 12:00 | Outpatient (CLI) | payer MEDICARE, OTHER, SELFPAY ==
[2024-09-14 15:27] VITALS: BMI 31.7
[2025-01-07 13:10] LABS: Add Manual Diff / Slide Review NO; Basophils Absolute Auto 0 /uL (0-100); Basophils Percent Auto 0.7 % (0-2); Eosinophils Absolute Auto 400 /uL (0-450); Eosinophils Percent Auto 6.9 % (2-4); Hematocrit 32.7 % (36-46); Hemoglobin 11.4 g/dL (12.0-16.0); Lymphocytes Absolute Auto 1200 /uL (1100-4500); Mean Corpuscular HGB Conc 34.8 % (30-36); Mean Corpuscular Hemoglobin 29.3 PG (26-34); Mean Corpuscular Volume 84.4 fL (80-100); Monocytes Absolute Auto 800 /uL (0-900); Monocytes Percent Auto 14.5 % (3-14); Neutrophils Absolute Auto 3000 /uL (1500-7000); Neutrophils Percent Auto 55.9 % (50-75); Platelet Count 265 X10^3/uL (150-400); Red Blood Cell Count 3.87 X10^6/uL (4.0-5.2); Red Cell Distribution Width 13.5 % (11.6-14.8); White Blood Cell Count 5.4 X10^3/uL (4.5-11.0)
[2025-01-07 13:28] LABS: Alanine Aminotransferase 30 IU/L (<35); Albumin 4.4 g/dL (3.5-5.0); Alkaline Phosphatase 86 U/L (38-126); Aspartate Aminotransferase 36 IU/L (14-36); Bilirubin Total 0.5 mg/dL (0.2-1.3); Blood Urea Nitrogen 18 mg/dL (7-17); C-Reactive Protein Quant < 0.5 mg/dL (<1.0); Calcium 9.5 mg/dL (8.4-10.2); Carbon Dioxide 28 mmol/L (22-32); Chloride 95 mmol/L (98-107); Estimated Glomerular Filt Rate 41 mL/min (>60); Globulin 2.2 g/dL (1.7-4.1); Glucose 116 mg/dL (80-110); HEMOLYSIS < 15 (0-50); Potassium 4.4 mmol/L (3.4-5.1); Sodium 130 mmol/L (137-145); Total Protein 6.6 g/dL (6.3-8.2)
[2025-01-07 13:46] LABS: Erythrocyte Sedimentation Rate 29 MM/HR (0-20)
[2025-01-07 14:38] LABS: Creatinine Urine Random 42.38 mg/dL; Protein (Total) Urine Random 11 mg/dL (0-12); Protein Creatinine Ratio Urine 0.25 GRAM/24H
== END ==
PROVIDERS: Physician Assistant Medical; PCP Family Medicine; Referring Provider Family Medicine; Visit Provider Student in an Organized Health Care Education/Training Program
DX: N05.9 Unspecified nephritic syndrome with unspecified morphologic changes (principal); D70.9 Neutropenia, unspecified; D63.1 Anemia in chronic kidney disease; R80.9 Proteinuria, unspecified; M06.9 Rheumatoid arthritis, unspecified
CPT/HCPCS: 36415; 80053; 82570; 84156; 85025; 85651; 86140

== ENCOUNTER → 2025-01-27 13:55 | Outpatient (CLI) | payer MEDICARE, OTHER, SELFPAY ==
[2024-09-14 15:27] VITALS: BMI 31.7
[2025-01-27 14:48] LABS: Hematocrit 31.1 % (36-46); Hemoglobin 10.8 g/dL (12.0-16.0)
[2025-01-27 15:44] LABS: BUN Creatinine Ratio 12.4 (6-22); Blood Urea Nitrogen 17 mg/dL (7-17); Calcium 9.4 mg/dL (8.4-10.2); Carbon Dioxide 24 mmol/L (22-32); Chloride 102 mmol/L (98-107); Estimated Glomerular Filt Rate 38 mL/min (>60); Glucose 114 mg/dL (70-99); HEMOLYSIS < 15 (0-50); Phosphorous 3.9 mg/dL (2.8-4.1); Potassium 4.5 mmol/L (3.4-5.1); Sodium 134 mmol/L (137-145)
[2025-01-27 16:12] LABS: Creatinine Urine Random 28.64 mg/dL; Protein (Total) Urine Random 13 mg/dL (0-12); Protein Creatinine Ratio Urine 0.45 GRAM/24H
[2025-01-29 07:40] LABS: Parathyroid Hormone Int 77 pg/mL (15-65)
== END ==
LOC: LAB 14:00 → DI 14:56
PROVIDERS: PCP Family Medicine; Referring Provider Student in an Organized Health Care Education/Training Program; Visit Provider Student in an Organized Health Care Education/Training Program
DX: N05.9 Unspecified nephritic syndrome with unspecified morphologic changes (principal); R80.9 Proteinuria, unspecified; D70.9 Neutropenia, unspecified; D63.1 Anemia in chronic kidney disease; E83.30 Disorder of phosphorus metabolism, unspecified; N25.81 Secondary hyperparathyroidism of renal origin
CPT/HCPCS: 36415; 80048; 82570; 83970; 84100; 84156; 85014; 85018

== ENCOUNTER → 2025-04-15 12:13 | Outpatient (CLI) | payer MEDICARE, OTHER, SELFPAY ==
[2024-09-14 15:27] VITALS: BMI 31.7
[2025-04-15 13:35] LABS: Add Manual Diff / Slide Review NO; Hematocrit 33.5 % (36-46); Hemoglobin 11.7 g/dL (12.0-16.0); Lymphocytes Absolute Auto 1000 /uL (1100-4500); Mean Corpuscular HGB Conc 35.0 % (30-36); Mean Corpuscular Hemoglobin 30.1 PG (26-34); Mean Corpuscular Volume 86.1 fL (80-100); Platelet Count 202 X10^3/uL (150-400)
[2025-04-15 13:44] LABS: Hemoglobin A1C% w Est Avg Glu 5.1 % (4.0-6.0)
[2025-04-15 13:54] LABS: Alanine Aminotransferase 30 IU/L (<35); Albumin 4.5 g/dL (3.5-5.0); Albumin Globulin Ratio 2.3 (1.0-2.8); Alkaline Phosphatase 72 U/L (38-126); Blood Urea Nitrogen 17 mg/dL (7-17); Calcium 9.6 mg/dL (8.4-10.2); Carbon Dioxide 22 mmol/L (22-32); Chloride 101 mmol/L (98-107); Estimated Glomerular Filt Rate 47 mL/min (>60); Globulin 2.0 g/dL (1.7-4.1); Glucose 95 mg/dL (70-99); HEMOLYSIS < 15 (0-50); Phosphorous 4.1 mg/dL (2.8-4.1); Potassium 4.3 mmol/L (3.4-5.1); Sodium 132 mmol/L (137-145); Total Protein 6.5 g/dL (6.3-8.2)
[2025-04-15 14:14] LABS: Protein (Total) Urine Random 12 mg/dL (0-12); Protein Creatinine Ratio Urine 0.54 GRAM/24H
== END ==
PROVIDERS: PCP Family Medicine; Referring Provider Student in an Organized Health Care Education/Training Program; Visit Provider Student in an Organized Health Care Education/Training Program
DX: M06.9 Rheumatoid arthritis, unspecified (principal); N18.32 Chronic kidney disease, stage 3b
CPT/HCPCS: 36415; 80053; 80069; 82570; 83036; 83970; 84156; 85025; 85651; 86140

== ENCOUNTER → 2025-06-22 10:10 | Outpatient (CLI) | payer MEDICARE, OTHER, SELFPAY ==
[2024-09-14 15:27] VITALS: BMI 31.7
[2025-06-22 11:34] LABS: Add Manual Diff / Slide Review NO; Hematocrit 33.6 % (36-46); Hemoglobin 11.7 g/dL (12.0-16.0); Lymphocytes Absolute Auto 1200 /uL (1100-4500); Mean Corpuscular HGB Conc 34.7 % (30-36); Mean Corpuscular Hemoglobin 30.0 PG (26-34); Mean Corpuscular Volume 86.4 fL (80-100); Platelet Count 238 X10^3/uL (150-400)
[2025-06-22 11:59] LABS: Blood Urea Nitrogen 19 mg/dL (7-17); Calcium 9.4 mg/dL (8.4-10.2); Carbon Dioxide 25 mmol/L (22-32); Chloride 99 mmol/L (98-107); Estimated Glomerular Filt Rate 44 mL/min (>60); Glucose 97 mg/dL (70-99); HEMOLYSIS < 15 (0-50); Potassium 4.4 mmol/L (3.4-5.1); Sodium 131 mmol/L (137-145)
[2025-06-22 12:01] LABS: Protein (Total) Urine Random 10 mg/dL (0-12); Protein Creatinine Ratio Urine 0.27 GRAM/24H
[2025-06-22 12:03] LABS: Alanine Aminotransferase 24 IU/L (<35); Albumin 4.4 g/dL (3.5-5.0); Albumin Globulin Ratio 2.2 (1.0-2.8); Alkaline Phosphatase 74 U/L (38-126); Globulin 2.0 g/dL (1.7-4.1); HEMOLYSIS < 15 (0-50); Total Protein 6.4 g/dL (6.3-8.2)
== END ==
PROVIDERS: Student in an Organized Health Care Education/Training Program; PCP Family Medicine; Referring Provider Family Medicine; Visit Provider Physician Assistant Medical
DX: D70.9 Neutropenia, unspecified (principal); M06.9 Rheumatoid arthritis, unspecified; N05.9 Unspecified nephritic syndrome with unspecified morphologic changes; N25.81 Secondary hyperparathyroidism of renal origin; R80.9 Proteinuria, unspecified; D63.1 Anemia in chronic kidney disease
CPT/HCPCS: 36415; 80048; 80076; 82570; 83970; 84156; 85025

== ENCOUNTER → 2025-07-26 11:28 | Outpatient (CLI) | payer MEDICARE, OTHER, SELFPAY ==
[2024-09-14 15:27] VITALS: BMI 31.7
[2025-07-26 12:17] LABS: Appearance Urine UA CLEAR; Bilirubin Urine UA NEGATIVE (NEGATIVE); Color Urine UA YELLOW; Glucose Urine UA NEGATIVE (Negative); Ketones Urine UA NEGATIVE (NEGATIVE); Leukocyte Esterase Urine UA 1+ (NEGATIVE); Nitrite Urine UA NEGATIVE (Negative); Occult Blood Urine UA NEGATIVE (Negative); Protein Urine UA NEGATIVE (Negative); Specific Gravity Urine UA <=1.005 (1.000-1.035); Urobilinogen Urine UA 0.2 E.U./dL (0.2)
[2025-07-26 12:18] LABS: pH Urine UA 5.5 (4.5-8.0)
[2025-07-26 12:19] LABS: Culture Indicated Urine Specimen Cultured
[2025-07-26 12:48] LABS: HEMOLYSIS < 15 (0-50)
[2025-07-26 12:55] LABS: Blood Urea Nitrogen 13 mg/dL (7-17); Calcium 9.1 mg/dL (8.4-10.2); Carbon Dioxide 24 mmol/L (22-32); Chloride 100 mmol/L (98-107); Estimated Glomerular Filt Rate 52 mL/min (>60); Glucose 108 mg/dL (70-99); Potassium 4.1 mmol/L (3.4-5.1); Sodium 131 mmol/L (137-145)
[2025-07-26 13:22] LABS: Thyroid Stimulating Hormone 0.908 uIU/mL (0.47-4.68)
[2025-07-27 15:36] LABS: Osmolality, Serum 270 mOsmol/kg (280-301)
== END ==
PROVIDERS: PCP Family Medicine; Referring Provider Student in an Organized Health Care Education/Training Program; Visit Provider Student in an Organized Health Care Education/Training Program
DX: E03.9 Hypothyroidism, unspecified (principal); E87.1 Hypo-osmolality and hyponatremia; N05.9 Unspecified nephritic syndrome with unspecified morphologic changes; N30.00 Acute cystitis without hematuria
CPT/HCPCS: 36415; 80048; 81001; 82533; 83930; 83935; 84300; 84443; 87086

== ENCOUNTER → 2025-09-10 10:05 | Outpatient (CLI) | payer MEDICARE, OTHER, SELFPAY ==
[2024-09-14 15:27] VITALS: BMI 31.7
[2025-09-10 10:28] LABS: Add Manual Diff / Slide Review NO; Hematocrit 31.5 % (36-46); Hemoglobin 10.9 g/dL (12.0-16.0); Lymphocytes Absolute Auto 400 /uL (1100-4500); Mean Corpuscular HGB Conc 34.6 % (30-36); Mean Corpuscular Hemoglobin 30.2 PG (26-34); Mean Corpuscular Volume 87.3 fL (80-100); Platelet Count 188 X10^3/uL (150-400)
== END ==
PROVIDERS: PCP Family Medicine; Referring Provider Physician Assistant Medical; Visit Provider Physician Assistant Medical
DX: M06.9 Rheumatoid arthritis, unspecified (principal)
CPT/HCPCS: 36415; 85025